=== PATIENT | male | born 1950 | race Caucasian/White ===

== ENCOUNTER 2020-05-05 07:24 | Outpatient (REF) | payer MEDICARE, SELFPAY | END 2020-05-05 07:25 | disposition home or self-care (01) | LOC: HO.WFDLDS 07:24 | PROVIDERS: Visit Provider Internal Medicine | DX: Z20.828 Contact with and (suspected) exposure to other viral communicable diseases (principal) | CPT/HCPCS: C9803; U0003 ==

== ENCOUNTER 2023-09-05 15:30 | Outpatient (REF) | payer MEDICARE, SELFPAY | END 2023-09-05 15:31 | disposition home or self-care (01) | LOC: HO.HOSX 15:30 | PROVIDERS: Visit Provider Orthopaedic Surgery | DX: Z13.89 Encounter for screening for other disorder (principal) ==

== ENCOUNTER 2023-09-06 09:45 | Outpatient (AMB) | payer MEDICARE, SELFPAY ==
--- NOTE | 2023-09-06 09:46 | MHC.OFFVIS ---
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 He describes his pain as sharp in nature. Most of the pain is along the medial aspect of his knee. His symptoms have gotten worse over the last year in spite of continued non operative treatments. He has had injections in the past which gave him minimal relief. He has also tried Tylenol, anti-inflammatory medicines and CBD cream which gave him mild relief. He states that his left knee will give out several times per day. The patient states that he recently had fluid drained from his right knee. He was told that there were gouty crystals within the fluid. He does not take any medicines for gout at this time. 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 Allergies No Known Allergies Allergy (Verified 09/06/23 10:09) PFSH Surgical History (Updated 09/06/23 @ 10:11 by Sandra Guillen CMA) History of ankle surgery Hx of left knee surgery Social History (Updated 09/06/23 @ 10:14 by Sandra Guillen CMA) Patient Tobacco Use Status: Never used Tobacco Current occupational status: retired Physical Exam Vital Signs: BMI result Body Mass Index 31.2 Const Other: Well-nourished well-developed very friendly male awake alert and oriented x3 in no acute distress Extrem Other: Bilateral lower extremity examination shows good capillary refill, no skin lesions noted, normal sensation light touch Left knee examination shows a minimal effusion, minimal crepitus with range of motion, tenderness along his medial joint line, positive Milly's test, no instability Office Procedures Joint Injection/Drain Joint Injection/Drain Primary Site: left knee Prep: site was prepped using aseptic technique Injected: 40 mg of, DepoMedrol and 1% plain lidocaine Procedure: The patient tolerated the procedure well Coding 26923 - Large joint Procedure code (CPT) selection complete Results Reviewed Results Reviewed: Standing full weight-bearing x-rays of the patient's left knee show mild diffuse joint space narrowing, no acute bony abnormalities Assessment & Plan Assessment & Plan (1) Left knee pain: Code(s): M25.562 - Pain in left knee Plan Mr. Gauthier presents with left knee pain and mechanical symptoms most likely due to a tear of his medial meniscus. I had a lengthy discussion with the patient regarding the treatment options. The risks and benefits of a another cortisone injection were discussed at length with the patient. The patient wished to proceed. Tolerated the injection well. In order to further evaluate the status of his medial meniscus I will also send him for an MRI of his left knee. I will also have him evaluated in our Rheumatology Department because of his history of gout. I will see him back once the MRI is completed to discuss the findings and treatment options. Feel free to call me at any time should questions regarding his orthopedic management arise. I spent 22 minutes in reviewing the patient's records and imaging studies, seeing the patient and documenting in the medical record. Orders: Orders XR knee LT 3V 09/06/23 M25.562 - Pain in left knee MR knee LT wo con 09/06/23 M25.562 - Pain in left knee AMB Joint Injection/Aspiration 09/06/23 M25.562 - Pain in left knee Referrals Rheumatology Referral M10.9 - Gout, unspecified Medications: New lorazepam (Ativan) Take 1 tab two hours before your MRI; take 2nd tab thirty minutes before your MRI 0.5 mg PO ONCE 2 tabs 0RF Coding Level of Care Code Est Pt Level 2 (99398) Diagnoses Left knee pain M25.562 CPT Codes Coding - 54317 Large joint: 01990 - Large joint ([id number])
[2023-09-06 10:06] VITALS: BMI 31.2
== END 2023-09-06 10:42 | disposition home or self-care (01) ==
PROVIDERS: Visit Provider Orthopaedic Surgery
DX: M25.562 Pain in left knee (principal)
CPT/HCPCS: 20610; 99213

== ENCOUNTER 2023-09-06 15:30 | Outpatient (REF) | payer MEDICARE, SELFPAY ==
--- NOTE | ~2023-09-06 | XR_ITS ---
EXAMINATION: XR KNEE, LEFT CLINICAL INFORMATION: Pain in left knee. COMPARISON: None available. TECHNIQUE: Three views of the left knee. FINDINGS: Mild narrowing of the medial and lateral compartments. Tiny tricompartmental osteophytes. Moderate suprapatellar effusion. Faint soft tissue calcifications characteristic of vascular calcifications. XR/XR knee LT 3V IMPRESSION: Mild degenerative changes.
== END 2023-09-06 15:31 | disposition home or self-care (01) ==
LOC: HO.HOSX 15:30
PROVIDERS: Visit Provider Orthopaedic Surgery
DX: M25.562 Pain in left knee (principal)
CPT/HCPCS: 20610; 73562; 99212; J1020

== ENCOUNTER 2023-09-25 09:40 | Outpatient (AMB) | payer MEDICARE, SELFPAY ==
[2023-09-25 09:41] VITALS: BMI 31.2
--- NOTE | 2023-09-25 09:41 | MHC.OFFVIS ---
Intake Vital Signs 09/25/23 09:41 Height 5 ft 8 in Weight 205 lb BMI 31.2 Intake Visit Reasons: OV-Left knee MRI review Intake Note: John is a 72 year old male who presents for his MRI review of his Left knee. The patient states that he did undergo left knee arthroscopic surgery several years ago. He got very good relief from the arthroscopic procedure. He states that he re-injured his knee approximately 1 year ago. He twisted his knee and had acute onset of pain. Since that time his symptoms have gotten worse in spite of continued non operative treatments. He has tried wearing a knee brace which gives him minimal relief. He has also tried Tylenol and anti-inflammatory medicines which gave him only mild relief. Has had cortisone injections in the past which gave him temporary relief. He states that his left knee will give out several times per day. Has not been able to sleep well or play golf because of his pain. Allergies No Known Allergies Allergy (Verified 09/25/23 09:42) Medication List - Last Reconciled 09/25/23 by Adonis Saenz MD amlodipine 5 mg PO DAILY amlodipine 10 mg PO DAILY aspirin 1 tab PO DAILY dulaglutide (Trulicity) mg subcut glipizide ER 10 mg PO BID lisinopril-hydrochlorothiazide 20-25 mg 1 tab PO DAILY lorazepam (Ativan) 0.5 mg PO ONCE prednisone mg PO PFSH Surgical History History of ankle surgery Hx of left knee surgery Social History Patient Tobacco Use Status: Never used Tobacco Current occupational status: retired Physical Exam Vital Signs: BMI result Body Mass Index 31.2 Const Other: Well-nourished well-developed very friendly male awake alert and oriented x3 in no acute distress Extrem Other: Bilateral lower extremity examination shows good capillary refill, no skin lesions noted, normal sensation light touch Left knee examination shows a minimal effusion, minimal crepitus with range of motion, tenderness along his medial joint line, positive Milly's test, no instability Results Reviewed Results Reviewed: Standing full weight-bearing x-rays of the patient's left knee show mild diffuse joint space narrowing, no acute bony abnormalities MRI of the patient's left knee shows a tear of the medial meniscus, mild diffuse degenerative changes, no acute bony abnormalities Assessment & Plan Assessment & Plan (1) Left knee pain: Code(s): M25.562 - Pain in left knee Plan Mr. Gauthier presents with progressively worsening left knee pain and mechanical symptoms due to degenerative joint disease as well as a tear of his medial meniscus. I had a lengthy discussion with the patient regarding the treatment options. At this point he has failed continued non operative treatments. The risks and benefits of left knee arthroscopic surgery were discussed at length with the patient. The patient wishes to proceed with surgery. Surgery will most likely involve left knee arthroscopic partial medial meniscectomy. The patient will be scheduled for next available date. He will follow-up as instructed. I spent 22 minutes in reviewing the patient's records and imaging studies, seeing the patient and documenting in the medical record. Coding Level of Care Code Est Pt Level 2 (30761) Diagnoses Left knee pain M25.562
== END 2023-09-25 09:58 | disposition home or self-care (01) ==
PROVIDERS: Visit Provider Orthopaedic Surgery
DX: M25.562 Pain in left knee (principal)
CPT/HCPCS: 99214

== ENCOUNTER → 2023-09-25 09:40 | Outpatient (BNVA) | payer MEDICARE, SELFPAY | PROVIDERS: Visit Provider Orthopaedic Surgery | DX: M25.562 Pain in left knee (principal) | CPT/HCPCS: 99212 ==

== ENCOUNTER 2023-10-09 10:24 | Outpatient (REF) | payer MEDICARE, SELFPAY ==
--- NOTE | ~2023-10-09 | XR_ITS ---
EXAMINATION: XR ELBOW, RIGHT XR HAND/WRIST, BILATERAL CLINICAL INFORMATION: Gout, pain in bilateral hands and elbows, no injury. COMPARISON: Left elbow images of 10/09/2023. TECHNIQUE: AP, lateral and oblique views of the right elbow. 4 views of each hand. FINDINGS: RIGHT ELBOW: Alignment is anatomic. Joint spaces are preserved. Mild soft tissue swelling over the olecranon characteristic of olecranon bursitis. Small calcifications adjacent to the medial and lateral epicondyles, suggesting possible tendinosis. Small calcification along the medial aspect of the distal humerus. RIGHT HAND: Marked degenerative changes in the first carpometacarpal joint with joint space narrowing and hypertrophic change. Moderate degenerative changes with hypertrophic change and joint space narrowing in scattered IP joints of the digits as well as in the first metacarpophalangeal joint. Moderate degenerative changes in the IP joint of the thumb. Sclerotic focus overlying the distal ulna characteristic of a bone island. LEFT HAND: Jmcdiinn-hs-ahdomy degenerative changes in the first carpometacarpal joint with joint space narrowing and hypertrophic change. The bones are diffusely demineralized. Mild degenerative changes with joint space narrowing and hypertrophic change in scattered IP joints, particularly DIP joints. Radiopaque marker placed to indicate area of concern indicated by patient at radial aspect of left wrist. XR/XR elbow RT min 3V IMPRESSION: 1. Mild soft tissue swelling over the olecranon characteristic of olecranon bursitis. 2. Small calcifications adjacent to the medial and lateral epicondyles, suggesting possible tendinosis. 3. Oypbgfcf-gu-ycockp degenerative changes in bilateral first carpometacarpal joints, right greater than left. 4. Mild degenerative changes in scattered IP joints of the bilateral hands. 5. Recommend follow up imaging in 10-14 days if fracture is suspected.
--- NOTE | ~2023-10-09 | XR_ITS ---
EXAMINATION: XR ELBOW, RIGHT XR HAND/WRIST, BILATERAL CLINICAL INFORMATION: Gout, pain in bilateral hands and elbows, no injury. COMPARISON: Left elbow images of 10/09/2023. TECHNIQUE: AP, lateral and oblique views of the right elbow. 4 views of each hand. FINDINGS: RIGHT ELBOW: Alignment is anatomic. Joint spaces are preserved. Mild soft tissue swelling over the olecranon characteristic of olecranon bursitis. Small calcifications adjacent to the medial and lateral epicondyles, suggesting possible tendinosis. Small calcification along the medial aspect of the distal humerus. RIGHT HAND: Marked degenerative changes in the first carpometacarpal joint with joint space narrowing and hypertrophic change. Moderate degenerative changes with hypertrophic change and joint space narrowing in scattered IP joints of the digits as well as in the first metacarpophalangeal joint. Moderate degenerative changes in the IP joint of the thumb. Sclerotic focus overlying the distal ulna characteristic of a bone island. LEFT HAND: Ahgmhsle-tp-sioobe degenerative changes in the first carpometacarpal joint with joint space narrowing and hypertrophic change. The bones are diffusely demineralized. Mild degenerative changes with joint space narrowing and hypertrophic change in scattered IP joints, particularly DIP joints. Radiopaque marker placed to indicate area of concern indicated by patient at radial aspect of left wrist. XR/XR hand wrist LT IMPRESSION: 1. Mild soft tissue swelling over the olecranon characteristic of olecranon bursitis. 2. Small calcifications adjacent to the medial and lateral epicondyles, suggesting possible tendinosis. 3. Yykshuif-lz-xnnwlg degenerative changes in bilateral first carpometacarpal joints, right greater than left. 4. Mild degenerative changes in scattered IP joints of the bilateral hands. 5. Recommend follow up imaging in 10-14 days if fracture is suspected.
--- NOTE | ~2023-10-09 | XR_ITS ---
EXAMINATION: XR ELBOW, RIGHT XR HAND/WRIST, BILATERAL CLINICAL INFORMATION: Gout, pain in bilateral hands and elbows, no injury. COMPARISON: Left elbow images of 10/09/2023. TECHNIQUE: AP, lateral and oblique views of the right elbow. 4 views of each hand. FINDINGS: RIGHT ELBOW: Alignment is anatomic. Joint spaces are preserved. Mild soft tissue swelling over the olecranon characteristic of olecranon bursitis. Small calcifications adjacent to the medial and lateral epicondyles, suggesting possible tendinosis. Small calcification along the medial aspect of the distal humerus. RIGHT HAND: Marked degenerative changes in the first carpometacarpal joint with joint space narrowing and hypertrophic change. Moderate degenerative changes with hypertrophic change and joint space narrowing in scattered IP joints of the digits as well as in the first metacarpophalangeal joint. Moderate degenerative changes in the IP joint of the thumb. Sclerotic focus overlying the distal ulna characteristic of a bone island. LEFT HAND: Eyxpmtoz-hj-hgqvlj degenerative changes in the first carpometacarpal joint with joint space narrowing and hypertrophic change. The bones are diffusely demineralized. Mild degenerative changes with joint space narrowing and hypertrophic change in scattered IP joints, particularly DIP joints. Radiopaque marker placed to indicate area of concern indicated by patient at radial aspect of left wrist. XR/XR hand wrist RT IMPRESSION: 1. Mild soft tissue swelling over the olecranon characteristic of olecranon bursitis. 2. Small calcifications adjacent to the medial and lateral epicondyles, suggesting possible tendinosis. 3. Foygiycg-xg-pmcsxy degenerative changes in bilateral first carpometacarpal joints, right greater than left. 4. Mild degenerative changes in scattered IP joints of the bilateral hands. 5. Recommend follow up imaging in 10-14 days if fracture is suspected.
--- NOTE | ~2023-10-09 | XR_ITS ---
EXAMINATION: XR ELBOW, LEFT CLINICAL INFORMATION: Gout, unspecified COMPARISON: None available. TECHNIQUE: AP, lateral, and oblique views of the left elbow. FINDINGS: The bones are intact. No fracture or joint effusion. Alignment is anatomic. Joint spaces are maintained. Question small erosions involving the medial epicondyle. Slight calcification adjacent to the lateral epicondyle can be seen with tendinosis. There is mild soft tissue swelling over the olecranon consistent with olecranon bursitis. XR/XR elbow LT min 3V IMPRESSION: 1. Olecranon bursitis. 2. Question of small erosions involving the medial epicondyle. 3. Slight calcification adjacent to the lateral epicondyle can be seen with tendinosis.
[2023-10-09 11:36] LABS: MANUAL DIFF FLAG NO
[2023-10-09 12:46] LABS: Basophils Absolute Auto 0.2 X10*3/uL (0.0-0.2); Basophils Percent Auto 1.4 % (0-2); Eosinophils Absolute Auto 0.3 X10*3/uL (0.0-0.4); Eosinophils Percent Auto 2.7 % (0-4); Hematocrit 38.3 % (42.0-52.0); Hemoglobin 12.8 g/dl (14.0-18.0); Imm Gran Abs Auto 0.05 X10*3/uL (0.00-0.03); Imm Gran Pct Auto 0.5 % (0.0-0.4); Lymphocytes Absolute Auto 1.8 X10*3/uL (1.2-4.9); Lymphocytes Percent Auto 17.4 % (20-40); Mean Corpuscular HGB Conc 33.4 g/dl (31.0-36.0); Mean Corpuscular Hemoglobin 28.1 pg (27.0-33.0); Mean Platelet Volume 11.5 fL (9.4-12.4); Monocytes Absolute Auto 0.8 X10*3/uL (0.1-1.2); Monocytes Percent Auto 7.8 % (2-11); Neutrophils Absolute Auto 7.4 x10*3/uL (2.0-8.3); Neutrophils Percent Auto 70.2 % (45-73); Platelet Count 272 X10*3/uL (160-400); Red Blood Count 4.56 X10*6/uL (4.60-5.80); Red Cell Distribution Width 13.7 % (11.0-16.0); White Blood Count 10.5 X10*3/uL (4.8-10.8)
[2023-10-09 13:06] LABS: Alanine Aminotransferase 23 U/L (0-40); Albumin Level 4.4 g/dL (3.5-5.0); Alkaline Phosphatase 68 U/L (39-117); Anion Gap 13 (12-20); Aspartate Amino Transferase 15 U/L (5-37); Bilirubin Total 0.4 mg/dL (0.0-1.0); Blood Urea Nitrogen 24 mg/dL (9-16); Calcium 9.6 mg/dL (8.4-10.2); Carbon Dioxide 27 mmol/L (22-29); Chloride 102 mmol/L (96-108); Estimated Glomerular Filt Rate 53; Glucose Random 139 mg/dL (60-115); Potassium 3.9 mmol/L (3.3-5.1); Sodium 138 mmol/L (135-145); Total Protein 7.8 g/dL (6.5-8.0); Uric Acid 10.3 mg/dL (3.4-7.0)
== END 2023-10-09 10:25 | disposition home or self-care (01) ==
LOC: HO.XRAY 10:24
PROVIDERS: PCP Internal Medicine; Visit Provider Student in an Organized Health Care Education/Training Program
DX: M10.9 Gout, unspecified (principal)
CPT/HCPCS: 36415; 73080; 73110; 73130; 80053; 84550; 85025; 99202

== ENCOUNTER 2023-10-09 10:24 | Outpatient (AMB) | payer MEDICARE, SELFPAY ==
[2023-10-09 10:26] VITALS: BP 142/68; PULSE 92; O2SAT 96; BMI 33.6
--- NOTE | 2023-10-09 10:26 | A.OFFVIS_ITS ---
Vital Signs 10/09/23 10:26 Height 5 ft 8 in Weight 220 lb 10.923 oz BMI 33.6 BP 142/68 H Blood Pressure Location Rt brachial Position Sitting Pulse 92 Pulse Source Pulse Oximeter Pulse Oximetry (%) 96 Oxygen Delivery Method Room Air Intake Visit Reasons: Gout Intake Note: New pt presents today for Gout consult, internally referred by Ortho. Sees specialists in [place]- PRP done, experienced knee pain. [facility] ED x2 joint aspiration done Gout confirmed, given steroid and felt relief right away. Pain came back 1 week later. 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 Patient states that back in June he had abrupt onset of right knee pain and swelling. He went to the emergency room at [facility] and had right knee arthrocentesis and was told that he has gout. He was treated with oral steroids with rapid resolution of symptoms in a few days. He has not had any similar attacks in his knees. States that last year he developed abrupt onset of right elbow bursitis. Was evaluated by an orthopedist and no treatment was done. It went away spontaneously. States that over the years he would have recurrent attacks of his right foot. States that he was found to have plantar fasciitis which was initially treated by fusion, which was not very helpful then he had another procedure at [place] where they cut out the scar tissue he denies any history of kidney stones he is unaware of any family history of an autoimmune rheumatic disease or gout. Today's doing fairly well except for left knee pain. He has known torn meniscus and planned for surgical repair in the coming week. ON LICENSE OF [facility] Surgical History History of ankle surgery Hx of left knee surgery Social History Alcohol intake: current Alcohol intake frequency: a few times a week Alcohol type: beer Patient Tobacco Use Status: Never used Tobacco Current occupational status: retired Review of Systems Const Reports fatigue Musc Reports arthralgias and Denies joint swelling Endo Reports fatigue Physical Exam Vital Signs: Last Vital Signs Pulse 92 10/09/23 10:26 BP 142/68 H 10/09/23 10:26 Pulse Ox 96 10/09/23 10:26 Oxygen Delivery Method Room Air 10/09/23 10:26 BMI result Body Mass Index 33.6 Const General: cooperative, healthy appearing and comfortable Nutritional Appearance: obese Orientation/consciousness: patient oriented x3 Limitations: no limitations HEENT Head: Yes normocephalic and Yes atraumatic Mouth: moist mucous membranes Resp Effort & Inspection: normal respiratory effort and able to speak in complete sentences Auscultation: clear to auscultation bilaterally Skin General skin exam: no rashes or lesions noted Neuro General: patient oriented x3 Extrem Other: Osteoarthritic changes of both hands with no active synovitis Mild boggy swelling of right external bursa but no warmth or tenderness Normal range of motion of both elbows Left knee pain with any range of motion No active synovitis No tophi noted No swelling or tenderness both ankles and feet Assessment & Plan Assessment & Plan (1) Gout: Code(s): M10.9 - Gout, unspecified Category: Medical Qualifiers: Gout site: multiple sites Gout etiology: idiopathic Chronicity: chronic Presence of tophus: without tophus Qualified Code(s): M1A.09X0 - Idiopathic chronic gout, multiple sites, without tophus (tophi) Plan: This is a 72-year-old male who presents for evaluation of gout. Back in June of 2023 he went to the hospital due to abrupt onset of right knee pain and swelling. Arthrocentesis revealed gout crystals according to patient. Will request records from [facility]. Stated that a few years ago evaluated by hand surgeon and there was suspicion of gout in the hands. Had 1 episode of right elbow bursitis last year which self-resolved. Will check uric acid level. Check x-rays of both elbows and hands. Follow-up in about 6 weeks Plan I spent 36 minutes reviewing patient's chart, evaluating patient, ordering diagnostic workup, counseling patient and documenting in the chart Orders: Orders Uric Acid Today M10.9 - Gout, unspecified XR hand wrist RT Today M10.9 - Gout, unspecified Comprehensive Met. Panel Today M10.9 - Gout, unspecified Complete Blood Count Auto Diff Today M10.9 - Gout, unspecified XR hand wrist LT Today M10.9 - Gout, unspecified XR elbow RT min 3V Today M10.9 - Gout, unspecified XR elbow LT min 3V Today M10.9 - Gout, unspecified
== END 2023-10-09 11:06 | disposition home or self-care (01) ==
PROVIDERS: PCP Internal Medicine; Visit Provider Student in an Organized Health Care Education/Training Program
DX: M1A.09X0 Idiopathic chronic gout, multiple sites, without tophus (tophi) (principal)
CPT/HCPCS: 99203

== ENCOUNTER 2023-10-19 07:06 | Day surgery (SDC) | payer MEDICARE, SELFPAY ==
[2023-10-16 15:00] VITALS: BMI 31.2
--- NOTE | 2023-10-17 12:40 | P.CONAN_ITS ---
HPI - Anesthesia Eval Consult details Narrative: 72yo M for Left Knee Arthroscopy with partial medial meniscectomy Anesthesia Pre-Procedure Meds Is the patient on any of the following meds?: GLP1/DPP4 (trulicity) PMFSH Active Problems Active Problems: All Active Problems Gout (Acute) Left knee pain (Acute) Past Medical History Medical History Gout TIA (transient ischemic attack) Diabetes Elevated cholesterol HTN (hypertension) Surgical History Surgical History H/O colonoscopy History of surgery on lower extremity History of ankle surgery Hx of left knee surgery Social History Social History Are you a primary regular senior care provider to a significant other at home: No Alcohol intake: current Alcohol intake frequency: a few times a week Alcohol type: beer Patient Tobacco Use Status: Former Tobacco user Quit Date: 40 Tobacco use type: Cigarette Current occupational status: retired Meds Allergies Allergy/AdvReac Type Severity Reaction Status Date / Time No Known Allergies Allergy Verified 10/09/23 10:32 Home Medications ?Medication ?Instructions ?Recorded ?Confirmed ?Last Taken ?Type amlodipine 10 mg tablet 10 mg PO QAM 09/06/23 10/16/23 10/19/23 History aspirin 81 mg chewable tablet 1 tab PO DAILY 09/06/23 10/16/23 Unknown History dulaglutide 0.75 mg/0.5 mL 0.75 mg subcut QWEEK 09/06/23 10/16/23 10/01/23 History subcutaneous pen injector (Trulicity) glipizide 5 mg tablet, extended 10 mg PO BID 09/06/23 10/16/23 Unknown History release 24 hr lisinopril 20 2 tab PO QAM 09/06/23 10/16/23 Unknown History mg-hydrochlorothiazide 25 mg tablet atorvastatin 40 mg tablet 40 mg PO DAILY 10/09/23 10/16/23 Unknown History Exam Height,Weight and Vital Signs: Height 5 ft 8 in Weight 92.986 kg Pertinent Lab Results Pertinent Lab Results: Laboratory Tests 10/09/23 11:35 WBC 10.5 Hgb 12.8 L Hct 38.3 L Plt Count 272 Sodium 138 Potassium 3.9 Chloride 102 Carbon Dioxide 27 BUN 24 H Creatinine 1.33 Assessment and Plan Assessment Anesthesia Assessment: Chart Reviewed
[2023-10-19 07:41] VITALS: BMI 33.4
[2023-10-19 07:45] VITALS: BP 125/69; PULSE 94; RESP 18; TEMP 36.6; O2SAT 95
--- NOTE | 2023-10-19 07:45 | P.CONAN_ITS ---
FORMERLY [facility] Active Problems Active Problems: All Active Problems Gout (Acute) Left knee pain (Acute) Past Medical History Medical History Gout TIA (transient ischemic attack) Diabetes Elevated cholesterol HTN (hypertension) Family History Family history of problems with anesthesia: No Surgical History Surgical History H/O colonoscopy History of surgery on lower extremity History of ankle surgery Hx of left knee surgery History of Problems with Anesthesia: No Social History Social History Are you a primary rn medicare to a significant other at home: No Alcohol intake: current Alcohol intake frequency: a few times a week Alcohol type: beer Patient Tobacco Use Status: Former Tobacco user Quit Date: 40 Tobacco use type: Cigarette Use of substances other than those prescribed or required for medical reasons: Yes Substance Use Type Other:: thc gummy for sleep Substance Use Frequency: Daily Have you been hit, kicked, punched, or otherwise hurt by someone within the past year? If so, by whom?: No Are you DNR?: No Advance Directives Information Provided: Yes (as above noted) Advance Directives on File: No Recently lost weight without trying: No Eating poorly because of decreased appetite: No Nutrition Risks: No Nutritional Risk Poor oral hygiene: No Current occupational status: retired [email or web address] Allergies Allergy/AdvReac Type Severity Reaction Status Date / Time No Known Allergies Allergy Verified 10/09/23 10:32 Active Medications: Current Medications Lactated Ringer's (Lr) 1,000 mls @ 100 mls/hr IVCONT .Q10H [facility] Home Medications ?Medication ?Instructions ?Recorded ?Confirmed ?Last Taken ?Type amlodipine 10 mg tablet 10 mg PO QAM 09/06/23 10/16/23 Unknown History aspirin 81 mg chewable tablet 1 tab PO DAILY 09/06/23 10/16/23 Unknown History dulaglutide 0.75 mg/0.5 mL 0.75 mg subcut QWEEK 09/06/23 10/16/23 10/01/23 History subcutaneous pen injector (Trulicity) glipizide 5 mg tablet, extended 10 mg PO BID 09/06/23 10/16/23 Unknown History release 24 hr lisinopril 20 2 tab PO QAM 09/06/23 10/16/23 Unknown History mg-hydrochlorothiazide 25 mg tablet atorvastatin 40 mg tablet 40 mg PO DAILY 10/09/23 10/16/23 Unknown History Exam Height,Weight and Vital Signs: Height 5 ft 8 in Weight 99.79 kg Airway Mallampati Class: II TM Dist: >3cm Neck ROM: Full Heart: RRR Lungs: CTA Assessment and Plan Assessment Anesthesia Assessment: Anesthesia Plan Discussed Final Anesthetic Review Family History of Problems with Anesthesia: No History of Problems with Anesthesia: No NPO: Yes ASA Class: III Final Preanesthetic Review: Meds/Allgs Chart Reviewed, Consent Obtained/Reviewed and Anes Risks/Benef Reviewed Patient Risk: Intermediate Procedure Risk: Low Anesthetic Plan Anesthetic Plan: GA Disposition: Standard PACU
[2023-10-19 07:57] LABS: Glucose, Whole Blood 208 mg/dL (60-115)
[2023-10-19] MEDS: Lactated Ringers 1,000 ML 100 ML IVCONT (08:18)
[2023-10-19] MEDS: Insulin Lispro 100 UNIT/ML 3 ML VIAL SUBCUT (08:18)
--- NOTE | 2023-10-19 09:07 | PC.NURSE ---
ASKED PT IF HE EVER SIGNED ANY PAPERWORK FOR DO NOT RESUSCITATE WHEN ANESTHESIA AT BEDSIDE FOR CONSENT, STATED HE DID NOT SIGN PPWK FOR DNR. CLARIFIED AT BEDSIDE PRIOR TO LEAVING AGAIN WITH DNR CLARIFICATION FORM. ALSO PT WITH ELEVATED BLOOD SUGAR AND GIVEN 5 UNITS LISPRO SC IN PREOP (SEE EMAR)
[2023-10-19 10:20] VITALS: BP 136/72; PULSE 87; RESP 16; TEMP 36.3; O2SAT 96
[2023-10-19 10:25] VITALS: BP 126/75; PULSE 85; RESP 18; O2SAT 94
--- NOTE | 2023-10-19 10:28 | P.BOP_ITS ---
Brief Operative Note Date of Service: 10/19/23 Pre-op diagnosis: Left knee medial meniscus tear, left knee degenerative joint disease Post-op diagnosis: same Procedure: Left knee diagnostic arthroscopy with left knee arthroscopic partial medial meniscectomy, left knee arthroscopic chondroplasty of the undersurface of the patella and medial femoral condyle Implants: none Surgeon: Adonis Saenz MD Anesthesia: GETA Was an Fire Extinguisher Repairer used for this Procedure?: No Estimated blood loss (mL): 10 Pathology: none sent Condition: stable Disposition: PACU
--- NOTE | 2023-10-19 10:29 | W.PM.OPN ---
Operative Note Operative Note Date of Service: 10/19/23 Narrative: After the patient was identified as John Gauthier and his left knee was initialed by myself they were brought to the operating room where general anesthesia was induced by the anesthesiologist in routine fashion. The patient was given 2 g of IV Ancef for infection prophylaxis. The patient's left lower extremity was prepped and draped in sterile fashion. A formal time-out was completed. Marcaine was injected into the planned incision sites as well as the patient's left knee joint. A #11 scalpel blade was used to make an anterolateral portal 1 cm proximal to the joint line and 1 cm lateral to the patellar tendon. Blunt trocar technique was used to enter the suprapatellar pouch with the knee in extension. Diagnostic arthroscopy showed multiple bands of thickened plica which would be excised at the end of the procedure. There were no loose bodies or abnormalities found in either the medial or lateral gutters. The articular surface of the patella showed diffuse grades 2 and 3 degenerative changes. The trochlear groove articular surface showed diffuse grade 2 degenerative changes. The patient's knee was flexed to 45 degrees and a valgus force was placed upon it. The medial compartment was entered. An anteromedial portal was made 1 cm proximal to the joint line and 1 cm medial to the patellar tendon. Probing of the medial meniscus showed a radial tear of the posterior horn. A partial medial meniscectomy was performed using the arthroscopic shaver. Following the partial meniscectomy the remainder of the meniscus tissue was stable. There were diffuse grade 2 degenerative changes of the medial femoral condyle as well as grades 1 and 2 degenerative changes of the medial tibial plateau. The articular surface of the medial femoral condyle was then made smooth using the arthroscopic shaver. The articular surface of the medial tibial plateau was already smooth so no chondroplasty was indicated. The patient's knee was placed into a neutral position. There was no injury to the anterior cruciate ligament. The patient's knee was then placed in the figure of 4 position and the lateral compartment was entered. There was no evidence of lateral meniscus tearing. There were minimal degenerative changes of the lateral femoral condyle and lateral tibial plateau. The patient's knee was once again brought into extension and the suprapatellar pouch was entered. The arthroscopic shaver and the ArthroCare Wand were used to excise the thickened bands of plica. The undersurface of the patella was then made smooth using the arthroscopic shaver. The articular surface of the trochlear groove was already smooth so no chondroplasty was indicated. The knee joint was irrigated and then drained. All arthroscopic instruments were removed. The 2 portals were closed with 3-0 nylon interrupted suture. The knee joint was injected with Marcaine. Dry sterile dressing and Bonifacio bandages were placed over the patient's knee. The patient was awoken and extubated in the operating room. The patient was transferred to the recovery room in stable condition.
[2023-10-19 10:30] VITALS: BP 120/65; PULSE 80; RESP 18; O2SAT 93
[2023-10-19 10:35] VITALS: BP 115/75; PULSE 86; RESP 18; O2SAT 94
[2023-10-19] MEDS: cefTRIAXone sodium 1 GM in 0.9 % Sodium Chloride 50 ML IV (10:42)
[2023-10-19 10:50] VITALS: BP 119/74; PULSE 90; RESP 18; TEMP 36.4; O2SAT 93
--- NOTE | 2023-10-19 14:00 | HO.POSTANES ---
Post Anesthesia Evaluation Post Anesthesia Evaluation Date of Service: 10/19/23 Vital Signs: Vital Signs Temp Pulse Resp BP Pulse Ox O2 Del Method O2 Flow Rate 10/19/23 10:50 97.6 F 90 18 119/74 93 Nasal Cannula 1.5 10/19/23 10:35 86 18 115/75 94 Nasal Cannula 3 10/19/23 10:30 80 18 120/65 93 Nasal Cannula 3 10/19/23 10:25 85 18 126/75 94 Simple Mask 6 10/19/23 10:20 97.4 F 87 16 136/72 96 Simple Mask 6 10/19/23 07:45 97.9 F 94 18 125/69 95 Room Air Anesthesia: General Endotracheal-GETA and General Mental Status: Awake Pain Control: Satisfactory Nausea/Vomiting: None Hydration: Adequate
== END 2023-10-19 11:35 | disposition home or self-care (01) ==
PROVIDERS: PCP Internal Medicine; Visit Provider Orthopaedic Surgery
PROC: (CPT 29870; principal; 2023-10-19 08:30)
DX: S83.242A Other tear of medial meniscus, current injury, left knee, initial encounter (principal); M17.12 Unilateral primary osteoarthritis, left knee; M67.52 Plica syndrome, left knee; X50.1XXA Overexertion from prolonged static or awkward postures, initial encounter; Y93.9 Activity, unspecified; Y92.9 Unspecified place or not applicable; Y99.8 Other external cause status; M10.9 Gout, unspecified; I10 Essential (primary) hypertension; E78.00 Pure hypercholesterolemia, unspecified; E11.9 Type 2 diabetes mellitus without complications; Z86.73 Personal history of transient ischemic attack (TIA), and cerebral infarction without residual deficits; Z79.82 Long term (current) use of aspirin; Z79.84 Long term (current) use of oral hypoglycemic drugs; Z79.85 Long-term (current) use of injectable non-insulin antidiabetic drugs; Z79.52 Long term (current) use of systemic steroids; Z79.899 Other long term (current) drug therapy; Z98.890 Other specified postprocedural states; Z87.891 Personal history of nicotine dependence
CPT/HCPCS: 29881; 82947; J0131; J0171; J0690; J0696; J1100; J2250; J2405; J2704; J2765; J2795; J3010

== ENCOUNTER → 2023-10-19 07:06 | Outpatient (BNV) | payer MEDICARE, SELFPAY | PROVIDERS: PCP Internal Medicine; Visit Provider Orthopaedic Surgery | DX: S83.242A Other tear of medial meniscus, current injury, left knee, initial encounter (principal) | CPT/HCPCS: 29881 ==

== ENCOUNTER 2023-11-01 09:06 | Outpatient (AMB) | payer MEDICARE, SELFPAY ==
--- NOTE | 2023-11-01 09:11 | MHC.OFFVIS ---
Vital Signs 11/01/23 09:12 Height 5 ft 8 in Weight 215 lb BMI 32.7 Intake Visit Reasons: PO LT knee 10/19/23 Intake Note: John is a 72 year old male who presents for his post operative appointment s/p Left knee on 10/19/2023. The patient reports mild intermittent discomfort in his left knee. He denies any fevers or chills. He states that he notices the discomfort mostly at night. He denies any locking or giving way. Allergies No Known Allergies Allergy (Verified 11/01/23 09:18) Medication List - Last Reconciled 11/02/23 by Adonis Saenz MD amlodipine 10 mg PO QAM aspirin 1 tab PO DAILY atorvastatin 40 mg PO DAILY dulaglutide (Trulicity) 0.75 mg subcut QWEEK glipizide ER 10 mg PO BID lisinopril-hydrochlorothiazide 20-25 mg 2 tabs PO QAM oxycodone 5 mg PO Q6H PRN PFSH Medical History Gout TIA (transient ischemic attack) Diabetes Elevated cholesterol HTN (hypertension) Surgical History H/O colonoscopy History of surgery on lower extremity History of ankle surgery Hx of left knee surgery Social History Are you a primary director of primary care to a significant other at home: No Alcohol intake: current Alcohol intake frequency: a few times a week Alcohol type: beer Patient Tobacco Use Status: Former Tobacco user Quit Date: 40 Tobacco use type: Cigarette Current occupational status: retired Physical Exam Vital Signs: BMI result Body Mass Index 32.7 Extrem Other: Left knee examination shows that the surgical incisions are healing well, no erythema, minimal discomfort with range of motion, no instability Assessment & Plan Assessment & Plan (1) Left knee pain: Code(s): M25.562 - Pain in left knee Category: Medical Plan Mr. Gauthier is doing very well after undergoing left knee arthroscopic surgery on 10/19/2023. His sutures were removed and Steri-Strips placed over his incisions. He will continue with activities as tolerated. He will follow up with Rheumatology for further evaluation for possible gout as scheduled. He will contact me prior to his follow-up appointment in 6 weeks should any questions or concerns arise. Coding Level of Care Code Global (31153) Diagnoses Left knee pain M25.562
[2023-11-01 09:12] VITALS: BMI 32.7
== END 2023-11-01 09:41 | disposition home or self-care (01) ==
PROVIDERS: Visit Provider Orthopaedic Surgery
DX: M25.562 Pain in left knee (principal)
CPT/HCPCS: 99024

== ENCOUNTER → 2023-11-01 09:06 | Outpatient (BNVA) | payer MEDICARE, SELFPAY | PROVIDERS: Visit Provider Orthopaedic Surgery | DX: M25.562 Pain in left knee (principal) | CPT/HCPCS: 99212 ==

== ENCOUNTER 2023-11-22 07:52 | Outpatient (AMB) | payer MEDICARE, SELFPAY ==
[2023-11-22 07:55] VITALS: BP 116/64; PULSE 94; O2SAT 96; BMI 33.2
--- NOTE | 2023-11-22 07:55 | MHC.OFFVIS ---
Vital Signs 11/22/23 07:55 Height 5 ft 8 in Weight 218 lb 4.122 oz BMI 33.2 BP 116/64 Blood Pressure Location Rt brachial Position Sitting Pulse 94 Pulse Source Pulse Oximeter Pulse Oximetry (%) 96 Oxygen Delivery Method Room Air Intake Visit Reasons: Gout/LM Intake Note: Reorts gout flare a little over a month ago. Had left knee surgery Dr Saenz Design Intern Required: No Accompanied by: Self / Same As Patient Allergies No Known Allergies Allergy (Verified 11/22/23 08:01) Medication List - Last Reconciled 11/22/23 by Josef Berg MD amlodipine 10 mg PO QAM aspirin 1 tab PO DAILY atorvastatin 40 mg PO DAILY dulaglutide (Trulicity) 0.75 mg subcut QWEEK glipizide ER 10 mg PO BID lisinopril-hydrochlorothiazide 20-25 mg 2 tabs PO QAM HPI Comments Details: 72-year-old male with gout returns for follow-up after completion of his diagnostic workup. No recent gout flare-ups Initially history: This is a 72-year-old male who presents for evaluation of gout. Patient states that back in June he had abrupt onset of right knee pain and swelling. He went to the emergency room at [facility] and had right knee arthrocentesis and was told that he has gout. He was treated with oral steroids with rapid resolution of symptoms in a few days. He has not had any similar attacks in his knees. States that last year he developed abrupt onset of right elbow bursitis. Was evaluated by an orthopedist and no treatment was done. It went away spontaneously. States that over the years he would have recurrent attacks of his right foot. States that he was found to have plantar fasciitis which was initially treated by fusion, which was not very helpful then he had another procedure at [facility] where they cut out the scar tissue he denies any history of kidney stones he is unaware of any family history of an autoimmune rheumatic disease or gout. Today's doing fairly well except for left knee pain. He has known torn meniscus and planned for surgical repair in the coming week. REPLACED BY [facility] Medical History Gout TIA (transient ischemic attack) Diabetes Elevated cholesterol HTN (hypertension) Surgical History H/O colonoscopy History of surgery on lower extremity History of ankle surgery Hx of left knee surgery Social History Are you a primary critical care specialist to a significant other at home: No Alcohol intake: current Alcohol intake frequency: a few times a week Alcohol type: beer Patient Tobacco Use Status: Former Tobacco user Tobacco use type: Cigarette Current occupational status: retired Review of Systems [facility] Reports arthralgias and Denies joint swelling Physical Exam Vital Signs: Last Vital Signs Pulse 94 11/22/23 07:55 BP 116/64 11/22/23 07:55 Pulse Ox 96 11/22/23 07:55 Oxygen Delivery Method Room Air 11/22/23 07:55 BMI result Body Mass Index 33.2 Const General: cooperative, healthy appearing and comfortable Nutritional Appearance: obese Orientation/consciousness: patient oriented x3 Limitations: no limitations HEENT Head: Yes normocephalic and Yes atraumatic Mouth: moist mucous membranes Resp Effort & Inspection: normal respiratory effort and able to speak in complete sentences Skin General skin exam: no rashes or lesions noted Neuro General: patient oriented x3 Extrem Other: Osteoarthritic changes of both hands with no active synovitis Assessment & Plan Assessment & Plan (1) Gout: Code(s): M10.9 - Gout, unspecified Category: Medical Qualifiers: Gout site: multiple sites Gout etiology: idiopathic Chronicity: chronic Presence of tophus: without tophus Qualified Code(s): M1A.09X0 - Idiopathic chronic gout, multiple sites, without tophus (tophi) Plan: This is a 72-year-old male with gout presents for follow-up. Initial uric acid level 10.3 Discussed gout management. Start allopurinol 50 mg daily for 2 weeks then 100 mg daily. Discussed potential side effects of allopurinol Start colchicine 0.6 mg daily. To discuss potential side effects of colchicine. Discussed low purine diet. I gave patient a printout of foods to avoid and foods that can help gout Consider using tart davis extract. Ice affected joints when in a gout attack Labs before next visit in 3 months Plan I spent 26 minutes reviewing patient's chart, evaluating patient, ordering diagnostic workup, counseling patient and documenting in the chart Orders: Orders Comprehensive Met. Panel 3 Months M1A.09X0 - Idiopathic chronic gout, multiple sites, without tophus (tophi) Uric Acid 3 Months M1A.09X0 - Idiopathic chronic gout, multiple sites, without tophus (tophi) Medications: New allopurinol Take half a tablet daily for 2 weeks then 1 tab daily 90 tabs 0RF colchicine 0.6 mg PO DAILY 90 tabs 0RF Coding Level of Care Code Est Pt Level 4 (75551) Diagnoses Idiopathic chronic gout of multiple sites without tophus M1A.09X0 Gout site: multiple sites Gout etiology: idiopathic Chronicity: chronic Presence of tophus: without tophus
== END 2023-11-22 08:21 | disposition home or self-care (01) ==
PROVIDERS: PCP Internal Medicine; Visit Provider Student in an Organized Health Care Education/Training Program
DX: M1A.09X0 Idiopathic chronic gout, multiple sites, without tophus (tophi) (principal)
CPT/HCPCS: 99214

== ENCOUNTER → 2023-11-22 07:52 | Outpatient (BNVA) | payer MEDICARE, SELFPAY | PROVIDERS: PCP Internal Medicine; Visit Provider Student in an Organized Health Care Education/Training Program | DX: M1A.09X0 Idiopathic chronic gout, multiple sites, without tophus (tophi) (principal) | CPT/HCPCS: 99212 ==

== ENCOUNTER 2024-01-08 10:22 | Outpatient (AMB) | payer MEDICARE, SELFPAY ==
--- NOTE | 2024-01-08 10:24 | MHC.OFFVIS ---
Intake Visit Reasons: OV LT knee 10/19/23 DR Worley Note: John is a 73 year old male who presents to the office today for a Left knee 10/19/23 follow up. The patient reports continued discomfort in his left knee. He denies any locking or giving way. Was seen by Dr. Berg from Rheumatology who put him on colchicine and allopurinol for treatment of gout. He continues with his home exercise program. He would like to avoid further surgery if possible. Allergies No Known Allergies Allergy (Verified 01/08/24 10:24) Medication List - Last Reconciled 01/08/24 by Adonis Saenz MD allopurinol Take half a tablet daily for 2 weeks then 1 tab daily amlodipine 10 mg PO QAM aspirin 1 tab PO DAILY atorvastatin 40 mg PO DAILY colchicine 0.6 mg PO DAILY dulaglutide (Trulicity) 0.75 mg subcut QWEEK glipizide ER 10 mg PO BID lisinopril-hydrochlorothiazide 20-25 mg 2 tabs PO QAM PFSH Medical History Gout TIA (transient ischemic attack) Diabetes Elevated cholesterol HTN (hypertension) Surgical History H/O colonoscopy History of surgery on lower extremity History of ankle surgery Hx of left knee surgery Social History Are you a primary critical care technician to a significant other at home: No Alcohol intake: current Alcohol intake frequency: a few times a week Alcohol type: beer Patient Tobacco Use Status: Former Tobacco user Tobacco use type: Cigarette Current occupational status: retired Physical Exam Const Other: Well-nourished well-developed very friendly male awake alert and oriented x3 in no acute distress Extrem Other: Left knee examination shows that the surgical incisions are well healed, no erythema, mild crepitus with range of motion, no instability Assessment & Plan Assessment & Plan (1) Left knee pain: Code(s): M25.562 - Pain in left knee Category: Medical Plan Mr. Gauthier continues to do fairly well after undergoing left knee arthroscopic surgery on 10/19/2023. He does have residual discomfort due to gout as well as degenerative joint disease. At this point the patient's symptoms are tolerable to him. He will continue with his activity modifications. He will contact me prior to his follow-up appointment in 3 months should any questions or concerns arise. Feel free to call me at any time should questions regarding his orthopedic management arise. I spent 22 minutes in reviewing the patient's records and imaging studies, seeing the patient and documenting in the medical record. Coding Level of Care Code Global (67312) Diagnoses Left knee pain M25.562
== END 2024-01-08 10:46 | disposition home or self-care (01) ==
PROVIDERS: PCP Internal Medicine; Visit Provider Orthopaedic Surgery
DX: M25.562 Pain in left knee (principal)
CPT/HCPCS: 99024

== ENCOUNTER → 2024-01-08 10:22 | Outpatient (BNVA) | payer MEDICARE, SELFPAY | PROVIDERS: PCP Internal Medicine; Visit Provider Orthopaedic Surgery | DX: M17.12 Unilateral primary osteoarthritis, left knee (principal); M10.9 Gout, unspecified | CPT/HCPCS: 99212 ==

== ENCOUNTER 2024-02-13 11:04 | Outpatient (REF) | payer MEDICARE, SELFPAY ==
[2024-02-13 12:28] LABS: Alanine Aminotransferase 58 U/L (0-40); Alkaline Phosphatase 65 U/L (39-117); Anion Gap 14 (12-20); Aspartate Amino Transferase 29 U/L (5-37); Bilirubin Total 0.3 mg/dL (0.0-1.0); Blood Urea Nitrogen 25 mg/dL (9-16); Calcium 9.3 mg/dL (8.4-10.2); Carbon Dioxide 25 mmol/L (22-29); Chloride 101 mmol/L (96-108); Estimated Glomerular Filt Rate 48; Glucose Random 326 mg/dL (60-115); Potassium 3.9 mmol/L (3.3-5.1); Sodium 136 mmol/L (135-145); Total Protein 7.3 g/dL (6.5-8.0); Uric Acid 8.3 mg/dL (3.4-7.0)
== END 2024-02-13 11:05 | disposition home or self-care (01) ==
LOC: HO.LAB 11:04
PROVIDERS: PCP Internal Medicine; Visit Provider Student in an Organized Health Care Education/Training Program
DX: M1A.09X0 Idiopathic chronic gout, multiple sites, without tophus (tophi) (principal)
CPT/HCPCS: 36415; 80053; 84550

== ENCOUNTER 2024-02-25 09:29 | Outpatient (AMB) | payer MEDICARE, SELFPAY ==
[2024-02-25 09:39] VITALS: BP 118/74; PULSE 86; O2SAT 96; BMI 33.5
--- NOTE | 2024-02-25 09:39 | MHC.OFFVIS ---
Vital Signs 02/25/24 09:39 Height 5 ft 8 in Weight 220 lb 0.341 oz BMI 33.5 BP 118/74 Blood Pressure Location Lt brachial Position Sitting Pulse 86 Pulse Source Pulse Oximeter Pulse Oximetry (%) 96 Oxygen Delivery Method Room Air Intake Visit Reasons: Gout Intake Note: Patient presents today for follow up on gout and uric acid lab review. He was last seen on 11/22/2023. Allergies No Known Allergies Allergy (Verified 02/25/24 09:43) Medication List - Last Reconciled 02/25/24 by Josef Berg MD allopurinol 200 mg PO DAILY amlodipine 10 mg PO QAM aspirin 1 tab PO DAILY atorvastatin 40 mg PO DAILY colchicine 0.6 mg PO Q OTHER DAY dulaglutide (Trulicity) 0.75 mg subcut QWEEK glipizide ER 10 mg PO BID lisinopril-hydrochlorothiazide 20-25 mg 2 tabs PO QAM HPI Comments Details: 73-year-old male with gout returns for follow-up. Has been taking allopurinol and colchicine as prescribed. States that he gets intermittent diarrhea and soft stools. Has not had any gout flare-ups since last visit. Doing better overall but is frustrated that he can not get his blood sugar under control because his insurance companies not cover the effective meds consistently Initially history: This is a 72-year-old male who presents for evaluation of gout. Patient states that back in June he had abrupt onset of right knee pain and swelling. He went to the emergency room at [facility] and had right knee arthrocentesis and was told that he has gout. He was treated with oral steroids with rapid resolution of symptoms in a few days. He has not had any similar attacks in his knees. States that last year he developed abrupt onset of right elbow bursitis. Was evaluated by an orthopedist and no treatment was done. It went away spontaneously. States that over the years he would have recurrent attacks of his right foot. States that he was found to have plantar fasciitis which was initially treated by fusion, which was not very helpful then he had another procedure at [facility] where they cut out the scar tissue he denies any history of kidney stones he is unaware of any family history of an autoimmune rheumatic disease or gout. Today's doing fairly well except for left knee pain. He has known torn meniscus and planned for surgical repair in the coming week. [facility] Medical History Gout TIA (transient ischemic attack) Diabetes Elevated cholesterol HTN (hypertension) Surgical History H/O colonoscopy History of surgery on lower extremity History of ankle surgery Hx of left knee surgery Social History Are you a primary patient care technician to a significant other at home: No Alcohol intake: current Alcohol intake frequency: a few times a week Alcohol type: beer Patient Tobacco Use Status: Former Tobacco user Tobacco use type: Cigarette Current occupational status: retired Review of Systems [employer] Denies arthralgias and Denies joint swelling Physical Exam Vital Signs: Last Vital Signs Pulse 86 02/25/24 09:39 BP 118/74 02/25/24 09:39 Pulse Ox 96 02/25/24 09:39 Oxygen Delivery Method Room Air 02/25/24 09:39 BMI result Body Mass Index 33.5 Const General: cooperative, healthy appearing and comfortable Nutritional Appearance: obese Orientation/consciousness: patient oriented x3 Limitations: no limitations HEENT Head: Yes normocephalic and Yes atraumatic Mouth: moist mucous membranes Resp Effort & Inspection: normal respiratory effort and able to speak in complete sentences Skin General skin exam: no rashes or lesions noted Neuro General: patient oriented x3 Extrem Other: Osteoarthritic changes of both hands with no active synovitis Assessment & Plan Assessment & Plan (1) Gout: Comment: Initial uric acid 10.3 Allopurinol + colchicine started 11/2023 Code(s): M10.9 - Gout, unspecified Category: Medical Qualifiers: Gout site: multiple sites Gout etiology: idiopathic Chronicity: chronic Presence of tophus: without tophus Qualified Code(s): M1A.09X0 - Idiopathic chronic gout, multiple sites, without tophus (tophi) Plan: This is a 73-year-old male with gout presents for follow-up. Initial uric acid level 10.3 Doing much better overall on allopurinol 100 mg daily and colchicine 0.6 mg every other day. Gets intermittent soft stools. Repeat uric acid level 8.3 . Still not at target We will need to increase allopurinol Increase allopurinol to 200 mg daily Reduce colchicine to 0.6 mg every other day Labs before next visit in 3 months Plan I spent 26 minutes reviewing patient's chart, evaluating patient, ordering diagnostic workup, counseling patient and documenting in the chart Orders: Orders Complete Blood Count Auto Diff 3 Months M1A.X0 - Idiopathic chronic gout, multiple sites, without tophus (tophi) Comprehensive Met. Panel 3 Months M1A.X0 - Idiopathic chronic gout, multiple sites, without tophus (tophi) Uric Acid 3 Months M1A.09X0 - Idiopathic chronic gout, multiple sites, without tophus (tophi) Medications: Changed From colchicine 0.6 mg PO DAILY 90 tabs 0RF To colchicine 0.6 mg PO Q OTHER DAY 45 tabs 0RF Coding Level of Care Code Est Pt Level 4 (46321) Diagnoses Idiopathic chronic gout of multiple sites without tophus M1A.X0 Gout site: multiple sites Gout etiology: idiopathic Chronicity: chronic Presence of tophus: without tophus
== END 2024-02-25 10:06 | disposition home or self-care (01) ==
PROVIDERS: PCP Internal Medicine; Visit Provider Student in an Organized Health Care Education/Training Program
DX: M1A.09X0 Idiopathic chronic gout, multiple sites, without tophus (tophi) (principal)
CPT/HCPCS: 99214

== ENCOUNTER → 2024-02-25 09:29 | Outpatient (BNVA) | payer MEDICARE, SELFPAY | PROVIDERS: PCP Internal Medicine; Visit Provider Student in an Organized Health Care Education/Training Program | DX: M1A.09X0 Idiopathic chronic gout, multiple sites, without tophus (tophi) (principal) | CPT/HCPCS: 99212 ==

== ENCOUNTER 2024-04-09 09:38 | Outpatient (AMB) | payer MEDICARE, SELFPAY ==
[2024-04-09 09:39] VITALS: BMI 33.4
--- NOTE | 2024-04-09 09:39 | A.OFFVIS_ITS ---
Vital Signs 04/09/24 09:39 Height 5 ft 8 in Weight 220 lb BMI 33.4 Intake Visit Reasons: OV LT knee 10/19/23 Intake Note: John is a 73 year old male that presents in the office today for a post operative appointment of the Left knee 10/19/23. The patient reports mild discomfort in his left knee. He denies any fevers or chills. He continues with his home stretching program. Allergies No Known Allergies Allergy (Verified 04/09/24 09:45) Medication List - Last Reconciled 04/09/24 by Adonis Saenz MD allopurinol 200 mg (2 x 100 mg) PO DAILY amlodipine 10 mg PO QAM aspirin 1 tab PO DAILY atorvastatin 40 mg PO DAILY colchicine 0.6 mg PO Q OTHER DAY dulaglutide (Trulicity) 0.75 mg subcut QWEEK glipizide ER 10 mg PO BID lisinopril-hydrochlorothiazide 20-25 mg 2 tabs PO QAM PFSH Medical History Gout TIA (transient ischemic attack) Diabetes Elevated cholesterol HTN (hypertension) Surgical History H/O colonoscopy History of surgery on lower extremity History of ankle surgery Hx of left knee surgery Social History Are you a primary career development coordinator to a significant other at home: No Alcohol intake: current Alcohol intake frequency: a few times a week Alcohol type: beer Patient Tobacco Use Status: Former Tobacco user Tobacco use type: Cigarette Current occupational status: retired Physical Exam Vital Signs: BMI result Body Mass Index 33.4 Const Other: Well-nourished well-developed very friendly male awake alert and oriented x3 in no acute distress Extrem Other: Bilateral lower extremity examination shows good capillary refill, no skin lesions noted, normal sensation light touch Left knee examination shows that the surgical incisions are well healed, no erythema, minimal discomfort with range of motion, mild crepitus with range of motion, no instability Assessment & Plan Assessment & Plan (1) Left knee pain: Code(s): M25.562 - Pain in left knee Category: Medical Plan John continues to do well after undergoing left knee arthroscopic surgery on 10/19/2023. He will continue with his home exercise program. He will follow up with me on an as-needed basis should his symptoms worsen in any way. Feel free to call me at any time should questions regarding his orthopedic management arise. I spent 21 minutes in reviewing the patient's records and imaging studies, seeing the patient and documenting in the medical record. Coding Level of Care Code Est Pt Level 3 (99351) Complex EM visit Add On G2211 Diagnoses Left knee pain M25.562
== END 2024-04-09 10:02 | disposition home or self-care (01) ==
PROVIDERS: PCP Internal Medicine; Visit Provider Orthopaedic Surgery
DX: M25.562 Pain in left knee (principal)
CPT/HCPCS: 99213; G2211

== ENCOUNTER → 2024-04-09 09:38 | Outpatient (BNVA) | payer MEDICARE, SELFPAY | PROVIDERS: PCP Internal Medicine; Visit Provider Orthopaedic Surgery | DX: M25.562 Pain in left knee (principal) | CPT/HCPCS: 99212 ==

== ENCOUNTER 2024-05-12 13:29 | Outpatient (REF) | payer MEDICARE, SELFPAY ==
[2024-05-12 13:39] LABS: MANUAL DIFF FLAG NO
[2024-05-12 14:08] LABS: Basophils Absolute Auto 0.2 X10*3/uL (0.0-0.2); Basophils Percent Auto 1.8 % (0-2); Eosinophils Absolute Auto 0.4 X10*3/uL (0.0-0.4); Hematocrit 40.8 % (42.0-52.0); Hemoglobin 13.4 g/dl (14.0-18.0); Imm Gran Abs Auto 0.04 X10*3/uL (0.00-0.03); Imm Gran Pct Auto 0.4 % (0.0-0.4); Lymphocytes Absolute Auto 1.8 X10*3/uL (1.2-4.9); Lymphocytes Percent Auto 18.2 % (20-40); Mean Corpuscular HGB Conc 32.8 g/dl (31.0-36.0); Mean Corpuscular Hemoglobin 28.5 pg (27.0-33.0); Mean Corpuscular Volume 86.8 fL (80.0-98.0); Mean Platelet Volume 11.1 fL (9.4-12.4); Monocytes Absolute Auto 0.8 X10*3/uL (0.1-1.2); Neutrophils Absolute Auto 6.7 x10*3/uL (2.0-8.3); Neutrophils Percent Auto 67.6 % (45-73); Platelet Count 260 X10*3/uL (160-400); Red Cell Distribution Width 13.5 % (11.0-16.0); White Blood Count 9.9 X10*3/uL (4.8-10.8)
[2024-05-12 15:03] LABS: Alanine Aminotransferase 57 U/L (0-40); Albumin Level 4.2 g/dL (3.5-5.0); Alkaline Phosphatase 68 U/L (39-117); Anion Gap 15 (12-20); Aspartate Amino Transferase 33 U/L (5-37); Bilirubin Total 0.4 mg/dL (0.0-1.0); Blood Urea Nitrogen 23 mg/dL (9-16); Calcium 10.1 mg/dL (8.4-10.2); Carbon Dioxide 25 mmol/L (22-29); Chloride 101 mmol/L (96-108); Estimated Glomerular Filt Rate 46; Glucose Random 138 mg/dL (60-115); Sodium 137 mmol/L (135-145); Total Protein 7.3 g/dL (6.5-8.0); Uric Acid 6.5 mg/dL (3.4-7.0)
== END 2024-05-12 13:30 | disposition home or self-care (01) ==
LOC: HO.LAB 13:29
PROVIDERS: PCP Internal Medicine; Visit Provider Student in an Organized Health Care Education/Training Program
DX: M1A.09X0 Idiopathic chronic gout, multiple sites, without tophus (tophi) (principal)
CPT/HCPCS: 36415; 80053; 84550; 85025

== ENCOUNTER 2024-05-20 09:32 | Outpatient (AMB) | payer MEDICARE, SELFPAY ==
--- NOTE | 2024-05-20 09:50 | MHC.OFFVIS ---
Vital Signs 05/20/24 09:53 Height 5 ft 8 in Weight 219 lb 9.286 oz BMI 33.4 BP 122/68 Blood Pressure Location Lt brachial Position Sitting Pulse 88 Pulse Source Pulse Oximeter Pulse Oximetry (%) 98 Oxygen Delivery Method Room Air Intake Visit Reasons: Gout/CM Intake Note: Patient presents for Gout. Allergies No Known Allergies Allergy (Verified 05/20/24 09:53) HPI Comments Details: 73-year-old male with gout returns for follow-up. Has been taking allopurinol and colchicine as prescribed. Has been doing quite well. No gout flare-ups since last visit. Has no acute complaints today Initially history: This is a 72-year-old male who presents for evaluation of gout. Patient states that back in June he had abrupt onset of right knee pain and swelling. He went to the emergency room at [facility] and had right knee arthrocentesis and was told that he has gout. He was treated with oral steroids with rapid resolution of symptoms in a few days. He has not had any similar attacks in his knees. States that last year he developed abrupt onset of right elbow bursitis. Was evaluated by an orthopedist and no treatment was done. It went away spontaneously. States that over the years he would have recurrent attacks of his right foot. States that he was found to have plantar fasciitis which was initially treated by fusion, which was not very helpful then he had another procedure at [place] where they cut out the scar tissue he denies any history of kidney stones he is unaware of any family history of an autoimmune rheumatic disease or gout. Today's doing fairly well except for left knee pain. He has known torn meniscus and planned for surgical repair in the coming week. [facility] Medical History Gout TIA (transient ischemic attack) Diabetes Elevated cholesterol HTN (hypertension) Surgical History H/O colonoscopy History of surgery on lower extremity History of ankle surgery Hx of left knee surgery Social History Are you a primary inspector health care facilities to a significant other at home: No Alcohol intake: current Alcohol intake frequency: a few times a week Alcohol type: beer Patient Tobacco Use Status: Former Tobacco user Tobacco use type: Cigarette Current occupational status: retired Review of Systems [facility] Denies arthralgias and Denies joint swelling Physical Exam Vital Signs: Last Vital Signs Pulse 88 05/20/24 09:53 BP 122/68 05/20/24 09:53 Pulse Ox 98 05/20/24 09:53 Oxygen Delivery Method Room Air 05/20/24 09:53 BMI result Body Mass Index 33.4 Const General: cooperative, healthy appearing and comfortable Nutritional Appearance: obese Orientation/consciousness: patient oriented x3 Limitations: no limitations HEENT Head: Yes normocephalic and Yes atraumatic Mouth: moist mucous membranes Resp Effort & Inspection: normal respiratory effort and able to speak in complete sentences Skin General skin exam: no rashes or lesions noted Neuro General: patient oriented x3 Extrem Other: Osteoarthritic changes of both hands with no active synovitis Assessment & Plan Assessment & Plan (1) Gout: Comment: Initial uric acid 10.3 Allopurinol + colchicine started 11/2023 Code(s): M10.9 - Gout, unspecified Category: Medical Qualifiers: Gout site: multiple sites Gout etiology: idiopathic Chronicity: chronic Presence of tophus: without tophus Qualified Code(s): M1A.09X0 - Idiopathic chronic gout, multiple sites, without tophus (tophi) Plan: This is a 73-year-old male with gout presents for follow-up. Initial uric acid level 10.3 Doing much better overall on allopurinol 200 mg daily and colchicine 0.6 mg every other day. Repeat uric acid level 6.5 mg/dL. Still not at target We will need to increase allopurinol Increase allopurinol to 250 mg daily Reduce colchicine to 0.6 mg twice a week Labs before next visit in 3 months Plan I spent 16 minutes reviewing patient's chart, evaluating patient, ordering diagnostic workup, counseling patient and documenting in the chart Orders: Orders Comprehensive Met. Panel 3 Months M1A.09X0 - Idiopathic chronic gout, multiple sites, without tophus (tophi) Complete Blood Count Auto Diff 3 Months M1A.09X0 - Idiopathic chronic gout, multiple sites, without tophus (tophi) Uric Acid 3 Months M1A.09X0 - Idiopathic chronic gout, multiple sites, without tophus (tophi) Medications: Changed From allopurinol 200 mg (2 x 100 mg) PO DAILY 180 tabs 0RF To allopurinol 250 mg (2.5 x 100 mg) PO DAILY 225 tabs 0RF From colchicine 0.6 mg PO Q OTHER DAY 45 tabs 0RF To colchicine 0.6 mg orally twice a week 24 tabs 0RF Coding Level of Care Code Est Pt Level 3 (19243) Diagnoses Idiopathic chronic gout of multiple sites without tophus M1A.09X0 Gout site: multiple sites Gout etiology: idiopathic Chronicity: chronic Presence of tophus: without tophus
[2024-05-20 09:53] VITALS: BP 122/68; PULSE 88; O2SAT 98; BMI 33.4
== END 2024-05-20 10:28 | disposition home or self-care (01) ==
PROVIDERS: PCP Internal Medicine; Visit Provider Student in an Organized Health Care Education/Training Program
DX: M1A.09X0 Idiopathic chronic gout, multiple sites, without tophus (tophi) (principal)
CPT/HCPCS: 99213

== ENCOUNTER → 2024-05-20 09:32 | Outpatient (BNVA) | payer MEDICARE, SELFPAY | PROVIDERS: PCP Internal Medicine; Visit Provider Student in an Organized Health Care Education/Training Program | DX: M1A.09X0 Idiopathic chronic gout, multiple sites, without tophus (tophi) (principal) | CPT/HCPCS: 99212 ==

== ENCOUNTER 2024-08-15 11:29 | Outpatient (REF) | payer BC, SELFPAY ==
[2024-08-15 11:52] LABS: MANUAL DIFF FLAG NO
[2024-08-15 12:19] LABS: Basophils Absolute Auto 0.1 X10*3/uL (0.0-0.2); Basophils Percent Auto 1.5 % (0-2); Eosinophils Absolute Auto 0.3 X10*3/uL (0.0-0.4); Hematocrit 39.6 % (42.0-52.0); Hemoglobin 13.1 g/dl (14.0-18.0); Imm Gran Abs Auto 0.03 X10*3/uL (0.00-0.03); Imm Gran Pct Auto 0.3 % (0.0-0.4); Lymphocytes Absolute Auto 1.8 X10*3/uL (1.2-4.9); Lymphocytes Percent Auto 18.5 % (20-40); Mean Corpuscular HGB Conc 33.1 g/dl (31.0-36.0); Mean Corpuscular Hemoglobin 28.2 pg (27.0-33.0); Mean Corpuscular Volume 85.3 fL (80.0-98.0); Mean Platelet Volume 11.5 fL (9.4-12.4); Monocytes Absolute Auto 0.7 X10*3/uL (0.1-1.2); Monocytes Percent Auto 7.7 % (2-11); Neutrophils Absolute Auto 6.5 x10*3/uL (2.0-8.3); Platelet Count 286 X10*3/uL (160-400); Red Blood Count 4.64 X10*6/uL (4.60-5.80); Red Cell Distribution Width 14.2 % (11.0-16.0); White Blood Count 9.5 X10*3/uL (4.8-10.8)
[2024-08-15 12:51] LABS: Alanine Aminotransferase 38 U/L (0-40); Alkaline Phosphatase 79 U/L (39-117); Anion Gap 15 (12-20); Aspartate Amino Transferase 26 U/L (5-37); Bilirubin Total 0.4 mg/dL (0.0-1.0); Blood Urea Nitrogen 24 mg/dL (9-16); Calcium 9.6 mg/dL (8.4-10.2); Carbon Dioxide 24 mmol/L (22-29); Chloride 102 mmol/L (96-108); Estimated Glomerular Filt Rate 53; Glucose Random 153 mg/dL (60-115); Potassium 4.1 mmol/L (3.3-5.1); Sodium 137 mmol/L (135-145); Total Protein 7.9 g/dL (6.5-8.0)
--- OUTSIDE RECORDS SUMMARY | 2024-08-15 13:46 | XMS_ITS | Clinical Summary ---
Author Organization [facility] Address [address] [place] [address] Care Team Providers Care Optimization Manager Name Role Phone Leonid Shea MD Primary Care Provider [phone] Allergies No known active allergies Medications Medication Sig Dispensed Refills Start Date End Date Status TRULICITY 0.75 MG/0.5ML SOPN 0 06/24/2018 Active lisinopril-hydroCHLOROt hiazide (PRINZIDE,ZESTORETIC) tablet 20-12.5 mg 0 06/24/2018 Active atorvastatin (LIPITOR) tablet 40 mg Take 40 mg by mouth daily. 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 Acute medial meniscus tear of right knee 019 Arthritis of knee, right 06/27/2018 Family History Medical History Relation Name Comments Heart disease Father Relation Name Status Comments Father Social History Tobacco Use Types Packs/Day Years Used Date Smoking Tobacco: Never Smokeless Tobacco: Never Alcohol Use Standard Drinks/Week Comments Yes 0 (1 standard drink = 0.6 oz pur e alcohol) moderate beer Sex and Gender Information Value Date Recorded Sex Assigned at Not on file Gender Identity Not on file Sexual Orientation Not on file Last Filed Vital Signs Vital Sign Reading Time Taken Comments Blood Pressure - - Pulse - - Temperature 36 ??C (96.8 ??F) 07/21/2020 9:42 AM EST Respiratory Rate - - Oxygen Saturation - - Inhaled Oxygen Concentration - - Weight 96.2 kg (212 lb) 07/21/2020 9:42 AM EST Height 172.7 cm (5' 8 ) 07/21/2020 9:42 AM EST Body Mass Index 32.23 07/21/2020 9:42 AM EST Plan of Treatment Health Maintenance Due Date Last Done Comments Hepatitis C Screening 1950 COVID-19 Vaccine (#1) 06/05/1951 Depression Screening 1960 Preventative Health Evaluation 1966 DTap / Tdap / Td (1 - Tdap) 12/05/1967 Colon Cancer Screening (Colonoscopy) 1993 Shingrix-Zoster Vaccine (1 of 2) 1998 Fall Risk Assessment 2013 Pneumococcal Vaccine (1 of 1 - PCV) 2013 BMI Counseling 05/31/2021 05/31/2020 RSV Adult > 60+ Yrs or Pregn ant (1 - 1-dose 75+ series) 12/05/2023 Influenza Vaccine (#1) 2024 Hepatitis B Vaccines Aged Out No long er eligible based on patient's age to complete this topic RSV Ped < 20 months Aged Out No longe r eligible based on patient's age to complete this topic Care Teams Optimization Manager Relationship Specialty Start Date End Date Leonid Shea MD [address] [place] [id number] PCP - General Internal Medicine 06/27/18
--- OUTSIDE RECORDS SUMMARY | 2024-08-15 13:46 | XMS_ITS | Encounter Summary ---
Author Organization [facility] Address [address] [place] [address] Care Team Providers Care Subway Conductor Name Role Phone Leonid Shea MD Primary Care Provider [phone] Encounter Details Date Type Department Care Team (Latest Contact Info) Description 08/07/2024 Lab Requisition [facility] - Main Lab [address] [facility] [place] [address] Bear Wills PA [address] [facility] [address] [place], [place] [id number] Type 2 diabetes mellitus without complications (CMS/HCC); Hyperlipidemia, unspecified; Essential (primary) hypertension; Pain in unspecified joint; Chronic fatigue, unspecified; Gout, unspecified Social History Tobacco Use Types Packs/Day Years Used Date Smoking Tobacco: Never Smokeless Tobacco: Never Alcohol Use Standard Drinks/Week Comments Yes 0 (1 standard drink = 0.6 oz pur e alcohol) Sex and Gender Information Value Date Recorded Sex Assigned at Not on file Legal Sex Male 12:41 PM EST Gender Identity Not on file Sexual Orientation Not on file documented as of this encounter Plan of Treatment Not on file documented as of this encounter Procedures Procedure Name Priority Date/Time Associated Diagnosis Comments PROSTATE SPECIFIC ANTIGEN SCREEN Routine 08/07/2024 12:00 AM EST Type 2 diabetes mellitus without complications (CMS/HCC) Hyperlipidemia, unspecified Essential (primary) hypertension Pain in unspecified joint Chronic fatigue, unspecified Gout, unspecified SST - GOLD Routine 08/07/2024 12:00 AM EST Type 2 diabetes mellitus without complications (CMS/HCC) Hyperlipidemia, unspecified Essential (primary) hypertension Pain in unspecified joint Chronic fatigue, unspecified Gout, unspecified LIPID PANEL WITH REFLEX TO DIRECT LDL Routine 08/07/2024 12:00 AM EST Type 2 diabetes mellitus without complications (CMS/HCC) Hyperlipidemia, unspecified Essential (primary) hypertension Pain in unspecified joint Chronic fatigue, unspecified Gout, unspecified COMPLETE BLOOD COUNT Routine 08/07/2024 12:00 AM EST Type 2 diabetes mellitus without complications (CMS/HCC) Hyperlipidemia, unspecified Essential (primary) hypertension Pain in unspecified joint Chronic fatigue, unspecified Gout, unspecified URIC ACID Routine 08/07/2024 12:00 AM EST Type 2 diabetes mellitus without complications (CMS/HCC) Hyperlipidemia, unspecified Essential (primary) hypertension Pain in unspecified joint Chronic fatigue, unspecified Gout, unspecified HEMOGLOBIN A1C Routine 08/07/2024 12:00 AM EST Type 2 diabetes mellitus without complications (CMS/HCC) Hyperlipidemia, unspecified Essential (primary) hypertension Pain in unspecified joint Chronic fatigue, unspecified Gout, unspecified COMPREHENSIVE METABOLIC PANEL Routine 08/07/2024 12:00 AM EST Type 2 diabetes mellitus without complications (CMS/HCC) Hyperlipidemia, unspecified Essential (primary) hypertension Pain in unspecified joint Chronic fatigue, unspecified Gout, unspecified documented in this encounter Results * SST tube (08/07/2024 12:00 AM EST) Extra Tube Hold for add-ons. 08/07/2024 8:01 PM EST [facility] Comment:Auto resulted. Blood Venous blood specimen / Unknown 08/07/2024 08/07/2024 6:39 PM EST us Bear WOOD LAB BLOOD ORDERABLES Final Res ult [facility] [address] [place] [address], [place] [phone] * Uric acid (08/07/2024 12:00 AM EST) Uric Acid 5.9 3.7 - 9.2 mg/dL LAB CHEMISTRY METHOD 08/07/2024 7:03 PM EST [facility] Blood Venous blood specimen / Unknown 08/07/2024 08/07/2024 6:39 PM EST Bear WOOD LAB BLOOD ORDERABLES Final Res ult Performing Organization Address [facility] de Phone Number [facility] [address] [place] [address], [place] [phone] * Prostate specific antigen screen (08/07/2024 12:00 AM EST) Pathologist [facility] PSA 1.18 0.00 - 4.00 ng/mL LAB CHEMISTRY METHOD 08/07/2024 7:04 PM EST [facility] Blood Venous blood specimen / Unknown 08/07/2024 08/07/2024 6:39 PM EST Narrative [facility] - 08/07/2024 7:04 PM EST The Siemens Advia Centaur Chemiluminescent Immunoassay is used. Results obtained with different assay methods or kits cannot be used interchangeably. Results cannot be interpreted as absolute evidence of the presence or absence of malignant disease. us Bear WOOD LAB BLOOD ORDERABLES Final Res ult Performing Organization Address [facility] Co de Phone Number [facility] [address] [place] [address], [place] [phone] * (ABNORMAL) Hemoglobin A1c (08/07/2024 12:00 AM EST) Pathologist [facility] Hemoglobin A1C 9.0(H) <6.5 % LAB CHEMISTRY METHOD 08/07/2024 9:37 PM EST [facility] Mean Bld Glu Estim. 212 mg/dL LAB CHEMISTRY METHOD 08/07/2024 9:37 PM EST [facility] Blood Venous blood specimen / Unknown 08/07/2024 08/07/2024 6:39 PM EST us Bear WOOD LAB BLOOD ORDERABLES Final Res ult [facility] [address] [place] [address], * (ABNORMAL) Complete blood count (08/07/2024 12:00 AM EST) WBC 10.4 4.8 - 10.8 K/mcL LAB HEMETOLOGY METHOD 08/07/2024 7:[address] [facility] RBC 4.40(L) 4.50 - 5.50 M/mcL LAB HEMETOLOGY METHOD 08/07/2024 7:[address] [facility] Hemoglobin 12.5(L) 13.5 - 17.5 g/dL LAB HEMETOLOGY METHOD 08/07/2024 7:[address] [facility] Hematocrit 39.4(L) 42.0 - 54.0 % LAB HEMETOLOGY METHOD 08/07/2024 7:[address] [facility] MCV 89.7 79.0 - 98.0 FL LAB HEMETOLOGY METHOD 08/07/2024 7:[address] [facility] MCH 28.5 27.0 - 32.0 pcg LAB HEMETOLOGY METHOD 08/07/2024 7:[address] [facility] MCHC 31.7(L) 32.0 - 37.0 g/dL LAB HEMETOLOGY METHOD 08/07/2024 7:[address] [facility] RDW 14.0 11.0 - 15.0 % LAB HEMETOLOGY METHOD 08/07/2024 7:[address] [facility] Platelets 254 130 - 400 K/mcL LAB HEMETOLOGY METHOD 08/07/2024 7:[address] [facility] MPV 12.2(H) 7.0 - 11.0 FL LAB HEMETOLOGY METHOD 08/07/2024 7:[address] [facility] NRBC 0.0 <1.0 % LAB HEMETOLOGY METHOD 08/07/2024 7:[address] [facility] NRBC Absolute 0.00 <0.10 K/mcL LAB HEMETOLOGY METHOD 08/07/2024 7:[address] [facility] Blood Venous blood specimen / Unknown 08/07/2024 08/07/2024 6:39 PM EST us Bear WOOD LAB BLOOD ORDERABLES Final Res ult [facility] [address] [place] [address], [place] [phone] * (ABNORMAL) Lipid panel with reflex to direct LDL (08/07/2024 12:00 AM EST) Cholesterol 222(H) 0 - 200 mg/dL LAB CHEMISTRY METHOD 08/07/2024 7:[address] [facility] Triglycerides 287(H) 0 - 150 mg/dL LAB CHEMISTRY METHOD 08/07/2024 7:[address] [facility] HDL 28(L) >=40 mg/dL LAB CHEMISTRY METHOD 08/07/2024 7:[address] [facility] LDL Calculated 137(H) 0 - 100 mg/dL LAB CHEMISTRY METHOD 08/07/2024 7:[address] [facility] VLDL Cholesterol Mendez 57.4 mg/dL LAB CHEMISTRY METHOD 08/07/2024 7:[address] [facility] Non HDL Chol. (LDL+VLDL) 194(H) <145 mg/dL LAB CHEMISTRY METHOD 08/07/2024 7:[address] [facility] Chol/HDL Ratio 7.9(H) 0.0 - 4.4 LAB CHEMISTRY METHOD 08/07/2024 7:[address] [facility] Blood Venous blood specimen / Unknown 08/07/2024 08/07/2024 6:39 PM EST us Bear WOOD LAB BLOOD ORDERABLES Final Res ult [facility] [address] [place] [address], [place] [phone] * (ABNORMAL) Comprehensive metabolic panel (08/07/2024 12:00 AM EST) Sodium 138 133 - 145 mmol/L LAB CHEMISTRY METHOD 08/07/2024 7:[address] [facility] Potassium 4.1 3.5 - 5.5 mmol/L LAB CHEMISTRY METHOD 08/07/2024 7:[address] [facility] Chloride 103 96 - 110 mmol/L LAB CHEMISTRY METHOD 08/07/2024 7:[address] [facility] CO2 25 21 - 32 mmol/L LAB CHEMISTRY METHOD 08/07/2024 7:[address] [facility] Anion Gap 10 3 - 11 LAB CHEMISTRY METHOD 08/07/2024 7:[address] [facility] Glucose 261(H) 70 - 100 mg/dL LAB CHEMISTRY METHOD 08/07/2024 7:[address] [facility] BUN 19 5 - 25 mg/dL LAB CHEMISTRY METHOD 08/07/2024 7:[address] [facility] Creatinine 1.40(H) 0.70 - 1.30 mg/dL LAB CHEMISTRY METHOD 08/07/2024 7:[address] [facility] eGFR 52(L) >=60 mL/min/1. 73m2 LAB CHEMISTRY METHOD 08/07/2024 7:[address] [facility] Comment:Calculation based on the??Chronic Kidney Disease Epidemiology Collaboration (CKD-EPI) equation refit??without adjustment for race. BUN/Creatinine Ratio 13.6 LAB CHEMISTRY METHOD 08/07/2024 7:[address] [facility] Calcium 9.1 8.5 - 10.5 mg/dL LAB CHEMISTRY METHOD 08/07/2024 7:[address] [facility] AST (SGOT) 29 10 - 42 unit/L LAB CHEMISTRY METHOD 08/07/2024 7:[address] [facility] ALT (SGPT) 63(H) 10 - 60 unit/L LAB CHEMISTRY METHOD 08/07/2024 7:[address] [facility] Alkaline Phosphatase 92 42 - 121 unit/L LAB CHEMISTRY METHOD 08/07/2024 7:[address] [facility] Total Protein 7.2 6.0 - 8.0 g/dL LAB CHEMISTRY METHOD 08/07/2024 7:[address] [facility] Albumin 3.4 3.2 - 5.0 g/dL LAB CHEMISTRY METHOD 08/07/2024 7:[address] [facility] Total Bilirubin 0.4 0.0 - 1.4 mg/dL LAB CHEMISTRY METHOD 08/07/2024 7:[address] [facility] Blood Venous blood specimen / Unknown 08/07/2024 08/07/2024 6:39 PM EST us Bear WOOD LAB BLOOD ORDERABLES Final Res ult [facility] [address] [place] [address], documented in this encounter Visit Diagnoses Diagnosis Type 2 diabetes mellitus without complications (CMS/HCC) Hyperlipidemia, unspecified Essential (primary) hypertension Unspecified essential hypertension Pain in unspecified joint Chronic fatigue, unspecified Gout, unspecified documented in this encounter Care Teams Subway Conductor Relationship Specialty Start Date End Date Leonid Shea MD [address] [place] [phone] PCP - General Internal Medicine 11/25/18 documented as of this encounter
--- OUTSIDE RECORDS SUMMARY | 2024-08-15 13:46 | XMS_ITS ---
Author Organization [employer] [facility], Address [address] [address] Care Team Providers Care Phosphorus Processing Supervisor Name Role Phone Leonid Shea MD Primary Care Provider Unavailab LUIS CARLOS Salgado Unavailable [phone] Allergies No Known Allergies REASON FOR VISIT chronic right ankle pain, follow up Medications Medication SIG (Take, Route, Fr equency, Duration) Notes Start Date End Date Status Atorvastatin Calcium Unknown Multi Vitamin Unknow n Lisinopril Unknown Januvia Unknown glipiZIDE Unknown Social History Tobacco Use: Social History Observation Description Date Details (start date - stop date) Former Smoker NA - NA Tobacco Use/Smoking Question Answer Notes Tobacco use: former smoker Encounters Encounter Location Date Provider Diagnosis [facility] [employer], [address] [address] 07/25/2024 LUIS CARLOSMICHAELS Achilles tendinitis of right lower extremity M76.61 and History of ankle surgery Z98.890 Assessments Encounter Date Diagnosis (ICD Code) Assessment Notes Treatment Notes Treatment Clinical Notes Section Notes 07/25/2024 Achilles tendinitis of right lower extremity (ICD-10 - M76.61) 07/25/2024 History of ankle surgery (ICD-10 - Z98.890) Jeb has had temporary improvement of his ankle pain with addressing the Achilles and plantar fascia, but the pain has recurred. 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 His pain seems migrate between the posterior, medial and lateral ankle, and we discussed that the recurrent pain may be related to the tendon/ligaments or the subtalar nonunion. He will follow-up for differential injections to try to better localize the source of his ongoing symptoms 07/25/2024 Other [employer] dictation was used to assist with documentation of this note. While I did review this for errors, it is certainly possible that I may have overlooked some. If there is a confusing error, please do not hesitate to contact me for clarification. Thank you. This office visit was being conducted via telemedicine. The patient has a pre-existing patient relationship. The telemedicine interaction included all the recognized components of a patient physician encounter as if the encounter had occurred uwtr-uu-dyit with the same standards of appropriate practice as those in traditional settings. Greater than 50% of the time spent was devoted to counseling and coordinating care including review of relevant medical history and medical records, pertinent lab data and studies before initiating the call. These records were also reviewed with the patient during the call, including discussing diagnostic evaluation and work up, planned therapeutic interventions and future disposition of care. The patient verbally consented to this visit conducted via telemedicine and reasonable care was taken to ensure security and privacy of the interactive virtual clinical encounter, which was conducted virtually using HIPAA compliant video conferencing technology. Plan Of Treatment Treatment Notes Assessment Notes History of ankle surgery Jeb has had temporary improvement of his ankle pain with addressing the Achilles and plantar fascia, but the pain has recurred. 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 His pain seems migrate between the posterior, medial and lateral ankle, and we discussed that the recurrent pain may be related to the tendon/ligaments or the subtalar nonunion. He will follow-up for differential injections to try to better localize the source of his ongoing symptoms Other Dragon dictation was used to assist with documentation of this note. While I did review this for errors, it is certainly possible that I may have overlooked some. If there is a confusing error, please do not hesitate to contact me for clarification. Thank you. This office visit was being conducted via telemedicine. The patient has a pre-existing patient relationship. The telemedicine interaction included all the recognized components of a patient physician encounter as if the encounter had occurred [id number]-zt-ghmh with the same standards of appropriate practice as those in traditional settings. Greater than 50% of the time spent was devoted to counseling and coordinating care including review of relevant medical history and medical records, pertinent lab data and studies before initiating the call. These records were also reviewed with the patient during the call, including discussing diagnostic evaluation and work up, planned therapeutic interventions and future disposition of care. The patient verbally consented to this visit conducted via telemedicine and reasonable care was taken to ensure security and privacy of the interactive virtual clinical encounter, which was conducted virtually using HIPAA compliant video conferencing technology. Next Appt Details Follow Up: prc slot, Reason: Progress Notes * JEB WRENDOB:[birth year] (73 yo M)Acc No.[id number]:07/25/2024 Patient:?JEB WREN Provider:?Luis Carlos Mccall, :1950???Age:73 Y???Sex:Male Jeff e:07/25/2024 Address:[address] [place], [place] [id number] Pcp:Leonid Shea MD Subjective: * Chief Complaints: * ???Chronic right ankle pain, follow up * HPI: ???Ankle:?Jeb presents for follow-up of his chronic right ankle pain. He had a right ankle CT scan on 07/05/24 showing significant degenerative changes of subtalar joint with partial fusion of the joint, but a widely patent?joint. He also has advanced degenerative changes of the 3rd and 4th TMT joints. The CT scan images and report were reviewed. * Medical History:? * Surgical History:? * Hospitalization/Major Diagno stic Procedure:? * Family History:?Father: jamil espitia with Essential hypertension, Heart disease.?Non-Contributory.? * Social History:?Tobacco Use:?Tobacco Use/Smoking?Tobacco use:?former smoker ???Drugs/Alcohol:?Do you drink alcohol?: Yes, Occasionally. * Medications:?UnknownMulti Vi tamin Lisinopril Januvia glipiZIDE Atorvastatin Calcium Medication List reviewed and reconciled with the patientUnknown Multi Vitamin Unknown Lisinopril Unknown Januvia Unknown glipiZIDE Unknown Atorvastatin Calcium Medication List reviewed and reconciled with the patient * Allergies:?N.K.D.A.no[Allerg ies Verified] Objective: * Vitals:? * Examination: ???General Examination: ???Telemedicine visit, detailed examination deferred. Assessment: * Assessment: 1.?Achilles tendinitis of [facility] lower extremity - M76.61 (Primary)???2.?History of ankle surgery - Z98.890??? Plan: * Treatment: 2.?Others? Notes: Dragon dictation was used to assist with documentation of this note. While I did review this for errors, it is certainly possible that I may have overlooked some. If there is a confusing error, please do not hesitate to contact me for clarification. Thank you. This office visit was being conducted via telemedicine. The patient has a pre-existing patient relationship. The telemedicine interaction included all the recognized components of a patient physician encounter as if the encounter had occurred [id number] with the same standards of appropriate practice as those in traditional settings. Greater than 50% of the time spent was devoted to counseling and coordinating care including review of relevant medical history and medical records, pertinent lab data and studies before initiating the call. These records were also reviewed with the patient during the call, including discussing diagnostic evaluation and work up, planned therapeutic interventions and future disposition of care. The patient verbally consented to this visit conducted via telemedicine and reasonable care was taken to ensure security and privacy of the interactive virtual clinical encounter, which was conducted virtually using HIPAA compliant video conferencing technology.?? * Procedure Codes:? * Preventive Medicine:? ??Screenings:?Fall risk screening?Fall Risk Assessment:?No falls in the past year * Follow Up:?prc slot * Billing Information: * Visit Code:? 11564 Office Visit, Est Pt., Level 3. Modifiers: GT * Procedure Codes:? * Sign off status: Completed true * Provider:?Luis Carlos Mccall DO Date:?07/25 Generated for Bernardo villalobos/Bridgette/Chevy on:?08/15/2024 01:46 PM EST History and Physical Notes * HPI (History of Present Illness) Category Sub-Category Detail Notes Category Not es Ankle Jeb presents for follow-up of his chronic right ankle pain. He had a right ankle CT scan on 07/05/24 showing significant degenerative changes of subtalar joint with partial fusion of the joint, but a widely patent joint. He also has advanced degenerative changes of the 3rd and 4th TMT joints. The CT scan images and report were reviewed Examination Category Sub-Category Detail Notes Category Not es General Examination Telemedi cine visit, detailed examination deferred
--- OUTSIDE RECORDS SUMMARY | 2024-08-15 13:46 | XMS_ITS | Patient Health Record ---
Author Organization [facility], Address [address] [facility] [address] [place] [address] Care Team Providers Care Sewing Supervisor Name Role Phone Leonid Shea MD Primary Care Provider CHULA Díaz Unavailable [phone] Allergies No Known Allergies Reason For Referral No Information Medications Medication SIG (Take, Route, Fr equency, Duration) Notes Start Date End Date Status glipiZIDE Unknown Januvia Unknown Atorvastatin Calcium Unknown Lisinopril Unknown Multi Vitamin Unknow n Social History Tobacco Use: Social History Observation Description Date Details (start date - stop date) Former Smoker NA - NA Tobacco Use/Smoking Question Answer Notes Tobacco use: former smoker Problems Problem Type SNOMED Code ICD Code Onset Dates Problem Status W/U Status Risk Notes Problem 076681762 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 Problem Essential hypertension (36817523) Hypertension, unspecified type (I10) Active confirmed Vital Signs Blood pressure diastolic 84 mm Hg 04/04/2024 Weight-kg 97.52 kg 08/05/2024 Height 68 in 08/05/2024 Blood pressure systolic 146 mm Hg 04/04/2024 Weight 215 lbs 08/05/2024 BMI 32.69 kg/m2 08/05/2024 Encounters Encounter Location Date Provider Diagnosis [facility] [employer], [address] [address] 08/27/2023 CHULA GRIFFIN Achilles tendinitis of right lower extremity M76.61 ; Plantar fasciitis, right M72.2 and History of ankle surgery Z98.890 [facility] [employer], [address] [facility] [address] [place] [address] 12/31/2023 CHULA GRIFFIN Achilles tendinitis of right lower extremity M76.61 ; Plantar fasciitis, right M72.2 and History of ankle surgery Z98.890 [facility] [address] [place] [address] 04/04/2024 CHULA GRIFFIN Hypertension, unspecified type I10 and Pain in right ankle and joints of right foot M25.571 [facility] [address] [place] [address] 07/25/2024 CHULAREYNOLDSSMAN Achilles tendinitis of right lower extremity M76.61 and History of ankle surgery Z98.890 [facility] [address] [place] 08/05/2024 CHULAMICHAELS History of ankle surgery Z98.890 and Arthritis of subtalar joint M19.079 [facility] [address] [place] 05/09/2024 CHULA ELIAS [facility] [address] [place] 06/13/2024 CHULA GRIFFIN [facility] [address] [place] 06/16/2024 CHULABHATIAAN [facility] [address] [place] 06/20/2024 CHULA ELIAS Assessments Encounter Date Diagnosis (ICD Code) Assessment Notes Treatment Notes Treatment Clinical Notes Section Notes 08/27/2023 Plantar fasciitis, right (ICD-10 - M72.2) Jeb has had interval improvement in his pain and will continue to progress his activity. He will follow-up in 2 months to reassess 08/27/2023 Achilles tendinitis of right lower extremity (ICD-10 - M76.61) Jeb has had interval improvement in his pain and will continue to progress his activity. He will follow-up in 2 months to reassess 12/31/2023 Plantar fasciitis, right (ICD-10 - M72.2) 12/31/2023 Achilles tendinitis of right lower extremity (ICD-10 - M76.61) Jeb has less pain over the plantar fascia, but has he worsening pain over the Achilles. The pain was 50% improved at the 2 month follow up, but he has been unable to continue with therapy due to a meniscus tear. He has gotten new orthotics. We discussed resuming the rehabilitation program. He will also resume the massage treatments as these have been helpful, and follow up in 3 months. 04/04/2024 Hypertension, unspecified type (ICD-10 - I10) Jeb has an elevated blood pressure on examination today measuring 146/84. It was recommended to the patient that they follow up with their primary care physician for further workup and management. 07/25/2024 Achilles tendinitis of right lower extremity [...] localize the source of his ongoing symptoms 08/05/2024 History of ankle surgery (ICD-10 - Z98.890) 08/05/2024 Arthritis of subtalar joint (ICD-10 - M19.079) Jeb presents for follow up of his recurrent ankle pain. The pain is migrating between the medial/lateral ankle with ankle inversions/eversio n. 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 There is mild tenosynovitis of the posterior tibial tendon on a diagnostic ultrasound, but no other significant abnormality of the medial tendons. We proceeded with a diagnostic anesthetic injection into the subtalar joint at the sinus tarsi, and the medial/lateral ankle pain resolved. We discussed following up with his orthopedic surgeon to discuss next steps in management. 12/31/2023 History of ankle surgery (ICD-10 - Z98.890) 04/04/2024 Pain in right ankle and joints of right foot (ICD-10 - M25.571) Jeb's pain has migrated. He now has more pain over the mid-substance Achilles tendon. He also some lateral pain that localizes to the ATFL. A repeat diagnostic ultrasound to show interval improvement in the thickness of the insertional Achilles tendon. He was doing well after the last treatment come, but his symptoms have recurred. He would like to repeat the advance imaging to better assess the tendon and fusion. He will follow up after the right ankle CT scan. We briefly discussed repeating the orthobiologics injection. 08/27/2023 History of ankle surgery (ICD-10 - Z98.890) 08/27/2023 Other [employer] dictation was used to assist with documentation of this note. While I did review this for errors, it is certainly possible that I may have overlooked some. If there is a confusing error, please do not hesitate to contact me for clarification. Thank you. . Telephone Service (audio only, CPT 48226) was provided to an established patient, parent and/or guardian not originating from a related E/M service provided within the previous 7 days or an E/M service or procedure within the next available 24 hours. This fod-ffag-ld-face service involved 5-10 minutes of medical discussion 12/31/2023 Other [employer] dictation was used to assist with documentation [...] encounter as if the encounter had occurred [id number] with the same standards of appropriate practice [...] virtually using HIPAA compliant video conferencing technology. 04/04/2024 Other [employer] n was used to assist with documentation of this note. While I did review this for errors, it is certainly possible that I may have overlooked some. If there is a confusing error, please do not hesitate to contact me for clarification. Thank you. 07/25/2024 Other [employer] dictation was used to assist with documentation [...] encounter as if the encounter had occurred [id number] with the same standards of appropriate practice [...] virtually using HIPAA compliant video conferencing technology. 08/05/2024 Other [employer] dictatio n was used to assist with documentation of this note. While I did review this for errors, it is certainly possible that I may have overlooked some. If there is a confusing error, please do not hesitate to contact me for clarification. Thank you. Plan Of Treatment Pending Test Test Name Order Date CT Scan : Ankle, Right w/o contrast 03/18 Insurance Providers Payer Name Payer Address Payer Phone Subscriber Number Group Number Insured Name Patient Relationship to Insured Coverage Start Date Coverage End Date [facility] Medicare Advantage [address] [place], [place] [id number] [phone] [id number] JEB WREN Self - patient is the insured 5 [employer] of [place] J14 [address] [facility] [place] [id number] JEB WREN Self - patient is the insured 4 Medical (General) History Medical History History ICD Code diabetes high blood pressure Surgical History Surgery Date(Month/Year) right foot fusion right foot screw removal
--- OUTSIDE RECORDS SUMMARY | 2024-08-15 13:46 | XMS_ITS ---
Author Organization [facility], Address [address] [address] Care Team Providers Care Sales Support Associate Name Role Phone Shabbir HUMPHREY, Leonid Primary Care Provider Unavailab CHULA Salgado Unavailable [phone] REASON FOR VISIT NEW INS/CT AUTH? Encounters Encounter Location Date Provider Diagnosis [facility], [address] [address] 06/20/2024 CHULA GRIFFIN Plan Of Treatment No Information Progress Notes * JEB WRENDOB:[birth year] (73 yo M)Acc No.[id number]:06/20/2024 Patient:?JEB WREN :1950???Age:73 Y???Sex:Male [address] [facility] [place] [address] * true * Date:? Generated for Printi ng/Famariahg/eTransmitting on:?08/15/2024 01:46 PM EST
--- OUTSIDE RECORDS SUMMARY | 2024-08-15 13:46 | XMS_ITS | Patient Health Record ---
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 Had two broken screws and screw removal in 2021. As tried AFO, regenerative medicine with specialist in [place] without much relief. Wants revision at this point CT scan at [facility] [address] scan 2024 at [facility]. Currently not taking patients insurance therefore referral out. Requesting Dr. Ochoa is available. 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 Had two broken screws and screw removal in 2021. As tried AFO, regenerative medicine with specialist in [place] without much relief. Wants revision at this point CT scan at [facility] [address] scan 2024 at [facility]. Currently not taking patients insurance therefore referral out. Requesting Dr. Ochoa is available. 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) Referral Organization [facility] Referring Provider First Name LEVAR Referring Provider Last Name JADYN Referring Provider Speciality Podiatry Referred Provider Specialty Orthopedic S urgery Referral Priority Routine Medications Medication SIG (Take, Route, Frequency, Duration) Notes Start Date End Date Status Acetaminophen 500 MG 1 tablet as needed Orally every 4 hrs for 30 days 09/19/2021 Not-Taking oxyCODONE HCl 5 MG 1 tablet as needed f or severe pain Orally every 6 hrs for 3 days 09/19/2021 Not-Takin g glipiZIDE 5 MG 1 tablet 30 minutes before breakfast Orally Once a day Active Lisinopril-hydroCHLOROthia zide 10-12.5 MG 1 tablet Orally Once a day Active Sulindac 200 MG 1 tablet with food Orally Twice a day for 30 day(s) 12/14/2020 Not-Taking oxyCODONE HCl 5 MG 1 tablet as needed f or severe pain Orally every 6 hrs for 3 days 10/25/2020 Not-Takin g Sulindac 200 MG 1 tablet with food Orally Twice a day for 90 day(s) 04/01/2021 Not-Taking Ibuprofen 800 MG 1 tablet with food o r milk as needed Orally Three times a day for 30 days 09/19/2021 Not-Taking Vistaril 25 MG 1 capsule as needed for nausea/anxiety/itching Orally every 6 hrs for 30 day(s) Not-Taking metFORMIN HCl Not-Ta fabian Jardiance 10 MG 1 tablet Orally Once a day Active Problems Problem Type SNOMED Code ICD Code Onset Dates Problem Status W/U Status Risk Notes Problem 88229410 Other chronic pain (G89.29) Active confirmed Problem Osteoarthritis of right subtalar joint (50554689014239467) 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 Problem 41148943812609019 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 Problem 357740765 Inflammation of foot joint (M19.079) Active confirmed Problem 46935135 Type 2 diabetes mellitus with peripheral neuropathy (E11.42) Active confirmed Encounters Encounter Location Date Provider Diagnosis [facility] [address] [facility] [address] [place] [address] 08/06/2024 LEVAR SALAMANCA Plan Of Treatment Pending Test Test Name Order Date Hemoglobin A1c 07/22/2020 CBC, Platelet; No Differential Basic Metabolic Panel (8) 07/22/2020 CT Scan : Low Extr W/O Contrast 06/20/19 Ultrasound : Extremity Ultrasound Non-Va sc 10/05/2020 X ray : Foot, right 3v 10/05/2020 X ray : Foot, right 3v 11/17/2020 X ray : Foot, right 3v 12/07/2020 X ray : Foot, right 3v 12/27/2020 X ray : Foot, right 3v 01/17/2021 X ray : Foot, right 3v 07/29/2020 X ray : Foot, right 3v 09/06/2020 X ray : Foot, right 3v 03/30/2021 APPLY SHORT LEG CAST 08/09/2020 DRAIN/INJECT, SMALL JOINT/BURSA 01/18/20 DRAIN/INJECT, SMALL JOINT/BURSA 03/30/20 AFO ANK GAUNTLT PREFAB W/FIT&ADJ 020 WALKING BOOT PNEUMATIC AND/OR VAC 2020 Insurance Providers Payer Name Payer Address Payer Phone Subscriber Number Group Number Insured Name Patient Relationship to Insured Coverage Start Date Coverage End Date [employer] [facility] [address] [place] [phone] [id number] John Gauthier Self - patient is the insured Medications Administered Medication Instructions Date of Administration Dosage Notes Dexamethasone 01/17/2021 2 mg Dexamethasone 03/30/2021 2 mg Kenalog 01/17/2021 20 mg Kenalog 03/30/2021 20 mg Medical (General) History Medical History History ICD Code type II diabetes hypertension, benign Surgical History Surgery Date(Month/Year) Historical left knee surgery Historical shoulder surgery right subtalar joint arthrodesis 07/2020 Removal of screws right subtalar joint. 09/2021
--- OUTSIDE RECORDS SUMMARY | 2024-08-15 13:46 | XMS_ITS ---
Author Organization [facility] Address [address] [address] Care Team Providers Care Director Of Financial Planning Name Role Phone Leonid Shea Primary Care Provider LEVAR Eng Unavailable [phone] REASON FOR VISIT Requesting a call back Encounters Encounter Location Date Provider Diagnosis [facility] [address] [address] 08/06/2024 LEVAR SALAMANCA Plan Of Treatment No Information Progress Notes * GAUTHIER JohnDOB:[birth year] (73 yo M)Acc No.[id number]:08/06/2024 Patient:?John GAUTHIER :1950???Age:73 Y???Sex:Male [address] [facility] [place] [address] * * Date:?
--- OUTSIDE RECORDS SUMMARY | 2024-08-15 13:46 | XMS_ITS ---
[facility] Name [facility] Organization Unknown History of Medication Use Medication Directions Dispensed Refills Start Date End Date Stat cyclobenzaprine 10 mg tablet TAKE 1 TABLET 3 TIMES A DAY BY ORAL ROUTE NEEDED. active lisinopril 20 mg-hydrochlorothiazide 12.5 mg tablet TAKE 1 TABLET BY MOUTH EVERY DAY active lidocaine (PF) 10 mg/mL (1 %) injection solution Take 5 mL by injection route. 01/26/2023 active aspirin 81 mg chewable tablet CHEW 1 TABLET DAILY active prednisone 20 mg tablet TAKE 2 TABLETS B Y MOUTH DAILY active nabumetone 750 mg tablet TAKE 1 TABLET BY MOUTH TWICE A DAY WITH MEALS active lisinopril 20 mg-hydrochlorothiazide 12.5 mg tablet TAKE 1 TABLET BY MOUTH EVERY DAY active amlodipine 5 mg tablet TAKE 1 TABLET BY MOUTH EVERY DAY active Problems Problem Status Onset Date Problem Type Date of Resoluti on Source Pain of right knee joint active 2023-07-04 ProblemAct ENS_AONECT Pain of right elbow joint active 2022-10-30 ProblemAct E[facility] Effusion of joint active 2023-01-25 ProblemAct ENS_[facility]ON[facility] Bursitis of olecranon of right elbow active 2022-10-30 ProblemAct ENS_AONECT Effusion of joint of right knee active 2023-01-25 ProblemAct ENS_AONECT
--- OUTSIDE RECORDS SUMMARY | 2024-08-15 13:46 | XMS_ITS | Clinical Summary ---
Author Organization [address] Address [address] [place] [address] Phone Care Team Providers Care Sleeve Sewer Name Role Phone Leonid Shea MD Primary Care Provider [phone] Encounters Date Type Department Care Team Description 08/07/[address] [facility] - Main Lab [address] [facility] [place] [address] Bear Wills PA Type 2 diabetes mellitus without complications (CMS/HCC); Hyperlipidemia, unspecified; Essential (primary) hypertension; Pain in unspecified joint; Chronic fatigue, unspecified; Gout, unspecified from Last 3 Months Surgical History Surgery Date Site/Laterality Comments KNEE SURGERY PROCEDURE:KNEE SURGERY Medical History Medical History Date Comments Type 2 diabetes mellitus (CMS/HCC) 02/06/2019 DX:Type 2 diabetes mellitus (HCC) Diabetes mellitus (CMS/HCC) DX:D iabetes mellitus ([facility]) Hypertension DX:Hypertension GERD (gastroesophageal reflux disease) DX:GERD (gastroesophageal reflux disease) Family History Medical History Relation Name Comments [...] on file Sexual Orientation Not on file Obstetrics History Plan of Treatment Health Maintenance Due Date Last Done Comments Diabetes: Annual Foot Exam 1958 Diabetes: Annual Retina Eye Exam 1958 DTaP,Tdap,and Td Vaccines (1 - Tdap) 12/05/1967 Pneumococcal Vaccine: 50+ Years (1 of 2 - PCV) 12/05/1967 Zoster Vaccines (1 of 2) 1998 Abdominal Aortic Aneurysm (AAA) Screen 05/16/2022 Colorectal Cancer Screening: Colonoscopy 05/16/2022 Depression Screening 05/16/2022 Falls Risk Assessment 05/16/2022 Hepatitis C Screening 05/16/2022 Social Influencers of Health Screening 05/16/2022 Diabetes: Annual Urine Albumin-Creatinine Ratio (uACR) 06/02/2022 RSV Immunization Patients 60 + Years Old (1 - 1-dose 75+ series) 12/05/2023 COVID-19 Vaccine (3 - 2023-2 5 season) 2024 09/29/2020, 09/08/2020 Influenza Vaccine (#1) 2024 , 06/20/2019 Diabetes: Blood Sugar Contro l Test (HGBA1C) 02/04/2025 08/07/2024 Diabetes: Annual GFR (Glomerular Filtration Rate) 08/07/2025 08/07/2024 Hypertension/CHF/CAD Annual BMP Blood Test 08/07/2025 08/07/2024 Cholesterol Screening (Lipid Panel) 08/07/2029 08/07/2024 HIB Vaccines Aged Out No longer eligi ble based on patient's age to complete this topic HPV Vaccines Aged Out No longer eligi ble based on patient's age to complete this topic Hepatitis A Vaccines Aged Out No long er eligible based on patient's age to complete this topic Hepatitis B Vaccines Aged Out No long er eligible based on patient's age to complete this topic IPV Vaccines Aged Out No longer eligi ble based on patient's age to complete this topic MMR Vaccines Aged Out No longer eligi ble based on patient's age to complete this topic Meningococcal ACWY Vaccine Aged Out N o longer eligible based on patient's age to complete this topic Meningococcal B Vacine Aged Out No lo nger eligible based on patient's age to complete this topic RSV Immunization Patients Under 20 months Aged Out No longer eligible b ased on patient's age to complete this topic Varicella Vaccines Aged Out No longer eligible based on patient's age to complete this topic Procedures Procedure Name Priority Date/Time Associated Diagnosis Comments SST - GOLD Routine 08/07/2024 12:00 AM EST Type 2 diabetes mellitus without complications (CMS/HCC) Hyperlipidemia, unspecified Essential (primary) hypertension Pain in unspecified joint Chronic fatigue, unspecified Gout, unspecified URIC ACID Routine 08/07/2024 12:00 AM EST Type 2 diabetes mellitus without complications (CMS/HCC) Hyperlipidemia, unspecified Essential (primary) hypertension Pain in unspecified joint Chronic fatigue, unspecified Gout, unspecified PROSTATE SPECIFIC ANTIGEN SCREEN Routine 08/07/2024 12:00 [...] unspecified joint Chronic fatigue, unspecified Gout, unspecified from Last 3 Months Results * Prostate specific antigen screen (08/07/2024 12:00 AM EST) PSA 1.18 0.00 - 4.00 ng/mL LAB CHEMISTRY METHOD 08/07/2024 7:04 PM EST [facility] Blood Venous blood specimen / Unknown 08/07/2024 08/07/2024 6:39 PM EST Narrative [facility] - 08/07/2024 7:04 PM EST The Siemens Advia Centaur Chemiluminescent Immunoassay is used. Results obtained with different assay methods or kits cannot be used interchangeably. Results cannot be interpreted as absolute evidence of the presence or absence of malignant disease. Bear WOOD LAB BLOOD ORDERABLES Final Res ult Performing Organization Address City/[facility]/ZIP Co de Phone Number [facility] [address] [place] [address], [place] [phone] * SST tube (08/07/2024 12:00 AM EST) Extra Tube Hold for add-ons. 08/07/2024 8:01 PM EST [facility] Comment:Auto resulted. Blood Venous blood specimen / Unknown 08/07/2024 08/07/2024 6:39 PM EST Bear WOOD LAB BLOOD ORDERABLES Final Res ult Performing Organization Address [facility]/ZIP Co de Phone Number [facility] [address] [place] [address], [place] [phone] * (ABNORMAL) Lipid panel with reflex to direct LDL (08/07/2024 12:00 AM EST) Cholesterol 222(H) 0 - 200 mg/dL LAB CHEMISTRY METHOD 08/07/2024 7:03 PM EST [facility] Triglycerides 287(H) 0 - 150 mg/dL LAB CHEMISTRY METHOD 08/07/2024 7:03 PM EST [facility] HDL 28(L) >=40 mg/dL LAB CHEMISTRY METHOD 08/07/2024 7:03 PM [facility] LDL Calculated 137(H) 0 - 100 mg/dL LAB CHEMISTRY METHOD 08/07/2024 7:03 PM EST [facility] VLDL Cholesterol Mendez 57.4 mg/dL LAB CHEMISTRY METHOD 08/07/2024 7:03 PM [facility] Non HDL Chol. (LDL+VLDL) 194(H) <145 mg/dL LAB CHEMISTRY METHOD 08/07/2024 7:03 PM [facility] Chol/HDL Ratio 7.9(H) 0.0 - 4.4 LAB CHEMISTRY METHOD 08/07/2024 7:03 PM [facility] Blood Venous blood specimen / Unknown 08/07/2024 08/07/2024 6:39 PM EST us Bear WOOD LAB BLOOD ORDERABLES Final Res ult [facility] [address] [place] [address], [place] [phone] * (ABNORMAL) Complete blood count (08/07/2024 12:00 AM EST) WBC 10.4 4.8 - 10.8 K/mcL LAB HEMETOLOGY METHOD 08/07/2024 7:05 PM [facility] RBC 4.40(L) 4.50 - 5.50 M/[facility] LAB HEMETOLOGY METHOD 08/07/2024 7:05 PM [facility] Hemoglobin 12.5(L) 13.5 - 17.5 g/dL LAB HEMETOLOGY METHOD 08/07/2024 7:05 PM [facility] Hematocrit 39.4(L) 42.0 - 54.0 % LAB HEMETOLOGY METHOD 08/07/2024 7:05 PM [facility] MCV 89.7 79.0 - 98.0 FL LAB HEMETOLOGY METHOD 08/07/2024 7:05 PM [facility] MCH 28.5 27.0 - 32.0 pcg LAB HEMETOLOGY METHOD 08/07/2024 7:05 PM [facility] MCHC 31.7(L) 32.0 - 37.0 g/dL LAB HEMETOLOGY METHOD 08/07/2024 7:05 PM EST [facility] RDW 14.0 11.0 - 15.0 % LAB HEMETOLOGY METHOD 08/07/2024 7:05 PM [facility] Platelets 254 130 - 400 K/mcL LAB HEMETOLOGY METHOD 08/07/2024 7:05 PM [facility] MPV 12.2(H) 7.0 - 11.0 FL LAB HEMETOLOGY METHOD 08/07/2024 7:05 PM [facility] NRBC 0.0 <1.0 % LAB HEMETOLOGY METHOD 08/07/2024 7:05 PM [facility] NRBC Absolute 0.00 <0.10 K/mcL LAB HEMETOLOGY METHOD 08/07/2024 7:05 PM [facility] Blood Venous blood specimen / Unknown 08/07/2024 08/07/2024 6:39 PM EST Bear WOOD LAB BLOOD ORDERABLES Final Res ult Performing Organization Address City/[facility]/ZIP Co de Phone Number [facility] [address] [place] [address], [place] [phone] * Uric acid (08/07/2024 12:00 AM EST) Pathologist [facility] Uric Acid 5.9 3.7 - 9.2 mg/dL LAB CHEMISTRY METHOD 08/07/2024 7:03 PM EST [facility] Blood Venous blood specimen / Unknown 08/07/2024 08/07/2024 6:39 PM EST us Bear [facility] LAB BLOOD ORDERABLES Final Res ult [facility] [address] [place] [address], [place] [phone] * (ABNORMAL) Hemoglobin A1c (08/07/2024 12:00 AM EST) [facility] Hemoglobin A1C 9.0(H) <6.5 % LAB CHEMISTRY METHOD 08/07/2024 9:37 PM [facility] Mean Bld Glu Estim. 212 mg/dL LAB CHEMISTRY METHOD 08/07/2024 9:37 PM [facility] Blood Venous blood specimen / Unknown 08/07/2024 08/07/2024 6:39 PM EST Bear [facility] LAB BLOOD ORDERABLES Final Res ult [facility] [address] [place] [address], * (ABNORMAL) Comprehensive metabolic panel (08/07/2024 12:00 AM EST) [facility] Sodium 138 133 - 145 mmol/L LAB CHEMISTRY METHOD 08/07/2024 7:03 PM [facility] Potassium 4.1 3.5 - 5.5 mmol/L LAB CHEMISTRY METHOD 08/07/2024 7:03 PM [facility] Chloride 103 96 - 110 mmol/L LAB CHEMISTRY METHOD 08/07/2024 7:03 PM [facility] CO2 25 21 - 32 mmol/L LAB CHEMISTRY METHOD 08/07/2024 7:03 PM [facility] Anion Gap 10 3 - 11 LAB CHEMISTRY METHOD 08/07/2024 7:03 PM [facility] Glucose 261(H) 70 - 100 mg/dL LAB CHEMISTRY METHOD 08/07/2024 7:03 PM [facility] BUN 19 5 - 25 mg/dL LAB CHEMISTRY METHOD 08/07/2024 7:03 PM [facility] Creatinine 1.40(H) 0.70 - 1.30 mg/dL LAB CHEMISTRY METHOD 08/07/2024 7:03 PM [facility] eGFR 52(L) >=60 mL/min/1. 73m2 LAB CHEMISTRY METHOD 08/07/2024 7:03 PM [facility] Comment:Calculation based on the??Chronic Kidney Disease Epidemiology Collaboration (CKD-EPI) equation refit??without adjustment for race. BUN/Creatinine Ratio 13.6 LAB CHEMISTRY METHOD 08/07/2024 7:03 PM [facility] Calcium 9.1 8.5 - 10.5 mg/dL LAB CHEMISTRY METHOD 08/07/2024 7:03 PM [facility] AST (SGOT) 29 10 - 42 unit/L LAB CHEMISTRY METHOD 08/07/2024 7:03 PM [facility] ALT (SGPT) 63(H) 10 - 60 unit/L LAB CHEMISTRY METHOD 08/07/2024 7:03 PM [facility] Alkaline Phosphatase 92 42 - 121 unit/L LAB CHEMISTRY METHOD 08/07/2024 7:03 PM [facility] Total Protein 7.2 6.0 - 8.0 g/dL LAB CHEMISTRY METHOD 08/07/2024 7:03 PM [facility] Albumin 3.4 3.2 - 5.0 g/dL LAB CHEMISTRY METHOD 08/07/2024 7:03 PM [facility] Total Bilirubin 0.4 0.0 - 1.4 mg/dL LAB CHEMISTRY METHOD 08/07/2024 7:03 PM [facility] Blood Venous blood specimen / Unknown 08/07/2024 08/07/2024 6:39 PM EST us Bear [facility] LAB BLOOD ORDERABLES Final Res ult [facility] [address] [place] [address], from Last 3 Months Insurance [facility] MEDIC[facility] [employer]VANTAGE Member Subscriber Plan / Payer (Ef fective 2024-Present) Name:John Gauthier Macrina Relation to Subscriber:Self Name:John Gauthier Macrina Payer ID:[id number] Type:Not on file Address: [facility] [id number] Care Teams Sleeve Sewer Relationship Specialty Start Date End Date Leonid Shea MD [address] [address] PCP - General Internal Medicine 11/25/18
--- OUTSIDE RECORDS SUMMARY | 2024-08-15 13:46 | XMS_ITS ---
Author Organization [facility] Address [address] [address] Care Team Providers Care Machine Crater Name Role Phone ShabbirLeonid Primary Care Provider LEVAR Eng Unavailable [phone] REASON FOR VISIT Requesting call back Encounters Encounter Location Date Provider Diagnosis [facility] [address] [address] 05/30/2023 LEVAR SALAMANCA Plan Of Treatment No Information Progress Notes * John GAUTHIERDOB:[birth year] (72 yo M)Acc No.[id number]:05/30/2023 Patient:?John GAUTHIER :1950???Age:72 Y???Sex:Male Address:[place] [address] * true * Date:? Generated for Bernardo villalobos/Bridgette/eTransmitting on:?08/15/2024 01:45 PM EST
--- OUTSIDE RECORDS SUMMARY | 2024-08-15 13:46 | XMS_ITS ---
Author Organization [facility], Address [address] [address] Care Team Providers Care Strand Forming Machine Operator Name Role Phone Leonid Shea MD Primary Care Provider UnavailLUIS CARLOS Sterling Unavailable [phone] Allergies No Known Allergies REASON FOR VISIT [...] Question Answer Notes Tobacco use: former smoker Vital Signs Weight 215 lbs 08/05/2024 Height 68 in 08/05/2024 BMI 32.69 kg/m2 08/05/2024 Weight-kg 97.52 kg 08/05/2024 Encounters Encounter Location Date Provider Diagnosis [facility], [address] [address] 08/05/2024 LUIS CARLOS MCCALL History of ankle surgery Z98.890 and 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 08/05/2024 Other Active Scaleron dictatio n was used to assist with documentation of this note. While I did review this for errors, it is certainly possible that I may have overlooked some. If there is a confusing error, please do not hesitate to contact me for clarification. Thank you. Plan Of Treatment Treatment Notes Assessment Notes Arthritis of subtalar joint Jeb ardon nts for follow up of his recurrent ankle pain. The pain is migrating between the medial/lateral ankle with ankle inversions/eversion. He has evidence of non-union of the [...] surgeon to discuss next steps in management. Other Dragon dictation was used to assist with documentation of this note. While I did review this for errors, it is certainly possible that I may have overlooked some. If there is a confusing error, please do not hesitate to contact me for clarification. Thank you. Next Appt Details Follow Up: prn, Reason: Progress Notes * JEB WRENDOB:[birth year] (73 yo M)Acc No.[id number]:08/05/2024 Patient:?JEB WREN Provider:Wilbur Mccall, :1950???Age:73 Y???Sex:Male Jeff e:08/05/2024 Address:[address] [place] [id number] Pcp:Leonid Shea MD Subjective: * Chief Complaints: [...] of the 3rd and 4th TMT joints. He localizes his pain to the medial aspect and has increased pain when standing or walking after prolonged sitting. * Medical History:? * Surgical History:?right foot fusion right foot screw removal * Hospitalization/Major Diagno stic Procedure:? * Family History:?Father: jamil espitia with Essential hypertension, Heart disease.? * Social History:?Tobacco Use:?Tobacco Use/Smoking?Tobacco use:?former smoker ???Drugs/Alcohol:?Do you drink alcohol?: Yes, Occasionally. * Medications:?UnknownMulti Vi tamin Lisinopril Januvia glipiZIDE Atorvastatin Calcium Medication List reviewed and reconciled with the patientUnknown Multi Vitamin Unknown Lisinopril Unknown Januvia Unknown glipiZIDE Unknown Atorvastatin Calcium Medication List reviewed and reconciled with the patient * Allergies:?N.K.D.A.no[Allerg ies Verified] Objective: * Vitals:?Wt:215lbs, Ht: 68 in , BMI:32.69Index, Pain scale:41-10, Wt-k.52 kg, Body Surface Area: 2.16. * Examination: ???General Examination: ???General appearance: Appearance within normal limits with no signs of acute distress. Eyes normal conjunctiva. Sclera are clear. Extra ocular movements are intact. ENT: Normal appearance of ears and nose. No obvious hearing loss. Without tracheal deviation. Cardiovascular: Extremities are warm with normal peripheral perfusion and without edema or varicosities. Respiratory: Nonlabored with no audible wheezing. Skin: No visible rashes, lesions or ulcers. No evidence of induration on palpation.. Psychiatric: Appropriate mood and affect. Cooperative. ???Right ankle: ???Gait: Non-antalgic. Inspection: No swelling. Skin normal without ecchymosis. Normal alignment of the hindfoot, midfoot and forefoot. Fusiform thickening of the midsubstance Achilles tendon Palpation: No tenderness over the medial or lateral malleolus. No pain over the ATFL, CFL or syndesmosis. No pain over the anterior ankle/talar dome. No pain over the deltoid ligament. Pain over the sinus tarsi. No pain over the navicular tubercle or dorsum of the navicular. No pain over the peroneal or medial tendons posterior to the malleolus. No pain over the plantar fascia. No pain to palpation over the midsubstance Achilles tendon. Strength: Ankle dorsiflexion 5/5, plantarflexion 5/5, inversion 5/5, eversion 5/5. Sensation: Normal to palpation Range of motion: Passive subtalar inversion and eversion with pain. Ankle plantar flexion symmetric and without posterior ankle pain. Ankle dorsiflexion symmetric and without anterior ankle pain. 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 Plan: * Treatment: 2.?Others? Notes: Dragon dictation was used to assist with documentation of this note. While I did review this for errors, it is certainly possible that I may have overlooked some. If there is a confusing error, please do not hesitate to contact me for clarification. Thank you.?? * Procedures:?Diagnostic Ankle Joint Injection Guidance: Ultrasound guidance Site: Right subtalar joint Indication: Ankle pain Injectate: lidocaine 1% (1.5 cc), ropivocaine 0.5% (1.5 cc) Indications and alternatives to the procedure were explained to the patient. Risks and benefits were discussed, including the risk of bleeding, infection, nerve damage, tendon damage, skin discoloration, fat atrophy, increased pain/reaction to the injectate or continued pain. All questions were answered. Verbal informed consent was provided by the patient. Time out was performed, including verification of patient ID, procedure, site and side. The procedure site was marked and the patient was prepped aseptically. A diagnostic injection of lidocaine solution was given under sterile technique using a 25g x 1.5 needle into the right subtalar joint using ultrasound guidance. The patient tolerated the procedure without any immediate adverse reaction. A sterile bandage was applied. The images were permanently stored and achieved in the practice's PACS system. ? * Procedure Codes:?37730 DRAIN /INJ JOINT/BURSA W/US * Preventive Medicine:? ??Screenings:?Fall risk screening?Fall Risk Assessment:?No falls in the past year * Follow Up:?prn * Billing Information: * Visit Code:? 76676 Office Visit, Est Pt., Level 3. * Procedure Codes:? 86107 DRAIN/INJ JOINT/BURSA W/US. * Sign off status: Completed true * Provider:?Luis Carlos Mccall DO Date:?08/05 Generated for Bernardo villalobos/Bridgette/Chevy on:?08/15/2024 01:46 PM [...] of the 3rd and 4th TMT joints. He localizes his pain to the medial aspect and has increased pain when standing or walking after prolonged sitting. Examination Category Sub-Category Detail Notes Category Not es Right ankle Gait: Non-antalgic. Inspection: No swelling. Skin normal without ecchymosis. Normal alignment of the hindfoot, midfoot and forefoot. Fusiform thickening of the midsubstance Achilles tendon Palpation: No tenderness over the medial or lateral malleolus. No pain over the ATFL, CFL or syndesmosis. No pain over the anterior ankle/talar dome. No pain over the deltoid ligament. Pain over the sinus tarsi. No pain over the navicular tubercle or dorsum of the navicular. No pain over the peroneal or medial tendons posterior to the malleolus. No pain over the plantar fascia. No pain to palpation over the midsubstance Achilles tendon. Strength: Ankle dorsiflexion 5/5, plantarflexion 5/5, inversion 5/5, eversion 5/5. Sensation: Normal to palpation Range of motion: Passive subtalar inversion and eversion with pain. Ankle plantar flexion symmetric and without posterior ankle pain. Ankle dorsiflexion symmetric and without anterior ankle pain. General Examination General appearance: Appearance within normal limits with no signs of acute distress. Eyes normal conjunctiva. Sclera are clear. Extra ocular movements are intact. ENT: Normal appearance of ears and nose. No obvious hearing loss. Without tracheal deviation. Cardiovascular: Extremities are warm with normal peripheral perfusion and without edema or varicosities. Respiratory: Nonlabored with no audible wheezing. Skin: No visible rashes, lesions or ulcers. No evidence of induration on palpation.. Psychiatric: Appropriate mood and affect. Cooperative.
--- OUTSIDE RECORDS SUMMARY | 2024-08-15 13:46 | XMS_ITS | Data Portability ---
Author Organization [place] [facility] Sandra Wylie AONE Lanagan Address [address] [place] [address] Care Team Providers Care [employer] Name Role Phone RODDY SANTAMARIA Primary Care Provider Assessment Encounter Date Assessment Date Assessment LastModified by Organization Details LastModified Time 10/27/2022 10/27/2022 Jeb symptoms are consistent with olecranon bursitis. Aggravate alleviating factors were discussed. He reported decrease in the swelling over the last few days. Symptoms have not resolved. His exam was notable for some soft tissue swelling, but no large effusion. He underwent a corticosteroid injection earlier today in his wrist. He is a poorly controlled diabetic. We agreed that it was too early to do another injection since he just had one earlier today and is a poorly controlled diabetic. Fortunately, his symptoms have been decreasing with decreased swelling noted recently. Advantages of conservative management were discussed. Potential complications and side effects were discussed regarding bursal aspiration and corticosteroid injection. As such, he will monitor his symptoms over the next month. He will try padding his elbow which also allow for light compression. If symptoms worsen or persist, treatment options as noted above can be considered. [email or web address] Not available 10/30/2022 09:05:49 01/25/2023 01/25/2023 This is a very pleasant 72-year-old male with approximately 1 week history of right knee stiffness and pain that was relatively sudden onset in nature. He denies any history of gout however he did have a few beers around the time that he began to have symptoms. He also underwent a Tenex procedure surrounding the time of his onset of symptoms. We will hold on any cortisone injection until we receive the results from his synovial analysis. I would like to see him back within the next week for reevaluation. If his symptoms worsen he is to contact the office immediately. He agrees with the above-noted plan and was discharged in stable condition with notable improvement. Indirect care and treatment in conjunction with Dr. Bravo Additional treatment plan discussed with the patient in detail included the following; - Provider focused nonsteroidal anti-inflammatory regimen (discussed were the pros, cons, benefits and risks as well as any black box warnings) in patients over 60 years old they should be very cautious in taking these medications due to potential decreased kidney function and or elevated blood pressure. - Analgesic pain medication for pain suppression (discussed were the pros, cons, benefits and risks as well as any black box warnings) - The use of topical pain relieving medication were discussed - The use of ice to decrease inflammation and pain - The use of assistive ambulatory devices for ambulation and fall prevention - Formal specific guided physical therapy program I reviewed my findings at length with the patient today. ? ? ?We discussed the nature and etiology of this problem along with current treatment options. We discussed the expected course and outcomes and what to expect. We also discussed risks and benefits. ? ? ? All of their questions were answered today, and there was exhibited understanding and comprehension of all that was discussed. Time Spent: 10 minutes were spent reviewing previous imaging and charting. ? ? ?10 minutes were spent obtaining patient history. ? ? ?5 minutes were spent on physical exam. ? ? ?5? ? ?minutes were spent explaining diagnosis and assessment. Today's documentation was made using voice recognition software. This note may contain grammatical errors secondary to the software. Not available 01/26/2023 06:43:55 07/04/2023 07/04/2023 This is a 72-year-old male who underwent PRP injection by Dr. Mccall at [facility] last Sunday with notable painful swollen knee. He went to [facility] ER with a concern for a septic right knee however they were unable to obtain an aspirate at that time he had elevated white count, ESR and CRP. The patient was advised to except admission to the hospital for IV antibiotics and evaluation by orthopedics however he declined for which she wanted to wait to be evaluated within our practice today. As I explained to the patient we do not have an on-call surgeon that could deal with a potential septic knee joint. The risk to his life and limb if an infection is present is of concern. I did discuss this case with Dr. Sandra who agrees the patient should go back to the emergency department for further evaluation. (Seema YOST home care administrator present during discussion) As of note the patient is a poorly controlled diabetic and multiple comorbidities. A similar treatment performed at the same practice in [place] for which I evaluated back on 01/25/2023. I had a detailed discussion in the presence of my recruiting intern that he should have contacted his orthopedic provider who performed the treatment due to potential risk of infection, side effects. The patient is aware going forward that he would need to follow-up with the orthopedic provider that rendered care if there was a potential untoward outcome after treatment. The patient agreed he would go to [facility] ER following his visit today. There was no extremis he came to his appointment on his own and exited to the ER in a similar fashion. Emergency department triage nurse Kalie was contacted for ER expect line. Patient was seen and evaluated by Vikas Laguna PA-C in indirect conjuction with Documenting Provider: Vinnie Bravo MD . He/She agrees with history, physical examination, tests/diagnostic imaging, and treatment plan. Additional treatment plan discussed with the patient (only initiated if in boldface font) otherwise not applicable. Treatment may include the following; - Provider focused nonsteroidal anti-inflammatory regimen (discussed were the pros, cons, benefits and risks as well as any black box warnings) in patients over 60 years old they should be very cautious in taking these medications due to potential decreased kidney function and or elevated blood pressure. - Analgesic pain medication for pain suppression (discussed were the pros, cons, benefits and risks as well as any black box warnings) - The use of topical pain relieving medication were discussed - The use of ice to decrease inflammation and pain - The use of assistive ambulatory devices for ambulation and fall prevention - Formal specific guided physical therapy program I reviewed my findings at length with the patient today. ? ? ?We discussed the nature and etiology of this problem along with current treatment options. We discussed the expected course and outcomes and what to expect. We also discussed risks and benefits. ? ? ? All of their questions were answered today, and there was exhibited understanding and comprehension of all that was discussed. Time Spent: 120 minutes were spent reviewing previous imaging and charting. ? ? ?20 minutes were spent obtaining patient history. ? ? ?10 minutes were spent on physical exam. 20? ? ?minutes were spent explaining diagnosis and assessment. Today's documentation was made using voice recognition software. This note may contain grammatical errors secondary to the software. Not available 07/04/2023 18:43:06 Plan of Treatment Reminders Order Date Submit Date Provider Last Modified By Organization Details Last Modified Time Details Appointments None recorded. Lab cell count w/ diff, synovial fluid [address] [facility], [address], [address], [place], [address], 3 11:12:22 gram stain, synovial fluid [address] [facility], [address], [address], [place], [address], 3 11:12:23 crystals, synovial fluid [address] [facility], [address], [address], [place], [address], 3 11:12:23 culture, synovial fluid [address] [facility] [address] [facility], [address], [address], [place], [address], 3 11:12:23 glucose, QN [mass/volu me], synovial fluid [address] [facility], [address], [address], [place], [address], 3 11:12:23 Referral None recorded. Procedures None recorded. Surgeries None recorded. Imaging XR, knee, 4 or more view 2022 023 [email or web address] [facility], [address], [address], [place], [address], 3 07:09:56 XR, elbow, 3 or more view 2022 023 [email or web address] [facility], [address], [address], [place], [address], 08:26:40 Medication Orders lidocaine (PF) 10 mg/mL (1 %) injection solution 2022 023 [email or web address] [id number], [address] [place], [address], 06:44:02 Patient TargetsNo targets recorded. Patient Instructions Encounter Date Encounter Id Patient Instructions Last Modified By Organization Details Last Modified Time 10/27/2022 [id number] views of the right elbow including AP lateral and oblique were obtained in the [place] office. X-rays demonstrated normal bone mineralization. No significant spur at the olecranon. Soft tissue swelling noted. No evidence of acute injury or fracture. [email or web address] Not available 10/30/2022 09:03:30 01/25/2023 [id number] X-ray of the rig ht knee reveals moderate degenerative changes predominantly in the patellofemoral compartment without acute bony abnormality notable subchondral sclerosis. It appears to be a discrepancy in leg length however this cannot be accurately assessed with out true leg length x-rays. Not available 01/25/2023 15:03:13 Reason for Referral None Reported. Results Created Date Observation Date Name Description Value Unit Range Abnormal Flag Note LastModifiedBy Organization Detail LastModifiedTime 07/05/19 24 imagi ng/di agnos tic resul t No observ ation record ed. [email or web address] Not Available 07/05 11:23:19 07/05/19 24 imagi ng/di agnos tic resul t No observ ation record ed. [email or web address] Not Available 07/05 11:23:59 Result Notes None recorded. Problems Name Problem SNOMED Code Status Onset Date Resolution Date Notes Provider Name and Address Organization Details Recorded Time Effusion of joint of right knee 18777891502794 4 Active 2022 VIKAS LAGUNA PA-C [address], [facility] [place], [address], [place] [facility], 3 15:43:21 Effusion of joint 227274586 Active 2022 VIKAS LAGUNA PA-C [address], [place], [address], [place] [facility], P 3 15:43:31 Pain of right knee joint 76550236134766 0 Active 2023 VIKAS LAGUNA PA-C [address], [place], [address], [place] [facility] 4 18:43:48 Bursitis of olecranon of right elbow 03238340020456 8 Active 2022 SHERI WOODWARD PA-C [address], [place], [address], [place] [facility] 3 09:03:02 Pain of right elbow joint 60517831905811 109 Active 2022 SHERI WOODWARD PA-C [address], [place], [address], [place] [facility] 3 09:03:08 Problem Notes None recorded. Procedures Surgical History Date Name Laterality Status Provider Name and Address Organization Details Recorded Time 3 Knee Joint/Bursa Asp & Inj completed VIKAS LAGUNA PA-C [address], [place], [address], [place] [facility] 01/26/2023 06:38:57 1 bone fusion completed [facility] [place] [facility] 01/25/2023 16:03:11 8 total knee replacement completed [facility] [place] [facility] 01/25/2023 16:04:41 Imaging Results Imaging Date Name Status LastModified by [facility] Details LastModified Time 07/05/2023 imaging/diag nostic result completed Information not available 07/05/2023 11:23:19 07/05/2023 imaging/diag nostic result completed Information not available 07/05/2023 11:23:59 Procedure Notes None recorded. Medical Equipment None Reported. Allergies No known drug allergies Medications Name Sig Start Date Stop Date Status Note LastModified by Organization Details LastModified Time cyclobenzapri ne 10 mg tablet TAKE 1 TABLET 3 TIMES A DAY BY ORAL ROUTE NEEDED. active Not Available Not Available N ot Available atorvastatin 40 mg tablet TAKE 1 TABLET BY MOUTH EVERY DAY active Not Available Not Available No t Available nabumetone 750 mg tablet TAKE 1 TABLET BY MOUTH TWICE A DAY WITH MEALS active Not Available Not Available No t Available lisinopril 20 mg-hydrochlor othiazide 12.5 mg tablet TAKE 1 TABLET BY MOUTH EVERY DAY active Not Available Not Available No t Available prednisone 20 mg tablet TAKE 2 TABLETS BY MOUTH DAILY active Not Available Not Available No t Available glipizide ER 5 mg tablet, extended release 24 hr TAKE 2 TABLETS BY MOUTH TWICE A DAY active Not Available Not Available No t Available amlodipine 5 mg tablet TAKE 1 TABLET BY MOUTH EVERY DAY active Not Available Not Available No t Available aspirin 81 mg tablet,delaye d release TAKE 1 TABLET BY MOUTH EVERY DAY active Not Available Not Available No t Available tramadol 50 mg tablet TAKE 1 TABLET NEEDED ORALLY EVERY 4-6 HOURS 2 DAYS active Not Available Not Available No t Available amlodipine 10 mg tablet TAKE 1 TABLET BY MOUTH EVERY DAY active Not Available Not Available No t Available lisinopril 20 mg-hydrochlor othiazide 25 mg tablet TAKE 2 TABLETS BY MOUTH EVERY DAY active Not Available Not Available No t Available aspirin 81 mg chewable tablet CHEW 1 TABLET DAILY active Not Available Not Available No t Available metformin ER 500 mg tablet,extend ed release 24 hr TAKE 1 TABLET BY MOUTH EVERY DAY active Not Available Not Available No t Available oxycodone 5 mg tablet TAKE 1 TABLET BY MOUTH EVERY 6 HOURS NEEDED FOR SEVERE PAIN active Not Available Not Available No t Available lidocaine (PF) 10 mg/mL (1 %) injection solution Take 5 mL by injection route. 2022 active Not Available Not Available Not Avai lable Januvia 100 mg tablet TAKE 1 TABLET BY MOUTH EVERY DAY active Not Available Not Available No t Available EC-Naproxen 500 mg tablet,delaye d release TAKE 1 TABLET BY MOUTH TWICE A DAY active Not Available Not Available No t Available Vitals Date Recorded Body weight Body mass index (BMI) Body height Provider Name and Address Organization Details Last Updated DateTime 10/27/2022 41666.44 g 31.2 kg/m2 172.[address] [place] [facility] 10/27/2022 11:13:46 Social History None recorded. Functional Status None recorded. Mental Status None recorded. Family History Relationship Description Onset Age of this Age Resolved Age Notes LastModified by Organization Details LastModified Time Father Heart disease [email or web address] Not available 2022 16:01:20 Medical History Condition Response Diabetes Y Stroke Y Past Encounters Encounter ID Performer Location Encounter Start Date Encounter Closed Date Diagnosis/Indication Diagnosis SNOMED-CT Code Diagnosis ICD10 Code Diagnosis Note [id number] MD RITIKA Baltazar [place] [address] [facility] [address] [place] [address] 10/27/2022 10:52:20 10/27/2022 13:02:34 Pain of right elbow joint 7969002431 2709611 M25.521 Bursitis o f olecranon of right elbow 1173949638 94847 M70.21 [id number] MD RITIKA Duron [facility] [address] [facility] [address] [place] [address] 01/25/2023 14:26:57 01/25/2023 15:47:32 Pain of right knee joint 7492615762 76711 M25.561 Effusion o f joint of right knee 1464786758 70557 M25.461 Effusion of joint 807575 008 M25.40 [id number] MD RITIKA Duron [facility] [address] [facility] [address] [place] [address] 07/04/2023 12:36:06 07/04/2023 14:06:45 Pain of right knee joint 9436266579 41895 M25.561 Health Concerns Section Related Observation LastModified by Organization Detai ls LastModified Time None Recorded Concern Status LastModified by Organization Details LastModified Time None Recorded Advance Directives Directive None Recorded Payers Encounter Date Sequence Insurance Name Policy Number Policy Cole Covered Member ID Cole Member ID Guarantor Name 10/27/2022 1 [facility] [id number] 1 Jeb Gauthier [id number] Jeb Gauthier 01/25/2023 1 [facility] [id number] 1 Jeb Gauthier [id number] Jeb Gauthier 07/04/2023 1 [facility] [id number] 1 Jeb Gauthier [id number] Jeb Gauthier Notes Date Note Type Note Provider Name and Address Organization Details Recorded Time 10/27/2022 text/html Patient is a ple asant 71-year-old male who presents today with 1 week of pain in his right elbow. He denies any injury or trauma to cause the onset of his symptoms. He said he was sore for a few days then noted some swelling. Fortunately, the swelling has decreased, but not resolved. He is very active and does exercise on a regular basis. He is also followed by a hand surgeon and underwent an injection in his wrist earlier today. He is adequately controlled diabetic. No numbness or tingling. No redness or warmth. No fever or chills. SHERI WOODWARD PA-C [address], [place], [address], [place] [facility] 10/30/2022 09:07:01 01/25/2023 text/html This is a very pleasant 72-year-old male who comes in for evaluation of 1 week onset right knee pain and swelling with decreased range of motion. Patient denies any injury. He describes his knee has been very stiff and very painful at times. He does state he recently went out and had a few beers within the last week however he denies any history of gout. He admits to being a poorly controlled diabetic and does not check his sugars on a regular basis. He denies any fevers or chills, flulike symptoms, cough, shortness of breath. He denies calf pain. He also denies any warmth overlying the right knee joint. Pertinent to his history he recently underwent a Tenex procedure VIKAS LAGUNA PA-C [address] [facility] [address], [place], [address], [place] [facility] 01/26/2023 06:44:36 07/04/2023 text/html 72-year-old male who presents for evaluation of painful swelling in right knee onset of symptoms few days after having undergone PRP injection of his right plantar fasciitis and Achilles tendinitis by Dr. Mccall in [facility]. Patient states he had a procedure done last Sunday for which he came home and noted over the course of 48 hours increased pain within his right knee with immobility swelling without the presence of fevers or chills. He waited until Sunday to be seen at [facility] emergency department on 06/30/2022. There was concern of possible septic arthritis with an elevated white count, CRP and ESR. ER physician wanted to admit the patient for observation, IV antibiotics and orthopedic evaluation however the patient declined for which she was discharged with oxycodone, prednisone taper. Patient stated that he had an appointment with orthopedics for today 07/04/2022. Patient states that he noted some improvement in his pain and discomfort however he had to come up in a wheelchair to today's visit. Imaging studies performed at [facility] where x-rays as well as duplex ultrasound as noted below [facility] [address] [place] [address] Patient: JEB GAUTHIER /Age/Sex: 1950 - 72 - MUnit#: [id number] [facility]/Status: [facility] [id number] Mnemonic/Ordering Site: KNEERT4/SPMAINOrdering Physician: YURIY ROCHA MD CR Knee RT 4 or More Views - 06/30/23 - 1502Report Status:SignedCR Knee RT 4 or More ViewsINDICATION: PainTECHNIQUE: CR Knee RT 4 or More ViewsCOMPARISON: No priors available.FINDINGS/IMP RESSION: No acute fracture or dislocation. Joint spaces arepreserved. Small suprapatellar effusion. Quadriceps enthesopathy. Nofocal soft tissue swelling.Dictating Physician: DARRELL ZAVALETA MDElectronically Signed by: DARRELL ZAVALETA Date/Time: 06/30/23 150Sign date/Time: 06/30/23 1519 [facility] [id number] [place] [address] Patient: JEB GAUTHIER Macrina Dean./Age/Sex: 1950 72 - MUnit#: [id number] Location/Status: SPER/REG ERAccount#: [id number] Mnemonic/Ordering Site: [facility] Physician: YURIY ROCHA MD Duplex Venous Study RT - 06/30/23 - 1456Report Status:SignedPROCEDURE : US Duplex Venous Study RTINDICATION: SwellingTECHNIQUE: 2-D and color Doppler imaging of the right lower extremityvenous vasculature with compression and augmentation maneuvers.COMPARISON: No priors available.FINDINGS:The re is normal flow, compression, and augmentation from the common femoralthrough the popliteal vein. Visualized calf veins are patentIMPRESSION: NO RIGHT LOWER EXTREMITY DEEP VENOUS THROMBOSIS.Dictating Physician: DARRELL ZAVALETA MDElectronically Signed by: DARRELL ZAVALETA Date/Time: 06/30/231457Sign date/Time: 06/30/23 1503 VIKAS LAGUNA PA-C [address] [place] [address], [address], [place] [facility], 07/04/2023 18:45:40
== END 2024-08-15 11:30 | disposition home or self-care (01) ==
LOC: HO.LAB 11:29
PROVIDERS: Visit Provider Student in an Organized Health Care Education/Training Program
DX: M1A.09X0 Idiopathic chronic gout, multiple sites, without tophus (tophi) (principal)
CPT/HCPCS: 36415; 80053; 84550; 85025

== ENCOUNTER 2024-08-21 10:58 | Outpatient (AMB) | payer BC, SELFPAY ==
--- NOTE | 2024-08-21 11:03 | MHC.OFFVIS ---
Vital Signs 08/21/24 11:11 Height 5 ft 8 in Weight 217 lb 9.54 oz BMI 33.1 BP 142/90 H Blood Pressure Location Lt brachial Position Sitting Pulse 101 H Pulse Source Pulse Oximeter Pulse Oximetry (%) 95 Oxygen Delivery Method Room Air Intake Visit Reasons: Gout Intake Note: Patient presents for Gout. 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 here today for follow up Interval History: Rheumatologic History: Current Rheumatology Medication(s): [facility] Medical History Gout TIA (transient ischemic attack) Diabetes Elevated cholesterol HTN (hypertension) Surgical History H/O colonoscopy History of surgery on lower extremity History of ankle surgery Hx of left knee surgery Social History Are you a primary health care administrator to a significant other at home: No Alcohol intake: current Alcohol intake frequency: a few times a week Alcohol type: beer Patient Tobacco Use Status: Former Tobacco user Tobacco use type: Cigarette Current occupational status: retired Review of Systems Const Details: Review of Systems Constitutional: Denies fever, chills, weight loss ENT: Denies vision changes, eye pain or eye redness, dental caries, dry mouth GI: Denies nausea, vomiting, diarrhea, abdominal pain, change in BM Pulm: Denies SOB, CUELLAR, hemoptysis, wheezing Cards: Denies chest pain, palpitations Skin: Denies Raynaud's, rash, nail changes, photosensitivity, POLEYARD SUPERVISOR: Denies headaches, weakness, paresthesias, recurrent falls MSK: as per HPI All other systems reviewed and are unremarkable except noted above Physical Exam Vital Signs: Last Vital Signs Pulse 101 H 08/21/24 11:11 BP 142/90 H 08/21/24 11:11 Pulse Ox 95 08/21/24 11:11 Oxygen Delivery Method Room Air 08/21/24 11:11 BMI result Body Mass Index 33.1 Vital signs reviewed Physical Examination CONSTITUITIONAL Patient alert and cooperative. Well appearing and in no apparent painful distress HEENT Conjunctiva and sclera clear. ?Pupils equal round and reactive to light. ?No lymphadenopathy. ? CHEST/RESPIRATORY SYSTEM Normal respiratory effort and able to speak in complete sentences. ?Clear to auscultation bilaterally. ?No crackles, rales, rhonchi, wheezes heard. CARDIAC SYSTEM Regular rate and rhythm. ?S1 and S2 heard no murmurs. ?Radial pulses intact bilaterally MSK Hands: ?Good culinary worker strength bilaterally. No deformities noted. ?No synovitis noted to the MCPs, PIPs or DIPs. ?No tenderness to palpation of these joints. Wrists: ?Full range of motion at the wrists without pain. ?No tenderness to palpation or synovitis noted to the wrists. Elbows: Full range of motion without pain. No tenderness, weakness, swelling, increased warmth or erythema. Shoulders: Full range of motion without pain. No tenderness, weakness, swelling, increased warmth or erythema. Hips: Full range of motion without pain. Hip bursa: No tenderness to palpation Knees: ?Full range of motion. ?Right knee with mild swelling but no erythema or warmth. Left knee with crepitations. Ankles: Full range of motion. ?No tenderness, swelling, increased warmth or erythema.? Feet: ?Negative squeeze test. ?No tenderness to palpation or swelling of the MTPs. Tender points:?No tenderness to palpation of the bilateral trapezius, supraspinatus, greater trochanters, anterior costochondral junctions, bilateral gluteal areas, bilateral suboccipital muscle insertions SKIN Skin intact without rashes. Results Reviewed Results Reviewed: Laboratory Tests 10/09/23 02/13/24 05/12/24 11:35 11:22 13:38 WBC RBC Hgb Hct Plt Count Sodium Potassium Chloride Carbon Dioxide BUN Creatinine Uric Acid 10.3 H 8.3 H 6.5 Calcium Total Bilirubin AST ALT Alkaline Phosphatase Total Protein 08/15/24 11:42 WBC 9.5 RBC 4.64 Hgb 13.1 L Hct 39.6 L Plt Count 286 Sodium 137 Potassium 4.1 Chloride 102 Carbon Dioxide 24 BUN 24 H Creatinine 1.31 Uric Acid 7.0 Calcium 9.6 Total Bilirubin 0.4 AST 26 ALT 38 Alkaline Phosphatase 79 Total Protein 7.9 XR Left Knee 08/2023 FINDINGS: Mild narrowing of the medial and lateral compartments. Tiny tricompartmental osteophytes. Moderate suprapatellar effusion. Faint soft tissue calcifications characteristic of vascular calcifications. IMPRESSION: Mild degenerative changes XR Left Elbow 08/2023 FINDINGS: The bones are intact. No fracture or joint effusion. Alignment is anatomic. Joint spaces are maintained. Question small erosions involving the medial epicondyle. Slight calcification adjacent to the lateral epicondyle can be seen with tendinosis. There is mild soft tissue swelling over the olecranon consistent with olecranon bursitis. IMPRESSION: 1. Olecranon bursitis. 2. Question of small erosions involving the medial epicondyle. 3. Slight calcification adjacent to the lateral epicondyle can be seen with tendinosis XR Right Elbow 08/2023 FINDINGS: RIGHT ELBOW: Alignment is anatomic. Joint spaces are preserved. Mild soft tissue swelling over the olecranon characteristic of olecranon bursitis. Small calcifications adjacent to the medial and lateral epicondyles, suggesting possible tendinosis. Small calcification along the medial aspect of the distal humerus. IMPRESSION: 1. Mild soft tissue swelling over the olecranon characteristic of olecranon bursitis. 2. Small calcifications adjacent to the medial and lateral epicondyles, suggesting possible tendinosis. XR Bilateral Hands/Wrists 08/2023 RIGHT HAND: Marked degenerative changes in the first carpometacarpal joint with joint space narrowing and hypertrophic change. Moderate degenerative changes with hypertrophic change and joint space narrowing in scattered IP joints of the digits as well as in the first metacarpophalangeal joint. Moderate degenerative changes in the IP joint of the thumb. Sclerotic focus overlying the distal ulna characteristic of a bone island. LEFT HAND: Ftomqzry-pc-hjhwvd degenerative changes in the first carpometacarpal joint with joint space narrowing and hypertrophic change. The bones are diffusely demineralized. Mild degenerative changes with joint space narrowing and hypertrophic change in scattered IP joints, particularly DIP joints. Radiopaque marker placed to indicate area of concern indicated by patient at radial aspect of left wrist. Assessment & Plan Assessment & Plan (1) Gout: Comment: Initial uric acid 10.3 Allopurinol + colchicine started 11/2023 Code(s): M10.9 - Gout, unspecified Category: Medical Qualifiers: Gout site: multiple sites Gout etiology: idiopathic Chronicity: chronic Presence of tophus: without tophus Qualified Code(s): M1A.09X0 - Idiopathic chronic gout, multiple sites, without tophus (tophi) Plan: #Non crystal proven gout Patient is a 73 y.o.male with chronic non crystal proven gout. Not at goal with UA 7. Will need to increase his allopurinol to 300mg daily and continue colchicine 0.6mg daily prophylaxis. CrCl 68, okay to continue this dose Plan - Increase allopurinol to 300mg daily - Cochicine 0.6mg once a day - UA < 5 - RTC 3 months - Labs before visit: CBC, CMP, ESR, CRP, UA (2) Encounter for monitoring allopurinol therapy: Code(s): Z51.81 - Encounter for therapeutic drug level monitoring; Z79.899 - Other jail (current) drug therapy Plan: #Long-term Current Use of Allopurinol Risks and benefits of allopurinol discussed with patient Benefits include decreased gout flares, remission of gout and reduction of tophi Risks include allopurinol hypersensitivity syndrome which is a severe cutaneous adverse reaction associated with allopurinol use particularly in patients who are HLA B*5801 positive, increased transaminases, GI upset including diarrhea, nausea and vomiting, and other dermatologic manifestations. (3) On colchicine therapy: Code(s): Z79.899 - Other termite helper (current) drug therapy Plan: #Long-term use of colchicine Risks and benefits of long-term colchicine for the management of this patient's gout discussed with patient. Benefits include reduced occurrence of flares while we titrate and regulate his uric acid on allopurinol and other uric acid lowering medications. ? Risks include worsening myalgias especially if on statins and GI upset including diarrhea Plan I spent 30 minutes reviewing the record and labs, taking a history, examining the patient, discussing the treatment plan, answering questions and documenting in the medical record Orders: Orders Complete Blood Count Auto Diff 3 Months M1A.09X0 - Idiopathic chronic gout, multiple sites, without tophus (tophi) C Reactive Protein 3 Months M1A.09X0 - Idiopathic chronic gout, multiple sites, without tophus (tophi) Uric Acid 3 Months M1A.09X0 - Idiopathic chronic gout, multiple sites, without tophus (tophi) Comprehensive Met. Panel 3 Months M1A.09X0 - Idiopathic chronic gout, multiple sites, without tophus (tophi) Erythrocyte Sedimentation Rate 3 Months M1A.09X0 - Idiopathic chronic gout, multiple sites, without tophus (tophi) Medications: New colchicine 0.6 mg PO DAILY 90 tabs 1RF M1A.09X0 - Idiopathic chronic gout, multiple sites, without tophus (tophi) Changed From allopurinol 300 mg (3 x 100 mg) PO DAILY 30 days 90 tabs 4RF M1A.09X0 - Idiopathic chronic gout, multiple sites, without tophus (tophi) To allopurinol 300 mg PO DAILY 90 days 90 tabs 1RF M1A.09X0 - Idiopathic chronic gout, multiple sites, without tophus (tophi) Discontinued colchicine Discontinued Reason: Doctor's Order 0.6 mg orally twice a week 24 tabs 0RF Coding Level of Care Code Est Pt Level 4 (03344) Complex EM visit Add On G2211 Diagnoses Idiopathic chronic gout of multiple sites without tophus M1A.09X0 Gout site: multiple sites Gout etiology: idiopathic Chronicity: chronic Presence of tophus: without tophus Encounter for monitoring allopurinol therapy Z51.81; Z79.899 On colchicine therapy Z79.899
[2024-08-21 11:11] VITALS: BP 142/90; PULSE 101; O2SAT 95; BMI 33.1
--- OUTSIDE RECORDS SUMMARY | 2024-08-21 13:20 | XMS_ITS ---
Author Organization [facility], Address [address] [address] Care Team Providers Care Battery Builder Name Role Phone Leonid Shea MD Primary Care Provider Unavailab LUIS CARLOS Salgado Unavailable [phone] Allergies No Known Allergies REASON FOR VISIT [...] smoker Encounters Encounter Location Date Provider Diagnosis [facility] [employer], [address] [address] 07/25/2024 LUIS CARLOSMICHAELS Achilles tendinitis of right [...] source of his ongoing symptoms 07/25/2024 Other [employer] dictation was used to assist with documentation [...] encounter as if the encounter had occurred mpvh-wo-htam with the same standards of appropriate practice [...] encounter as if the encounter had occurred hjhc-gb-xlvr with the same standards of appropriate practice [...] * JEB WRENDOB:[birth year] (73 yo M)Acc No.[id number]:07/25/2024 Patient:?JEB WREN Provider:?Luis Carlos Mccall, :1950???Age:73 Y???Sex:Male Jeff e:07/25/2024 Address:[address] [place], [place] [address] Pcp:Leonid Shea MD Subjective: * Chief Complaints: [...] deferred. Assessment: * Assessment: 1.?Achilles tendinitis of [facility] lower extremity - M76.61 (Primary)???2.?History of [...] encounter as if the encounter had occurred [id number]-bi-jtft with the same standards of appropriate practice [...] slot * Billing Information: * Visit Code:? 85813 Office Visit, Est Pt., Level 3. Modifiers: GT * Procedure Codes:? * Sign off status: Completed true * Provider:?Luis Carlos Mccall DO Date:?07/25 Generated for Bernardo villalobos/Bridgette/Chevy on:?08/21/2024 01:20 PM EST History and Physical Notes * [...]
--- OUTSIDE RECORDS SUMMARY | 2024-08-21 13:20 | XMS_ITS | Data Portability ---
Author Organization [facility] Sandra Wylie AONE Graton Address [address] [place] [address] Care Team Providers Care Wood Room Hand Name Role Phone RODDY SANTAMARIA Primary Care [...] options as noted above can be considered. Not available 10/30/2022 09:05:49 01/25/2023 01/25/2023 This [...] underwent PRP injection by Dr. Mccall at [facility] last Sunday with notable painful swollen knee. He went to [facility] ER with a concern for a [...] emergency department for further evaluation. (Seema YOST application support administrator present during discussion) As of note the patient is a poorly controlled diabetic and multiple comorbidities. A similar treatment performed at the same practice in [place] for which I evaluated back on 01/25/2023. I had a detailed discussion in the presence of my ase master mechanic that he should have contacted his orthopedic provider who performed the treatment due to potential risk of infection, side effects. The patient is aware going forward that he would need to follow-up with the orthopedic provider that rendered care if there was a potential untoward outcome after treatment. The patient agreed he would go to [facility] ER following his visit today. There [...] count w/ diff, synovial fluid [address] [facility], [address], [place], [address], 3 11:12:22 gram stain, synovial fluid [address] [facility], [address], [place], [address], 3 11:12:23 crystals, synovial fluid [address] [facility], [address], [place], [address], 3 11:12:23 culture, synovial fluid [address] [facility], [address], [place], [address], 3 11:12:23 glucose, QN [mass/volu me], synovial fluid [address] [facility], [address], [address], [place], [address], 3 11:12:23 Referral None recorded. Procedures None recorded. Surgeries None recorded. Imaging XR, knee, 4 or more view 2022 023 [email or web address] [facility], [address], [address], [place], [address], 3 07:09:56 XR, elbow, 3 or more view 2022 023 [email or web address] [facility], [address], [place], [address], 08:26:40 Medication Orders lidocaine (PF) 10 mg/mL (1 %) injection solution 2022 023 [email or web address] [id number], [address] [place], [address], 06:44:02 Patient TargetsNo targets recorded. Patient Instructions Encounter Date Encounter Id Patient Instructions Last Modified By Organization Details Last Modified Time 10/27/2022 1331 3 views of the right elbow including AP lateral and oblique were obtained in the [place] office. X-rays demonstrated normal bone mineralization. No significant spur at the olecranon. Soft tissue swelling noted. No evidence of acute injury or fracture. [email or web address] Not available 10/30/2022 09:03:30 01/25/2023 [id number] X-ray of the rig ht knee reveals [...] Time Effusion of joint of right knee 58719974927121 4 Active 2022 VIKAS LAGUNA PA-C [address], [place], [address], [place] [facility], 3 15:43:21 Effusion of joint 187180783 Active 2022 VIKAS LAGUNA PA-C [address], [place], [address], [facility], P 3 15:43:31 Pain of right knee joint 55216916491738 0 Active 2023 VIKAS LAGUNA PA-C [address], [place], [address], [place] [facility] 4 18:43:48 Bursitis of olecranon of right elbow 50891248841555 8 Active 2022 SHERI WOODWARD PA-C [address], [place], [address], [place] [facility] 3 09:03:02 Pain of right elbow joint 94479307341393 109 Active 2022 SHERI WOODWARD PA-C [address], [place], [address], [facility] 3 09:03:08 Problem Notes None recorded. Procedures Surgical History Date Name Laterality Status Provider Name and Address Organization Details Recorded Time 3 Knee Joint/Bursa Asp & Inj completed VIKAS LAGUNA PA-C [address], [place], [address], [place] [facility] 01/26/2023 06:38:57 1 bone fusion completed [facility] 01/25/2023 16:03:11 8 total knee replacement completed [facility] 01/25/2023 16:04:41 Imaging Results Imaging Date Name Status LastModified by [facility] Details LastModified Time 07/05/2023 imaging/diag [...] Address Organization Details Last Updated DateTime 10/27/2022 16515.44 g 31.2 kg/m2 172.[address] [facility] 10/27/2022 11:13:46 Social History None recorded. [...] Code Diagnosis Note [id number] MD RITIKA Baltazar [place] [address] [facility] [address] [place] [address] 10/27/2022 10:52:20 10/27/2022 13:02:34 Pain of right elbow joint 1528948636 1329819 M25.521 Bursitis o f olecranon of right elbow 1447120009 64827 M70.21 [id number] MD RITIKA Duron [facility] [address] [facility] [address] [place] [address] 01/25/2023 14:26:57 01/25/2023 15:47:32 Pain of right knee joint 8468158371 36072 M25.561 Effusion o f joint of right knee 0637445547 04000 M25.461 Effusion of joint 245348 008 M25.40 [id number] MD RITIKA Duron [facility] [address] [facility] [address] [place] [address] 07/04/2023 12:36:06 07/04/2023 14:06:45 Pain of right knee joint 5218505262 61634 M25.561 Health Concerns Section Related Observation LastModified by Organization Detai ls LastModified Time None Recorded Concern Status LastModified by Organization Details LastModified Time None Recorded Advance Directives Directive None Recorded Payers Encounter Date Sequence Insurance Name Policy Number Policy Cole Covered Member ID Cole Member ID Guarantor Name 10/27/2022 1 [facility] [id number] 1 Jeb Gauthier [id number] Jeb Gauthier 01/25/2023 1 [facility] [id number] 1 Jeb Gauthier [id number] Jeb Gauthier 07/04/2023 1 [facility] [id number] 1 Jeb Gauthier [id number] Jeb Gauthier Notes Date Note Type Note [...] SHERI WOODWARD PA-C [address], [place], [address], [place] [facility] 10/30/2022 09:07:01 01/25/2023 text/html This is [...] a Tenex procedure VIKAS LAGUNA PA-C [address] [facility] [address], [place], [address], [place] [facility] 01/26/2023 06:44:36 07/04/2023 text/html 72-year-old male who presents for evaluation of painful swelling in right knee onset of symptoms few days after having undergone PRP injection of his right plantar fasciitis and Achilles tendinitis by Dr. Mccall in [facility]. Patient states he had a procedure done last Sunday for which he came home and noted over the course of 48 hours increased pain within his right knee with immobility swelling without the presence of fevers or chills. He waited until Sunday to be seen at [facility] emergency department on 06/30/2022. There was [...] to today's visit. Imaging studies performed at [facility] where x-rays as well as duplex ultrasound as noted below [facility] [address] [place] [address] Patient: JEB GAUTHIER /Age/Sex: 1950 - 72 - MUnit#: [id number] [facility] [id number] Mnemonic/Ordering Site: KNEERT4/SPMAINOrdering Physician: YURIY ROCHA MD [...] ZAVALETA Date/Time: 06/30/23 150Sign date/Time: 06/30/23 1519 [facility] [address] [place] [address] Patient: JEB GAUTHIER Macrina Dean./Age/Sex: 1950 72 - MUnit#: [id number] Location/Status: SPER/REG ERAccount#: [id number] Mnemonic/Ordering Site: [facility] Physician: YURIY ROCHA MD Duplex [...] 06/30/231457Sign date/Time: 06/30/23 1503 VIKAS LAGUNA PA-C [address] [place] [address], [address], [place] [facility], 07/04/2023 18:45:40
--- OUTSIDE RECORDS SUMMARY | 2024-08-21 13:20 | XMS_ITS ---
Author Organization [facility] Address [address] [address] Care Team Providers Care Blanket Maker Name Role Phone ShabbirLeonid Primary Care Provider LEVAR Eng Unavailable [phone] REASON FOR VISIT Requesting call back Encounters Encounter Location Date Provider Diagnosis [facility] [address] [address] 05/30/2023 LEVAR SALAMANCA Plan Of Treatment No Information Progress Notes * John GAUTHIERDOB:[birth year] (72 yo M)Acc No.[id number]:05/30/2023 Patient:?John GAUTHIER :1950???Age:72 Y???Sex:Male [facility] [place] [address] * true * Date:? Generated for Bernardo villalobos/Bridgette/eTransmitting on:?08/21/2024 01:20 PM EST
--- OUTSIDE RECORDS SUMMARY | 2024-08-21 13:21 | XMS_ITS ---
Author Organization [facility], Address [address] [address] Care Team Providers Care Solar Photovoltaic Installer Name Role Phone Shabbir HUMPHREY, Leonid Primary Care Provider Unavailab CHULA Salgado Unavailable [phone] REASON FOR VISIT NEW INS/CT AUTH? Encounters Encounter Location Date Provider Diagnosis [facility], [address] [address] 06/20/2024 CHULA GRIFFIN Plan Of Treatment No Information Progress Notes * JEB WRENDOB:[birth year] (73 yo M)Acc No.[id number]:06/20/2024 Patient:?JEB WREN :1950???Age:73 Y???Sex:Male Address:[address] [facility] [place] [address] * true * Date:? Generated for Printi ng/Faxing/eTransmitting on:?08/21/2024 01:21 PM EST
--- OUTSIDE RECORDS SUMMARY | 2024-08-21 13:21 | XMS_ITS | Patient Health Record ---
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 Problem Essential hypertension (99541787) Hypertension, unspecified type (I10) Active confirmed Vital Signs Blood pressure diastolic 84 mm Hg 04/04/2024 Weight-kg 97.52 kg 08/05/2024 Height 68 in 08/05/2024 Blood pressure systolic 146 mm Hg 04/04/2024 Weight 215 lbs 08/05/2024 BMI 32.69 kg/m2 08/05/2024 Encounters Encounter Location Date Provider Diagnosis [facility], [address] [address] 08/27/2023 CHULA GRIFFIN Achilles tendinitis of right lower extremity M76.61 ; Plantar fasciitis, right M72.2 and History of ankle surgery Z98.890 [facility], [address] [facility] [address] [place] [address] 12/31/2023 CHULA GRIFFIN Achilles tendinitis of right lower extremity M76.61 ; Plantar fasciitis, right M72.2 and History of ankle surgery Z98.890 [facility] [address] [place] [address] 04/04/2024 CHULA GRIFFIN Hypertension, unspecified type I10 and Pain in right ankle and joints of right foot M25.571 [facility] [address] [place] [address] 07/25/2024 CHULAREYNOLDSSMAN Achilles tendinitis of right lower extremity M76.61 and History of ankle surgery Z98.890 [facility] [address] [place] 08/05/2024 CHULAMICHAELS History of ankle surgery Z98.890 and Arthritis of subtalar joint M19.079 [facility] [address] [place] 05/09/2024 CHULA ELIAS [facility] [address] [place] 06/13/2024 CHULA GRIFFIN [facility] [address] [place] 06/16/2024 CHULABHATIAAN [facility] [address] [place] 06/20/2024 CHULA ELIAS Assessments Encounter Date Diagnosis [...] ankle surgery (ICD-10 - Z98.890) 08/27/2023 Other Magineon dictation was used to assist with documentation of this note. While I did review this for errors, it is certainly possible that I may have overlooked some. If there is a confusing error, please do not hesitate to contact me for clarification. Thank you. . Telephone Service (audio only, CPT 99603) was provided to an established patient, parent and/or guardian not originating from a related E/M service provided within the previous 7 days or an E/M service or procedure within the next available 24 hours. This [id number]-face service involved 5-10 minutes of medical discussion 12/31/2023 Other GENIAC dictation was used to assist with documentation [...] encounter as if the encounter had occurred [id number] with the same standards of appropriate practice [...] HIPAA compliant video conferencing technology. 04/04/2024 Other Chatousatio n was used to assist with documentation of this note. While I did review this for errors, it is certainly possible that I may have overlooked some. If there is a confusing error, please do not hesitate to contact me for clarification. Thank you. 07/25/2024 Other GENIAC dictation was used to assist with documentation [...] encounter as if the encounter had occurred [id number] with the same standards of appropriate practice [...] HIPAA compliant video conferencing technology. 08/05/2024 Other GENIAC dictatio n was used to assist with [...] Insured Coverage Start Date Coverage End Date [facility] Medicare Advantage [address] [place], [place] [id number] [phone] [id number] JEB WREN Self - patient is the insured 5 Medicare of [place] J14 [address] [facility] [place] [id number] JEB WREN Self - patient is the insured 4 Medical (General) History Medical History History ICD Code diabetes high blood pressure Surgical History Surgery Date(Month/Year) right foot fusion right foot screw removal
--- OUTSIDE RECORDS SUMMARY | 2024-08-21 13:22 | XMS_ITS | Clinical Summary ---
Author Organization [facility] Address [address] [place] [address] Care Team Providers Care Ladies Underwear Operator Name Role Phone Leonid Shea MD Primary Care Provider [phone] Allergies No known active allergies Medications Medication [...] age to complete this topic Care Teams Ladies Underwear Operator Relationship Specialty Start Date End Date Leonid Shea MD [address] [place] [id number] PCP - General Internal Medicine 06/27/18
--- OUTSIDE RECORDS SUMMARY | 2024-08-21 13:22 | XMS_ITS | Clinical Summary ---
Author Organization [address] Address [address] [place] [address] Phone Care Team Providers Care Electronic Specialist Name Role Phone Leonid Shea MD Primary Care Provider [phone] Encounters Date Type Department Care Team Description 08/07/2024 Lab Requisition [facility] - Main Lab [address] [facility] [place] [address] Bear Wills PA Type 2 diabetes mellitus without complications (CMS/HCC); Hyperlipidemia, unspecified; Essential (primary) hypertension; Pain in unspecified joint; Chronic fatigue, unspecified; Gout, unspecified from Last 3 Months Surgical History Surgery Date Site/Laterality Comments KNEE SURGERY PROCEDURE:KNEE SURGERY Medical History Medical History Date Comments Type 2 diabetes mellitus (CMS/HCC) 02/06/2019 DX:Type 2 diabetes mellitus (HCC) Diabetes mellitus (CMS/HCC) DX:D iabetes mellitus ([facility]) Hypertension DX:Hypertension GERD (gastroesophageal reflux disease) DX:GERD [...] LAB CHEMISTRY METHOD 08/07/2024 7:04 PM EST [facility] ([facility] Blood Venous blood specimen / Unknown 08/07/2024 08/07/2024 6:39 PM EST Narrative [facility] - 08/07/2024 7:04 PM EST The Siemens Advia Centaur Chemiluminescent Immunoassay is used. Results obtained with different assay methods or kits cannot be used interchangeably. Results cannot be interpreted as absolute evidence of the presence or absence of malignant disease. Bear WOOD LAB BLOOD ORDERABLES Final Res ult Performing Organization Address City/[facility]/ZIP Co de Phone Number [facility] [address] [place] [address], [place] [phone] * SST tube (08/07/2024 12:00 AM EST) Extra Tube Hold for add-ons. 08/07/2024 8:01 PM EST [facility] Comment:Auto resulted. Blood Venous blood specimen / Unknown 08/07/2024 08/07/2024 6:39 PM EST Bear WOOD LAB BLOOD ORDERABLES Final Res ult Performing Organization Address [facility]/ZIP Co de Phone Number [facility] [address] [place] [address], [place] [phone] * (ABNORMAL) Lipid panel with reflex to direct LDL (08/07/2024 12:00 AM EST) Cholesterol 222(H) 0 - 200 mg/dL LAB CHEMISTRY METHOD 08/07/2024 7:03 PM EST [facility] Triglycerides 287(H) 0 - 150 mg/dL LAB CHEMISTRY METHOD 08/07/2024 7:03 PM EST [facility] HDL 28(L) >=40 mg/dL LAB CHEMISTRY METHOD 08/07/2024 7:03 PM [facility] LDL Calculated 137(H) 0 - 100 mg/dL LAB CHEMISTRY METHOD 08/07/2024 7:03 PM EST [facility] VLDL Cholesterol Mendez 57.4 mg/dL LAB CHEMISTRY METHOD 08/07/2024 7:03 PM [facility] Non HDL Chol. (LDL+VLDL) 194(H) <145 mg/dL LAB CHEMISTRY METHOD 08/07/2024 7:03 PM [facility] Chol/HDL Ratio 7.9(H) 0.0 - 4.4 LAB CHEMISTRY METHOD 08/07/2024 7:03 PM [facility] Blood Venous blood specimen / Unknown 08/07/2024 08/07/2024 6:39 PM EST us [facility]OD LAB BLOOD ORDERABLES Final Res ult [facility] [address] [place] [address], [place] [phone] * (ABNORMAL) Complete blood count (08/07/2024 12:00 AM EST) WBC 10.4 4.8 - 10.8 K/mcL LAB HEMETOLOGY METHOD 08/07/2024 7:05 PM [facility] RBC 4.40(L) 4.50 - 5.50 M/[facility] LAB HEMETOLOGY METHOD 08/07/2024 7:05 PM [facility] Hemoglobin 12.5(L) 13.5 - 17.5 g/dL LAB HEMETOLOGY METHOD 08/07/2024 7:05 PM [facility] Hematocrit 39.4(L) 42.0 - 54.0 % LAB HEMETOLOGY METHOD 08/07/2024 7:05 PM [facility] MCV 89.7 79.0 - 98.0 FL LAB HEMETOLOGY METHOD 08/07/2024 7:05 PM [facility] MCH 28.5 27.0 - 32.0 pcg LAB HEMETOLOGY METHOD 08/07/2024 7:05 PM [facility] MCHC 31.7(L) 32.0 - 37.0 g/dL LAB HEMETOLOGY METHOD 08/07/2024 7:05 PM EST [facility] RDW 14.0 11.0 - 15.0 % LAB HEMETOLOGY METHOD 08/07/2024 7:05 PM [facility] Platelets 254 130 - 400 K/mcL LAB HEMETOLOGY METHOD 08/07/2024 7:05 PM [facility] MPV 12.2(H) 7.0 - 11.0 FL LAB HEMETOLOGY METHOD 08/07/2024 7:05 PM [facility] NRBC 0.0 <1.0 % LAB HEMETOLOGY METHOD 08/07/2024 7:05 PM [facility] NRBC Absolute 0.00 <0.10 K/mcL LAB HEMETOLOGY METHOD 08/07/2024 7:05 PM [facility] Blood Venous blood specimen / Unknown 08/07/2024 08/07/2024 6:39 PM EST [facility] LAB BLOOD ORDERABLES Final Res ult Performing Organization Address City/[facility]/ZIP Co de Phone Number [facility] [address] [place] [address], [place] [phone] * Uric acid (08/07/2024 12:00 AM EST) Pathologist [facility] Uric Acid 5.9 3.7 - 9.2 mg/dL LAB CHEMISTRY METHOD 08/07/2024 7:03 PM EST [facility] Blood Venous blood specimen / Unknown 08/07/2024 08/07/2024 6:39 PM EST us [facility] LAB BLOOD ORDERABLES Final Res ult [facility] [address] [place] [address], [place] [phone] * (ABNORMAL) Hemoglobin A1c (08/07/2024 12:00 AM EST) [facility] Hemoglobin A1C 9.0(H) <6.5 % LAB CHEMISTRY METHOD 08/07/2024 9:37 PM [facility] Mean Bld Glu Estim. 212 mg/dL LAB CHEMISTRY METHOD 08/07/2024 9:37 PM [facility] Blood Venous blood specimen / Unknown 08/07/2024 08/07/2024 6:39 PM EST [facility] LAB BLOOD ORDERABLES Final Res ult [facility] [address] [place] [address], * (ABNORMAL) Comprehensive metabolic panel (08/07/2024 12:00 AM EST) [facility] Sodium 138 133 - 145 mmol/L LAB CHEMISTRY METHOD 08/07/2024 7:03 PM [facility] Potassium 4.1 3.5 - 5.5 mmol/L LAB CHEMISTRY METHOD 08/07/2024 7:03 PM [facility] Chloride 103 96 - 110 mmol/L LAB CHEMISTRY METHOD 08/07/2024 7:03 PM [facility] CO2 25 21 - 32 mmol/L LAB CHEMISTRY METHOD 08/07/2024 7:03 PM [facility] Anion Gap 10 3 - 11 LAB CHEMISTRY METHOD 08/07/2024 7:03 PM [facility] Glucose 261(H) 70 - 100 mg/dL LAB CHEMISTRY METHOD 08/07/2024 7:03 PM [facility] BUN 19 5 - 25 mg/dL LAB CHEMISTRY METHOD 08/07/2024 7:03 PM [facility] Creatinine 1.40(H) 0.70 - 1.30 mg/dL LAB CHEMISTRY METHOD 08/07/2024 7:03 PM [facility] eGFR 52(L) >=60 mL/min/1. 73m2 LAB CHEMISTRY METHOD 08/07/2024 7:03 PM [facility] Comment:Calculation based on the??Chronic Kidney Disease Epidemiology Collaboration (CKD-EPI) equation refit??without adjustment for race. BUN/Creatinine Ratio 13.6 LAB CHEMISTRY METHOD 08/07/2024 7:03 PM [facility] Calcium 9.1 8.5 - 10.5 mg/dL LAB CHEMISTRY METHOD 08/07/2024 7:03 PM [facility] AST (SGOT) 29 10 - 42 unit/L LAB CHEMISTRY METHOD 08/07/2024 7:03 PM [facility] ALT (SGPT) 63(H) 10 - 60 unit/L LAB CHEMISTRY METHOD 08/07/2024 7:03 PM [facility] Alkaline Phosphatase 92 42 - 121 unit/L LAB CHEMISTRY METHOD 08/07/2024 7:03 PM [facility] Total Protein 7.2 6.0 - 8.0 g/dL LAB CHEMISTRY METHOD 08/07/2024 7:03 PM [facility] Albumin 3.4 3.2 - 5.0 g/dL LAB CHEMISTRY METHOD 08/07/2024 7:03 PM [facility] Total Bilirubin 0.4 0.0 - 1.4 mg/dL LAB CHEMISTRY METHOD 08/07/2024 7:03 PM [facility] Blood Venous blood specimen / Unknown 08/07/2024 08/07/2024 6:39 PM EST us Bear [facility] LAB BLOOD ORDERABLES Final Res ult [facility] [address] [place] [address], from Last 3 Months Insurance [facility] MEDICARE ADVANTAGE Member Subscriber Plan / Payer (Ef fective 2024-Present) Name:John Gauthier Macrina Relation to Subscriber:Self Name:John Gauthier Macrina Payer ID:[id number] Type:Not on file Address: [facility] [id number] [address] Care Teams Electronic Specialist Relationship Specialty Start Date End Date Leonid Shea MD [address] [address] PCP - General Internal Medicine 11/25/18
--- OUTSIDE RECORDS SUMMARY | 2024-08-21 13:22 | XMS_ITS ---
Author Organization [facility], Address [address] [address] Care Team Providers Care Sweat Box Attendant Name Role Phone Leonid Shea MD Primary Care Provider UnavailLUIS CARLOS Sterling Unavailable [phone] Allergies No Known Allergies REASON FOR VISIT [...] 08/05/2024 Encounters Encounter Location Date Provider Diagnosis [facility], [address] [address] 08/05/2024 LUIS CARLOS MCCALL History of ankle [...] discuss next steps in management. 08/05/2024 Other Insight Communicationson dictatio n was used to assist with [...] * JEB WRENDOB:[birth year] (73 yo M)Acc No.[id number]:08/05/2024 Patient:?JEB WREN Provider:Wilbur Mccall, :1950???Age:73 Y???Sex:Male Jeff e:08/05/2024 Address:[address] [place] [address] Pcp:Leonid Shea MD Subjective: * Chief Complaints: [...] the practice's PACS system. ? * Procedure Codes:?25999 DRAIN /INJ JOINT/BURSA W/US * Preventive Medicine:? ??Screenings:?Fall risk screening?Fall Risk Assessment:?No falls in the past year * Follow Up:?prn * Billing Information: * Visit Code:? 50503 Office Visit, Est Pt., Level 3. * Procedure Codes:? 46446 DRAIN/INJ JOINT/BURSA W/US. * Sign off status: Completed true * Provider:?Luis Carlos Mccall DO Date:?08/05 Generated for Bernardo villalobos/Bridgette/Chevy on:?08/21/2024 01:21 PM EST History and Physical Notes * [...]
--- OUTSIDE RECORDS SUMMARY | 2024-08-21 13:22 | XMS_ITS ---
Author Organization [facility] Address [address] [address] Care Team Providers Care Armed Security Guard Name Role Phone Leonid Shea Primary Care Provider LEVAR Eng Unavailable [phone] REASON FOR VISIT Requesting a call back Encounters Encounter Location Date Provider Diagnosis [facility] [address] [address] 08/06/2024 LEVAR SALAMANCA Plan Of Treatment No Information Progress Notes * GAUTHIERJohn TOTHDOB:[birth year] (73 yo M)Acc No.[id number]:08/06/2024 Patient:?John GAUTHIER :1950???Age:73 Y???Sex:Male Address:[address] [place] [address] * * Date:?
--- OUTSIDE RECORDS SUMMARY | 2024-08-21 13:22 | XMS_ITS | Encounter Summary ---
Author Organization [facility] Address [address] [place] [address] Care Team Providers Care Assistant Professor Of Nursing Name Role Phone Leonid Shea MD Primary Care Provider [phone] Encounter Details Date Type Department Care Team (Latest Contact Info) Description 08/07/[address] [facility] - Main Lab [address] [facility] [place] [address] Bear Wills PA 299 [facility] [address] [place], [place] [id number] Type 2 diabetes mellitus without complications (CMS/HCC); [...] Hold for add-ons. 08/07/2024 8:01 PM EST [facility] Comment:Auto resulted. Blood Venous blood specimen / Unknown 08/07/2024 08/07/2024 6:39 PM EST us Bear WOOD LAB BLOOD ORDERABLES Final Res ult [facility] [address] [place] [address], [place] [phone] * Uric acid (08/07/2024 12:00 AM EST) Uric Acid 5.9 3.7 - 9.2 mg/dL LAB CHEMISTRY METHOD 08/07/2024 7:03 PM EST [facility] Blood Venous blood specimen / Unknown 08/07/2024 08/07/2024 6:39 PM EST Bear [facility] LAB BLOOD ORDERABLES Final Res ult Performing Organization Address [facility] de Phone Number [facility] [address] [place] [address], [place] [phone] * Prostate specific antigen screen (08/07/2024 12:00 AM EST) Pathologist [facility] PSA 1.18 0.00 - 4.00 ng/mL LAB CHEMISTRY METHOD 08/07/2024 7:04 PM EST [facility] Blood Venous blood specimen / Unknown 08/07/2024 08/07/2024 6:39 PM EST Narrative [facility] - 08/07/2024 7:04 PM EST The Siemens Advia Centaur Chemiluminescent Immunoassay is used. Results obtained with different assay methods or kits cannot be used interchangeably. Results cannot be interpreted as absolute evidence of the presence or absence of malignant disease. us [facility] LAB BLOOD ORDERABLES Final Res ult Performing Organization Address City/[facility] Co de Phone Number [facility] [address] [place] [address], [place] [phone] * (ABNORMAL) Hemoglobin A1c (08/07/2024 12:00 AM EST) Pathologist [facility] Hemoglobin A1C 9.0(H) <6.5 % LAB CHEMISTRY METHOD 08/07/2024 9:37 PM EST [facility] Mean Bld Glu Estim. 212 mg/dL LAB CHEMISTRY METHOD 08/07/2024 9:37 PM EST [facility] Blood Venous blood specimen / Unknown 08/07/2024 08/07/2024 6:39 PM EST us Bear [facility] LAB BLOOD ORDERABLES Final Res ult [facility] [address] [place] [address], * (ABNORMAL) Complete blood count (08/07/2024 12:00 AM EST) WBC 10.4 4.8 - 10.8 K/mcL LAB HEMETOLOGY METHOD 08/07/2024 7:05 PM [facility] RBC 4.40(L) 4.50 - 5.50 M/mcL LAB HEMETOLOGY METHOD 08/07/2024 7:05 PM [facility] Hemoglobin 12.5(L) 13.5 - 17.5 g/dL LAB HEMETOLOGY METHOD 08/07/2024 7:05 PM [facility] Hematocrit 39.4(L) 42.0 - 54.0 % LAB HEMETOLOGY METHOD 08/07/2024 7:05 PM [facility] MCV 89.7 79.0 - 98.0 FL LAB HEMETOLOGY METHOD 08/07/2024 7:05 PM [facility] MCH 28.5 27.0 - 32.0 pcg LAB HEMETOLOGY METHOD 08/07/2024 7:05 PM [facility] MCHC 31.7(L) 32.0 - 37.0 g/dL LAB HEMETOLOGY METHOD 08/07/2024 7:05 PM [facility] RDW 14.0 11.0 - 15.0 % LAB HEMETOLOGY METHOD 08/07/2024 7:05 PM [facility] Platelets 254 130 - 400 K/mcL LAB HEMETOLOGY METHOD 08/07/2024 7:05 PM [facility] MPV 12.2(H) 7.0 - 11.0 FL LAB HEMETOLOGY METHOD 08/07/2024 7:05 PM [facility] NRBC 0.0 <1.0 % LAB HEMETOLOGY METHOD 08/07/2024 7:05 PM [facility] NRBC Absolute 0.00 <0.10 K/mcL LAB HEMETOLOGY METHOD 08/07/2024 7:05 PM [facility] Blood Venous blood specimen / Unknown 08/07/2024 08/07/2024 6:39 PM EST us [facility] LAB BLOOD ORDERABLES Final Res ult [facility] [address] [place] [address], [place] [phone] * (ABNORMAL) Lipid panel with reflex to direct LDL (08/07/2024 12:00 AM EST) Cholesterol 222(H) 0 - 200 mg/dL LAB CHEMISTRY METHOD 08/07/2024 7:03 PM [facility] Triglycerides 287(H) 0 - 150 mg/dL LAB CHEMISTRY METHOD 08/07/2024 7:03 PM [facility] HDL 28(L) >=40 mg/dL LAB CHEMISTRY METHOD 08/07/2024 7:03 PM [facility] LDL Calculated 137(H) 0 - 100 mg/dL LAB CHEMISTRY METHOD 08/07/2024 7:03 PM [facility] VLDL Cholesterol Mendez 57.4 mg/dL LAB CHEMISTRY METHOD 08/07/2024 7:03 PM [facility] Non HDL Chol. (LDL+VLDL) 194(H) <145 mg/dL LAB CHEMISTRY METHOD 08/07/2024 7:03 PM [facility] Chol/HDL Ratio 7.9(H) 0.0 - 4.4 LAB CHEMISTRY METHOD 08/07/2024 7:03 PM [facility] Blood Venous blood specimen / Unknown 08/07/2024 08/07/2024 6:39 PM EST us [facility] LAB BLOOD ORDERABLES Final Res ult [facility] [address] [place] [address], [place] [phone] * (ABNORMAL) Comprehensive metabolic panel (08/07/2024 12:00 AM EST) Sodium 138 133 - 145 mmol/L LAB CHEMISTRY METHOD 08/07/2024 7:03 PM [facility] Potassium 4.1 3.5 - 5.5 mmol/L LAB CHEMISTRY METHOD 08/07/2024 7:03 PM [facility] Chloride 103 96 - 110 mmol/L LAB CHEMISTRY METHOD 08/07/2024 7:03 PM [facility] CO2 25 21 - 32 mmol/L LAB CHEMISTRY METHOD 08/07/2024 7:03 PM [facility] Anion Gap 10 3 - 11 LAB CHEMISTRY METHOD 08/07/2024 7:03 PM [facility] Glucose 261(H) 70 - 100 mg/dL LAB CHEMISTRY METHOD 08/07/2024 7:03 PM [facility] BUN 19 5 - 25 mg/dL LAB CHEMISTRY METHOD 08/07/2024 7:03 PM [facility] Creatinine 1.40(H) 0.70 - 1.30 mg/dL LAB CHEMISTRY METHOD 08/07/2024 7:03 PM [facility] eGFR 52(L) >=60 mL/min/1. 73m2 LAB CHEMISTRY METHOD 08/07/2024 7:03 PM [facility] Comment:Calculation based on the??Chronic Kidney Disease Epidemiology Collaboration (CKD-EPI) equation refit??without adjustment for race. BUN/Creatinine Ratio 13.6 LAB CHEMISTRY METHOD 08/07/2024 7:03 PM [facility] Calcium 9.1 8.5 - 10.5 mg/dL LAB CHEMISTRY METHOD 08/07/2024 7:03 PM [facility] AST (SGOT) 29 10 - 42 unit/L LAB CHEMISTRY METHOD 08/07/2024 7:03 PM [facility] ALT (SGPT) 63(H) 10 - 60 unit/L LAB CHEMISTRY METHOD 08/07/2024 7:03 PM [facility] Alkaline Phosphatase 92 42 - 121 unit/L LAB CHEMISTRY METHOD 08/07/2024 7:03 PM [facility] Total Protein 7.2 6.0 - 8.0 g/dL LAB CHEMISTRY METHOD 08/07/2024 7:03 PM [facility] Albumin 3.4 3.2 - 5.0 g/dL LAB CHEMISTRY METHOD 08/07/2024 7:03 PM [facility] Total Bilirubin 0.4 0.0 - 1.4 mg/dL LAB CHEMISTRY METHOD 08/07/2024 7:03 PM [facility] Blood Venous blood specimen / Unknown 08/07/2024 08/07/2024 6:39 PM EST us [facility] LAB BLOOD ORDERABLES Final Res ult [facility] [address] [place] [address], documented in this encounter Visit Diagnoses Diagnosis Type 2 diabetes mellitus without complications (CMS/HCC) Hyperlipidemia, unspecified Essential (primary) hypertension Unspecified essential hypertension Pain in unspecified joint Chronic fatigue, unspecified Gout, unspecified documented in this encounter Care Teams Assistant Professor Of Nursing Relationship Specialty Start Date End Date Leonid Shea MD [address] [place] [address] PCP - General Internal Medicine 11/25/18 documented as of this encounter
== END 2024-08-21 11:59 | disposition home or self-care (01) ==
LOC: HO.RHE 10:58
PROVIDERS: Visit Provider Student in an Organized Health Care Education/Training Program
DX: M1A.09X0 Idiopathic chronic gout, multiple sites, without tophus (tophi) (principal); Z51.81 Encounter for therapeutic drug level monitoring; Z79.899 Other long term (current) drug therapy
CPT/HCPCS: 99214

== ENCOUNTER 2024-10-23 11:45 | Outpatient (AMB) | payer BC, SELFPAY ==
--- NOTE | 2024-10-23 11:49 | A.OFFPC_ITS ---
Vital Signs 10/23/24 12:01 Height 5 ft 8 in Weight 210 lb 2 oz BMI 31.9 BP 122/72 Blood Pressure Location Rt brachial Position Sitting Pulse 95 Pulse Source Pulse Oximeter Temp 98.4 F Temp Source Temporal Artery Scan Pulse Oximetry (%) 97 Oxygen Delivery Method Room Air Oxygen Flow Rate 98.4 Intake Visit Reasons: continuity of care Intake Note: John presents in the office today to establish care as his last PCP retired. Allergies No Known Allergies Allergy (Verified 10/23/24 11:55) Tobacco use date assessed: 10/23/24 Fall risk assessment: No Falls in past year Last assessed Fall Risk: 10/23/24 Dental Screening Dental Screen Date: 10/23/24 Did you have a dental visit in the last 12 months?: Yes Did you have a dental problem in the last 6 months where you did not have access to dental care?: No Was dental information given to patient?: Patient has dentist HPI HPI Comments History of Present Illness Details 73-year-old male with a past medical his tory of type 2 diabetes, CKD stage IIIA, TIA, gout, hypertension, hyperlipidemia and GERD presents for follow up. This is my 1st time seeing the patient. He is switching to my panel. Patient is having surgery at [facility] to address a chronic, nonhealing right foot issue. Patient has had numerous orthopedic surgeries for knee, foot problems. He was diagnosed with type 2 diabetes 8 years ago. He was very active before developing musculoskeletal injuries that prohibit him from exercising. Currently taking Trulicity 0.75 mg weekly. It is 232 dollars per month until he meets a 2000 dollar deductible, but he says he will do this. He however wants to try another GLP 1 that may help more with weight loss because he is not what lost weight on Trulicity, and he has gained about 10 lb since he has not been able to exercise. He is also taking glipizide extended release 5 mg 2 tablets twice a day. Fasting blood sugars are 130s to 140s. He has neuropathy in his feet. Past medications: Metformin IR cause GI side effects. Metformin extended release worked fine, but there was a recall on it at some point and he was switched to glipizide. He does not want to go back on metformin. Hemoglobin A1c 7.9% 09/16/2024. Creatinine 1.3, GFR 57. LFTs normal 08/15/2024. No urine or lipids on file. History of TIA a year ago. Patient on baby aspirin and atorvastatin. Blood pressure is well-controlled. Patient on lisinopril-hydrochlorothiazide, amlodipine. Patient has a nonhealing lesion on his left ear for the past 2-3 months. Patient has history of gout in his followed by Rheumatology. ROS: Constitutional: No unexplained weight loss, fever, chills, fatigue or night sweats. Eyes: No vision changes, blurry vision, double vision Respiratory: No shortness of breath, cough or sputum production. Cardiovascular: No chest pain, chest pressure or chest discomfort. No palpitations or pedal edema. Gastrointestinal: No anorexia, nausea, vomiting or diarrhea. No abdominal pain or blood in stool. Endocrine: No cold or heat intolerance. No polyuria or polydipsia. Psychiatric: No depression or anxiety. No SI/HI. Physical exam: Constitutional: Alert, in no distress. Head: Normocephalic. Respiratory: Clear to auscultation. Cardiovascular: S1 S2 regular. No murmurs Extremities: Warm and well perfused. No clubbing, cyanosis or edema. Psychiatric: Normal mood and affect Skin: 5 mm scabby lesion on the left external ear. No erythema, discharge, warmth. [facility] Medical History Gout TIA (transient ischemic attack) Diabetes Elevated cholesterol HTN (hypertension) Surgical History H/O colonoscopy History of surgery on lower extremity History of ankle surgery Hx of left knee surgery Social History (Updated 10/23/24 @ 12:01 by Cris Mckay MA) Housing: House Are you a primary healthcare administration internship to a significant other at home: No Alcohol intake: current Alcohol intake frequency: a few times a week Alcohol type: beer Patient Tobacco Use Status: Former Tobacco user Tobacco use type: Cigarette Cigarette Packs Per Day: 1 Cigarettes Per Day: 2 Years Smoked: 45 e-Cigarette/Vaping Use: Never Used Second Hand Smoke Exposure: No Substance Use Type: Marijuana service: Yes Current occupational status: retired Current occupational exposures/hazards: No Cognitive needs: No Hearing needs: Yes Vision needs: No Questionnaire PHQ-9 Over the last 2 weeks, how often have you been bothered by any of the following problems? 1. Little interest or pleasure in doing things: not at all 2. Feeling down, depressed, or hopeless: not at all 3. Trouble falling or staying asleep, or sleeping too much: not at all 4. Feeling tired or having little energy: several days 5. Poor appetite or overeating: not at all 6. Feeling bad about yourself - or that you are a failure or have let yourself or your family down: not at all 7. Trouble concentrating on things, such as reading the newspaper or watching television: not at all 8. Moving or speaking so slowly that other people could have noticed. Or the opposite - being so fidgety or restless that you have been moving around a lot more than usual: not at all 9. Thoughts that you would be better off or of hurting yourself in some way: not at all Total score: 1 Depression Screening Interpretation: Negative Depression Screening Done: Yes 76861 - PHQ-9 Billing: Patient declined-do not bill Source: Developed by Drs. John Ryan, Tequila Caro, Romeo Garnica and colleagues, with an educational nishant from [employer]. Thrive Questionnaire Date Thrive assessed: 10/23/24 I am a: Patient What is your living situation today?: I have a steady place to live Within the past 12 months, did the food you bought not last and you didn't have the money to get more?: Never true Within the past 12 months, did you worry whether your food would run out before you got money to buy more?: Never true Do you have trouble paying for medicines?: No Do you have trouble getting transportation to medical appointments?: No Do you have trouble paying your heating and electricity bill?: No Do you have trouble taking care of your child, family member or friend?: No Do you have trouble with day-to-day activities such as bathing, preparing meals, shopping, managing finances, etc.?: No Are you currently unemployed and looking for a job?: No Are you interested in more education?: No Please select the resources that you would like help with: None Currently or been in a relationship where the following occur: No concerns reported THRIVE Score: 0 AUDIT C Alcohol Use Questionnaire (AUDIT-C) 1. How often do you have a drink containing alcohol?: 2-3 times a week 2. How many drinks containing alcohol do you have on a typical day when you are drinking?: 1 or 2 3. How often do you have six or more drinks on one occasion?: Never Total Score: 3 Score Reviewed/Action Taken: No SMOOTH-7 AMB Questionnaire SMOOTH-7 Date SMOOTH - 7 assessed: 10/23/24 Feeling nervous, anxious, or on edge: 0 = Not at all Not being able to stop or control worryin = Not at all Worrying too much about different things: 0 = Not at all Trouble relaxin = Not at all Being so restless that it is hard to sit still: 0 = Not at all Becoming easily annoyed or irritable: 0 = Not at all Feeling afraid as if something awful might happen: 0 = Not at all Total SMOOTH-7 score (0-4 normal; 5-9 mild; 10-14 moderate; 15-21 severe): 0 Source: Developed by Drs. John Ryan, Tequila Caro, Romeo Garnica and colleagues, with an educational nishant from [employer]. SMOOTH-7 Assessment Billing SMOOTH-7 Assessment Tool: SMOOTH-7 Assessment 21078 Physical exam (Primary Care) Vital Signs: Last Vital Signs Temp 98.4 F 10/23/24 12:01 Pulse 95 10/23/24 12:01 BP 122/72 10/23/24 12:01 Pulse Ox 97 10/23/24 12:01 Oxygen Delivery Method Room Air 10/23/24 12:01 Oxygen Flow Rate 98.4 10/23/24 12:01 BMI result Body Mass Index 31.9 Tobacco/Smoking Status: Tobacco use Status Tobacco use date assessed 10/23/24 10/23/24 11:52 Patient Tobacco Use Status Former Tobacco user 10/23/24 12:00 Tobacco use type Cigarette 10/23/24 12:00 e-Cigarette/Vaping Use Never Used 10/23/24 12:05 PHQ-9: PHQ-9 Score PHQ-9: Total score 1 10/23/24 11:52 Depression Screening Interpretation: Negative Thrive Assessment: Date of Thrive Assessment Date Thrive assessed 05/08/25 05/08/25 11:52 Currently or been in a relationship where the following occur: No concerns reported Coding Level of Care Code Est Pt Level 4 (86010) Complex EM visit Add On G2211 Diagnoses Essential hypertension I10 Hyperlipidemia E78.5 Type 2 diabetes mellitus E11.9 Lesion of left ear H93.92 Additional Codes SMOOTH-7 Assessment Billing - SMOOTH-7 Assessment Tool: SMOOTH-7 Assessment 23153 ([id number]) Assessment & Plan Assessment & Plan (1) Essential hypertension: Code(s): I10 - Essential (primary) hypertension Category: Medical Plan: Continue current medication. Continue efforts at weight loss. Low-sodium diet and avoidance of caffeine recommended. (2) Hyperlipidemia: Code(s): E78.5 - Hyperlipidemia, unspecified Category: Medical Plan: Patient says he stopped taking his statin a couple of weeks ago because he read it was not necessary. I reviewed recommendations for statin use in patients with cardiovascular risk. He is going to restart atorvastatin 40 mg daily. He had no side effects on it. Check lipid profile with next labs. (3) Type 2 diabetes mellitus: Code(s): E11.9 - Type 2 diabetes mellitus without complications Category: Medical Plan: Complications reviewed with the patient. We will switch Trulicity to Mounjaro 2.5 mg weekly. He denies contraindications. Side effects and administration reviewed. Start 1 week after last dose of Trulicity. Call if there are significant side effects. Continue glipizide ER 10 mg twice daily. If he develops low sugars on Mounjaro he should decrease glipizide to 1 tablet daily. Treatment of hypoglycemia reviewed with the patient. Instructed to bring glucometer with him to his appointments. Labs ordered to have done prior to next appointment. Diabetic diet reviewed. (4) Lesion of left ear: Code(s): H93.92 - Unspecified disorder of left ear Category: Medical Plan: Apply topical mupirocin twice a day and refer to dermatology. Plan Follow up in 6 weeks. Orders: Orders Basic Metabolic Panel Today E11.9 - Type 2 diabetes mellitus without complications, E66.9 - Obesity, unspecified, E78.5 - Hyperlipidemia, unspecified, I10 - Essential (primary) hypertension Vitamin B12 Today Z91.89 - Other specified personal risk factors, not elsewhere classified Prostate Specific Antigen Today Z12.5 - Encounter for screening for malignant neoplasm of prostate Lipid Panel Today E78.5 - Hyperlipidemia, unspecified Microalbumin, Random (w Creat) Today E11.9 - Type 2 diabetes mellitus without complications Referrals Dermatology Referral H93.92 - Unspecified disorder of left ear Medications: New glipizide ER 10 mg PO BID 180 tabs 3RF mupirocin 2% 1 appl topical BID 15 grams 0RF tirzepatide (Mounjaro) for 4 weeks 2.5 mg (0.5 mL) subcut QWEEK 2 mL 0RF
[2024-10-23 12:01] VITALS: BP 122/72; PULSE 95; TEMP 36.9; O2SAT 97; BMI 31.9
--- OUTSIDE RECORDS SUMMARY | 2024-10-23 13:18 | XMS_ITS | Data Portability ---
Author Organization [place] [facility] Sandra Wylie AONE [place] Address [address] [place] [address] Care Team Providers Care Skiing Teacher Name Role Phone RODDY SANTAMARIA Primary Care Provider [phone] Assessment Encounter Date Assessment Date Assessment LastModified [...] options as noted above can be considered. [email or web address] Not available 10/30/2022 09:05:49 01/25/2023 01/25/2023 This [...] underwent PRP injection by Dr. Mccall at [facility] last Sunday with notable painful swollen knee. He went to [facility] ER with a concern for a septic [...] emergency department for further evaluation. (Seema YOST storage and backup administrator present during discussion) As of note the patient is a poorly controlled diabetic and multiple comorbidities. A similar treatment performed at the same practice in [place] for which I evaluated back on 01/25/2023. I had a detailed discussion in the presence of my styrene dehydration reactor operator that he should have contacted his orthopedic provider who performed the treatment due to potential risk of infection, side effects. The patient is aware going forward that he would need to follow-up with the orthopedic provider that rendered care if there was a potential untoward outcome after treatment. The patient agreed he would go to [facility] ER following his visit today. There was [...] count w/ diff, synovial fluid [address] [facility] [address] [facility], [address], [address], [place], [address], 3 11:12:22 gram stain, synovial fluid [address] [facility], [address], [address], [place], [address], 3 11:12:23 crystals, synovial fluid [address] [facility], [address], [address], [place], [address], 3 11:12:23 culture, synovial fluid [address] [facility], [address], [address], [place], [address], 3 11:12:23 glucose, QN [mass/volu me], synovial fluid [address] [facility], [address], [address], [place], [address], 3 11:12:23 Referral None recorded. Procedures None recorded. Surgeries None recorded. Imaging XR, knee, 4 or more view 2022 023 [email or web address] [facility], [address], [address], [place], [address], 3 07:09:56 XR, elbow, 3 or more view 2022 023 [email or web address] [facility], [address], [address], [place], [address], 3 08:26:40 Medication Orders lidocaine (PF) 10 mg/mL (1 %) injection solution 2022 023 [email or web address] [id number], [address] [place], [address], 06:44:02 Patient TargetsNo targets recorded. Patient Instructions Encounter Date Encounter Id Patient Instructions Last Modified By Organization Details Last Modified Time 10/27/2022 [id number] views of the right elbow including AP lateral and oblique were obtained in the [place] office. X-rays demonstrated normal bone mineralization. No significant spur at the olecranon. Soft tissue swelling noted. No evidence of acute injury or fracture. [email or web address] Not available 10/30/2022 09:03:30 Reason for Referral None Reported. Results Created [...] Time Effusion of joint of right knee 49210620468804 4 Active 2022 VIKAS LAGUNA PA-C [address], [place], [address], [place] [facility], P 3 15:43:21 Effusion of joint 515624959 Active 2022 VIKAS LAGUNA PA-C [address], [place], [address], [place] [facility], [facility] 3 15:43:31 Pain of right knee joint 77285970072271 0 Active 2023 VIKAS LAGUNA PA-C [address], [place], [address], [place] [facility], [facility] 4 18:43:48 Bursitis of olecranon of right elbow 89483963303456 8 Active 2022 SHERI WOODWARD PA-C [address], [place], [address], [place] [facility], P 3 09:03:02 Pain of right elbow joint 58995437144391 109 Active 2022 SHERI WOOWDARD PA-C [address], [place], [address], [place] [facility], [facility] 3 09:03:08 Problem Notes None recorded. Procedures Surgical History Date Name Laterality Status Provider Name and Address Organization Details Recorded Time 3 Knee Joint/Bursa Asp & Inj completed VIKAS LAGUNA PA-C [address], [place], [address], [place] [facility], [facility] 01/26/2023 06:38:57 1 bone fusion completed [facility], P 01/25/2023 16:03:11 8 total knee replacement completed [facility], P 01/25/2023 16:04:41 Imaging Results Imaging Date Name Status LastModified by Organiz ation Details LastModified Time 07/05/2023 imaging/diag nostic result [...] Address Organization Details Last Updated DateTime 10/27/2022 42606.44 g 31.2 kg/m2 172.[address] [facility] 10/27/2022 11:13:46 Social History None recorded. Functional Status None recorded. Mental Status None recorded. Family History Relationship Description Onset Age of this Age Resolved Age Notes LastModified by Organization Details LastModified Time Father Heart disease [email or web address] Not available 2022 16:01:20 Medical History Condition Response Stroke Y Diabetes Y Past Encounters Encounter ID Performer Location Encounter Start Date Encounter Closed Date Diagnosis/Indication Diagnosis SNOMED-CT Code Diagnosis ICD10 Code Diagnosis Note [id number] MARTELL MONTOYA [place] [address] [facility] [address] [place] [address] 10/27/2022 10:52:20 10/27/2022 13:02:34 Pain of right elbow joint 0751693218 9859942 M25.521 Bursitis o f olecranon of right elbow 7148199547 89583 M70.21 [id number] MARTELL PERSON [facility] [address] [facility] [address] [place] [address] 01/25/2023 14:26:57 01/25/2023 15:47:32 Pain of right knee joint 2321910068 19889 M25.561 Effusion o f joint of right knee 7187424634 32310 M25.461 Effusion of joint 264085 008 M25.40 [id number] MARTELL PERSON [facility] [address] [facility] [address] [place] [address] 07/04/2023 12:36:06 07/04/2023 14:06:45 Pain of right knee joint 1312231277 21281 M25.561 Health Concerns Section Related Observation LastModified by Organization Detai ls LastModified Time None Recorded Concern Status LastModified by Organization Details LastModified Time None Recorded Advance Directives Directive None Recorded Payers Encounter Date Sequence Insurance Name Policy Number Policy Cole Covered Member ID Cole Member ID Guarantor Name 10/27/[address] [facility] [id number] 1 Jeb Gauthier [id number] Jeb Gauthier 01/25/[address] [facility] [id number] 1 Jeb Macrina Disha [id number] Jeb Gauthier 07/04/[address] [facility] [id number] 1 Jeb Macrina Disha [id number] Jeb Gauthier Notes Date Note Type Note [...] SHERI WOODWARD PA-C [address], [place], [address], [place] [facility], [facility] 10/30/2022 09:07:01 01/25/2023 text/html This is [...] a Tenex procedure VIKAS LAGUNA PA-C [address] [facility],[address] [address], [place], [address], [place] [facility], [facility] 01/26/2023 06:44:36 07/04/2023 text/html 72-year-old male who presents for evaluation of painful swelling in right knee onset of symptoms few days after having undergone PRP injection of his right plantar fasciitis and Achilles tendinitis by Dr. Mccall in [facility]. Patient states he had a procedure done last Sunday for which he came home and noted over the course of 48 hours increased pain within his right knee with immobility swelling without the presence of fevers or chills. He waited until Sunday to be seen at [facility] emergency department on 06/30/2022. There was concern [...] to today's visit. Imaging studies performed at [facility] where x-rays as well as duplex ultrasound as noted below [facility] [address] [place] [address] Patient: JEB GAUTHIER /Age/Sex: 1950 - 72 - MUnit#: [id number] Location/Status: SPER/REG ERAccount#: [id number] Mnemonic/Ordering Site: KNEERT4/SPMAINOrdering Physician: YURIY ROCHA MD CR Knee RT 4 or More Views - 06/30/23 - 1502Report Status:SignedCR Knee RT 4 or More ViewsINDICATION: PainTECHNIQUE: CR Knee RT 4 or More ViewsCOMPARISON: No priors available.FINDINGS/IMP RESSION: No acute fracture or dislocation. Joint spaces arepreserved. Small suprapatellar effusion. Quadriceps enthesopathy. Nofocal soft tissue swelling.Dictating Physician: DARRELL ZAVALETA MDElectronically Signed by: DARRELL ZAVALETA MDDrah Date/Time: 06/30/23 1508Sign date/Time: 06/30/23 5386 [facility] [address] [place] [address] Patient: JEB GAUTHIER /Age/Sex: 1950 72 - MUnit#: [id number] Location/Status: SPER/REG ERAccount#: [id number] Mnemonic/Ordering Site: [facility] Physician: YURIY ROCHA MD US Duplex Venous Study RT - 06/30/23 - [...] DARRELL ZAVALETA MDElectronically Signed by: DARRELL ZAVALETA [facility] Date/Time: 06/30/23 1458Sign date/Time: 06/30/23 1503 VIKAS LAGUNA PA-C [address] [facility] [address], [place], [address], [place] [facility], P 07/04/2023 18:45:40
--- OUTSIDE RECORDS SUMMARY | 2024-10-23 13:18 | XMS_ITS ---
Author Organization [facility] [facility], Address [address] [address] Care Team Providers Care Programmer Engineering And Scientific Name Role Phone Leonid Shea MD Primary Care Provider Unavailab LUIS CARLOS Salgado Unavailable [phone] Allergies No Known Allergies REASON FOR VISIT [...] smoker Encounters Encounter Location Date Provider Diagnosis [place] [facility], [address] [address] 07/25/2024 LUIS CARLOSMICHAELS Achilles tendinitis of right [...] source of his ongoing symptoms 07/25/2024 Other Fancy Handson dictation was used to assist with documentation [...] encounter as if the encounter had occurred jfip-kj-yuph with the same standards of appropriate practice [...] encounter as if the encounter had occurred hosd-yw-ftpo with the same standards of appropriate practice [...] * JEB WRENDOB:[birth year] (73 yo M)Acc No.[id number]:07/25/2024 Patient:?JEB WREN Provider:?Luis Carlos Mccall, :1950???Age:73 Y???Sex:Male Jeff e:07/25/2024 Address:[address] [place], [place] [address] Pcp:Leonid Shea MD Subjective: * Chief Complaints: [...] deferred. Assessment: * Assessment: 1.?Achilles tendinitis of [facility] lower extremity - M76.61 (Primary)???2.?History of ankle [...] encounter as if the encounter had occurred eeqv-ec-dxpb with the same standards of appropriate practice [...] slot * Billing Information: * Visit Code:? 72804 Office Visit, Est Pt., Level 3. Modifiers: GT * Procedure Codes:? * Sign off status: Completed true * Provider:?Luis Carlos Mccall DO Date:?07/25 Generated for Bernardo villalobos/Bridgette/Chevy on:?10/23/2024 01:18 PM EDT History and Physical Notes * HPI (History [...]
--- OUTSIDE RECORDS SUMMARY | 2024-10-23 13:18 | XMS_ITS ---
Author Organization [facility] Address [address] [address] Care Team Providers Care Garment Fitter Name Role Phone [place]Leonid Primary Care Provider LEVAR Eng Unavailable [phone] REASON FOR VISIT Requesting call back Encounters Encounter Location Date Provider Diagnosis [facility] [address] [address] 05/30/2023 LEVAR SALAMANCA Plan Of Treatment No Information Progress Notes * John GAUTHIERDOB:[birth year] (72 yo M)Acc No.[id number]:05/30/2023 Patient:?John GAUTHIER :1950???Age:72 Y???Sex:Male Address:[address] [place] [address] * true * Date:? Generated for Bernardo villalobos/Bridgette/eTransmitting on:?10/23/2024 01:17 PM EDT
--- OUTSIDE RECORDS SUMMARY | 2024-10-23 13:18 | XMS_ITS ---
Author Organization [facility], Address [address] [address] Care Team Providers Care Monomer Purification Operator Name Role Phone Shabbir HUMPHREY, Leonid Primary Care Provider Unavailab CHULA Salgado Unavailable [phone] REASON FOR VISIT NEW INS/CT AUTH? Encounters Encounter Location Date Provider Diagnosis [facility], [address] [address] 06/20/2024 CHULA GRIFFIN Plan Of Treatment No Information Progress Notes * JEB WRENDOB:[birth year] (73 yo M)Acc No.[id number]:06/20/2024 Patient:?JEB WREN :1950???Age:73 Y???Sex:Male Address:[address] [facility] [place] [address] * true * Date:? Generated for Printi ng/Faxing/eTransmitting on:?10/23/2024 01:18 PM EDT
--- OUTSIDE RECORDS SUMMARY | 2024-10-23 13:18 | XMS_ITS | Patient Health Record ---
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 Problem Hypertension, unspecified type (I10) Active confirmed Vital Signs Blood pressure diastolic 84 mm Hg 04/04/2024 Weight-kg 97.52 kg 08/05/2024 Height 68 in 08/05/2024 Blood pressure systolic 146 mm Hg 04/04/2024 Weight 215 lbs 08/05/2024 BMI 32.69 kg/m2 08/05/2024 Encounters Encounter Location Date Provider Diagnosis [facility], [address] [address] 12/31/2023 CHULA GRIFFIN Achilles tendinitis of right lower extremity M76.61 ; Plantar fasciitis, right M72.2 and History of ankle surgery Z98.890 [facility], [address] [address] 04/04/2024 CHULA GRIFFIN Hypertension, unspecified type I10 and Pain in right ankle and joints of right foot M25.571 [facility] [address] [place] 07/25/2024 CHULA GRIFFIN Achilles tendinitis of right lower extremity M76.61 and History of ankle surgery Z98.890 [facility] [address] [place] [address] 08/05/2024 CHULA GRIFFIN History of ankle surgery Z98.890 and Arthritis of subtalar joint M19.079 [facility] [address] [place] 05/09/2024 CHULA GRIFFIN [facility] [address] [place] 06/13/2024 CHULA GRIFFIN [facility] [address] [place] 06/16/2024 CHULA GRIFFIN [facility] [address] [place] 06/20/2024 CHULA GRIFFIN Assessments Encounter Date Diagnosis (ICD Code) Assessment Notes Treatment Notes Treatment Clinical Notes Section Notes 12/31/2023 Plantar fasciitis, right (ICD-10 - M72.2) [...] We briefly discussed repeating the orthobiologics injection. 12/31/2023 Other [employer] dictation was used to assist with documentation [...] encounter as if the encounter had occurred [id number] with the same standards of appropriate practice [...] HIPAA compliant video conferencing technology. 04/04/2024 Other [employer] n was used to assist with documentation of this note. While I did review this for errors, it is certainly possible that I may have overlooked some. If there is a confusing error, please do not hesitate to contact me for clarification. Thank you. 07/25/2024 Other [employer] dictation was used to assist with documentation [...] encounter as if the encounter had occurred [id number] with the same standards of appropriate practice [...] using HIPAA compliant video conferencing technology. 08/05/2024 [employer] n was used to assist with documentation [...] Insured Coverage Start Date Coverage End Date BCBS Medicare Advantage [address] [place], [place] [id number] [phone] [id number] JEB WREN Self - patient is the insured 5 Medicare of [place] J14 [address] [facility] [place] [id number] [phone] [id number] JEB WREN Self - patient is the insured 4 Medical (General) History Medical History History ICD Code diabetes high blood pressure Surgical History Surgery Date(Month/Year) right foot fusion right foot screw removal
--- OUTSIDE RECORDS SUMMARY | 2024-10-23 13:18 | XMS_ITS | Patient Health Record ---
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 Had two broken screws and screw removal in 2021. As tried AFO, regenerative medicine with specialist in [place] without much relief. Wants revision at this point CT scan at [facility] [address] scan 2024 at [facility]. Currently not taking patients insurance therefore referral out. Requesting Dr. Ochoa is available. 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 Had two broken screws and screw removal in 2021. As tried AFO, regenerative medicine with specialist in [place] without much relief. Wants revision at this point CT scan at [facility] [address] scan 2024 at [facility]. Currently not taking patients insurance therefore referral out. Requesting Dr. Ochoa is available. 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
--- OUTSIDE RECORDS SUMMARY | 2024-10-23 13:19 | XMS_ITS | Clinical Summary ---
Author Organization [address] Address [address] [place] [address] Phone Care Team Providers Care Title 1 Tutor Name Role Phone Leonid Shea MD Primary Care Provider [phone] Encounters Date Type Department Care Team Description 08/07/2024 Lab Requisition [facility] [address] [facility] [place] [address] Bear Wills PA Type 2 diabetes mellitus without complications (CMS/HCC V24, CMS/HCC V28); Hyperlipidemia, unspecified; Essential (primary) hypertension; Pain in unspecified joint; Chronic fatigue, unspecified; Gout, unspecified from Last 3 Months Surgical History Surgery Date Site/Laterality Comments KNEE SURGERY PROCEDURE:KNEE SURGERY Medical History Medical History Date Comments Type 2 diabetes mellitus (CM S/HCC V24, CMS/HCC V28) 02/06/2019 DX:Type 2 diabetes mellitus (HCC) Diabetes mellitus (CMS/HCC V 24, CMS/HCC V28) DX:Diabetes mellitus (HCC) Hypertension DX:Hypertension GERD (gastroesophageal reflux disease) DX:GERD [...] Risk Assessment 05/16/2022 Hepatitis C Screening 05/16/2022 Medicare Annual Wellness Visit 05/16/2022 Social Influencers of Health Screening 05/16/2022 Diabetes: Annual Urine Albumin-Creatinine Ratio (uACR) 06/02/2022 RSV Immunization Adult Patients (1 - 1-dose 75+ series) 12/05/2023 COVID-19 Vaccine ( - season) 2024 03/23/2023, 07/27/2021, 09/29/2020, Additional history exists Diabetes: Blood Sugar Control Test (HGBA1C) 03/18/2025 09/16/2024, 08/07/2024 Diabetes: Annual GFR (Glomerular Filtration Rate) 09/16/2025 09/16/2024, 08/07/2024 Hypertension/CHF/CAD Annual BMP Blood Test 09/16/2025 09/16/2024, 08/07/2024 Cholesterol Screening (Lipid Panel) 08/07/2029 08/07/2024 Influenza Vaccine Completed 05/07/2024, , 04/10/2022, Additional history exists HIB Vaccines Aged Out No longer eligi [...] age to complete this topic Meningococcal B Vaccine Aged Out No l onger eligible based on patient's age to complete this topic RSV Immunization Patients Under 20 months Aged Out No longer eligible based on patient's age to complete this topic Varicella Vaccines Aged Out No longer eligible based on patient's age to complete this topic Procedures Procedure Name Priority Date/Time Associated Diagnosis Comments COMPLETE BLOOD COUNT Routine 09/16/2024 10:56 AM EDT Right ankle pain HEMOGLOBIN A1C Routine 09/16/2024 10:56 AM EDT Right ankle pain C-REACTIVE PROTEIN Routine 09/16/2024 10 :56 AM EDT Right ankle pain SEDIMENTATION RATE Routine 09/16/2024 10 :56 AM EDT Right ankle pain BASIC METABOLIC PANEL Routine 09/16/2024 10:56 AM EDT Right ankle pain SST - GOLD Routine 08/07/2024 12:00 AM [...] unspecified from Last 3 Months Results * (ABNORMAL) Sedimentation rate (09/16/2024 10:56 AM EDT) Pathologist [facility] Sed Rate 30(H) 0 - 20 mm/hr LAB HEMETOLOGY METHOD 09/16/2024 12:12 PM EDT [facility] Blood Venous blood specimen / Unknown Venipuncture / Unknown 09/16/2024 10:56 AM EDT 09/16/2024 11:58 AM EDT us Anand Ochoa MD LAB BLOOD ORDERABLES Janice hill Result [facility] [address] [place] [address], * (ABNORMAL) Complete blood count (09/16/2024 10:56 AM EDT) Only the most recent of2 resultswithin the time period is included. Pathologist [facility] WBC 8.4 4.8 - 10.8 K/mcL LAB HEMETOLOGY METHOD 09/16/2024 12:26 PM EDT [facility] RBC 4.60 4.50 - 5.50 M/mcL LAB HEMETOLOGY METHOD 09/16/2024 12:26 PM EDT [facility] Hemoglobin 13.0(L) 13.5 - 17.5 g/dL LAB HEMETOLOGY METHOD 09/16/2024 12:26 PM EDT [facility] Hematocrit 40.5(L) 42.0 - 54.0 % LAB HEMETOLOGY METHOD 09/16/2024 12:26 PM EDT [facility] MCV 87.7 79.0 - 98.0 FL LAB HEMETOLOGY METHOD 09/16/2024 12:26 PM EDT [facility] MCH 28.1 27.0 - 32.0 pcg LAB HEMETOLOGY METHOD 09/16/2024 12:26 PM EDT [facility] MCHC 32.1 32.0 - 37.0 g/dL LAB HEMETOLOGY METHOD 09/16/2024 12:26 PM EDT [facility] RDW 14.6 11.0 - 15.0 % LAB HEMETOLOGY METHOD 09/16/2024 12:26 PM EDT [facility] Platelets 227 130 - 400 K/mcL LAB HEMETOLOGY METHOD 09/16/2024 12:26 PM EDT [facility] MPV 12.1(H) 7.0 - 11.0 FL LAB HEMETOLOGY METHOD 09/16/2024 12:26 PM EDT [facility] NRBC 0.0 <1.0 % LAB HEMETOLOGY METHOD 09/16/2024 12:26 PM EDT [facility] NRBC Absolute 0.00 <0.10 K/mcL LAB HEMETOLOGY METHOD 09/16/2024 12:26 PM EDT [facility] Blood Venous blood specimen / Unknown Venipuncture / Unknown 09/16/2024 10:56 AM EDT 09/16/2024 11:58 AM EDT us Anand Ochoa MD LAB BLOOD ORDERABLES Janice l Result [facility] [address] [place] [address], * C-reactive protein (09/16/2024 10:56 AM EDT) C-Reactive Protein <0.29 <=0.50 mg/dL LAB CHEMISTRY METHOD 09/16/2024 2:10 PM EDT [facility] Blood Venous blood specimen / Unknown Venipuncture / Unknown 09/16/2024 10:56 AM EDT 09/16/2024 11:56 AM EDT Anand Ochoa MD LAB BLOOD ORDERABLES Janice l Result Performing Organization Address City/[facility]/ZIP Co de Phone Number [facility] [address] [place] [address], * (ABNORMAL) Hemoglobin A1c (09/16/2024 10:56 AM EDT) Only the most recent of2 resultswithin the time period is included. Pathologist [facility] Hemoglobin A1C 7.9(H) <6.5 % LAB CHEMISTRY METHOD 09/16/2024 2:35 PM EDT [facility] Mean Bld Glu Estim. 180 mg/dL LAB CHEMISTRY METHOD 09/16/2024 2:35 PM EDT [facility] Blood Venous blood specimen / Unknown Venipuncture / Unknown 09/16/2024 10:56 AM EDT 09/16/2024 11:58 AM EDT Anand Ochoa MD LAB BLOOD ORDERABLES Janice l Result [facility] [address] [place] [address], * (ABNORMAL) Basic metabolic panel (09/16/2024 10:56 AM EDT) Pathologist [facility] Sodium 138 133 - 145 mmol/L LAB CHEMISTRY METHOD 09/16/2024 2:10 PM EDT [facility] Potassium 3.9 3.5 - 5.5 mmol/L LAB CHEMISTRY METHOD 09/16/2024 2:10 PM T [facility] Chloride 102 96 - 110 mmol/L LAB CHEMISTRY METHOD 09/16/2024 2:10 PM [facility] CO2 25 21 - 32 mmol/L LAB CHEMISTRY METHOD 09/16/2024 2:10 PM [facility] Anion Gap 11 3 - 11 LAB CHEMISTRY METHOD 09/16/2024 2:10 PM [facility] Glucose 150(H) 70 - 100 mg/dL LAB CHEMISTRY METHOD 09/16/2024 2:10 PM [facility] BUN 26(H) 5 - 25 mg/dL LAB CHEMISTRY METHOD 09/16/2024 2:10 PM [facility] Creatinine 1.30 0.70 - 1.30 mg/dL LAB CHEMISTRY METHOD 09/16/2024 2:10 PM [facility] eGFR 57(L) >=60 mL/min/1. 73m2 LAB CHEMISTRY METHOD 09/16/2024 2:10 PM [facility] Comment:Calculation based on the??Chronic Kidney Disease Epidemiology Collaboration (CKD-EPI) equation refit??without adjustment for race. BUN/Creatinine Ratio 20.0 LAB CHEMISTRY METHOD 09/16/2024 2:10 PM [facility] Calcium 9.0 8.5 - 10.5 mg/dL LAB CHEMISTRY METHOD 09/16/2024 2:10 PM [facility] Blood Venous blood specimen / Unknown Venipuncture / Unknown 09/16/2024 10:56 AM EDT 09/16/2024 11:56 AM EDT us Anand Ochoa MD LAB BLOOD ORDERABLES Janice l Result [facility] [address] [place] [address], [place] [phone] * Prostate specific antigen screen (08/07/2024 12:00 AM EST) PSA 1.18 0.00 - 4.00 ng/mL LAB CHEMISTRY METHOD 08/07/2024 7:04 PM EST [facility] Blood Venous blood specimen / Unknown 08/07/2024 08/07/2024 6:39 PM EST Narrative [facility] - 08/07/2024 7:04 PM EST The Siemens Advia Edevateaur Chemiluminescent Immunoassay is used. Results obtained with different assay methods or kits cannot be used interchangeably. Results cannot be interpreted as absolute evidence of the presence or absence of malignant disease. Bear WOOD LAB BLOOD ORDERABLES Final Res ult Performing Organization Address City/[facility]/ZIP Co de Phone Number [facility] [address] [place] [address], [place] [phone] * SST tube (08/07/2024 12:00 AM EST) Pathologist [facility] Extra Tube Hold for add-ons. 08/07/2024 8:01 PM EST [facility] Comment:Auto resulted. Blood Venous blood specimen / Unknown 08/07/2024 08/07/2024 6:39 PM EST Bear Wills IN LAB BLOOD ORDERABLES Final Res ult [facility] [address] [place] [address], [place] [phone] * (ABNORMAL) Lipid panel with reflex to direct LDL (08/07/2024 12:00 AM EST) Cholesterol 222(H) 0 - 200 mg/dL LAB CHEMISTRY METHOD 08/07/2024 7:03 PM EST [facility] Triglycerides 287(H) 0 - 150 mg/dL LAB CHEMISTRY METHOD 08/07/2024 7:03 PM [facility] HDL 28(L) >=40 mg/dL LAB CHEMISTRY METHOD 08/07/2024 7:03 PM [facility] LDL Calculated 137(H) 0 - 100 mg/dL LAB CHEMISTRY METHOD 08/07/2024 7:03 PM [facility] VLDL Cholesterol Mendez 57.4 mg/dL LAB CHEMISTRY METHOD 08/07/2024 7:03 PM [facility] Non HDL Chol. (LDL+VLDL) 194(H) <145 mg/dL LAB CHEMISTRY METHOD 08/07/2024 7:03 PM [facility] Chol/HDL Ratio 7.9(H) 0.0 - 4.4 LAB CHEMISTRY METHOD 08/07/2024 7:03 PM [facility] Blood Venous blood specimen / Unknown 08/07/2024 08/07/2024 6:39 PM EST [facility] LAB BLOOD ORDERABLES Final Res ult Performing Organization Address City/[facility]/ZIP Co de Phone Number [facility] [address] [place] [address], [place] [phone] * Uric acid (08/07/2024 12:00 AM EST) Uric Acid 5.9 3.7 - 9.2 mg/dL LAB CHEMISTRY METHOD 08/07/2024 7:03 PM [facility] Blood Venous blood specimen / Unknown 08/07/2024 08/07/2024 6:39 PM EST us Bear WOOD LAB BLOOD ORDERABLES Final Res ult [facility] [address] [place] [address], [place] [phone] * (ABNORMAL) Comprehensive metabolic panel (08/07/2024 12:00 AM EST) Sodium 138 133 - 145 mmol/L LAB CHEMISTRY METHOD 08/07/2024 7:03 PM [facility] Potassium 4.1 3.5 - 5.5 mmol/L LAB CHEMISTRY METHOD 08/07/2024 7:03 PM [facility] Chloride 103 96 - 110 mmol/L LAB CHEMISTRY METHOD 08/07/2024 7:03 PM [facility] CO2 25 21 - 32 mmol/L LAB CHEMISTRY METHOD 08/07/2024 7:03 PM [facility] Anion Gap 10 3 - 11 LAB CHEMISTRY METHOD 08/07/2024 7:03 PM [facility] Glucose 261(H) 70 - 100 mg/dL LAB CHEMISTRY METHOD 08/07/2024 7:03 PM [facility] BUN 19 5 - 25 mg/dL LAB CHEMISTRY METHOD 08/07/2024 7:03 PM [facility] Creatinine 1.40(H) 0.70 - 1.30 mg/dL LAB CHEMISTRY METHOD 08/07/2024 7:03 PM [facility] eGFR 52(L) >=60 mL/min/1. 73m2 LAB CHEMISTRY METHOD 08/07/2024 7:03 PM [facility] Comment:Calculation based on the??Chronic Kidney Disease Epidemiology Collaboration (CKD-EPI) equation refit??without adjustment for race. BUN/Creatinine Ratio 13.6 LAB CHEMISTRY METHOD 08/07/2024 7:03 PM [facility] Calcium 9.1 8.5 - 10.5 mg/dL LAB CHEMISTRY METHOD 08/07/2024 7:03 PM [facility] AST (SGOT) 29 10 - 42 unit/L LAB CHEMISTRY METHOD 08/07/2024 7:03 PM [facility] ALT (SGPT) 63(H) 10 - 60 unit/L LAB CHEMISTRY METHOD 08/07/2024 7:03 PM EST [facility] Alkaline Phosphatase 92 42 - 121 unit/L LAB CHEMISTRY METHOD 08/07/2024 7:03 PM [facility] Total Protein 7.2 6.0 - 8.0 g/dL LAB CHEMISTRY METHOD 08/07/2024 7:03 PM [facility] Albumin 3.4 3.2 - 5.0 g/dL LAB CHEMISTRY METHOD 08/07/2024 7:03 PM [facility] Total Bilirubin 0.4 0.0 - 1.4 mg/dL LAB CHEMISTRY METHOD 08/07/2024 7:03 PM [facility] Blood Venous blood specimen / Unknown 08/07/2024 08/07/2024 6:39 PM EST us Bear WOOD LAB BLOOD ORDERABLES Final Res ult [facility] [address] [place] [address], from Last [address] [facility] MEDICARE ADVANTAGE [facility] Care Teams Title 1 Tutor Relationship Specialty Start Date End Date Leonid Shea MD [address] [address] PCP - General Internal Medicine 11/25/18
--- OUTSIDE RECORDS SUMMARY | 2024-10-23 13:19 | XMS_ITS | Encounter Summary ---
Author Organization [facility] Address [address] [place] [address] Care Team Providers Care Facilities Director Name Role Phone Leonid Shea MD Primary Care Provider [phone] Encounter Details Date Type Department Care Team (Latest Contact Info) Description 08/07/2024 Lab Requisition [facility] - Main Lab [address] [facility] [place] [phone] Bear Wills PA 299 [facility] [address] [place] [address] Type 2 diabetes mellitus without complications (CMS/HCC [...] Hold for add-ons. 08/07/2024 8:01 PM EST JUAN MANUEL CARDONA [place] ([facility]) [facility] Comment:Auto resulted. Blood Venous blood specimen / Unknown 08/07/2024 08/07/2024 6:39 PM EST us Bear WOOD LAB BLOOD ORDERABLES Final Res ult [facility] [address] [place] [address], [place] [phone] * Uric acid (08/07/2024 12:00 AM EST) Pathologist [facility] Uric Acid 5.9 3.7 - 9.2 mg/dL LAB CHEMISTRY METHOD 08/07/2024 7:03 PM EST [facility] Blood Venous blood specimen / Unknown 08/07/2024 08/07/2024 6:39 PM EST Bear WOOD LAB BLOOD ORDERABLES Final Res ult Performing Organization Address [facility]/ZIP Co de Phone Number [facility] [address] [place] [address], [place] [phone] * Prostate specific antigen screen (08/07/2024 12:00 AM EST) [facility] PSA 1.18 0.00 - 4.00 ng/mL LAB CHEMISTRY METHOD 08/07/2024 7:04 PM EST [facility] Blood Venous blood specimen / Unknown 08/07/2024 08/07/2024 6:39 PM EST Narrative [facility] - 08/07/2024 7:04 PM EST The Siemens Advia Centaur Chemiluminescent Immunoassay is used. Results obtained with different assay methods or kits cannot be used interchangeably. Results cannot be interpreted as absolute evidence of the presence or absence of malignant disease. us Bear WOOD LAB BLOOD ORDERABLES Final Res ult [facility] [address] [place] [address], [place] [phone] * (ABNORMAL) Hemoglobin A1c (08/07/2024 12:00 AM EST) [facility] Hemoglobin A1C 9.0(H) <6.5 % LAB CHEMISTRY METHOD 08/07/2024 9:37 PM [facility] Mean Bld Glu Estim. 212 mg/dL LAB CHEMISTRY METHOD 08/07/2024 9:37 PM [facility] Blood Venous blood specimen / Unknown 08/07/2024 08/07/2024 6:39 PM EST us Bear WOOD LAB BLOOD ORDERABLES Final Res ult [facility] [address] [place] [address], [place] [phone] * (ABNORMAL) Complete blood count (08/07/2024 12:00 AM EST) WBC 10.4 4.8 - 10.8 K/mcL LAB HEMETOLOGY METHOD 08/07/2024 7:05 PM [facility] RBC 4.40(L) 4.50 - 5.50 M/mcL LAB HEMETOLOGY METHOD 08/07/2024 7:05 PM [facility] Hemoglobin 12.5(L) 13.5 - 17.5 g/dL LAB HEMETOLOGY METHOD 08/07/2024 7:05 PM [facility] Hematocrit 39.4(L) 42.0 - 54.0 % LAB HEMETOLOGY METHOD 08/07/2024 7:05 PM [facility] MCV 89.7 79.0 - 98.0 FL LAB HEMETOLOGY METHOD 08/07/2024 7:05 PM [facility] MCH 28.5 27.0 - 32.0 pcg LAB HEMETOLOGY METHOD 08/07/2024 7:05 PM [facility] MCHC 31.7(L) 32.0 - 37.0 g/dL LAB HEMETOLOGY METHOD 08/07/2024 7:05 PM [facility] RDW 14.0 11.0 - 15.0 % LAB HEMETOLOGY METHOD 08/07/2024 7:05 PM [facility] Platelets 254 130 - 400 K/mcL LAB HEMETOLOGY METHOD 08/07/2024 7:05 PM [facility] MPV 12.2(H) 7.0 - 11.0 FL LAB HEMETOLOGY METHOD 08/07/2024 7:05 PM [facility] NRBC 0.0 <1.0 % LAB HEMETOLOGY METHOD 08/07/2024 7:05 PM [facility] NRBC Absolute 0.00 <0.10 K/mcL LAB HEMETOLOGY METHOD 08/07/2024 7:05 PM [facility] Blood Venous blood specimen / Unknown 08/07/2024 08/07/2024 6:39 PM EST us Bear WOOD LAB BLOOD ORDERABLES Final Res ult [facility] [address] [place] [address], [place] [phone] * (ABNORMAL) Lipid panel with reflex to direct LDL (08/07/2024 12:00 AM EST) Cholesterol 222(H) 0 - 200 mg/dL LAB CHEMISTRY METHOD 08/07/2024 7:03 PM [facility] Triglycerides 287(H) 0 - 150 mg/dL LAB CHEMISTRY METHOD 08/07/2024 7:03 PM [facility] HDL 28(L) >=40 mg/dL LAB CHEMISTRY METHOD 08/07/2024 7:03 PM [facility] LDL Calculated 137(H) 0 - 100 mg/dL LAB CHEMISTRY METHOD 08/07/2024 7:03 PM [facility] VLDL Cholesterol Mendez 57.4 mg/dL LAB CHEMISTRY METHOD 08/07/2024 7:03 PM [facility] Non HDL Chol. (LDL+VLDL) 194(H) <145 mg/dL LAB CHEMISTRY METHOD 08/07/2024 7:03 PM [facility] Chol/HDL Ratio 7.9(H) 0.0 - 4.4 LAB CHEMISTRY METHOD 08/07/2024 7:03 PM [facility] Blood Venous blood specimen / Unknown 08/07/2024 08/07/2024 6:39 PM EST us Bear WOOD LAB BLOOD ORDERABLES Final Res ult [facility] [address] [place] [address], [place] [phone] * (ABNORMAL) Comprehensive metabolic panel (08/07/2024 12:00 AM EST) Sodium 138 133 - 145 mmol/L LAB CHEMISTRY METHOD 08/07/2024 7:03 PM [facility] Potassium 4.1 3.5 - 5.5 mmol/L LAB CHEMISTRY METHOD 08/07/2024 7:03 PM [facility] Chloride 103 96 - 110 mmol/L LAB CHEMISTRY METHOD 08/07/2024 7:03 PM [facility] CO2 25 21 - 32 mmol/L LAB CHEMISTRY METHOD 08/07/2024 7:03 PM [facility] Anion Gap 10 3 - 11 LAB CHEMISTRY METHOD 08/07/2024 7:03 PM [facility] Glucose 261(H) 70 - 100 mg/dL LAB CHEMISTRY METHOD 08/07/2024 7:03 PM [facility] BUN 19 5 - 25 mg/dL LAB CHEMISTRY METHOD 08/07/2024 7:03 PM [facility] Creatinine 1.40(H) 0.70 - 1.30 mg/dL LAB CHEMISTRY METHOD 08/07/2024 7:03 PM [facility] eGFR 52(L) >=60 mL/min/1. 73m2 LAB CHEMISTRY METHOD 08/07/2024 7:03 PM [facility] Comment:Calculation based on the??Chronic Kidney Disease Epidemiology Collaboration (CKD-EPI) equation refit??without adjustment for race. BUN/Creatinine Ratio 13.6 LAB CHEMISTRY METHOD 08/07/2024 7:03 PM [facility] Calcium 9.1 8.5 - 10.5 mg/dL LAB CHEMISTRY METHOD 08/07/2024 7:03 PM [facility] AST (SGOT) 29 10 - 42 unit/L LAB CHEMISTRY METHOD 08/07/2024 7:03 PM [facility] ALT (SGPT) 63(H) 10 - 60 unit/L LAB CHEMISTRY METHOD 08/07/2024 7:03 PM [facility] Alkaline Phosphatase 92 42 - 121 unit/L LAB CHEMISTRY METHOD 08/07/2024 7:03 PM [facility] Total Protein 7.2 6.0 - 8.0 g/dL LAB CHEMISTRY METHOD 08/07/2024 7:03 PM [facility] Albumin 3.4 3.2 - 5.0 g/dL LAB CHEMISTRY METHOD 08/07/2024 7:03 PM [facility] Total Bilirubin 0.4 0.0 - 1.4 mg/dL LAB CHEMISTRY METHOD 08/07/2024 7:03 PM [facility] Blood Venous blood specimen / Unknown 08/07/2024 08/07/2024 6:39 PM EST us Bear WOOD LAB BLOOD ORDERABLES Final Res ult [facility] [address] [place] [address], [place] [phone] documented in this encounter Visit Diagnoses Diagnosis Type 2 diabetes mellitus without complications (CMS/HCC V24, CMS/HCC V28) Hyperlipidemia, unspecified Essential (primary) hypertension Unspecified essential hypertension Pain in unspecified joint Chronic fatigue, unspecified Gout, unspecified documented in this encounter Care Teams Facilities Director Relationship Specialty Start Date End Date Leonid Shea MD [address] [place] [phone] PCP - General Internal Medicine 11/25/18 documented as of this encounter
--- OUTSIDE RECORDS SUMMARY | 2024-10-23 13:19 | XMS_ITS ---
Author Organization [facility] Address [address] [address] Care Team Providers Care Legal Cashier Name Role Phone ClarkeLeonid Primary Care Provider LEVAR Eng Unavailable [phone] REASON FOR VISIT Requesting a call back Encounters Encounter Location Date Provider Diagnosis [facility] [address] [address] 08/06/2024 LEVAR SALAMANCA Plan Of Treatment No Information Progress Notes * John GAUTHIERDOB:[birth year] (73 yo M)Acc No.[id number]:08/06/2024 Patient:?John GAUTHIER :1950???Age:73 Y???Sex:Male Address:[facility] [place] [address] * true * Date:? Generated for Bernardo villalobos/Bridgette/eTransmitting on:?10/23/2024 01:18 PM EDT
--- OUTSIDE RECORDS SUMMARY | 2024-10-23 13:19 | XMS_ITS | Clinical Summary ---
Author Organization [facility] Address [address] [place] [address] Care Team Providers Care Cash Management Coordinator Name Role Phone Leonid Shea MD Primary Care Provider [phone] Allergies No known active allergies Medications Medication [...] age to complete this topic Care Teams Cash Management Coordinator Relationship Specialty Start Date End Date Leonid Shea MD [address] [place] [id number] PCP - General Internal Medicine 06/27/18
--- OUTSIDE RECORDS SUMMARY | 2024-10-23 13:19 | XMS_ITS ---
Author Organization [facility], Address [address] [address] Care Team Providers Care Manager Strategic Sourcing Name Role Phone Leonid Shea MD Primary Care Provider UnavailLUIS CARLOS Sterling Unavailable [phone] Allergies No Known Allergies REASON FOR VISIT [...] 08/05/2024 Encounters Encounter Location Date Provider Diagnosis [facility], [address] [address] 08/05/2024 LUIS CARLOS MCCALL History of ankle [...] discuss next steps in management. 08/05/2024 Other DynaPumpon dictatio n was used to assist with [...] * JEB WRENDOB:[birth year] (73 yo M)Acc No.[id number]:08/05/2024 Patient:?JEB WREN Provider:Wilbur Mccall, :1950???Age:73 Y???Sex:Male Jeff e:08/05/2024 Address:[address] [place] [phone] Pcp:Leonid Shea MD Subjective: * Chief Complaints: [...] the practice's PACS system. ? * Procedure Codes:?58035 DRAIN /INJ JOINT/BURSA W/US * Preventive Medicine:? ??Screenings:?Fall risk screening?Fall Risk Assessment:?No falls in the past year * Follow Up:?prn * Billing Information: * Visit Code:? 62180 Office Visit, Est Pt., Level 3. * Procedure Codes:? 21494 DRAIN/INJ JOINT/BURSA W/US. * Sign off status: Completed true * Provider:?Luis Carlos Mccall DO Date:?08/05 Generated for Bernardo villalobos/Bridgette/Chevy on:?10/23/2024 01:18 PM [...]
== END 2024-10-23 12:49 | disposition home or self-care (01) ==
LOC: HO.HMCFM 11:46
PROVIDERS: PCP Physician Assistant Medical; Visit Provider Physician Assistant Medical
DX: I10 Essential (primary) hypertension (principal); E78.5 Hyperlipidemia, unspecified; E11.9 Type 2 diabetes mellitus without complications; H93.92 Unspecified disorder of left ear

== ENCOUNTER → 2024-10-23 11:45 | Outpatient (BNVA) | payer BC, SELFPAY | PROVIDERS: PCP Physician Assistant Medical; Visit Provider Physician Assistant Medical | DX: E11.22 Type 2 diabetes mellitus with diabetic chronic kidney disease (principal); I12.9 Hypertensive chronic kidney disease with stage 1 through stage 4 chronic kidney disease, or unspecified chronic kidney disease; N18.31 Chronic kidney disease, stage 3a; E78.5 Hyperlipidemia, unspecified; H93.92 Unspecified disorder of left ear; Z86.73 Personal history of transient ischemic attack (TIA), and cerebral infarction without residual deficits; Z79.82 Long term (current) use of aspirin; Z79.899 Other long term (current) drug therapy | CPT/HCPCS: 96127 ==

== ENCOUNTER 2025-01-12 09:53 | Outpatient (REF) | payer BC, SELFPAY ==
--- OUTSIDE RECORDS SUMMARY | 2025-01-12 10:54 | XMS_ITS | Encounter Summary ---
Author Organization [facility] Address [address] [place] [address] Care Team Providers Care Tankage Supervisor Name Role Phone Leonid Shea MD Primary Care Provider [phone] Encounter Details Date Type Department Care Team (Latest Contact Info) Description 08/07/2024 Lab Requisition [facility] - Main Lab 299 [facility] [place] [phone] Bear Wills PA 299 [facility] [address] [place] [address] Type 2 diabetes mellitus without complications (CMS/HCC [...] 8:01 PM EST JUAN MANUEL CARDONA [place] ([facility]) [facility] Comment:Auto resulted. Blood Venous blood specimen / Unknown 08/07/2024 08/07/2024 6:39 PM EST us Bear WOOD LAB BLOOD ORDERABLES Final Res ult [facility] [address] [place] [address], [place] [phone] * Uric acid (08/07/2024 12:00 AM EST) Pathologist [facility] Uric Acid 5.9 3.7 - 9.2 mg/dL LAB CHEMISTRY METHOD 08/07/2024 7:[address] [facility] Blood Venous blood specimen / Unknown 08/07/2024 08/07/2024 6:39 PM EST Bear WOOD LAB BLOOD ORDERABLES Final Res ult Performing Organization Address [facility]/ZIP Co de Phone Number [facility] [address] [place] [address], [place] [phone] * Prostate specific antigen screen (08/07/2024 12:00 AM EST) [facility] PSA 1.18 0.00 - 4.00 ng/mL LAB CHEMISTRY METHOD 08/07/2024 7:[address] [facility] Blood Venous blood specimen / Unknown 08/07/2024 08/07/2024 6:[address] [facility] - 08/07/2024 7:04 PM EST The Siemens Advia Centaur Chemiluminescent Immunoassay is used. Results obtained with different assay methods or kits cannot be used interchangeably. Results cannot be interpreted as absolute evidence of the presence or absence of malignant disease. us Bear WOOD LAB BLOOD ORDERABLES Final Res ult [facility] [address] [place] [address], [place] [phone] * (ABNORMAL) Hemoglobin A1c (08/07/2024 12:00 AM EST) [facility] Hemoglobin A1C 9.0(H) <6.5 % LAB CHEMISTRY METHOD 08/07/2024 9:37 PM [facility] Mean Bld Glu Estim. 212 mg/dL LAB CHEMISTRY METHOD 08/07/2024 9:37 PM [facility] Blood Venous blood specimen / Unknown 08/07/2024 08/07/2024 6:39 PM EST us Bear WOOD LAB BLOOD ORDERABLES Final Res ult [facility] [address] [place] [address], [place] [phone] * (ABNORMAL) Complete blood count (08/07/2024 12:00 AM EST) WBC 10.4 4.8 - 10.8 K/mcL LAB HEMETOLOGY METHOD 08/07/2024 7:05 PM [facility] RBC 4.40(L) 4.50 - 5.50 M/mcL LAB HEMETOLOGY METHOD 08/07/2024 7:05 PM [facility] Hemoglobin 12.5(L) 13.5 - 17.5 g/dL LAB HEMETOLOGY METHOD 08/07/2024 7:05 PM [facility] Hematocrit 39.4(L) 42.0 - 54.0 % LAB HEMETOLOGY METHOD 08/07/2024 7:05 PM [facility] MCV 89.7 79.0 - 98.0 FL LAB HEMETOLOGY METHOD 08/07/2024 7:05 PM [facility] MCH 28.5 27.0 - 32.0 pcg LAB HEMETOLOGY METHOD 08/07/2024 7:05 PM [facility] MCHC 31.7(L) 32.0 - 37.0 g/dL LAB HEMETOLOGY METHOD 08/07/2024 7:05 PM [facility] RDW 14.0 11.0 - 15.0 % LAB HEMETOLOGY METHOD 08/07/2024 7:05 PM [facility] Platelets 254 130 - 400 K/mcL LAB HEMETOLOGY METHOD 08/07/2024 7:05 PM [facility] MPV 12.2(H) 7.0 - 11.0 FL LAB HEMETOLOGY METHOD 08/07/2024 7:05 PM [facility] NRBC 0.0 <1.0 % LAB HEMETOLOGY METHOD 08/07/2024 7:05 PM [facility] NRBC Absolute 0.00 <0.10 K/mcL LAB HEMETOLOGY METHOD 08/07/2024 7:05 PM [facility] Blood Venous blood specimen / Unknown 08/07/2024 08/07/2024 6:39 PM EST us Bear WOOD LAB BLOOD ORDERABLES Final Res ult [facility] [address] [place] [address], [place] [phone] * (ABNORMAL) Lipid panel with reflex to direct LDL (08/07/2024 12:00 AM EST) Cholesterol 222(H) 0 - 200 mg/dL LAB CHEMISTRY METHOD 08/07/2024 7:03 PM [facility] Triglycerides 287(H) 0 - 150 mg/dL LAB CHEMISTRY METHOD 08/07/2024 7:03 PM [facility] HDL 28(L) >=40 mg/dL LAB CHEMISTRY METHOD 08/07/2024 7:03 PM [facility] LDL Calculated 137(H) 0 - 100 mg/dL LAB CHEMISTRY METHOD 08/07/2024 7:03 PM [facility] VLDL Cholesterol Mendez 57.4 mg/dL LAB CHEMISTRY METHOD 08/07/2024 7:03 PM [facility] Non HDL Chol. (LDL+VLDL) 194(H) <145 mg/dL LAB CHEMISTRY METHOD 08/07/2024 7:03 PM [facility] Chol/HDL Ratio 7.9(H) 0.0 - 4.4 LAB CHEMISTRY METHOD 08/07/2024 7:03 PM [facility] Blood Venous blood specimen / Unknown 08/07/2024 08/07/2024 6:39 PM EST us Bear WOOD LAB BLOOD ORDERABLES Final Res ult [facility] [address] [place] [address], [place] [phone] * (ABNORMAL) Comprehensive metabolic panel (08/07/2024 12:00 AM EST) Sodium 138 133 - 145 mmol/L LAB CHEMISTRY METHOD 08/07/2024 7:03 PM [facility] Potassium 4.1 3.5 - 5.5 mmol/L LAB CHEMISTRY METHOD 08/07/2024 7:03 PM [facility] Chloride 103 96 - 110 mmol/L LAB CHEMISTRY METHOD 08/07/2024 7:03 PM [facility] CO2 25 21 - 32 mmol/L LAB CHEMISTRY METHOD 08/07/2024 7:03 PM [facility] Anion Gap 10 3 - 11 LAB CHEMISTRY METHOD 08/07/2024 7:03 PM [facility] Glucose 261(H) 70 - 100 mg/dL LAB CHEMISTRY METHOD 08/07/2024 7:03 PM [facility] BUN 19 5 - 25 mg/dL LAB CHEMISTRY METHOD 08/07/2024 7:03 PM [facility] Creatinine 1.40(H) 0.70 - 1.30 mg/dL LAB CHEMISTRY METHOD 08/07/2024 7:03 PM [facility] eGFR 52(L) >=60 mL/min/1. 73m2 LAB CHEMISTRY METHOD 08/07/2024 7:03 PM [facility] Comment:Calculation based on the Chronic Kidney Disease Epidemiology Collaboration (CKD-EPI) equation refit without adjustment for race. BUN/Creatinine Ratio 13.6 LAB CHEMISTRY METHOD 08/07/2024 7:03 PM [facility] Calcium 9.1 8.5 - 10.5 mg/dL LAB CHEMISTRY METHOD 08/07/2024 7:03 PM [facility] AST (SGOT) 29 10 - 42 unit/L LAB CHEMISTRY METHOD 08/07/2024 7:03 PM [facility] ALT (SGPT) 63(H) 10 - 60 unit/L LAB CHEMISTRY METHOD 08/07/2024 7:03 PM [facility] Alkaline Phosphatase 92 42 - 121 unit/L LAB CHEMISTRY METHOD 08/07/2024 7:03 PM [facility] Total Protein 7.2 6.0 - 8.0 g/dL LAB CHEMISTRY METHOD 08/07/2024 7:03 PM [facility] Albumin 3.4 3.2 - 5.0 g/dL LAB CHEMISTRY METHOD 08/07/2024 7:03 PM [facility] Total Bilirubin 0.4 0.0 - 1.4 mg/dL LAB CHEMISTRY METHOD 08/07/2024 7:03 PM [facility] Blood Venous blood specimen / Unknown 08/07/2024 08/07/2024 6:39 PM EST us Bear WOOD LAB BLOOD ORDERABLES Final Res ult [facility] [address] [place] [address], [place] [phone] documented in this encounter Visit Diagnoses Diagnosis Type 2 diabetes mellitus without complications (CMS/HCC V24, CMS/HCC V28) Hyperlipidemia, unspecified Essential (primary) hypertension Unspecified essential hypertension Pain in unspecified joint Chronic fatigue, unspecified Gout, unspecified documented in this encounter Care Teams Tankage Supervisor Relationship Specialty Start Date End Date Leonid Shea MD [address] [place] [phone] PCP - General Internal Medicine 11/25/18 documented as of this encounter
--- OUTSIDE RECORDS SUMMARY | 2025-01-12 10:54 | XMS_ITS | Patient Health Record ---
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 Problem Essential hypertension (99803269) Hypertension, unspecified type (I10) Active confirmed Vital Signs Blood pressure diastolic 84 mm Hg 04/04/2024 Weight-kg 97.52 kg 08/05/2024 Height 68 in 08/05/2024 Blood pressure systolic 146 mm Hg 04/04/2024 Weight 215 lbs 08/05/2024 BMI 32.69 kg/m2 08/05/2024 Encounters Encounter Location Date Provider Diagnosis [facility], [address] [address] 04/04/2024 CHULA GRIFFIN Hypertension, unspecified type I10 and Pain in right ankle and joints of right foot M25.571 [facility], [address] [address] 07/25/2024 CHULA GRIFFIN Achilles tendinitis of right lower extremity M76.61 and History of ankle surgery Z98.890 [facility] [address] DIMITRI BOYD 08/05/2024 CHULA GRIFFIN History of ankle surgery Z98.890 and Arthritis of subtalar joint M19.079 [facility] [address] DIM[address] BOYD 05/09/2024 CHULA GRIFFIN [facility] [address] DIMIT[address] BOYD 06/13/2024 CHULA GRIFFIN [facility] [address] DIM[address] BOYD 06/16/2024 CHULA GRIFFIN [facility] [address] DIMIT[address] BOYD 06/20/2024 CHULA GRIFFIN Assessments Encounter Date Diagnosis (ICD Code) Assessment Notes Treatment Notes Treatment Clinical Notes Section Notes 04/04/2024 Hypertension, unspecified type (ICD-10 - I10) [...] surgeon to discuss next steps in management. 04/04/2024 Pain in right ankle and joints [...] We briefly discussed repeating the orthobiologics injection. 04/04/2024 Other ALCOHOOT n was used to assist with documentation of this note. While I did review this for errors, it is certainly possible that I may have overlooked some. If there is a confusing error, please do not hesitate to contact me for clarification. Thank you. 07/25/2024 Other Abiogenixation was used to assist with documentation of [...] encounter as if the encounter had occurred [id number] with the same standards of appropriate practice [...] HIPAA compliant video conferencing technology. 08/05/2024 Other ALCOHOOT n was used to assist with documentation [...] Insured Coverage Start Date Coverage End Date [facility] Medicare Advantage [address] [place], [place] [id number] [phone] [id number] JEB WREN Self - patient is the insured 5 [employer] of [place] J14 [address] [facility] [place] [id number] JEB WREN Self - patient is the insured 4 Medical (General) History Medical History History ICD Code diabetes high blood pressure Surgical History Surgery Date(Month/Year) right foot fusion right foot screw removal
--- OUTSIDE RECORDS SUMMARY | 2025-01-12 10:54 | XMS_ITS ---
Author Name [facility] Organization Unknown History of Medication Use Medication Directions Dispensed Refills Start Date End Date Stat lidocaine (PF) 10 mg/mL (1 %) injection solution Take 5 mL by injection route. 01/26/2023 active amlodipine 5 mg tablet TAKE 1 TABLET BY MOUTH EVERY DAY active aspirin 81 mg chewable tablet CHEW 1 TABLET DAILY active cyclobenzaprine 10 mg tablet TAKE 1 TABLET 3 TIMES A DAY BY ORAL ROUTE NEEDED. active lisinopril 20 mg-hydrochlorothiazide 12.5 mg tablet TAKE 1 TABLET BY MOUTH EVERY DAY active lisinopril 20 mg-hydrochlorothiazide 12.5 mg tablet TAKE 1 TABLET BY MOUTH EVERY DAY active nabumetone 750 mg tablet TAKE 1 TABLET BY MOUTH TWICE A DAY WITH MEALS active prednisone 20 mg tablet TAKE 2 TABLETS B Y MOUTH DAILY active Problems Problem Status Onset Date Problem Type Date of Resoluti on Source Pain of right knee joint active 2023-07-04 ProblemAct [facility] Effusion of joint active 2023-01-25 ProblemAct [facility] Pain of right elbow joint active 2022-10-30 ProblemAct [facility] Bursitis of olecranon of right elbow active 2022-10-30 ProblemAct [facility] Effusion of joint of right knee active 2023-01-25 ProblemAct [facility] Encounters Encounter Type Encounter Reason Primary Diagnosis Location Date Ambulatory [facility] 07/05/2023 Ambulatory [facility] 07/04/2023 Ambulatory [facility] 07/04/2023 Ambulatory [facility] 05/02/2023 Ambulatory [facility] 04/28/2023 Ambulatory [facility] 03/24/2023 Ambulatory [facility] 02/01/2023 Ambulatory [facility] 01/25/2023 Ambulatory [facility] 01/25/2023 Ambulatory [facility] 01/25/2023 Ambulatory [facility] 01/22/2023 Ambulatory [facility] 01/22/2023 Ambulatory [facility] 10/27/2022 Ambulatory [facility] 10/27/2022 Ambulatory [facility] 10/27/2022 Ambulatory [facility] 10/23/2022 Ambulatory [facility] 10/23/2022
--- OUTSIDE RECORDS SUMMARY | 2025-01-12 10:54 | XMS_ITS | Patient Health Record ---
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 Had two broken screws and screw removal in 2021. As tried AFO, regenerative medicine with specialist in [place] without much relief. Wants revision at this point CT scan at [facility] [address] scan 2024 at [facility]. Currently not taking patients insurance therefore referral out. Requesting Dr. Ochoa is available. 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 Had two broken screws and screw removal in 2021. As tried AFO, regenerative medicine with specialist in [place] without much relief. Wants revision at this point CT scan at [facility] [address] scan 2024 at [facility]. Currently not taking patients insurance therefore referral out. Requesting Dr. Ochoa is available. 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
--- OUTSIDE RECORDS SUMMARY | 2025-01-12 10:54 | XMS_ITS | Data Portability ---
Author Organization [facility] Sandra Wylie AONE [place] Address [address] [place] [address] Care Team Providers Care Pin Worker Name Role Phone HINARODDY MCKEON Primary Care Provider [phone] Assessment Encounter Date Assessment Date Assessment LastModified [...] findings at length with the patient today. We discussed the nature and etiology of this problem along with current treatment options. We discussed the expected course and outcomes and what to expect. We also discussed risks and benefits. All of their questions were answered today, and there was exhibited understanding and comprehension of all that was discussed. Time Spent: 10 minutes were spent reviewing previous imaging and charting. 10 minutes were spent obtaining patient history. 5 minutes were spent on physical exam. 5minutes were spent explaining diagnosis and assessment. Today's documentation was made using voice recognition software. This note may contain grammatical errors secondary to the software. Not available 01/26/2023 06:43:55 07/04/2023 07/04/2023 This is a 72-year-old male who underwent PRP injection by Dr. Mccall at [facility] last Sunday with notable painful swollen knee. He went to [facility] ER with a concern for [...] emergency department for further evaluation. (Seema YOST windchill administrator present during discussion) As of note the patient is a poorly controlled diabetic and multiple comorbidities. A similar treatment performed at the same practice in [place] for which I evaluated back on 01/25/2023. I had a detailed discussion in the presence of my nurse assistant that he should have contacted his orthopedic provider who performed the treatment due to potential risk of infection, side effects. The patient is aware going forward that he would need to follow-up with the orthopedic provider that rendered care if there was a potential untoward outcome after treatment. The patient agreed he would go to [facility] ER following his visit today. [...] findings at length with the patient today. We discussed the nature and etiology of this problem along with current treatment options. We discussed the expected course and outcomes and what to expect. We also discussed risks and benefits. All of their questions were answered today, and there was exhibited understanding and comprehension of all that was discussed. Time Spent: 120 minutes were spent reviewing previous imaging and charting. 20 minutes were spent obtaining patient history. 10 minutes were spent on physical exam. 20minutes were spent explaining diagnosis and assessment. Today's documentation was made using voice recognition software. This note may contain grammatical errors secondary to the software. Not available 07/04/2023 18:43:06 Plan of Treatment Reminders Order Date Submit Date Provider Last Modified By Organization Details Last Modified Time Details Appointments None recorded. Lab cell count w/ diff, synovial fluid [address] [facility], [address], [place], [address], 3 11:12:22 gram stain, synovial fluid [address] [facility], [address], [place], [address], 3 11:12:23 crystals, synovial fluid [address] [facility], [address], [address], [place], [address], 3 11:12:23 culture, synovial fluid [address] [facility], [address], [address], [place], [address], 3 11:12:23 glucose, QN [mass/volu me], synovial fluid [address] [facility], [address], [address], [place], [address], 3 11:12:23 Referral None recorded. Procedures None recorded. Surgeries None recorded. Imaging XR, knee, 4 or more view 2022 023 [email or web address] [facility], [address], [place], [address], 3 07:09:56 XR, elbow, 3 or more view 2022 023 [facility], [address], [address], [place], [address], 3 08:26:40 Medication Orders lidocaine (PF) 10 mg/mL (1 %) injection solution 2022 023 [email or web address] [id number], [address] [place], [address], 3 06:44:02 Patient TargetsNo targets recorded. Patient Instructions Encounter Date Encounter Id Patient Instructions Last Modified By Organization Details Last Modified Time 10/27/2022 [id number] views of the right elbow including AP lateral and oblique were obtained in the [place] office. X-rays demonstrated normal bone mineralization. No significant spur at the olecranon. Soft tissue swelling noted. No evidence of acute injury or fracture. Not available 10/30/2022 09:03:30 Reason for Referral [...] Name and Address Organization Details Recorded Time Bursitis of olecranon of right elbow 33389544799036 8 Active 2022 SHERI WOODWARD PA-C [address], [place], [address], [place] [facility] 3 09:03:02 Pain of right elbow joint 77087933207770 109 Active 2022 SHERI WOODWARD PA-C [address], [place], [address], [place] [facility], [facility] 3 09:03:08 Effusion of joint of right knee 86748811323321 4 Active 2022 VIKAS LAGUNA PA-C [address], [place], [address], [place] [facility] 3 15:43:21 Effusion of joint 583352555 Active 2022 VIKAS LAGUNA PA-C [address], [place], [address], [place] [facility] 3 15:43:31 Pain of right knee joint 56800924424829 0 Active 2023 VIKAS LAGUNA PA-C [address], [place], [address], [place] [facility], [facility] 4 18:43:48 Problem Notes None recorded. Procedures Surgical History Date Name Laterality Status Provider Name and Address Organization Details Recorded Time 3 Knee Joint/Bursa Asp & Inj completed VIKAS LAGUNA PA-C [address] [facility],[address], [place], [address], [place] [facility], [facility] 01/26/2023 06:38:57 1 bone fusion completed [facility], P 01/25/2023 16:03:11 8 total knee replacement completed [facility], 01/25/2023 16:04:41 Imaging Results None recorded. Procedure Notes None recorded. Medical Equipment None [...] Address Organization Details Last Updated DateTime 10/27/2022 08895.44 g 31.2 kg/m2 172.[address] [facility], 10/27/2022 11:13:46 Social History None recorded. Functional [...] ICD10 Code Diagnosis Note [id number] MARTELL MONTOYA [address] [place] [address] 10/27/2022 10:52:20 10/27/2022 13:02:34 Pain of right elbow joint 7002840718 7251025 M25.521 Bursitis o f olecranon of right elbow 1963351733 59392 M70.21 [id number] MARTELL PERSONformerly [facility] [address] [facility] [address] [place] [address] 01/25/2023 14:26:57 01/25/2023 15:47:32 Pain of right knee joint 6316703345 64033 M25.561 Effusion o f joint of right knee 4291143602 82199 M25.461 Effusion of joint 195128 008 M25.40 [id number] MARTELL PERSONformerly [facility] [address] [facility] [address] [place] [address] 07/04/2023 12:36:06 07/04/2023 14:06:45 Pain of right knee joint 7756513254 61382 M25.561 Health Concerns Section Related Observation LastModified by Organization Detai ls LastModified Time None Recorded Concern Status LastModified by Organization Details LastModified Time None Recorded Advance Directives Directive None Recorded Payers Insurance Date Sequence Insurance Name Policy Number Policy Cole Covered Member ID Cole Member ID Guarantor Name 10/27/2022 1 [facility] [id number] 1 Jeb Gauthier [id number] Jeb Niceahan Notes Date Note Type Note Provider Name and Address Organization Details Recorded Time 10/27/2022 text/html ROS as noted in the HPI Patient is a pleasant 71-year-old male who presents today with 1 [...] SHERI WOODWARD PA-C [address], [place], [address], [place] [facility], [facility] 10/30/2022 09:07:01 01/25/2023 text/html This is [...] underwent a Tenex procedure VIKAS LAGUNA PA-C [address] [place] [address], [address], [place] [facility], [facility] 01/26/2023 06:44:36 07/04/2023 text/html 72-year-old male who presents for evaluation of painful swelling in right knee onset of symptoms few days after having undergone PRP injection of his right plantar fasciitis and Achilles tendinitis by Dr. Mccall in [facility]. Patient states he had a procedure done last Sunday for which he came home and noted over the course of 48 hours increased pain within his right knee with immobility swelling without the presence of fevers or chills. He waited until Sunday to be seen at [facility] emergency department on 06/30/2022. There [...] to today's visit. Imaging studies performed at [facility] where x-rays as well as duplex ultrasound as noted below [facility] [id number] [place] [address] Patient: JEB GAUTHIER Macrina Saldana/Age/Sex: 1950 MUnit#: [id number] Location/Status: SPER/REG ERAccount#: [id number] Mnemonic/Ordering Site: KNEERT4/SPMAINOrdering Physician: YURIY ROCHA MD CR Knee RT 4 or More Views - 06/30/23 - 1503Report Status:SignedCR Knee RT 4 or More ViewsINDICATION: PainTECHNIQUE: CR Knee RT 4 or More ViewsCOMPARISON: No priors available.FINDINGS/IMP RESSION: No acute fracture or dislocation. Joint spaces arepreserved. Small suprapatellar effusion. Quadriceps enthesopathy. Nofocal soft tissue swelling.Dictating Physician: DARRELL ZAVALETA MDElectronically Signed by: DARRELL ZAVALETA [facility] Date/Time: 06/30/23 1508Sign date/Time: 06/30/23 [facility]9 [facility] [address] [place] [address] Patient: JEB GAUTHIER Macrina Saldana/Age/Sex: 1950 MUnit#: [id number] Location/Status: SPER/REG ERAccount#: [id number] Mnemonic/Ordering Site: DUPVENRT/SPMAINOrderin g Physician: YURIY ROCHA MD US Duplex Venous [...] DARRELL ZAVALETA MDElectronically Signed by: DARRELL [facility]AVALETA [facility] Date/Time: 06/30/23 1458Sign date/Time: 06/30/23 1503 VIKAS LAGUNA PA-C [address] [place] [address], [address], [place] [facility] 07/04/2023 18:45:40
--- OUTSIDE RECORDS SUMMARY | 2025-01-12 10:54 | XMS_ITS | Clinical Summary ---
Author Organization [facility] Address [address] [place] [address] Care Team Providers Care Microsoft Exchange Administrator Name Role Phone Leonid Shea MD Primary Care Provider Allergies No known active allergies Medications Medication [...] - - Pulse - - Temperature 36 C (96.8 F) 07/21/2020 9:42 AM EST Respiratory Rate - [...] Tdap / Td (1 - Tdap) 12/05/1967 Shingrix-Zoster Vaccine (1 of 2) 1998 Fall Risk Assessment 2013 Pneumococcal Vaccine (1 of 1 - PCV) 2013 BMI Counseling 05/31/2021 05/31/2020 RSV Adult > 60+ Yrs or Pregn ant (1 - 1-dose 75+ series) 12/05/2023 Influenza Vaccine (#1) 2025 Hepatitis B Vaccines Aged Out No long er eligible based on patient's age to complete this topic RSV Ped < 20 months Aged Out No longe r eligible based on patient's age to complete this topic Care Teams Microsoft Exchange Administrator Relationship Specialty Start Date End Date Leonid Shea MD [address] [place] [address] PCP - General Internal Medicine 06/27/18
[2025-01-12 11:37] LABS: MANUAL DIFF FLAG NO
[2025-01-12 11:42] LABS: Hematocrit 37.4 % (42.0-52.0); Hemoglobin 12.2 g/dl (14.0-18.0); Imm Gran Abs Auto 0.03 X10*3/uL (0.00-0.03); Imm Gran Pct Auto 0.4 % (0.0-0.4); Lymphocytes Absolute Auto 1.5 X10*3/uL (1.2-4.9); Mean Corpuscular HGB Conc 32.6 g/dl (31.0-36.0); Mean Corpuscular Hemoglobin 28.2 pg (27.0-33.0); Mean Corpuscular Volume 86.6 fL (80.0-98.0); NRBC Abs Auto 0.000 X10*3/uL (0.0-0.012); NRBC Pct Auto 0.0 /100WBC (0.0-0.2); Platelet Count 204 X10*3/uL (160-400); Red Blood Count 4.32 X10*6/uL (4.60-5.80); White Blood Count 8.2 X10*3/uL (4.8-10.8)
[2025-01-12 12:16] LABS: Alanine Aminotransferase 60 U/L (0-40); Albumin Level 4.2 g/dL (3.5-5.0); Alkaline Phosphatase 88 U/L (39-117); Anion Gap 15 (12-20); Aspartate Amino Transferase 30 U/L (5-37); Blood Urea Nitrogen 21 mg/dL (9-16); Calcium 9.0 mg/dL (8.4-10.2); Carbon Dioxide 27 mmol/L (22-29); Chloride 102 mmol/L (96-108); Cholesterol 220 mg/dL (<200); Estimated Glomerular Filt Rate 57; HDL Cholesterol 33 mg/dL (>40); Potassium 4.0 mmol/L (3.3-5.1); Sodium 140 mmol/L (135-145); Total Protein 6.9 g/dL (6.5-8.0); Triglycerides 244 mg/dL (<150); Uric Acid 5.6 mg/dL (3.4-7.0)
[2025-01-12 12:29] LABS: Prostate Specific Antigen 1.70 ng/mL (<0.05-4.0); Vitamin B12 424 pg/mL (200-900)
[2025-01-12 16:02] LABS: Microalbum/Creatinine Ratio Ur 919.1 ug/mg cr (<30)
== END 2025-01-12 09:54 | disposition home or self-care (01) ==
LOC: HO.WFDLDS 09:53
PROVIDERS: Referring Provider Student in an Organized Health Care Education/Training Program; Visit Provider Physician Assistant Medical
DX: M1A.09X0 Idiopathic chronic gout, multiple sites, without tophus (tophi) (principal); E11.9 Type 2 diabetes mellitus without complications; I10 Essential (primary) hypertension; E78.5 Hyperlipidemia, unspecified; E66.9 Obesity, unspecified; Z91.89 Other specified personal risk factors, not elsewhere classified; Z12.5 Encounter for screening for malignant neoplasm of prostate
CPT/HCPCS: 36415; 80053; 80061; 82043; 82570; 82607; 84153; 84550; 85025; 85652; 86140

== ENCOUNTER 2025-01-15 14:23 | Outpatient (AMB) | payer BC, SELFPAY ==
--- OUTSIDE RECORDS SUMMARY | 2025-01-15 14:34 | XMS_ITS | Patient Health Record ---
Author Organization [facility] Address 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 Had two broken screws and screw removal in 2021. As tried AFO, regenerative medicine with specialist in [place] without much relief. Wants revision at this point [facility] scan [facility] [address] scan 2024 at [facility]. Currently not taking patients insurance therefore referral out. Requesting Dr. Ochoa is available. 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 Had two broken screws and screw removal in 2021. As tried AFO, regenerative medicine with specialist in [place] without much relief. Wants revision at this point [facility] scan at [facility] [address] scan 2024 at [facility]. Currently not taking patients insurance therefore referral out. Requesting Dr. Ochoa is available. 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) Referral Organization [facility] Referring Provider First Name LEVAR Referring Provider Last Name JADYN Referring Provider Speciality Podiatry Referred Provider Specialty Orthopedic S urgery Referral Priority Routine Medications Medication SIG (Take, Route, Frequency, Duration) Notes Start Date End Date Status Acetaminophen 500 MG 1 tablet as needed Orally every 4 hrs; Duration: 30 days 09/19/2021 Not-Taking oxyCODONE HCl 5 MG 1 tablet as needed f or severe pain Orally every 6 hrs; Duration: 3 days 09/19/2021 Not-Taking glipiZIDE 5 MG 1 tablet 30 minutes before breakfast Orally Once a day Active Lisinopril-hydroCHLOROthia zide 10-12.5 MG 1 tablet Orally Once a day Active Sulindac 200 MG 1 tablet with food Orally Twice a day; Duration: 30 day(s) 12/14/2020 Not-Taking oxyCODONE HCl 5 MG 1 tablet as needed f or severe pain Orally every 6 hrs; Duration: 3 days 10/25/2020 Not-Taking Sulindac 200 MG 1 tablet with food Orally Twice a day; Duration: 90 day(s) 04/01/2021 Not-Taking Ibuprofen 800 MG 1 tablet with food o r milk as needed Orally Three times a day; Duration: 30 days 09/19/2021 Not-Taking Vistaril 25 MG 1 capsule as needed for nausea/anxiety/itching Orally every 6 hrs; Duration: 30 day(s) Not-Taking metFORMIN HCl Not-Ta fabian Jardiance 10 MG 1 tablet Orally Once a day Active Problems Problem Type SNOMED Code ICD Code Onset Dates Problem Status W/U Status Risk Notes Problem Chronic pain (84756355) Other chronic pain (G89.29) Active confirmed Problem Osteoarthritis of right subtalar joint (1043517025435880 1) 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 [facility] [address] [place] [address] 08/06/2024 LEVARYOLANDA SALAMANCA Plan Of Treatment Pending Test Test [...] Start Date Coverage End Date Medex Blue Shield [address] [place] [address] [id number] John Gauthier Self - patient is the [...]
--- OUTSIDE RECORDS SUMMARY | 2025-01-15 14:35 | XMS_ITS | Encounter Summary ---
Author Organization [facility] Address [address] [place] [address] Care Team Providers Care Director Medical Affairs Name Role Phone Leonid Shea MD Primary Care Provider [phone] Encounter Details Date Type Department Care Team (Latest Contact Info) Description 08/07/2024 Lab Requisition [facility] - Main Lab [address] [facility] [place] [id number] Bear Wills PA [address] [facility] [address] [place] [address] Type 2 diabetes mellitus without complications (CMS/HCC [...] 8:01 PM EST JUAN MANUEL CARDONA [place] ([facility]) [facility] Comment:Auto resulted. Blood Venous blood specimen / Unknown 08/07/2024 08/07/2024 6:39 PM EST us Bear WOOD LAB BLOOD ORDERABLES Final Res ult [facility] [address] [place] [address], [place] [phone] * Uric acid (08/07/2024 12:00 AM EST) Pathologist [facility] Uric Acid 5.9 3.7 - 9.2 mg/dL LAB CHEMISTRY METHOD 08/07/2024 7:03 PM EST [facility] Blood Venous blood specimen / Unknown 08/07/2024 08/07/2024 6:39 PM EST Bear WOOD LAB BLOOD ORDERABLES Final Res ult Performing Organization Address [facility]/ZIP Co de Phone Number [facility] [address] [place] [address], [place] [phone] * Prostate specific antigen screen (08/07/2024 12:00 AM EST) [facility] PSA 1.18 0.00 - 4.00 ng/mL LAB CHEMISTRY METHOD 08/07/2024 7:04 PM EST [facility] Blood Venous blood specimen / Unknown 08/07/2024 08/07/2024 6:39 PM EST Narrative [facility] - 08/07/2024 7:04 PM EST The Siemens Advia Centaur Chemiluminescent Immunoassay is used. Results obtained with different assay methods or kits cannot be used interchangeably. Results cannot be interpreted as absolute evidence of the presence or absence of malignant disease. us Bear WOOD LAB BLOOD ORDERABLES Final Res ult [facility] [address] [place] [address], [place] [phone] * (ABNORMAL) Hemoglobin A1c (08/07/2024 12:00 AM EST) [facility] Hemoglobin A1C 9.0(H) <6.5 % LAB CHEMISTRY METHOD 08/07/2024 9:37 PM [facility] Mean Bld Glu Estim. 212 mg/dL LAB CHEMISTRY METHOD 08/07/2024 9:37 PM [facility] Blood Venous blood specimen / Unknown 08/07/2024 08/07/2024 6:39 PM EST us Bear WOOD LAB BLOOD ORDERABLES Final Res ult [facility] [address] [place] [address], [place] [phone] * (ABNORMAL) Complete blood count (08/07/2024 12:00 [...] WOOD LAB BLOOD ORDERABLES Final Res ult [facility] [address] [place] [address], [place] [phone] * (ABNORMAL) Lipid panel with reflex to [...] WOOD LAB BLOOD ORDERABLES Final Res ult [facility] [address] [place] [address], [place] [phone] * (ABNORMAL) Comprehensive metabolic panel (08/07/2024 12:00 [...] PM [facility] Comment:Calculation based on the Chronic [...] WOOD LAB BLOOD ORDERABLES Final Res ult [facility] [address] [place] [address], [place] [phone] documented in this encounter Visit Diagnoses Diagnosis Type 2 diabetes mellitus without complications (CMS/HCC V24, CMS/HCC V28) Hyperlipidemia, unspecified Essential (primary) hypertension Unspecified essential hypertension Pain in unspecified joint Chronic fatigue, unspecified Gout, unspecified documented in this encounter Care Teams Director Medical Affairs Relationship Specialty Start Date End Date Leonid Shea MD [address] [place] [phone] PCP - General Internal Medicine 11/25/18 documented as of this encounter
--- OUTSIDE RECORDS SUMMARY | 2025-01-15 14:35 | XMS_ITS | Clinical Summary ---
Author Organization [facility] Address [address] [place] [address] Care Team Providers Care Button Sawyer Name Role Phone Leonid Shea MD Primary Care Provider [phone] Allergies No known active allergies Medications Medication [...] age to complete this topic Care Teams Button Sawyer Relationship Specialty Start Date End Date Leonid Shea MD [address] [place] [address] PCP - General Internal Medicine 06/27/18
--- NOTE | 2025-01-15 14:36 | A.OFFPC_ITS ---
Vital Signs 01/15/25 14:41 Height 5 ft 8 in Weight 210 lb BMI 31.9 BP 122/78 Blood Pressure Location Rt brachial Position Sitting Pulse 91 Pulse Source Pulse Oximeter Temp 97.9 F Temp Source Temporal Artery Scan Pulse Oximetry (%) 95 Oxygen Delivery Method Room Air Intake Visit Reasons: 30 minutes diabetes follow up Intake Note: John present in the office today for a follow up to his diabetes. Lab work completed 01/12/2025. Refills of LD Aspirin, Lisinopril, and Glipizide. Patient was fine on Mounjaro until hafter his surgery. Allergies tirzepatide (From Mounjaro) Allergy (Severe, Verified 01/15/25 14:43) Stomach pain Tobacco use date assessed: 01/15/25 Dental Screening Dental Screen Date: 01/15/25 Did you have a dental visit in the last 12 months?: Yes Did you have a dental problem in the last 6 months where you did not have access to dental care?: No Was dental information given to patient?: Patient has dentist HPI HPI Comments History of Present Illness Details 73-year-old male with a past medical his tory of type 2 diabetes, CKD stage IIIA, TIA, gout, hypertension, hyperlipidemia and GERD presents for follow up. Patient had surgery at [facility] to address a chronic, nonhealing right foot issue at the end of October. He has 4 scews in his foot now. He has swelling since the surgery, but his foot appeared more swollen x1 day. No pain. No history of clots. He is doing physical therapy. Hemoglobin a1c 7.8%.He was diagnosed with type 2 diabetes 8 years ago. He was very active before developing musculoskeletal injuries that prohibit him from exercising. Previously treated with Trulicity and switch to Mounjaro because he wanted more weight loss, but he stopped Mounjaro because he got severe stomach pain. He is also taking glipizide extended release 10 mg twice a day. + microalbuminuria. CKD stage IIIA. He is on an KEVIN inhibitor. He has neuropathy in his feet. Past medications: Metformin IR cause GI side effects. Metformin extended release worked fine, but there was a recall on it at some point and he was switched to glipizide. He does not want to go back on metformin. Jardiance was too expensive. ALT is persistently elevated. No abdominal pain, nausea, vomiting or unexplained weight loss. History of TIA in 2023. Patient on baby aspirin, and he is not compliant with atorvastatin. Triglycerides 244, LDL 139, HDL 33. Blood pressure is well-c ontrolled. Patient on lisinopril-hydrochlorothiazide, amlodipine. He was referred to Dermatology for a nonhealing lesion on his right ear. Patient says it was found to be precancerous, and it was treated with cryotherapy. Patient has history of gout in his followed by Rheumatology. Treated with allopurinol. He has mild anemia. Sed rate and CRP are elevated. B12 is normal. Last colonoscopy: 2023 at [facility]. Normal per patient. Denies blood in stools. ROS: Constitutional: No unexplained weight loss, fever, chills, fatigue or night sweats. Eyes: No vision changes, blurry vision, double vision Respiratory: No shortness of breath, cough or sputum production. Cardiovascular: No chest pain, chest pressure or chest discomfort. No palpitations Gastrointestinal: No anorexia, nausea, vomiting or diarrhea. No abdominal pain or blood in stool. Endocrine: No cold or heat intolerance. No polyuria or polydipsia. Psychiatric: No depression or anxiety. No SI/HI. Physical exam: Constitutional: Alert, in no distress. Head: Normocephalic. Respiratory: Clear to auscultation. Cardiovascular: S1 S2 regular. No murmurs Extremities: Warm and well perfused. No clubbing or cyanosis. Intact DP pulses. 1+ edema of the right ankle and pretibial area. Surgical scar noted on the right foot and ankle. There is no significant erythema or warmth. Calves nontender. No palpable cords. Psychiatric: Normal mood and affect [facility] Medical History (Updated 01/15/25 @ 14:56 by ISRAEL Null) Right leg swelling CKD stage 3a, GFR 45-59 ml/min Microalbuminuria due to type 2 diabetes mellitus Anemia Liver enzyme elevation Obesity Hyperlipidemia Essential hypertension Type 2 diabetes mellitus Lesion of left ear Gout TIA (transient ischemic attack) Diabetes Elevated cholesterol HTN (hypertension) Surgical History H/O colonoscopy History of surgery on lower extremity History of ankle surgery Hx of left knee surgery Social History (Updated 01/15/25 @ 14:40 by ISHMAEL Hawley Housing: House Are you a primary care transition manager to a significant other at home: No Alcohol intake: current Alcohol intake frequency: a few times a week Alcohol type: beer Patient Tobacco Use Status: Former Tobacco user Tobacco use type: Cigarette Cigarette Packs Per Day: 1 Cigarettes Per Day: 2 Years Smoked: 45 e-Cigarette/Vaping Use: Never Used Second Hand Smoke Exposure: No Substance Use Type: Marijuana service: Yes Current occupational status: retired Current occupational exposures/hazards: No Cognitive needs: No Hearing needs: Yes Vision needs: No Questionnaire Thrive Questionnaire Date Thrive assessed: 10/23/24 I am a: Patient What is your living situation today?: I have a steady place to live Within the past 12 months, did the food you bought not last and you didn't have the money to get more?: Never true Within the past 12 months, did you worry whether your food would run out before you got money to buy more?: Never true Do you have trouble paying for medicines?: No Do you have trouble getting transportation to medical appointments?: No Do you have trouble paying your heating and electricity bill?: No Do you have trouble taking care of your child, family member or friend?: No Do you have trouble with day-to-day activities such as bathing, preparing meals, shopping, managing finances, etc.?: No Are you currently unemployed and looking for a job?: No Are you interested in more education?: No Please select the resources that you would like help with: None Currently or been in a relationship where the following occur: No concerns reported THRIVE Score: 0 SMOOTH-7 AMB Questionnaire SMOOTH-7 Date SMOOTH - 7 assessed: 10/23/24 Source: Developed by Drs. John Ryan, Tequila Caro, Romeo Garnica and colleagues, with an educational nishant from [employer]. Physical exam (Primary Care) Tobacco/Smoking Status: Tobacco use Status Tobacco use date assessed 10/23/24 01/15/25 14:36 Patient Tobacco Use Status Former Tobacco user 01/15/25 14:40 Tobacco use type Cigarette 01/15/25 14:40 e-Cigarette/Vaping Use Never Used 01/15/25 14:40 Thrive Assessment: Date of Thrive Assessment Date Thrive assessed 10/23/24 01/15/25 14:36 Currently or been in a relationship where the following occur: No concerns reported Results AMB Hemoglobin A1c AMB Hemoglobin A1c 7.8 % Last Edit by Cris Mckay MA on 01/15/25 14:59 Coding Level of Care Code Est Pt Level 4 (78408) Complex EM visit Add On G2211 Diagnoses Essential hypertension I10 Hyperlipidemia E78.5 Type 2 diabetes mellitus E11.9 Lesion of left ear H93.92 Liver enzyme elevation R74.8 Anemia D64.9 CKD stage 3a, GFR 45-59 ml/min N18.31 Right leg swelling M79.89 Assessment & Plan Assessment & Plan (1) Essential hypertension: Code(s): I10 - Essential (primary) hypertension Category: Medical Plan: Continue current medication. Continue efforts at weight loss. Low-sodium diet and avoidance of caffeine recommended. (2) Hyperlipidemia: Code(s): E78.5 - Hyperlipidemia, unspecified Category: Medical Plan: Recommended Mediterranean diet. Restart Atorvastatin. Check lipid profile in 6 weeks. (3) Type 2 diabetes mellitus: Code(s): E11.9 - Type 2 diabetes mellitus without complications Category: Medical Plan: Restart Trulicity 0.75 mg weekly. Continue glipizide ER 10 mg BID. Diabetic diet reviewed. Reviewed treatment hypoglycemia. (4) Lesion of left ear: Code(s): H93.92 - Unspecified disorder of left ear Category: Medical Plan: Precancerous and tx with cryotherapy. Full body scan is scheduled with [facility] [place] dermatology. (5) Liver enzyme elevation: Code(s): R74.8 - Abnormal levels of other serum enzymes Category: Medical Plan: Check u/s. (6) Anemia: Code(s): D64.9 - Anemia, unspecified Category: Medical Plan: Recheck CBC, B12, iron, ferritin, folate in 6 weeks. Increase iron rich foods in the diet. (7) CKD stage 3a, GFR 45-59 ml/min: Code(s): N18.31 - Chronic kidney disease, stage 3a Category: Medical Plan: Avoid nephrotoxic medications. Discussed SGLT2, but patient says it was too expensive. Continue KEVIN inhibitor. (8) Right leg swelling: Code(s): M79.89 - Other specified soft tissue disorders Category: Medical Plan: Patient thinks it is because he has not been elevating, but he does need to have an ultrasound done to rule out a DVT. Stat ultrasound ordered. Warning signs warranting ER evaluation reviewed. Plan Follow up in 3 months. Orders: Orders Ferritin 6 Weeks D64.9 - Anemia, unspecified US venous duplex LE RT Today M79.89 - Other specified soft tissue disorders US abdomen linton w elastography Today R74.8 - Abnormal levels of other serum enzymes Lipid Panel 6 Weeks E78.5 - Hyperlipidemia, unspecified Complete Blood Count Auto Diff 6 Weeks D64.9 - Anemia, unspecified Vitamin B12 and Folate 6 Weeks D64.9 - Anemia, unspecified IRON PROFILE 6 Weeks D64.9 - Anemia, unspecified AMB Hemoglobin A1c Today E11.9 - Type 2 diabetes mellitus without complications Medications: New dulaglutide (Trulicity) 0.75 mg (0.5 mL) subcut QWEEK 2 mL 3RF
[2025-01-15 14:41] VITALS: BP 122/78; PULSE 91; TEMP 36.6; O2SAT 95; BMI 31.9
== END 2025-01-15 15:19 | disposition home or self-care (01) ==
LOC: HO.HMCFM 14:23
PROVIDERS: PCP Physician Assistant Medical; Visit Provider Physician Assistant Medical
DX: I12.9 Hypertensive chronic kidney disease with stage 1 through stage 4 chronic kidney disease, or unspecified chronic kidney disease (principal); E11.69 Type 2 diabetes mellitus with other specified complication; N18.31 Chronic kidney disease, stage 3a; E78.5 Hyperlipidemia, unspecified; H93.92 Unspecified disorder of left ear; R74.8 Abnormal levels of other serum enzymes; D64.9 Anemia, unspecified; M79.89 Other specified soft tissue disorders

== ENCOUNTER → 2025-01-15 14:23 | Outpatient (BNVA) | payer BC, SELFPAY | PROVIDERS: PCP Physician Assistant Medical; Visit Provider Physician Assistant Medical | DX: E11.22 Type 2 diabetes mellitus with diabetic chronic kidney disease (principal); I12.9 Hypertensive chronic kidney disease with stage 1 through stage 4 chronic kidney disease, or unspecified chronic kidney disease; N18.31 Chronic kidney disease, stage 3a; E78.5 Hyperlipidemia, unspecified; H93.92 Unspecified disorder of left ear; R74.8 Abnormal levels of other serum enzymes; D64.9 Anemia, unspecified; M79.89 Other specified soft tissue disorders; Z79.84 Long term (current) use of oral hypoglycemic drugs | CPT/HCPCS: 83036 ==

== ENCOUNTER 2025-01-16 15:21 | Outpatient (REF) | payer MEDICARE, SELFPAY ==
--- NOTE | ~2025-01-16 | US_ITS ---
EXAMINATION: US TRIPLEX LOWER EXTREMITY, RIGHT CLINICAL INFORMATION: Right lower extremity edema COMPARISON: None available. TECHNIQUE: Color-flow triplex imaging with spectral analysis and compression Doppler were performed on the right lower extremity. FINDINGS: Respiratory variation, normal compression and augmented flow are noted throughout the right lower extremity. The visualized common femoral vein, superficial femoral vein, profunda femoral vein, popliteal vein and midcalf peroneal and posterior tibial venous segments show no evidence of deep venous thrombosis. US/US venous duplex LE RT IMPRESSION: No evidence of deep venous thrombosis involving the right lower extremity. Electronically signed by: Niranjan Kendrick MD 01/16/2025 03:53 PM EDT
--- OUTSIDE RECORDS SUMMARY | 2025-01-16 15:24 | XMS_ITS | Encounter Summary ---
Author Organization [facility] Address [address] [place] [address] Care Team Providers Care Stonecutter Assistant Name Role Phone Leonid Shea MD Primary Care Provider [phone] Encounter Details Date Type Department Care Team (Latest Contact Info) Description 08/07/2024 Lab Requisition [facility] - Main Lab [address] [facility] [place] [id number] Bear Wills PA [address] [facility] [address] [place] [address] Type 2 diabetes mellitus without complications (CMS/HCC [...] 8:01 PM EST JUAN MANUEL CARDONA [place] ([facility]) [facility] Comment:Auto resulted. Blood Venous blood specimen / Unknown 08/07/2024 08/07/2024 6:39 PM EST us Bear WOOD LAB BLOOD ORDERABLES Final Res ult [facility] [address] [place] [address], [place] [phone] * Uric acid (08/07/2024 12:00 AM EST) Pathologist [facility] Uric Acid 5.9 3.7 - 9.2 mg/dL LAB CHEMISTRY METHOD 08/07/2024 7:03 PM EST [facility] Blood Venous blood specimen / Unknown 08/07/2024 08/07/2024 6:39 PM EST Bear WOOD LAB BLOOD ORDERABLES Final Res ult Performing Organization Address [facility]/ZIP Co de Phone Number [facility] [address] [place] [address], [place] [phone] * Prostate specific antigen screen (08/07/2024 12:00 AM EST) [facility] PSA 1.18 0.00 - 4.00 ng/mL LAB CHEMISTRY METHOD 08/07/2024 7:04 PM EST [facility] Blood Venous [...] Final Res ult [facility] [address] [place] [address], [place] [phone] * (ABNORMAL) Hemoglobin A1c (08/07/2024 12:00 AM EST) [facility] Hemoglobin A1C 9.0(H) <6.5 % LAB CHEMISTRY METHOD 08/07/2024 9:37 PM [facility] Mean Bld Glu Estim. 212 mg/dL LAB CHEMISTRY METHOD 08/07/2024 9:37 PM [facility] Blood Venous blood specimen / Unknown 08/07/2024 08/07/2024 6:39 PM EST us Bear WOOD LAB BLOOD ORDERABLES Final Res ult [facility] [address] [place] [address], [place] [phone] * (ABNORMAL) Complete blood count (08/07/2024 12:00 AM EST) WBC 10.4 4.8 - 10.8 K/mcL LAB HEMETOLOGY METHOD 08/07/2024 7:05 PM [facility] RBC 4.40(L) 4.50 - 5.50 M/mcL LAB HEMETOLOGY METHOD 08/07/2024 7:05 PM [facility] Hemoglobin 12.5(L) 13.5 - 17.5 g/dL LAB HEMETOLOGY METHOD 08/07/2024 7:05 PM [facility] Hematocrit 39.4(L) 42.0 - 54.0 % LAB HEMETOLOGY METHOD 08/07/2024 7:05 PM [facility] MCV 89.7 79.0 - 98.0 FL LAB HEMETOLOGY METHOD 08/07/2024 7:05 PM [facility] MCH 28.5 27.0 - 32.0 pcg LAB HEMETOLOGY METHOD 08/07/2024 7:05 PM [facility] MCHC 31.7(L) 32.0 - 37.0 g/dL LAB HEMETOLOGY METHOD 08/07/2024 7:05 PM [facility] RDW 14.0 11.0 - 15.0 % LAB HEMETOLOGY METHOD 08/07/2024 7:05 PM [facility] Platelets 254 130 - 400 K/mcL LAB HEMETOLOGY METHOD 08/07/2024 7:05 PM [facility] MPV 12.2(H) 7.0 - 11.0 FL LAB HEMETOLOGY METHOD 08/07/2024 7:05 PM [facility] NRBC 0.0 <1.0 % LAB HEMETOLOGY METHOD 08/07/2024 7:05 PM [facility] NRBC Absolute 0.00 <0.10 K/mcL LAB HEMETOLOGY METHOD 08/07/2024 7:05 PM [facility] Blood Venous blood specimen / Unknown 08/07/2024 08/07/2024 6:39 PM EST us Bear WOOD LAB BLOOD ORDERABLES Final Res ult [facility] [address] [place] [address], [place] [phone] * (ABNORMAL) Lipid panel with reflex to direct LDL (08/07/2024 12:00 AM EST) Cholesterol 222(H) 0 - 200 mg/dL LAB CHEMISTRY METHOD 08/07/2024 7:03 PM [facility] Triglycerides 287(H) 0 - 150 mg/dL LAB CHEMISTRY METHOD 08/07/2024 7:03 PM [facility] HDL 28(L) >=40 mg/dL LAB CHEMISTRY METHOD 08/07/2024 7:03 PM [facility] LDL Calculated 137(H) 0 - 100 mg/dL LAB CHEMISTRY METHOD 08/07/2024 7:03 PM [facility] VLDL Cholesterol Mendez 57.4 mg/dL LAB CHEMISTRY METHOD 08/07/2024 7:03 PM [facility] Non HDL Chol. (LDL+VLDL) 194(H) <145 mg/dL LAB CHEMISTRY METHOD 08/07/2024 7:03 PM [facility] Chol/HDL Ratio 7.9(H) 0.0 - 4.4 LAB CHEMISTRY METHOD 08/07/2024 7:03 PM [facility] Blood Venous blood specimen / Unknown 08/07/2024 08/07/2024 6:39 PM EST us Bear WOOD LAB BLOOD ORDERABLES Final Res ult [facility] [address] [place] [address], [place] [phone] * (ABNORMAL) Comprehensive metabolic panel (08/07/2024 12:00 AM EST) Sodium 138 133 - 145 mmol/L LAB CHEMISTRY METHOD 08/07/2024 7:03 PM [facility] Potassium 4.1 3.5 - 5.5 mmol/L LAB CHEMISTRY METHOD 08/07/2024 7:03 PM [facility] Chloride 103 96 - 110 mmol/L LAB CHEMISTRY METHOD 08/07/2024 7:03 PM [facility] CO2 25 21 - 32 mmol/L LAB CHEMISTRY METHOD 08/07/2024 7:03 PM [facility] Anion Gap 10 3 - 11 LAB CHEMISTRY METHOD 08/07/2024 7:03 PM [facility] Glucose 261(H) 70 - 100 mg/dL LAB CHEMISTRY METHOD 08/07/2024 7:03 PM [facility] BUN 19 5 - 25 mg/dL LAB CHEMISTRY METHOD 08/07/2024 7:03 PM [facility] Creatinine 1.40(H) 0.70 - 1.30 mg/dL LAB CHEMISTRY METHOD 08/07/2024 7:03 PM [facility] eGFR 52(L) >=60 mL/min/1. 73m2 LAB CHEMISTRY METHOD 08/07/2024 7:03 PM [facility] Comment:Calculation based on the Chronic Kidney Disease Epidemiology Collaboration (CKD-EPI) equation refit without adjustment for race. BUN/Creatinine Ratio 13.6 LAB CHEMISTRY METHOD 08/07/2024 7:03 PM [facility] Calcium 9.1 8.5 - 10.5 mg/dL LAB CHEMISTRY METHOD 08/07/2024 7:03 PM [facility] AST (SGOT) 29 10 - 42 unit/L LAB CHEMISTRY METHOD 08/07/2024 7:03 PM [facility] ALT (SGPT) 63(H) 10 - 60 unit/L LAB CHEMISTRY METHOD 08/07/2024 7:03 PM [facility] Alkaline Phosphatase 92 42 - 121 unit/L LAB CHEMISTRY METHOD 08/07/2024 7:03 PM [facility] Total Protein 7.2 6.0 - 8.0 g/dL LAB CHEMISTRY METHOD 08/07/2024 7:03 PM [facility] Albumin 3.4 3.2 - 5.0 g/dL LAB CHEMISTRY METHOD 08/07/2024 7:03 PM [facility] Total Bilirubin 0.4 0.0 - 1.4 mg/dL LAB CHEMISTRY METHOD 08/07/2024 7:03 PM [facility] Blood Venous blood specimen / Unknown 08/07/2024 08/07/2024 6:39 PM EST us Bear WOOD LAB BLOOD ORDERABLES Final Res ult [facility] [address] [place] [address], [place] [phone] documented in this encounter Visit Diagnoses Diagnosis Type 2 diabetes mellitus without complications (CMS/HCC V24, CMS/HCC V28) Hyperlipidemia, unspecified Essential (primary) hypertension Unspecified essential hypertension Pain in unspecified joint Chronic fatigue, unspecified Gout, unspecified documented in this encounter Care Teams Stonecutter Assistant Relationship Specialty Start Date End Date Leonid Shea MD [address] [place] [phone] PCP - General Internal Medicine 11/25/18 documented as of this encounter
--- OUTSIDE RECORDS SUMMARY | 2025-01-16 15:24 | XMS_ITS | Clinical Summary ---
Author Organization [facility] Address [address] [place] [address] Care Team Providers Care Supervisor Marble Name Role Phone Leonid Shea MD Primary Care Provider [phone] Allergies No known active allergies Medications Medication [...] age to complete this topic Care Teams Supervisor Marble Relationship Specialty Start Date End Date Leonid Shea MD [address] [place] [id number] PCP - General Internal Medicine 06/27/18
--- OUTSIDE RECORDS SUMMARY | 2025-01-16 15:24 | XMS_ITS | Patient Health Record ---
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 Had two broken screws and screw removal in 2021. As tried AFO, regenerative medicine with specialist in [place] without much relief. Wants revision at this point CT scan at [facility] [address] scan 2024 at [facility]. Currently not taking patients insurance therefore referral out. Requesting Dr. Ochoa is available. 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 Had two broken screws and screw removal in 2021. As tried AFO, regenerative medicine with specialist in [place] without much relief. Wants revision at this point CT scan at [facility] [address] scan 2024 at [facility]. Currently not taking patients insurance therefore referral out. Requesting Dr. Ochoa is available. 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 Problem Arthritis of right subtalar joint (4894289943352246 6) 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
--- OUTSIDE RECORDS SUMMARY | 2025-01-16 15:24 | XMS_ITS | Patient Health Record ---
Author Organization [facility], Address [address] [address] Care Team Providers Care Wood Dowel Machine Operator Name Role Phone Leonid Shea MD Primary Care Provider CHULA Díaz Unavailable [phone] Allergies No Known Allergies Reason For Referral [...] primary osteoarthritis of the ankle and/or foot (959228201) 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 Problem Essential hypertension (20171707) Hypertension, unspecified type (I10) Active confirmed Vital Signs Blood pressure diastolic 84 mm Hg 04/04/2024 Weight-kg 97.52 kg 08/05/2024 Height 68 in 08/05/2024 Blood pressure systolic 146 mm Hg 04/04/2024 Weight 215 lbs 08/05/2024 BMI 32.69 kg/m2 08/05/2024 Encounters Encounter Location Date Provider Diagnosis [facility], [address] [address] 04/04/2024 CHULA GRIFFIN Hypertension, unspecified type I10 and Pain in right ankle and joints of right foot M25.571 [facility], [address] [address] 07/25/2024 CHULA GRIFFIN Achilles tendinitis of right lower extremity M76.61 and History of ankle surgery Z98.890 [facility] [address] [place] 08/05/2024 CHULA GRIFFIN History of ankle surgery Z98.890 and Arthritis of subtalar joint M19.079 [facility] [address] [place] 05/09/2024 CHULA GRIFFIN [facility] [address] [place] 06/13/2024 CHULA GRIFFIN [facility] [address] [place] 06/16/2024 CHULA GRIFFIN [facility] [address] [...] discussed repeating the orthobiologics injection. 04/04/2024 Other CCBR-SYNARC n was used to assist with documentation of this note. While I did review this for errors, it is certainly possible that I may have overlooked some. If there is a confusing error, please do not hesitate to contact me for clarification. Thank you. 07/25/2024 Other Stalkthisation was used to assist with documentation of [...] encounter as if the encounter had occurred [id number] with the same standards of appropriate practice [...] HIPAA compliant video conferencing technology. 08/05/2024 Other CCBR-SYNARC n was used to assist with documentation [...] Insured Coverage Start Date Coverage End Date [facility] Medicare Advantage [address] [place], [place] [id number] [phone] [id number] JEB WREN Self - patient is the insured 5 Medicare of [place] s J14 [address] [facility] [place] [id number] JEB WREN Self - patient is the insured 4 Medical (General) History Medical History History ICD Code diabetes high blood pressure Surgical History Surgery Date(Month/Year) right foot fusion right foot screw removal
== END 2025-01-16 15:22 | disposition home or self-care (01) ==
LOC: HO.US 15:21
PROVIDERS: PCP Physician Assistant Medical; Visit Provider Physician Assistant Medical
DX: R60.0 Localized edema (principal)
CPT/HCPCS: 93971

== ENCOUNTER → 2025-01-16 15:28 | Outpatient (BNV) | payer MEDICARE, SELFPAY | PROVIDERS: PCP Physician Assistant Medical; Visit Provider Radiology Diagnostic Radiology | DX: R22.41 Localized swelling, mass and lump, right lower limb (principal) | CPT/HCPCS: 93971 ==

== ENCOUNTER 2025-02-02 09:52 | Outpatient (REF) | payer MEDICARE, SELFPAY ==
--- NOTE | ~2025-02-02 | US_ITS ---
EXAMINATION: US ABDOMEN LIMITED WITH LIVER ELASTOGRAPHY HISTORY: R74.8 - Abnormal levels of other serum enzymes TECHNIQUE: Real-time grayscale ultrasound imaging of the right upper quadrant was performed and images were reviewed. COMPARISON: There are no prior studies available for comparison. FINDINGS: Liver: The right lobe of the liver measures 17.5 cm in size. The left lobe of the liver measures 9.2 cm in size. The liver demonstrates increased echotexture, consistent with steatosis. There is focal fatty sparing adjacent to the gallbladder. No focal mass or intrahepatic biliary ductal dilatation is identified. There is normal hepatopedal flow in the portal vein. Ultrasound elastography of the liver was performed with 10 separate measurements of the liver parenchyma with the patient in the supine position. Measurements were obtained approximately 2 cm below Eleanor's capsule and perpendicular to the capsule. The median shear wave velocity is 1.55 m/s. The interquartile range/median (IQR/median) is 0.10. Gallbladder and biliary tree: There are small stones and sludge in the gallbladder. There is no wall thickening or pericholecystic fluid. There is no sonographic Carrasquillo sign. The common bile duct is normal in caliber measuring 3 mm. Right Kidney: The right kidney measures 11.7 cm in length and demonstrates multiple tiny echogenic foci which may represent vascular calcifications. The right kidney is otherwise unremarkable, without evidence of masses, hydronephrosis, or calculi. Pancreas: The pancreatic head, neck, and body are unremarkable. The pancreatic tail is obscured by bowel gas. Abdominal aorta and inferior vena cava: The visualized portions of the abdominal aorta and inferior vena cava are normal in caliber. There is no free fluid in the right upper quadrant. US/US abdomen linton w elastography IMPRESSION: Hepatomegaly and hepatic steatosis. The median shear wave velocity in the liver is 1.55 m/s, corresponding to a median liver stiffness of 7.35 kPa. The IQR/median value is 0.10. This is indicative of a quality data set. Findings are indicative of a low elastography value which rules out advanced chronic liver disease in asymptomatic patients. REFERENCE: Society of Radiologists in Ultrasound Liver Stiffness Thresholds (2020): LIVER STIFFNESS THRESHOLDS: *Shear wave velocity less than 1.3 m/s (Liver Stiffness equal or less than 5 kPa): High probability of being normal. *Shear wave velocity less than 1.7 m/s (Liver Stiffness less than 9 kPa): In the absence of other known clinical signs, rules out compensated advanced chronic liver disease. *Shear wave velocity between 1.7-2.1 m/s (Liver Stiffness 9-13 kPa): Suggestive of compensated advanced chronic liver disease but need further test for confirmation. *Shear wave velocity between 2.1-2.4 m/s (Liver Stiffness 13-17 kPa): Rules in compensated advanced chronic liver disease. *Shear wave velocity greater than 2.4 m/s (Liver Stiffness over 17 kPa): Suggestive of clinically significant portal hypertension. QUALITY OF DATA SET: *IQR/Median value equal or less than 0.15 implies a quality data set. *IQR/Median value over 0.15 implies a poor quality data set. SIGNIFICANT CHANGE FROM PRIOR EXAM: Significant change if liver stiffness measurement is 10% or greater from prior exam. OTHER CONSIDERATIONS: The stage of liver fibrosis may be overestimated in the setting of acute hepatitis, liver inflammation, elevated liver function tests, hepatic vascular congestion, obstructive cholestasis, non-fasting state, and infiltrative diseases such as amyloidosis and lymphoma. In some patients with NAFLD, the liver stiffness thresholds for compensated advanced chronic liver disease may be lower. In causes other than viral hepatitis and NAFLD, liver stiffness thresholds are not well established. Electronically signed by: John Sarmiento MD 02/02/2025 11:07 AM EDT
--- OUTSIDE RECORDS SUMMARY | 2025-02-02 10:39 | XMS_ITS | Clinical Summary ---
Author Organization [facility] Address [address] [place] [address] Care Team Providers Care Merchandise Support Associate Name Role Phone Leonid Shea MD Primary Care Provider [phone] Allergies No known active allergies Medications Medication [...] age to complete this topic Care Teams Merchandise Support Associate Relationship Specialty Start Date End Date Leonid Shea MD [address] [place] [id number] PCP - General Internal Medicine 06/27/18
--- OUTSIDE RECORDS SUMMARY | 2025-02-02 10:39 | XMS_ITS | Patient Health Record ---
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 Had two broken screws and screw removal in 2021. As tried AFO, regenerative medicine with specialist in [place] without much relief. Wants revision at this point CT scan at [facility] [address] scan 2024 at [facility]. Currently not taking patients insurance therefore referral out. Requesting Dr. Ochoa is available. 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 Had two broken screws and screw removal in 2021. As tried AFO, regenerative medicine with specialist in [place] without much relief. Wants revision at this point CT scan at [facility] [address] scan 2024 at [facility]. Currently not taking patients insurance therefore referral out. Requesting Dr. Ochoa is available. 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 Problem Inflammation of foot joint (735617654) Inflammation of foot joint (M19.079) Active confirmed Problem Type 2 diabetes mellitus with peripheral neuropathy (E11.42) Active confirmed Encounters Encounter Location Date Provider Diagnosis [facility] [address] [facility] [address] [place] [address] 08/06/2024 LEVAR JADYN Plan Of Treatment Pending Test Test Name [...] JOINT/BURSA 01/18/20 DRAIN/INJECT, SMALL JOINT/BURSA 03/30/20 AFO [facility] PREFAB W/FIT&ADJ 020 WALKING BOOT PNEUMATIC AND/OR VAC 2020 Insurance Providers Payer Name Payer Address Payer Phone Subscriber Number Group Number Insured Name Patient Relationship to Insured Coverage Start Date Coverage End Date [facility] [address] [place] [phone] [id number] John Gauthier Self - patient is the [...]
--- OUTSIDE RECORDS SUMMARY | 2025-02-02 10:39 | XMS_ITS | Patient Health Record ---
Author Organization [facility], Address [address] [address] Care Team Providers Care Mule Developer Name Role Phone Leonid Shea MD Primary Care Provider CHULA Díaz Unavailable [phone] Allergies No Known Allergies Reason For Referral [...] primary osteoarthritis of the ankle and/or foot (537935581) 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 Problem Essential hypertension (30595206) Hypertension, unspecified type (I10) Active confirmed Vital Signs Blood pressure diastolic 84 mm Hg 04/04/2024 Weight-kg 97.52 kg 08/05/2024 Height 68 in 08/05/2024 Blood pressure systolic 146 mm Hg 04/04/2024 Weight 215 lbs 08/05/2024 BMI 32.69 kg/m2 08/05/2024 Encounters Encounter Location Date Provider Diagnosis [facility], [address] [address] 04/04/2024 CHULA GRIFFIN Hypertension, unspecified type I10 and Pain in right ankle and joints of right foot M25.571 [facility], [address] [address] 07/25/2024 CHULA GRIFFIN Achilles tendinitis of right lower extremity M76.61 and History of ankle surgery Z98.890 [facility] [address] DIMIT[place] BOYD 08/05/2024 CHULA GRIFFIN History of ankle surgery Z98.890 and Arthritis of subtalar joint M19.079 [facility] [address] [place]D 05/09/2024 CHULA GRIFFIN [facility] [address] [place] BOYD 06/13/2024 CHULA GRIFFIN [facility] [address] D[place] BOYD 06/16/2024 CHULA GRIFFIN [facility] [address] [...] discussed repeating the orthobiologics injection. 04/04/2024 Other [employer] n was used to assist with documentation of this note. While I did review this for errors, it is certainly possible that I may have overlooked some. If there is a confusing error, please do not hesitate to contact me for clarification. Thank you. 07/25/2024 Other [employer] was used to assist with documentation of [...] encounter as if the encounter had occurred [id number] with the same standards of appropriate practice [...] HIPAA compliant video conferencing technology. 08/05/2024 Other [employer] n was used to assist with documentation [...] Coverage Start Date Coverage End Date [facility] Medicare Advantage [address] [place], [place] [id number] [phone] [id number] JEB WREN Self - patient is the insured 5 [employer] of [place] J14 [address] [facility] [place] [id number] JEB WREN Self - patient is the insured 4 Medical (General) History Medical History History ICD Code diabetes high blood pressure Surgical History Surgery Date(Month/Year) right foot fusion right foot screw removal
--- OUTSIDE RECORDS SUMMARY | 2025-02-02 10:39 | XMS_ITS | Encounter Summary ---
Author Organization [facility] Address [address] [place] [address] Care Team Providers Care Awning Craftsman Name Role Phone Leonid Shea MD Primary Care Provider [phone] Encounter Details Date Type Department Care Team (Latest Contact Info) Description 08/07/2024 Lab Requisition [facility] [address] [facility] [place] [id number] Bear Wills [place] [address] [facility] [address] [place] [address] Type 2 diabetes mellitus without complications (CMS/HCC [...] 8:01 PM EST JUAN MANUEL CARDONA [place] ([facility]) [facility] Comment:Auto resulted. Blood Venous blood specimen / Unknown 08/07/2024 08/07/2024 6:39 PM EST us Bear WOOD LAB BLOOD ORDERABLES Final Res ult [facility] [address] [place] [address], [place] [phone] * Uric acid (08/07/2024 12:00 AM EST) Pathologist [facility] Uric Acid 5.9 3.7 - 9.2 mg/dL LAB CHEMISTRY METHOD 08/07/2024 7:03 PM EST [facility] Blood Venous blood specimen / Unknown 08/07/2024 08/07/2024 6:39 PM EST Bear WOOD LAB BLOOD ORDERABLES Final Res ult Performing Organization Address [facility]/ZIP Co de Phone Number [facility] [address] [place] [address], [place] [phone] * Prostate specific antigen screen (08/07/2024 12:00 AM EST) [facility] PSA 1.18 0.00 - 4.00 ng/mL LAB CHEMISTRY METHOD 08/07/2024 7:04 PM EST [facility] Blood Venous blood specimen / Unknown 08/07/2024 08/07/2024 6:39 PM EST Narrative [facility] - 08/07/2024 7:04 PM EST The Siemens Advia Centaur Chemiluminescent Immunoassay is used. Results obtained with different assay methods or kits cannot be used interchangeably. Results cannot be interpreted as absolute evidence of the presence or absence of malignant disease. us Bear WOOD LAB BLOOD ORDERABLES Final Res ult [facility] [address] [place] [address], [place] [phone] * (ABNORMAL) Hemoglobin A1c (08/07/2024 12:00 AM EST) [facility] Hemoglobin A1C 9.0(H) <6.5 % LAB CHEMISTRY METHOD 08/07/2024 9:37 PM [facility] Mean Bld Glu Estim. 212 mg/dL LAB CHEMISTRY METHOD 08/07/2024 9:37 PM [facility] Blood Venous blood specimen / Unknown 08/07/2024 08/07/2024 6:39 PM EST us Bear WOOD LAB BLOOD ORDERABLES Final Res ult [facility] [address] [place] [address], [place] [phone] * (ABNORMAL) Complete blood count (08/07/2024 12:00 AM EST) WBC 10.4 4.8 - 10.8 K/mcL LAB HEMETOLOGY METHOD 08/07/2024 7:05 PM [facility] RBC 4.40(L) 4.50 - 5.50 M/mcL LAB HEMETOLOGY METHOD 08/07/2024 7:05 PM [facility] Hemoglobin 12.5(L) 13.5 - 17.5 g/dL LAB HEMETOLOGY METHOD 08/07/2024 7:05 PM [facility] Hematocrit 39.4(L) 42.0 - 54.0 % LAB HEMETOLOGY METHOD 08/07/2024 7:05 PM [facility] MCV 89.7 79.0 - 98.0 FL LAB HEMETOLOGY METHOD 08/07/2024 7:05 PM [facility] MCH 28.5 27.0 - 32.0 pcg LAB HEMETOLOGY METHOD 08/07/2024 7:05 PM [facility] MCHC 31.7(L) 32.0 - 37.0 g/dL LAB HEMETOLOGY METHOD 08/07/2024 7:05 PM [facility] RDW 14.0 11.0 - 15.0 % LAB HEMETOLOGY METHOD 08/07/2024 7:05 PM [facility] Platelets 254 130 - 400 K/mcL LAB HEMETOLOGY METHOD 08/07/2024 7:05 PM [facility] MPV 12.2(H) 7.0 - 11.0 FL LAB HEMETOLOGY METHOD 08/07/2024 7:05 PM [facility] NRBC 0.0 <1.0 % LAB HEMETOLOGY METHOD 08/07/2024 7:05 PM [facility] NRBC Absolute 0.00 <0.10 K/mcL LAB HEMETOLOGY METHOD 08/07/2024 7:05 PM [facility] Blood Venous blood specimen / Unknown 08/07/2024 08/07/2024 6:39 PM EST us Bear WOOD LAB BLOOD ORDERABLES Final Res ult [facility] [address] [place] [address], [place] [phone] * (ABNORMAL) Lipid panel with reflex to direct LDL (08/07/2024 12:00 AM EST) Cholesterol 222(H) 0 - 200 mg/dL LAB CHEMISTRY METHOD 08/07/2024 7:03 PM [facility] Triglycerides 287(H) 0 - 150 mg/dL LAB CHEMISTRY METHOD 08/07/2024 7:03 PM [facility] HDL 28(L) >=40 mg/dL LAB CHEMISTRY METHOD 08/07/2024 7:03 PM [facility] LDL Calculated 137(H) 0 - 100 mg/dL LAB CHEMISTRY METHOD 08/07/2024 7:03 PM [facility] VLDL Cholesterol Mendez 57.4 mg/dL LAB CHEMISTRY METHOD 08/07/2024 7:03 PM [facility] Non HDL Chol. (LDL+VLDL) 194(H) <145 mg/dL LAB CHEMISTRY METHOD 08/07/2024 7:03 PM [facility] Chol/HDL Ratio 7.9(H) 0.0 - 4.4 LAB CHEMISTRY METHOD 08/07/2024 7:03 PM [facility] Blood Venous blood specimen / Unknown 08/07/2024 08/07/2024 6:39 PM EST us Bear WOOD LAB BLOOD ORDERABLES Final Res ult [facility] [address] [place] [address], [place] [phone] * (ABNORMAL) Comprehensive metabolic panel (08/07/2024 12:00 AM EST) Sodium 138 133 - 145 mmol/L LAB CHEMISTRY METHOD 08/07/2024 7:03 PM [facility] Potassium 4.1 3.5 - 5.5 mmol/L LAB CHEMISTRY METHOD 08/07/2024 7:03 PM [facility] Chloride 103 96 - 110 mmol/L LAB CHEMISTRY METHOD 08/07/2024 7:03 PM [facility] CO2 25 21 - 32 mmol/L LAB CHEMISTRY METHOD 08/07/2024 7:03 PM [facility] Anion Gap 10 3 - 11 LAB CHEMISTRY METHOD 08/07/2024 7:03 PM [facility] Glucose 261(H) 70 - 100 mg/dL LAB CHEMISTRY METHOD 08/07/2024 7:03 PM [facility] BUN 19 5 - 25 mg/dL LAB CHEMISTRY METHOD 08/07/2024 7:03 PM [facility] Creatinine 1.40(H) 0.70 - 1.30 mg/dL LAB CHEMISTRY METHOD 08/07/2024 7:03 PM [facility] eGFR 52(L) >=60 mL/min/1. 73m2 LAB CHEMISTRY METHOD 08/07/2024 7:03 PM [facility] Comment:Calculation based on the Chronic Kidney Disease Epidemiology Collaboration (CKD-EPI) equation refit without adjustment for race. BUN/Creatinine Ratio 13.6 LAB CHEMISTRY METHOD 08/07/2024 7:03 PM [facility] Calcium 9.1 8.5 - 10.5 mg/dL LAB CHEMISTRY METHOD 08/07/2024 7:03 PM [facility] AST (SGOT) 29 10 - 42 unit/L LAB CHEMISTRY METHOD 08/07/2024 7:03 PM [facility] ALT (SGPT) 63(H) 10 - 60 unit/L LAB CHEMISTRY METHOD 08/07/2024 7:03 PM [facility] Alkaline Phosphatase 92 42 - 121 unit/L LAB CHEMISTRY METHOD 08/07/2024 7:03 PM [facility] Total Protein 7.2 6.0 - 8.0 g/dL LAB CHEMISTRY METHOD 08/07/2024 7:03 PM [facility] Albumin 3.4 3.2 - 5.0 g/dL LAB CHEMISTRY METHOD 08/07/2024 7:03 PM [facility] Total Bilirubin 0.4 0.0 - 1.4 mg/dL LAB CHEMISTRY METHOD 08/07/2024 7:03 PM [facility] Blood Venous blood specimen / Unknown 08/07/2024 08/07/2024 6:39 PM EST us Bear WOOD LAB BLOOD ORDERABLES Final Res ult [facility] [address] [place] [address], [place] [phone] documented in this encounter Visit Diagnoses Diagnosis Type 2 diabetes mellitus without complications (CMS/HCC V24, CMS/HCC V28) Hyperlipidemia, unspecified Essential (primary) hypertension Unspecified essential hypertension Pain in unspecified joint Chronic fatigue, unspecified Gout, unspecified documented in this encounter Care Teams Awning Craftsman Relationship Specialty Start Date End Date Leonid Shea MD [address] [place] [phone] PCP - General Internal Medicine 11/25/18 documented as of this encounter
== END 2025-02-02 09:53 | disposition home or self-care (01) ==
LOC: HO.US 09:52
PROVIDERS: PCP Physician Assistant Medical; Visit Provider Physician Assistant Medical
DX: R74.8 Abnormal levels of other serum enzymes (principal)
CPT/HCPCS: 76705; 76981

== ENCOUNTER → 2025-02-02 09:54 | Outpatient (BNV) | payer MEDICARE, SELFPAY | PROVIDERS: PCP Physician Assistant Medical; Visit Provider Radiology Diagnostic Radiology | DX: R16.0 Hepatomegaly, not elsewhere classified (principal) | CPT/HCPCS: 76705 ==

== ENCOUNTER 2025-02-24 13:15 | Outpatient (AMB) | payer MEDICARE, SELFPAY ==
--- OUTSIDE RECORDS SUMMARY | 2024-03-31 07:00 | XMS_ITS ---
Author Organization [facility], [place] Address [address] [facility] 1 [place] [address] Care Team Providers Care Outboard Motorboat Operator Name Role Phone Migration, Provider Unavailable Unavailable REASON FOR VISIT Follow-up Appt Encounters Encounter Location Date Provider Diagnosis [facility], [address] [address] 03/31/2024 Provider Migration Plan Of Treatment No Information Progress Notes * JEB WRENDOB:[birth year] (74 yo M)Acc No.[id number]:03/31/2024 Progress Notes Patient: JEB AL Provider: Sandra Nunn :1950 A ge:73 Y S ex:Male Date:03/31/2024 Address:[address] [place] [address] [facility] Subjective: * Chief Complaints: * F ollow-up Appt * Ocular Surgical History: Objective: Vision Examination: * Electronic signature of Prov ider Migration on 02/24/2025 at 03:37 PM EDT Sign off status: Pending * Provider: Sandra Nunn Date: 1 Generated for Bernardo villalobos/Bridgette/eTlongsmitting on: 0 02/24/2025 03:37 PM EDT
--- OUTSIDE RECORDS SUMMARY | 2024-04-14 05:45 | XMS_ITS ---
Author Organization [facility], [place] Address [address] [facility] 1 [place] [address] Care Team Providers Care Collections Director Name Role Phone Migration, Provider Unavailable Unavailable REASON FOR VISIT Follow-up Appt Encounters Encounter Location Date Provider Diagnosis [facility], [address] [address] 04/14/2024 Provider Migration Plan Of Treatment No Information Progress Notes * JEB WRENDOB:[birth year] (74 yo M)Acc No.[id number]:04/14/2024 Progress Notes Patient: JEB AL Provider: Sandra Nunn :1950 A ge:73 Y S ex:Male Date:04/14/2024 Address:[address] [place], [place] [address] [facility] Subjective: * Chief Complaints: * F ollow-up Appt * Ocular Surgical History: Objective: Vision Examination: * Electronic signature of Prov ider Migration on 02/24/2025 at 03:37 PM EDT Sign off status: Pending * Provider: Sandra Nnun Date: 1 Generated for Bernardo villalobso/Bridgette/eTlongsmitting on: 0 02/24/2025 03:37 PM EDT
--- OUTSIDE RECORDS SUMMARY | 2024-07-16 05:30 | XMS_ITS ---
Author Organization [facility] [place] Address [address] [facility] 1 [place] [address] Care Team Providers Care Ash Collector Name Role Phone Migration, Provider Unavailable Unavailable REASON FOR VISIT Follow-up Appt Encounters Encounter Location Date Provider Diagnosis [facility], [address] [address] 07/16/2024 Provider Migration Plan Of Treatment No Information Progress Notes * JEB WRENDOB:[birth year] (74 yo M)Acc No.[id number]:07/16/2024 Progress Notes Patient: JEB AL Provider: Sandra Nunn :1950 A ge:73 Y S ex:Male Date:07/16/2024 Address:[address] [place], [place] [address] [id number] Subjective: * Chief Complaints: * F ollow-up Appt * Ocular Surgical History: Objective: Vision Examination: * Electronic signature of Prov ider Migration on 02/24/2025 at 03:36 PM EDT Sign off status: Pending * Provider: Sandra Nunn Date: 07/16/2024 Generated for Bernardo villalobos/Bridgette/eTlongsmitting on: 0 02/24/2025 03:36 PM EDT
--- OUTSIDE RECORDS SUMMARY | 2024-08-07 06:30 | XMS_ITS ---
Author Organization [facility], [place] Address [address] [facility] [address] [place] [address] Care Team Providers Care Thickener Operator Name Role Phone Bear Wills Unavailable [phone] REASON FOR VISIT Follow-up Appt Encounters Encounter Location Date Provider Diagnosis [address] [address] 08/07/2024 Bear Wills Plan Of Treatment No Information Progress Notes * JEB WRENDOB:[birth year] (74 yo M)Acc No.[id number]:08/07/2024 Progress Notes Patient: JEB AL Provider: Macrina WOOD :1950 A ge:73 Y S ex:Male Date:08/07/2024 Address:[address] [place], [place] [phone] Subjective: * Chief Complaints: * F ollow-up Appt * Ocular Surgical History: Objective: Vision Examination: * Electronic signature of Anuel Wills PA-C on 02/24/2025 at 03:36 PM EDT Sign off status: Pending * Provider: Macrina WOOD Date: 08/07/2024 Generated for Espinozai ng/Bridgette/eTransmitting on: 02/24/2025 03:36 PM EDT
--- OUTSIDE RECORDS SUMMARY | 2024-08-07 06:30 | XMS_ITS ---
Author Organization [facility] [place] Address [address] [facility] 1 [place] [address] Care Team Providers Care Part Time Name Role Phone Migration, Provider Unavailable Unavailable REASON FOR VISIT CONFERENCE Encounters Encounter Location Date Provider Diagnosis [facility], [address] [address] 08/07/2024 Provider Migration Plan Of Treatment No Information Progress Notes * JEB WRENDOB:[birth year] (74 yo M)Acc No.[id number]:08/07/2024 Progress Notes Patient: JEB AL Provider: Sandra Nunn :1950 A ge:73 Y S ex:Male Date:08/07/2024 Address:[address] [place], [place] [phone] Subjective: * Chief Complaints: * C ONFERENCE * Ocular Surgical History: Objective: Vision Examination: * Electronic signature of Prov ider Migration on 02/24/2025 at 03:36 PM EDT Sign off status: Pending * Provider: Sandra thompson Migration Date: 08/07/2024 Generated for Bernardo villalobos/Bridgette/eTlongsmitting on: 0 02/24/2025 03:36 PM EDT
--- NOTE | 2025-02-24 13:25 | A.OFFVIS_ITS ---
Vital Signs 02/24/25 13:31 Height 5 ft 8 in Weight 214 lb 4.629 oz BMI 32.6 BP 152/100 H Blood Pressure Location Lt brachial Position Sitting Pulse 84 Pulse Source Pulse Oximeter Pulse Oximetry (%) 97 Oxygen Delivery Method Room Air Intake Visit Reasons: gout Intake Note: Patient presents for Gout follow up. Allergies tirzepatide (From Mounjaro) Allergy (Severe, Verified 02/24/25 13:31) Stomach pain Medication List - Last Reconciled 02/24/25 by Amanda Combs MD allopurinol 300 mg PO DAILY 90 days amlodipine 10 mg PO QAM aspirin 1 tab PO DAILY atorvastatin 40 mg PO BEDTIME colchicine 0.6 mg PO DAILY dulaglutide (Trulicity) 0.75 mg (0.5 mL) subcut QWEEK glipizide ER 10 mg PO BID lisinopril-hydrochlorothiazide 20-25 mg 2 tabs PO QAM 90 days magnesium aspart,citrate,oxide 400mg BID mupirocin 2% 1 appl topical BID omeprazole 10 mg PO DAILY HPI Comments Details: Patient is a 73 y.o male with HTN, HLD, DM and 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 - On allopurinol 200mg daily and colchicine 0.6mg twice a week - no gout flares however his uric acid was not at goal and so his allopurinol was increased to 300mg Today - On allopurinol 300mg daily and colchicine 0.6mg twice a week - Doing well - No gout flares - Recently had procedures on his right ankle Rheumatologic History: Initial uric acid 10.3 Allopurinol + colchicine started 11/2023 Current Rheumatology Medication(s): Allopurinol 300mg daily Colchicine 0.6mg twice a week [facility] Medical History (Updated 02/09/25 @ 17:27 by ISRAEL Null) Hepatic steatosis Cholelithiasis Right leg swelling CKD stage 3a, GFR 45-59 ml/min Microalbuminuria due to type 2 diabetes mellitus Anemia Liver enzyme elevation Obesity Hyperlipidemia Essential hypertension Type 2 diabetes mellitus Lesion of left ear Gout TIA (transient ischemic attack) Diabetes Elevated cholesterol HTN (hypertension) Surgical History H/O colonoscopy History of surgery on lower extremity History of ankle surgery Hx of left knee surgery Social History Housing: House Are you a primary managed care coordinator to a significant other at home: No Alcohol intake: current Alcohol intake frequency: a few times a week Alcohol type: beer Patient Tobacco Use Status: Former Tobacco user Tobacco use type: Cigarette Cigarette Packs Per Day: 1 Cigarettes Per Day: 2 Years Smoked: 45 e-Cigarette/Vaping Use: Never Used Second Hand Smoke Exposure: No Substance Use Type: Marijuana service: Yes Current occupational status: retired Current occupational exposures/hazards: No Cognitive needs: No Hearing needs: Yes Vision needs: No Review of Systems Const Details: Review of Systems Constitutional: Denies fever, chills, weight loss ENT: Denies vision changes, eye pain or eye redness, dental caries, dry mouth GI: Denies nausea, vomiting, diarrhea, abdominal pain, change in BM Pulm: Denies SOB, CUELLAR, hemoptysis, wheezing Cards: Denies chest pain, palpitations Skin: Denies Raynaud's, rash, nail changes, photosensitivity, CURER FOAM RUBBER: Denies headaches, weakness, paresthesias, recurrent falls MSK: as per HPI All other systems reviewed and are unremarkable except noted above Physical Exam Exam Exam: Vital signs reviewed Physical Examination CONSTITUITIONAL Patient alert and cooperative. Well appearing and in no apparent painful distress MSK Hands * Right Hand: Able to make a fist. No swelling or tenderness to palpation of the MCPs, PIPs or DIPs. No deformities noted. * Left Hand: Able to make a fist. No swelling or tenderness to palpation of the MCPs, PIPs or DIPs. No deformities noted. Wrists * Right Wrist: Full ROM to flexion and extension. No swelling or TTP * Left Wrist: Full ROM to flexion and extension. No swelling or TTP Elbows * Right Elbow: Full ROM. No swelling or TTP. No TTP of the medial epicondyle. No TTP of the lateral epicondyle * Left Elbow: Full ROM. No swelling or TTP. No TTP of the medial epicondyle. No TTP of the lateral epicondyle Shoulders * Right shoulder: Full ROM. No swelling noted. No TTP of the AC joint. No TTP of the subacromial bursa. No TTP of the posterior shoulder * Left shoulder: Full ROM. No swelling noted. No TTP of the AC joint. No TTP of the subacromial bursa. No TTP of the posterior shoulder Knees * Right knee: Full ROM. No swelling noted. No TTP of the knee joint line. No TTP of pes anserine bursa * Left knee: Full ROM. No swelling noted. No TTP of the knee joint line. No TTP of pes anserine bursa. * Crepitations felt bilaterally Ankles * Right ankle: Did not examine, in a brace * Left ankle: Good ankle dorsiflexion and plantar flexion. No swelling. No TTP of the ankle joint Feet * Right foot: Negative squeeze test * Left foot: Negative squeeze test Tender points? * No tenderness to palpation of the bilateral trapezius, supraspinatus, anterior costochondral junctions, bilateral suboccipital muscle insertions SKIN No rashes Vital Signs: Last Vital Signs Pulse 84 02/24/25 13:31 BP 152/100 H 02/24/25 13:31 Pulse Ox 97 02/24/25 13:31 Oxygen Delivery Method Room Air 02/24/25 13:31 BMI result Body Mass Index 32.6 Results Reviewed Results Reviewed: Laboratory Tests 01/12/25 09:56 WBC 8.2 RBC 4.32 L Hgb 12.2 L Hct 37.4 L Plt Count 204 D ESR 28 H Sodium 140 Potassium 4.0 Chloride 102 Carbon Dioxide 27 BUN 21 H Creatinine 1.24 Uric Acid 5.6 Calcium 9.0 D AST 30 ALT 60 H C-Reactive Protein 0.55 H Assessment & Plan Assessment & Plan (1) Gout: Comment: Initial uric acid 10.3 Allopurinol + colchicine started 11/2023 Code(s): M10.9 - Gout, unspecified Category: Medical Qualifiers: Gout site: multiple sites Gout etiology: idiopathic Chronicity: chronic Presence of tophus: without tophus Qualified Code(s): M1A.09X0 - Idiopathic chronic gout, multiple sites, without tophus (tophi) Plan: #Non crystal proven gout Patient is a 74 y.o.male with chronic non crystal proven gout. UA at goal. Continue allopurinol to 300mg daily and continue colchicine 0.6mg daily prophylaxis for 3 months and then stop. CrCl 68, okay to continue this dose Plan - Allopurinol to 300mg daily - Cochicine 0.6mg once a day for 90 days then stop - UA < 5 - RTC 6 months - Labs before visit: CBC, CMP, ESR, CRP, UA (2) Encounter for monitoring allopurinol therapy: Code(s): Z51.81 - Encounter for therapeutic drug level monitoring; Z79.899 - Other chcf (current) drug therapy Plan: #Long-term Current Use of Allopurinol Risks and benefits of allopurinol discussed with patient Benefits include decreased gout flares, remission of gout and reduction of tophi Risks include allopurinol hypersensitivity syndrome which is a severe cutaneous adverse reaction associated with allopurinol use particularly in patients who are HLA B*5801 positive, increased transaminases, GI upset including diarrhea, nausea and vomiting, and other dermatologic manifestations. (3) On colchicine therapy: Code(s): Z79.899 - Other terminal manager (current) drug therapy Plan: #Long-term use of colchicine Risks and benefits of long-term colchicine for the management of this patient's gout discussed with patient. Benefits include reduced occurrence of flares while we titrate and regulate his uric acid on allopurinol and other uric acid lowering medications. ? Risks include worsening myalgias especially if on statins and GI upset including diarrhea Plan I spent 30 minutes reviewing the record and labs, taking a history, examining the patient, discussing the treatment plan, answering questions and documenting in the medical record Medications: Refilled colchicine 0.6 mg PO DAILY 90 tabs 0RF M1A.09X0 - Idiopathic chronic gout, multiple sites, without tophus (tophi) Coding Level of Care Code Est Pt Level 4 (77037) Complex EM visit Add On G2211 Diagnoses Idiopathic chronic gout of multiple sites without tophus M1A.09X0 Gout site: multiple sites Gout etiology: idiopathic Chronicity: chronic Presence of tophus: without tophus Encounter for monitoring allopurinol therapy Z51.81; Z79.899 On colchicine therapy Z79.899
[2025-02-24 13:31] VITALS: BP 152/100; PULSE 84; O2SAT 97; BMI 32.6
--- OUTSIDE RECORDS SUMMARY | 2025-02-24 15:37 | XMS_ITS | Patient Health Record ---
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 Had two broken screws and screw removal in 2021. As tried AFO, regenerative medicine with specialist in [place] without much relief. Wants revision at this point CT scan at [facility] [address] scan 2024 at [facility]. Currently not taking patients insurance therefore referral out. Requesting Dr. cOhoa is available. 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 Had two broken screws and screw removal in 2021. As tried AFO, regenerative medicine with specialist in [place] without much relief. Wants revision at this point CT scan at [facility] [address] scan 2024 at [facility]. Currently not taking patients insurance therefore referral out. Requesting Dr. Ochoa is available. 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 Problem Arthritis of right subtalar joint (3822553043372055 6) 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 Problem Inflammation of foot joint (498196529) Inflammation of foot joint (M19.079) Active confirmed Problem Polyneuropathy due to type 2 diabetes mellitus (486285541) Type 2 diabetes mellitus with peripheral neuropathy (E11.42) Active confirmed Encounters Encounter Location Date Provider Diagnosis [facility] [address] [facility] [address] [place] [address] 08/06/2024 LEVARYOLANDA SALAMANCA Plan Of Treatment Pending [...] End Date [employer] [address] [place] [address] [id number] John Gauthier Self - patient is the [...]
--- OUTSIDE RECORDS SUMMARY | 2025-02-24 15:37 | XMS_ITS | Clinical Summary ---
Author Organization [address] Address [address] [place] [address] Phone Care Team Providers Care Continuous Churn Buttermaker Name Role Phone Leonid Shea MD Primary Care Provider [phone] Surgical History Surgery Date Site/Laterality Comments KNEE [...] 12/05/1967 Zoster Vaccines (1 of 2) 1998 Falls Risk Assessment 05/16/2022 Hepatitis C Screening 05/16/2022 Medicare Annual Wellness Visit 05/16/2022 Social Influencers of Health Screening 05/16/2022 Diabetes: Annual Urine Albumin-Creatinine Ratio (uACR) 06/02/2022 RSV Immunization Adult Patients (1 - 1-dose 75+ series) 12/05/2023 Depression Screening 06/18/2024 COVID-19 Vaccine (5 - 2024- season) 2025 03/23/2023, 07/27/2021, 09/29/2020, Additional history exists Influenza Vaccine (#1) 2025 , 03/23/2023, 04/10/2022, Additional history exists Diabetes: Blood Sugar Control [...] Procedure Name Priority Date/Time Associated Diagnosis Comments BASIC METABOLIC PANEL Routine 09/16/2024 10:56 AM EDT Right ankle pain HEMOGLOBIN A1C Routine 09/16/2024 10:56 AM EDT Right ankle pain LIPID PANEL WITH REFLEX TO DIRECT LDL Routine 08/07/2024 12:00 AM EST Type 2 diabetes mellitus without complications (CMS/HCC) Hyperlipidemia, unspecified Essential (primary) hypertension Pain in unspecified joint Chronic fatigue, unspecified Gout, unspecified from Last 3 Months or Most Recently Relevant to Health Maintenance Results * (ABNORMAL) Hemoglobin A1c (09/16/2024 10:56 AM EDT) Hemoglobin A1C 7.9(H) <6.5 % LAB CHEMISTRY METHOD 09/16/2024 2:35 PM EDT [facility] Mean Bld Glu Estim. 180 mg/dL LAB CHEMISTRY METHOD 09/16/2024 2:35 PM EDT [facility] Blood Venous blood specimen / Unknown Venipuncture / Unknown 09/16/2024 10:56 AM EDT 09/16/2024 11:58 AM EDT us Anand Ochoa MD LAB BLOOD ORDERABLES Janice l Result [facility] [address] [place] [address], * (ABNORMAL) Basic metabolic panel (09/16/2024 10:56 AM EDT) Pathologist [facility] Sodium 138 133 - 145 mmol/L LAB CHEMISTRY METHOD 09/16/2024 2:10 PM EDT [facility] Potassium 3.9 3.5 - 5.5 mmol/L LAB CHEMISTRY METHOD 09/16/2024 2:10 PM EDT [facility] Chloride 102 96 - 110 mmol/L LAB CHEMISTRY METHOD 09/16/2024 2:10 PM EDT [facility] CO2 25 21 - 32 mmol/L LAB CHEMISTRY METHOD 09/16/2024 2:10 PM EDT [facility] Anion Gap 11 3 - 11 LAB CHEMISTRY METHOD 09/16/2024 2:10 PM [facility] Glucose 150(H) 70 - 100 mg/dL LAB CHEMISTRY METHOD 09/16/2024 2:10 PM [facility] BUN 26(H) 5 - 25 mg/dL LAB CHEMISTRY METHOD 09/16/2024 2:10 PM [facility] Creatinine 1.30 0.70 - 1.30 mg/dL LAB CHEMISTRY METHOD 09/16/2024 2:10 PM [facility] eGFR 57(L) >=60 mL/min/1. 73m2 LAB CHEMISTRY METHOD 09/16/2024 2:10 PM [facility] Comment:Calculation based on the Chronic Kidney Disease Epidemiology Collaboration (CKD-EPI) equation refit without adjustment for race. BUN/Creatinine Ratio 20.0 LAB CHEMISTRY METHOD 09/16/2024 2:10 PM [facility] Calcium 9.0 8.5 - 10.5 mg/dL LAB CHEMISTRY METHOD 09/16/2024 2:10 PM [facility] Blood Venous blood specimen / Unknown Venipuncture / Unknown 09/16/2024 10:56 AM EDT 09/16/2024 11:56 AM EDT us Anand Ochoa MD LAB BLOOD ORDERABLES Janice l Result [facility] [address] [place] [address], * (ABNORMAL) Lipid panel with reflex to direct LDL (08/07/2024 12:00 AM EST) Cholesterol 222(H) 0 - 200 mg/dL LAB CHEMISTRY METHOD 08/07/2024 7:03 PM [facility] Triglycerides 287(H) 0 - 150 mg/dL LAB CHEMISTRY METHOD 08/07/2024 7:03 PM [facility] HDL 28(L) >=40 mg/dL LAB CHEMISTRY METHOD 08/07/2024 7:03 PM EST [facility] LDL Calculated 137(H) 0 - 100 mg/dL LAB CHEMISTRY METHOD 08/07/2024 7:03 PM EST [facility] VLDL Cholesterol Mendez 57.4 mg/dL LAB CHEMISTRY METHOD 08/07/2024 7:03 PM EST [facility] Non HDL Chol. (LDL+VLDL) 194(H) <145 mg/dL LAB CHEMISTRY METHOD 08/07/2024 7:03 PM EST [facility] Chol/HDL Ratio 7.9(H) 0.0 - 4.4 LAB CHEMISTRY METHOD 08/07/2024 7:03 PM [facility] Blood Venous blood specimen / Unknown 08/07/2024 08/07/2024 6:39 PM EST Bear WOOD LAB BLOOD ORDERABLES Final Res ult [facility] [address] [place] [address], from Last 3 Months or Most Recently Relevant to Health Maintenance Insurance [facility] MEDICARE ADVANTAGE [facility] Care Teams Continuous Churn Buttermaker Relationship Specialty Start Date End Date Leonid Shea MD [address] [phone] PCP - General Internal Medicine 11/25/18
--- OUTSIDE RECORDS SUMMARY | 2025-02-24 15:37 | XMS_ITS | Patient Health Record ---
Author Organization [facility] Address [address] [place] [address] Care Team Providers Care Mixing Tumbler Operator Name Role Phone Bear Wills Unavailable [phone] Migration, Provider Unavailable Unavailable Mahogany Laughlin Unavailable [phone] Reason For Referral No Information Encounters Encounter Location Date Provider Diagnosis [facility] [place] [address] [facility] [address] [place] [address] 03/31/2024 Provider Migration [facility] [place] [address] [facility] [address] [address] 04/14/2024 Provider Migration [facility] [place] [address] [facility] [address] [place] [address] 07/16/2024 Provider Migration [facility] [place] [address] [facility] [address] [place] [phone] 08/07/2024 Bear Wills [facility] [place] [address] [facility] [address] [place] [phone] 08/07/2024 Provider Migration [facility], [address] [address] 01/06/2025 Mahogany Laughlin [facility] [place] [address] [facility] [address] [address] 01/12/2025 Mahogany Laughlin Plan Of Treatment No Information Insurance Providers Payer Name Payer Address Payer Phone Subscriber Number Group Number Insured Name Patient Relationship to Insured Coverage Start Date Coverage End Date [employer] [place] [employer] Ad[place] [facility] [address] [place] [address] [id number] HOLGER JEB Self - patient is the insured
--- OUTSIDE RECORDS SUMMARY | 2025-02-24 15:37 | XMS_ITS | Encounter Summary ---
Author Organization [facility] Address [address] [place] [address] Care Team Providers Care Infant Teacher Name Role Phone Leonid Shea MD Primary Care Provider [phone] Encounter Details Date Type Department Care Team (Latest Contact Info) Description 08/07/2024 Lab Requisition [facility] - Main Lab [address] [facility] [place] [phone] Bear Wills PA 299 [facility] [address] [place] [address] Type 2 diabetes mellitus without complications (CMS/HCC [...] 8:01 PM EST JUAN MANUEL [place] ([facility]) [facility] Comment:Auto resulted. Blood Venous blood specimen / Unknown 08/07/2024 08/07/2024 6:39 PM EST us Bear WOOD LAB BLOOD ORDERABLES Final Res ult [facility] [address] [place] [address], [place] [phone] * Uric acid (08/07/2024 12:00 AM EST) Pathologist [facility] Uric Acid 5.9 3.7 - 9.2 mg/dL LAB CHEMISTRY METHOD 08/07/2024 7:[address] [facility] Blood Venous blood specimen / Unknown 08/07/2024 08/07/2024 6:39 PM EST Bear WOOD LAB BLOOD ORDERABLES Final Res ult Performing Organization Address [facility]/ZIP Co de Phone Number [facility] [address] [place] [address], [place] [phone] * Prostate specific antigen screen (08/07/2024 12:00 AM EST) [facility] PSA 1.18 0.00 - 4.00 ng/mL [...] Res ult [facility] [address] [place] [address], [place] [phone] * (ABNORMAL) Hemoglobin A1c (08/07/2024 12:00 AM EST) [facility] Hemoglobin A1C 9.0(H) <6.5 % LAB CHEMISTRY METHOD 08/07/2024 9:37 PM [facility] Mean Bld Glu Estim. 212 mg/dL LAB CHEMISTRY METHOD 08/07/2024 9:37 PM [facility] Blood Venous blood specimen / Unknown 08/07/2024 08/07/2024 6:39 PM EST us Bear WOOD LAB BLOOD ORDERABLES Final Res ult [facility] [address] [place] [address], [place] [phone] * (ABNORMAL) Complete blood count (08/07/2024 12:00 [...] Res ult [facility] [address] [place] [address], [place] [phone] * (ABNORMAL) Lipid panel with reflex to [...] Res ult [facility] [address] [place] [address], [place] [phone] * (ABNORMAL) Comprehensive metabolic panel (08/07/2024 12:00 [...] Res ult [facility] [address] [place] [address], [place] [phone] documented in this encounter Visit Diagnoses Diagnosis Type 2 diabetes mellitus without complications (CMS/HCC V24, CMS/HCC V28) Hyperlipidemia, unspecified Essential (primary) hypertension Unspecified essential hypertension Pain in unspecified joint Chronic fatigue, unspecified Gout, unspecified documented in this encounter Care Teams Infant Teacher Relationship Specialty Start Date End Date Leonid Shea MD [address] [place] [phone] PCP - General Internal Medicine 11/25/18 documented as of this encounter
--- OUTSIDE RECORDS SUMMARY | 2025-02-24 15:37 | XMS_ITS | Patient Health Record ---
Author Organization [facility], Address [address] [address] Care Team Providers Care Bird Keeper Name Role Phone Leonid Shea MD Primary Care Provider CHULA Díaz Unavailable [phone] Allergies No Known Allergies Reason For Referral [...] primary osteoarthritis of the ankle and/or foot (392873214) 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 Problem Essential hypertension (08236992) Hypertension, unspecified type (I10) Active confirmed Vital Signs Blood pressure diastolic 84 mm Hg 04/04/2024 Weight-kg 97.52 kg 08/05/2024 Height 68 in 08/05/2024 Blood pressure systolic 146 mm Hg 04/04/2024 Weight 215 lbs 08/05/2024 BMI 32.69 kg/m2 08/05/2024 Encounters Encounter Location Date Provider Diagnosis [facility], [address] [address] 04/04/2024 CHULA GRIFFIN Hypertension, unspecified type I10 and Pain in right ankle and joints of right foot M25.571 [facility], [address] [address] 07/25/2024 CHULA GRIFFIN Achilles tendinitis of right lower extremity M76.61 and History of ankle surgery Z98.890 [facility] [address] D[place] BOYD 08/05/2024 CHULA GRIFFIN History of ankle surgery Z98.890 and Arthritis of subtalar joint M19.079 [facility] [address] [place] 05/09/2024 CHULA GRIFFIN [facility] [address] [place] 06/13/2024 CHULA GRIFFIN [facility] [address] [place] 06/16/2024 CHULA GRIFFIN [facility] [address] [...] discussed repeating the orthobiologics injection. 04/04/2024 Other [employer] was used to assist with documentation of this note. While I did review this for errors, it is certainly possible that I may have overlooked some. If there is a confusing error, please do not hesitate to contact me for clarification. Thank you. 07/25/2024 Other [employer] was used to assist with documentation of [...] encounter as if the encounter had occurred [id number] with the same standards of appropriate practice [...] HIPAA compliant video conferencing technology. 08/05/2024 Other [employer] n was used to assist with documentation [...] Insured Coverage Start Date Coverage End Date [facility] Medicare Advantage [address] [place], [place] [id number] [phone] [id number] JEB WREN Self - patient is the insured 5 [employer] of [place] J14 [address] [facility] [place] [id number] JEB WREN Self - patient is the insured 4 Medical (General) History Medical History History ICD Code diabetes high blood pressure Surgical History Surgery Date(Month/Year) right foot fusion right foot screw removal
--- OUTSIDE RECORDS SUMMARY | 2025-02-24 15:37 | XMS_ITS | Clinical Summary ---
Author Organization [facility] Address [address] [place] [address] Care Team Providers Care Rotary Soil Stabilizer Name Role Phone Leonid Shea MD Primary Care Provider [phone] Allergies No known active allergies Medications Medication [...] age to complete this topic Care Teams Rotary Soil Stabilizer Relationship Specialty Start Date End Date Leonid Shea MD [address] [place] [address] PCP - General Internal Medicine 06/27/18
== END 2025-02-24 14:12 | disposition home or self-care (01) ==
LOC: HO.RHES 13:15
PROVIDERS: PCP Physician Assistant Medical; Visit Provider Student in an Organized Health Care Education/Training Program
DX: M1A.09X0 Idiopathic chronic gout, multiple sites, without tophus (tophi) (principal); Z51.81 Encounter for therapeutic drug level monitoring; Z79.899 Other long term (current) drug therapy
CPT/HCPCS: 99214; G2211

== ENCOUNTER → 2025-02-24 13:15 | Outpatient (BNVA) | payer MEDICARE, SELFPAY | PROVIDERS: PCP Physician Assistant Medical; Visit Provider Student in an Organized Health Care Education/Training Program | DX: M1A.09X0 Idiopathic chronic gout, multiple sites, without tophus (tophi) (principal); Z51.81 Encounter for therapeutic drug level monitoring; Z79.899 Other long term (current) drug therapy | CPT/HCPCS: 99212 ==

== ENCOUNTER 2025-03-18 10:25 | Outpatient (AMB) | payer MEDICARE, SELFPAY ==
--- OUTSIDE RECORDS SUMMARY | 2024-03-31 07:00 | XMS_ITS ---
Author Organization [facility] [place] Address [address] [facility] 1 [place] [address] Care Team Providers Care Simulation Technician Name Role Phone Migration, Provider Unavailable Unavailable REASON FOR VISIT Follow-up Appt Encounters Encounter Location Date Provider Diagnosis [facility], [address] [address] 03/31/2024 Provider Migration Plan Of Treatment No Information Progress Notes * JEB WRENDOB:[birth year] (74 yo M)Acc No.[id number]:03/31/2024 Progress Notes Patient: JEB AL Provider: Sandra Nunn :1950 A ge:73 Y S ex:Male Date:03/31/2024 Address:[address] [place], [place] [id number] Subjective: * Chief Complaints: * F ollow-up Appt * Ocular Surgical History: Objective: Vision Examination: * Electronic signature of Prov ider Migration on 03/18/2025 at 12:00 PM EDT Sign off status: Pending * Provider: Sandra Nunn Date: Generated for Bernardo villalobos/Bridgette/Maria Victoriasmitting on: 12:00 PM EDT
--- OUTSIDE RECORDS SUMMARY | 2024-04-14 05:45 | XMS_ITS ---
Author Organization [facility], [place] Address [address] [facility] 1 [place] [address] Care Team Providers Care Welding Foreman Name Role Phone Migration, Provider Unavailable Unavailable REASON FOR VISIT Follow-up Appt Encounters Encounter Location Date Provider Diagnosis [facility], [address] [address] 04/14/2024 Provider Migration Plan Of Treatment No Information Progress Notes * JEB WRENDOB:[birth year] (74 yo M)Acc No.[id number]:04/14/2024 Progress Notes Patient: JEB AL Provider: Sandra Nunn :1950 A ge:73 Y S ex:Male Date:04/14/2024 Address:[address] [place], [place] [address] Subjective: * Chief Complaints: * F ollow-up Appt * Ocular Surgical History: Objective: Vision Examination: * Electronic signature of Prov ider Migration on 03/18/2025 at 12:00 PM EDT Sign off status: Pending * Provider: Sandra Nunn Date: Generated for Bernardo villalobos/Bridgette/eTlongsmitting on: 12:00 PM EDT
--- OUTSIDE RECORDS SUMMARY | 2024-07-16 05:30 | XMS_ITS ---
Author Organization [facility] [place] Address [address] [facility] 1 [place] [address] Care Team Providers Care Fabrication Technician Name Role Phone Migration, Provider Unavailable Unavailable REASON FOR VISIT Follow-up Appt Encounters Encounter Location Date Provider Diagnosis [facility], [address] [address] 07/16/2024 Provider Migration Plan Of Treatment No Information Progress Notes * JEB WRENDOB:[birth year] (74 yo M)Acc No.[id number]:07/16/2024 Progress Notes Patient: JEB AL Provider: Sandra Nunn :1950 A ge:73 Y S ex:Male Date:07/16/2024 Address:[address] [place] [address] [id number] Subjective: * Chief Complaints: * F ollow-up Appt * Ocular Surgical History: Objective: Vision Examination: * Electronic signature of Prov ider Migration on 03/18/2025 at 12:00 PM EDT Sign off status: Pending * Provider: Sandra Nunn Date: 0 07/16/2024 Generated for Bernardo villalobos/Bridgette/Maria Victoriasmitting on: 12:00 PM EDT
--- OUTSIDE RECORDS SUMMARY | 2024-08-07 06:30 | XMS_ITS ---
Author Organization [facility] [place] Address [address] [facility] 1 [place] [address] Care Team Providers Care Precast Concrete Ironworker Name Role Phone Migration, Provider Unavailable Unavailable REASON FOR VISIT CONFERENCE Encounters Encounter Location Date Provider Diagnosis [facility], [address] [address] 08/07/2024 Provider Migration Plan Of Treatment No Information Progress Notes * JEB WRENDOB:[birth year] (74 yo M)Acc No.[id number]:08/07/2024 Progress Notes Patient: JEB AL Provider: Sandra Nunn :1950 A ge:73 Y S ex:Male Date:08/07/2024 Address:[address] [place], [place] [phone] Subjective: * Chief Complaints: * C ONFERENCE * Ocular Surgical History: Objective: Vision Examination: * Electronic signature of Prov ider Migration on 03/18/2025 at 11:59 AM EDT Sign off status: Pending * Provider: Sandra thompson Migration Date: 0 08/07/2024 Generated for Bernardo villalobos/Bridgette/eTlongsmitting on: 1 11:59 AM EDT
--- OUTSIDE RECORDS SUMMARY | 2024-08-07 06:30 | XMS_ITS ---
Author Organization [facility], [place] Address [address] [facility] [address] [place] [address] Care Team Providers Care Security Services Specialist Name Role Phone Bear Wills Unavailable [phone] REASON FOR VISIT Follow-up Appt Encounters Encounter Location Date Provider Diagnosis [address] [address] 08/07/2024 Bear Wills Plan Of Treatment No Information Progress Notes * JEB WRENDOB:[birth year] (74 yo M)Acc No.[id number]:08/07/2024 Progress Notes Patient: JEB AL Provider: Macrina WOOD :1950 A ge:73 Y S ex:Male Date:08/07/2024 Address:[address] [place], [place] [phone] Subjective: * Chief Complaints: * F ollow-up Appt * Ocular Surgical History: Objective: Vision Examination: * Electronic signature of Anuel Wills PA-C on 03/18/2025 at 11:59 AM EDT Sign off status: Pending * Provider: Macrina WOOD Date: 0 08/07/2024 Generated for Bernardo ng/Bridgette/eTransmitting on: 1 11:59 AM EDT
--- NOTE | 2025-03-18 10:28 | MHC.OFFVIS ---
Vital Signs 03/18/25 10:29 Height 5 ft 8 in Weight 212 lb 6 oz BMI 32.3 Intake Visit Reasons: gallstones Intake Note: This patient presents for an assessment for gallstones. Pt c/o; reports no complaints at this time. Imagin02/02/2025 Liver elastography Double End Tenoner Operator Required: No Accompanied by: Self / Same As Patient Allergies tirzepatide (From Mounjaro) Allergy (Severe, Verified 03/18/25 10:44) Stomach pain Medication List - Last Reconciled 03/18/25 by Dick Chavez MD allopurinol 300 mg PO DAILY 90 days amlodipine 10 mg PO QAM aspirin 1 tab PO DAILY atorvastatin 40 mg PO BEDTIME colchicine 0.6 mg PO DAILY dulaglutide (Trulicity) 0.75 mg (0.5 mL) subcut QWEEK glipizide ER 10 mg PO BID lisinopril-hydrochlorothiazide 20-25 mg 2 tabs PO QAM 90 days magnesium aspart,citrate,oxide 400mg BID mupirocin 2% 1 appl topical BID omeprazole 10 mg PO DAILY HPI HPI gallstones: Details: 74-year-old male referred for gallstones. He apparently had a liver elastography study last January, because of some abnormal LFTs. There was mention of gallstones on the elastography study . He denies any right upper quadrant pain. He says this has good oral intake. He denies any GI issues He says he feels well overall. He does complain of ankle and foot problems with multiple surgeries on the right side. He has a history of gout and diabetes. REPLACED BY [facility] Medical History (Updated 03/18/25 @ 10:57 by Dick Chavez MD) Umbilical hernia Gallstones Hepatic steatosis Cholelithiasis Right leg swelling CKD stage 3a, GFR 45-59 ml/min Microalbuminuria due to type 2 diabetes mellitus Anemia Liver enzyme elevation Obesity Hyperlipidemia Essential hypertension Type 2 diabetes mellitus Lesion of left ear Gout TIA (transient ischemic attack) Diabetes Elevated cholesterol HTN (hypertension) Surgical History H/O colonoscopy History of surgery on lower extremity History of ankle surgery Hx of left knee surgery Social History Housing: House Are you a primary healthcare management to a significant other at home: No Alcohol intake: current Alcohol intake frequency: a few times a week Alcohol type: beer Patient Tobacco Use Status: Former Tobacco user Tobacco use type: Cigarette Cigarette Packs Per Day: 1 Cigarettes Per Day: 2 Years Smoked: 45 e-Cigarette/Vaping Use: Never Used Second Hand Smoke Exposure: No Substance Use Type: Marijuana service: Yes Current occupational status: retired Current occupational exposures/hazards: No Cognitive needs: No Hearing needs: Yes Vision needs: No Review of Systems Const Denies chills and Denies fever(s) Card Denies chest pain, Denies dyspnea and Denies dyspnea on exertion Resp Denies cough, Denies dyspnea and Denies dyspnea on exertion GI Denies hematochezia and Denies change in bowel habits Denies hematuria and Denies difficulty urinating Musc Details: Right foot pain Denies back pain and Denies limited range of motion Neuro Denies focal weakness and Denies convulsions Psych Denies depression and Denies mood swings Physical Exam Const General: comfortable and no acute distress Orientation/consciousness: patient oriented x3 Neck Neck: Yes no lymphadenopathy Resp Auscultation: clear to auscultation bilaterally Cardio Rhythm: regular rhythm GI Other: Reducible umbilical hernia, about 2 cm fascial defect Palpation (GI): Soft to palpation, nontender and no guarding Neuro General: patient oriented x3 Assessment & Plan Assessment & Plan (1) Gallstones: Code(s): K80.20 - Calculus of gallbladder without cholecystitis without obstruction Category: Medical Plan: He was noted to have gallstones seen on liver elastography study. I did explain the technique of laparoscopic cholecystectomy and possible open cholecystectomy. I reviewed the risks including but not limited to bleeding, infections, bowel injury, injury to the bile duct or the liver, blood clots, pneumonia, pneumonia, retained stones and bile leak, as well as the benefits and alternatives. I explained to him what to expect postoperatively. He says that he does not have any symptoms. He denies any right upper quadrant pain. He has good oral intake. He does not want to proceed with surgery currently I did tell him that if he starts having right upper quadrant pain, he should come back to the office to be re-evaluated. (2) Umbilical hernia: Code(s): K42.9 - Umbilical hernia without obstruction or gangrene Category: Medical Plan: He has a reducible umbilical hernia on examination. He says that he has had this for more than 30 years. He said that he does not want any repair for this. He said that this has not bother him at all. I did explain to him the option of repair with mesh especially for symptoms. He understands the risk of incarceration. Coding Level of Care Code New Pt Level 4 (94628) Diagnoses Gallstones K80.20 Umbilical hernia K42.9
[2025-03-18 10:29] VITALS: BMI 32.3
--- OUTSIDE RECORDS SUMMARY | 2025-03-18 12:00 | XMS_ITS | Clinical Summary ---
Author Organization [facility] Address [address] [place] [address] Care Team Providers Care Sql Report Writer Name Role Phone Leonid Shea MD Primary Care Provider [phone] Allergies No known active allergies Medications Medication [...] age to complete this topic Care Teams Sql Report Writer Relationship Specialty Start Date End Date Leonid Shea MD [address] [place] [id number] PCP - General Internal Medicine 06/27/18
--- OUTSIDE RECORDS SUMMARY | 2025-03-18 12:00 | XMS_ITS | Patient Health Record ---
Author Organization 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 Problem Essential hypertension (32582129) Hypertension, unspecified type (I10) Active confirmed Vital Signs Blood pressure diastolic 84 mm Hg 04/04/2024 Weight-kg 97.52 kg 08/05/2024 Height 68 in 08/05/2024 Blood pressure systolic 146 mm Hg 04/04/2024 Weight 215 lbs 08/05/2024 BMI 32.69 kg/m2 08/05/2024 Encounters Encounter Location Date Provider Diagnosis [facility], [address] [address] 04/04/2024 CHULA GRIFFIN Hypertension, unspecified type I10 and Pain in right ankle and joints of right foot M25.571 [facility], [address] [address] 07/25/2024 CHULA GRIFFIN Achilles tendinitis of right lower extremity M76.61 and History of ankle surgery Z98.890 [facility] [address] [place] [address] DIM[place] BOYD 08/05/2024 CHULA GRIFFIN History of ankle surgery Z98.890 and Arthritis of subtalar joint M19.079 [facility] [address] [place] [address] [place] BO[place] 05/09/2024 CHULA GRIFFIN [facility] [address] [place] [address] [place] 06/13/2024 CHULA GRIFFIN [facility] [address] [place] [address] [place] 06/16/2024 CHULA GRIFFIN [facility] [address] [...] discussed repeating the orthobiologics injection. 04/04/2024 Other Libretto n was used to assist with documentation of this note. While I did review this for errors, it is certainly possible that I may have overlooked some. If there is a confusing error, please do not hesitate to contact me for clarification. Thank you. 07/25/2024 Other 24 Quanation was used to assist with documentation of [...] encounter as if the encounter had occurred [id number] with the same standards of appropriate practice [...] HIPAA compliant video conferencing technology. 08/05/2024 Other Libretto n was used to assist with documentation [...] Insured Coverage Start Date Coverage End Date [facility] Medicare Advantage [address] [place], [place] [id number] [phone] [id number] JEB WREN Self - patient is the insured 5 [employer] of [place] J14 [address] [facility] [place] [id number] JEB WREN Self - patient is the insured 4 Medical (General) History Medical History History ICD Code diabetes high blood pressure Surgical History Surgery Date(Month/Year) right foot fusion right foot screw removal
--- OUTSIDE RECORDS SUMMARY | 2025-03-18 12:00 | XMS_ITS | Clinical Summary ---
Author Organization [address] Address [address] [place] [address] Phone Care Team Providers Care Overlock Elastic Attacher Name Role Phone Leonid Shea MD Primary Care Provider [phone] Surgical History Surgery Date Site/Laterality Comments KNEE [...] LAB CHEMISTRY METHOD 09/16/2024 2:35 PM EDT [facility] Mean Bld Glu Estim. 180 mg/dL LAB CHEMISTRY METHOD 09/16/2024 2:35 PM EDT [facility] Blood Venous blood specimen / Unknown Venipuncture / Unknown 09/16/2024 10:56 AM EDT 09/16/2024 11:58 AM EDT us Anand Ochoa MD LAB BLOOD ORDERABLES Janice l Result [facility] [address] [place] [address], * (ABNORMAL) Basic metabolic panel (09/16/2024 10:56 AM EDT) Pathologist [facility] Sodium 138 133 - 145 mmol/L LAB CHEMISTRY METHOD 09/16/2024 2:10 PM EDT [facility] Potassium 3.9 3.5 - 5.5 mmol/L LAB CHEMISTRY METHOD 09/16/2024 2:10 PM EDT [facility] Chloride 102 96 - 110 mmol/L LAB CHEMISTRY METHOD 09/16/2024 2:10 PM EDT [facility] CO2 25 21 - 32 mmol/L LAB CHEMISTRY METHOD 09/16/2024 2:10 PM EDT [facility] Anion Gap 11 3 - 11 LAB CHEMISTRY METHOD 09/16/2024 2:10 PM [facility] Glucose 150(H) 70 - 100 mg/dL LAB CHEMISTRY METHOD 09/16/2024 2:10 PM [facility] BUN 26(H) 5 - 25 mg/dL LAB CHEMISTRY METHOD 09/16/2024 2:10 PM [facility] Creatinine 1.30 0.70 - 1.30 mg/dL LAB CHEMISTRY METHOD 09/16/2024 2:10 PM [facility] eGFR 57(L) >=60 mL/min/1. 73m2 LAB CHEMISTRY METHOD 09/16/2024 2:10 PM [facility] Comment:Calculation based on the Chronic Kidney Disease Epidemiology Collaboration (CKD-EPI) equation refit without adjustment for race. BUN/Creatinine Ratio 20.0 LAB CHEMISTRY METHOD 09/16/2024 2:10 PM [facility] Calcium 9.0 8.5 - 10.5 mg/dL LAB CHEMISTRY METHOD 09/16/2024 2:10 PM [facility] Blood Venous blood specimen / Unknown Venipuncture / Unknown 09/16/2024 10:56 AM EDT 09/16/2024 11:56 AM EDT us Anand Ochoa MD LAB BLOOD ORDERABLES Janice l Result [facility] [address] [place] [address], * (ABNORMAL) Lipid panel with reflex to direct LDL (08/07/2024 12:00 AM EST) Cholesterol 222(H) 0 - 200 mg/dL LAB CHEMISTRY METHOD 08/07/2024 7:03 PM [facility] Triglycerides 287(H) 0 - 150 mg/dL LAB CHEMISTRY METHOD 08/07/2024 7:03 PM [facility] HDL 28(L) >=40 mg/dL LAB CHEMISTRY METHOD 08/07/2024 7:03 PM EST [facility] LDL Calculated 137(H) 0 - 100 mg/dL LAB CHEMISTRY METHOD 08/07/2024 7:03 PM EST [facility] VLDL Cholesterol Mendez 57.4 mg/dL LAB CHEMISTRY METHOD 08/07/2024 7:03 PM EST [facility] Non HDL Chol. (LDL+VLDL) 194(H) <145 mg/dL LAB CHEMISTRY METHOD 08/07/2024 7:03 PM EST [facility] Chol/HDL Ratio 7.9(H) 0.0 - 4.4 LAB CHEMISTRY METHOD 08/07/2024 7:03 PM [facility] Blood Venous blood specimen / Unknown 08/07/2024 08/07/2024 6:39 PM EST Bear WOOD LAB BLOOD ORDERABLES Final Res ult [facility] [address] [place] [address], from Last 3 Months or Most Recently Relevant to Health Maintenance Insurance [facility] MEDICARE ADVANTAGE [facility] Care Teams Overlock Elastic Attacher Relationship Specialty Start Date End Date Leonid Shea MD [address] [phone] PCP - General Internal Medicine 11/25/18
--- OUTSIDE RECORDS SUMMARY | 2025-03-18 12:00 | XMS_ITS | Encounter Summary ---
Author Organization [facility] Address [address] [place] [address] Care Team Providers Care Bake Room Worker Name Role Phone Leonid Shea MD Primary Care Provider [phone] Encounter Details Date Type Department Care Team (Latest Contact Info) Description 08/07/2024 Lab Requisition [facility] [address] [facility] [place] [phone] Bear Wills PA [address] [facility] [address] [place] [address] Type 2 diabetes mellitus without complications (CMS/HCC [...] 8:01 PM EST JUAN MANUEL CARDONA [place] ([facility]) [facility] Comment:Auto resulted. Blood Venous blood specimen / Unknown 08/07/2024 08/07/2024 6:39 PM EST us Bear WOOD LAB BLOOD ORDERABLES Final Res ult [facility] [address] [place] [address], [place] [phone] * Uric acid (08/07/2024 12:00 AM EST) Pathologist [facility] Uric Acid 5.9 3.7 - 9.2 mg/dL LAB CHEMISTRY METHOD 08/07/2024 7:03 PM EST [facility] Blood Venous blood specimen / Unknown 08/07/2024 08/07/2024 6:39 PM EST Bear WOOD LAB BLOOD ORDERABLES Final Res ult Performing Organization Address [facility]/ZIP Co de Phone Number [facility] [address] [place] [address], [place] [phone] * Prostate specific antigen screen (08/07/2024 12:00 AM EST) [facility] PSA 1.18 0.00 - 4.00 ng/mL LAB CHEMISTRY METHOD 08/07/2024 7:04 PM EST [facility] Blood Venous blood specimen / Unknown 08/07/2024 08/07/2024 6:39 PM EST Narrative [facility] - 08/07/2024 7:04 PM EST The Siemens Advia Centaur Chemiluminescent Immunoassay is used. Results obtained with different assay methods or kits cannot be used interchangeably. Results cannot be interpreted as absolute evidence of the presence or absence of malignant disease. us Bear WOOD LAB BLOOD ORDERABLES Final Res ult [facility] [address] [place] [address], [place] [phone] * (ABNORMAL) Hemoglobin A1c (08/07/2024 12:00 AM EST) [facility] Hemoglobin A1C 9.0(H) <6.5 % LAB CHEMISTRY METHOD 08/07/2024 9:37 PM [facility] Mean Bld Glu Estim. 212 mg/dL LAB CHEMISTRY METHOD 08/07/2024 9:37 PM [facility] Blood Venous blood specimen / Unknown 08/07/2024 08/07/2024 6:39 PM EST us Bear WOOD LAB BLOOD ORDERABLES Final Res ult [facility] [address] [place] [address], [place] [phone] * (ABNORMAL) Complete blood count (08/07/2024 12:00 AM EST) WBC 10.4 4.8 - 10.8 K/mcL LAB HEMETOLOGY METHOD 08/07/2024 7:05 PM [facility] RBC 4.40(L) 4.50 - 5.50 M/mcL LAB HEMETOLOGY METHOD 08/07/2024 7:05 PM [facility] Hemoglobin 12.5(L) 13.5 - 17.5 g/dL LAB HEMETOLOGY METHOD 08/07/2024 7:05 PM [facility] Hematocrit 39.4(L) 42.0 - 54.0 % LAB HEMETOLOGY METHOD 08/07/2024 7:05 PM [facility] MCV 89.7 79.0 - 98.0 FL LAB HEMETOLOGY METHOD 08/07/2024 7:05 PM [facility] MCH 28.5 27.0 - 32.0 pcg LAB HEMETOLOGY METHOD 08/07/2024 7:05 PM [facility] MCHC 31.7(L) 32.0 - 37.0 g/dL LAB HEMETOLOGY METHOD 08/07/2024 7:05 PM [facility] RDW 14.0 11.0 - 15.0 % LAB HEMETOLOGY METHOD 08/07/2024 7:05 PM [facility] Platelets 254 130 - 400 K/mcL LAB HEMETOLOGY METHOD 08/07/2024 7:05 PM [facility] MPV 12.2(H) 7.0 - 11.0 FL LAB HEMETOLOGY METHOD 08/07/2024 7:05 PM [facility] NRBC 0.0 <1.0 % LAB HEMETOLOGY METHOD 08/07/2024 7:05 PM [facility] NRBC Absolute 0.00 <0.10 K/mcL LAB HEMETOLOGY METHOD 08/07/2024 7:05 PM [facility] Blood Venous blood specimen / Unknown 08/07/2024 08/07/2024 6:39 PM EST us Bear WOOD LAB BLOOD ORDERABLES Final Res ult [facility] [address] [place] [address], [place] [phone] * (ABNORMAL) Lipid panel with reflex to direct LDL (08/07/2024 12:00 AM EST) Cholesterol 222(H) 0 - 200 mg/dL LAB CHEMISTRY METHOD 08/07/2024 7:03 PM [facility] Triglycerides 287(H) 0 - 150 mg/dL LAB CHEMISTRY METHOD 08/07/2024 7:03 PM [facility] HDL 28(L) >=40 mg/dL LAB CHEMISTRY METHOD 08/07/2024 7:03 PM [facility] LDL Calculated 137(H) 0 - 100 mg/dL LAB CHEMISTRY METHOD 08/07/2024 7:03 PM [facility] VLDL Cholesterol Mendez 57.4 mg/dL LAB CHEMISTRY METHOD 08/07/2024 7:03 PM [facility] Non HDL Chol. (LDL+VLDL) 194(H) <145 mg/dL LAB CHEMISTRY METHOD 08/07/2024 7:03 PM [facility] Chol/HDL Ratio 7.9(H) 0.0 - 4.4 LAB CHEMISTRY METHOD 08/07/2024 7:03 PM [facility] Blood Venous blood specimen / Unknown 08/07/2024 08/07/2024 6:39 PM EST us Bear WOOD LAB BLOOD ORDERABLES Final Res ult [facility] [address] [place] [address], [place] [phone] * (ABNORMAL) Comprehensive metabolic panel (08/07/2024 12:00 AM EST) Sodium 138 133 - 145 mmol/L LAB CHEMISTRY METHOD 08/07/2024 7:03 PM [facility] Potassium 4.1 3.5 - 5.5 mmol/L LAB CHEMISTRY METHOD 08/07/2024 7:03 PM [facility] Chloride 103 96 - 110 mmol/L LAB CHEMISTRY METHOD 08/07/2024 7:03 PM [facility] CO2 25 21 - 32 mmol/L LAB CHEMISTRY METHOD 08/07/2024 7:03 PM [facility] Anion Gap 10 3 - 11 LAB CHEMISTRY METHOD 08/07/2024 7:03 PM [facility] Glucose 261(H) 70 - 100 mg/dL LAB CHEMISTRY METHOD 08/07/2024 7:03 PM [facility] BUN 19 5 - 25 mg/dL LAB CHEMISTRY METHOD 08/07/2024 7:03 PM [facility] Creatinine 1.40(H) 0.70 - 1.30 mg/dL LAB CHEMISTRY METHOD 08/07/2024 7:03 PM [facility] eGFR 52(L) >=60 mL/min/1. 73m2 LAB CHEMISTRY METHOD 08/07/2024 7:03 PM [facility] Comment:Calculation based on the Chronic Kidney Disease Epidemiology Collaboration (CKD-EPI) equation refit without adjustment for race. BUN/Creatinine Ratio 13.6 LAB CHEMISTRY METHOD 08/07/2024 7:03 PM [facility] Calcium 9.1 8.5 - 10.5 mg/dL LAB CHEMISTRY METHOD 08/07/2024 7:03 PM [facility] AST (SGOT) 29 10 - 42 unit/L LAB CHEMISTRY METHOD 08/07/2024 7:03 PM [facility] ALT (SGPT) 63(H) 10 - 60 unit/L LAB CHEMISTRY METHOD 08/07/2024 7:03 PM [facility] Alkaline Phosphatase 92 42 - 121 unit/L LAB CHEMISTRY METHOD 08/07/2024 7:03 PM [facility] Total Protein 7.2 6.0 - 8.0 g/dL LAB CHEMISTRY METHOD 08/07/2024 7:03 PM [facility] Albumin 3.4 3.2 - 5.0 g/dL LAB CHEMISTRY METHOD 08/07/2024 7:03 PM [facility] Total Bilirubin 0.4 0.0 - 1.4 mg/dL LAB CHEMISTRY METHOD 08/07/2024 7:03 PM [facility] Blood Venous blood specimen / Unknown 08/07/2024 08/07/2024 6:39 PM EST us Bear WOOD LAB BLOOD ORDERABLES Final Res ult [facility] [address] [place] [address], [place] [phone] documented in this encounter Visit Diagnoses Diagnosis Type 2 diabetes mellitus without complications (CMS/HCC V24, CMS/HCC V28) Hyperlipidemia, unspecified Essential (primary) hypertension Unspecified essential hypertension Pain in unspecified joint Chronic fatigue, unspecified Gout, unspecified documented in this encounter Care Teams Bake Room Worker Relationship Specialty Start Date End Date Leonid Shea MD [address] [place] [phone] PCP - General Internal Medicine 11/25/18 documented as of this encounter
--- OUTSIDE RECORDS SUMMARY | 2025-03-18 12:00 | XMS_ITS | Patient Health Record ---
Author Organization [facility] Address [address] [facility] 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 Had two broken screws and screw removal in 2021. As tried AFO, regenerative medicine with specialist in [place] without much relief. Wants revision at this point CT scan at [facility] [address] scan 2024 at [facility]. Currently not taking patients insurance therefore referral out. Requesting Dr. Ochoa is available. 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 Had two broken screws and screw removal in 2021. As tried AFO, regenerative medicine with specialist in [place] without much relief. Wants revision at this point CT scan at [facility] [address] scan 2024 at [facility]. Currently not taking patients insurance therefore referral out. Requesting Dr. Ochoa is available. 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 [facility] [address] [place] [address] 08/06/2024 LEVARYOLANDA SALAMANCA Plan Of Treatment Pending [...] End Date [employer] [address] [place] [address] [id number] John Gauthier Self - patient is the [...]
--- OUTSIDE RECORDS SUMMARY | 2025-03-18 12:00 | XMS_ITS | Patient Health Record ---
Author Organization [facility], [place] Address [address] [place] [address] Care Team Providers Care Filter Screen Cleaner Name Role Phone Bear Wills Unavailable [phone] Migration, Provider Unavailable Unavailable Mahogany Laughlin Unavailable [phone] Reason For Referral No Information Encounters Encounter Location Date Provider Diagnosis [facility] [place] [address] [place] [phone] 03/31/2024 Provider Migration [facility] [place] [address] [address] 04/14/2024 Provider Migration [facility] [place] [address] [place] [phone] 07/16/2024 Provider Migration [facility] [place] [address] [place] [phone] 08/07/2024 Bear Wills [facility] [place] [address] [place] [phone] 08/07/2024 Provider Migration [facility], [address] [address] 01/06/2025 Mahogany Laughlin [facility] [place] [address] [address] 01/12/2025 Mahogany Laughlin Plan Of Treatment No Information Insurance Providers Payer Name Payer Address Payer Phone Subscriber Number Group Number Insured Name Patient Relationship to Insured Coverage Start Date Coverage End Date Bc Of [place] -Medicare Advantage [facility] [address] [place] [address] [id number] HOLGER JEB Self - patient is the insured
== END 2025-03-18 10:55 | disposition home or self-care (01) ==
LOC: HO.HGS 10:26
PROVIDERS: PCP Physician Assistant Medical; Visit Provider Surgery
DX: K80.20 Calculus of gallbladder without cholecystitis without obstruction (principal); K42.9 Umbilical hernia without obstruction or gangrene
CPT/HCPCS: 99204

== ENCOUNTER → 2025-03-18 10:25 | Outpatient (BNVA) | payer MEDICARE, SELFPAY | PROVIDERS: PCP Physician Assistant Medical; Visit Provider Surgery | DX: K80.20 Calculus of gallbladder without cholecystitis without obstruction (principal); K42.9 Umbilical hernia without obstruction or gangrene | CPT/HCPCS: 99202 ==

== ENCOUNTER 2025-04-23 09:52 | Outpatient (AMB) | payer MEDICARE, SELFPAY ==
--- OUTSIDE RECORDS SUMMARY | 2023-12-05 06:00 | XMS_ITS ---
Author Organization [facility] [place] Address [address] [facility] [address] [place] [address] Care Team Providers Care Freight Hustler Name Role Phone Migration, Provider Unavailable Unavailable REASON FOR VISIT CPX Encounters Encounter Location Date Provider Diagnosis [facility], [address] [address] 12/05/2023 Provider Migration Plan Of Treatment No Information Progress Notes * JEB WRENDOB:[birth year] (74 yo M)Acc No.[id number]:12/05/2023 Progress Notes Patient: JEB AL Provider: Sandra Nunn :1950 A ge:73 Y S ex:Male Date:12/05/2023 Address:[address] [place], [place] [id number] Subjective: * Chief Complaints: * C PX * Ocular Surgical History: Objective: Vision Examination: * Electronic signature of Prov ider Migration on 04/23/2025 at 11:16 AM EST Sign off status: Pending * Provider: Sandra thompson Migration Date: 12/05/2023 Generated for Bernardo villalobos/Bridgette/Maria Victoriasmitting on: 06/23/2024 11:16 AM EST
--- OUTSIDE RECORDS SUMMARY | 2024-03-31 06:00 | XMS_ITS ---
Author Organization [facility], [place] Address [address] [facility] 1 [address] Care Team Providers Care Application Support Manager Name Role Phone Migration, Provider Unavailable Unavailable REASON FOR VISIT Follow-up Appt Encounters Encounter Location Date Provider Diagnosis [facility], [address] [address] 03/31/2024 Provider Migration Plan Of Treatment No Information Progress Notes * JEB WRENDOB:[birth year] (74 yo M)Acc No.[id number]:03/31/2024 Progress Notes Patient: JEB AL Provider: Sandra Nunn :1950 A ge:73 Y S ex:Male Date:03/31/2024 Address:[address] [place], [place] [id number] Subjective: * Chief Complaints: * F ollow-up Appt * Ocular Surgical History: Objective: Vision Examination: * Electronic signature of Prov ider Migration on 04/23/2025 at 11:17 AM EST Sign off status: Pending * Provider: Sandra Nunn Date: Generated for Bernardo villalobos/Bridgette/Newtonitting on: 06/23/2024 11:17 AM EST
--- OUTSIDE RECORDS SUMMARY | 2024-04-14 04:45 | XMS_ITS ---
Author Organization [facility], [place] Address [address] [facility] 1 [place] [address] Care Team Providers Care Hydrology Professor Name Role Phone Migration, Provider Unavailable Unavailable REASON FOR VISIT Follow-up Appt Encounters Encounter Location Date Provider Diagnosis [facility], [address] [address] 04/14/2024 Provider Migration Plan Of Treatment No Information Progress Notes * JEB WRENDOB:[birth year] (74 yo M)Acc No.[id number]:04/14/2024 Progress Notes Patient: JEB AL Provider: Sandra Nunn :1950 A ge:73 Y S ex:Male Date:04/14/2024 Address:[address] [place], [place] [address] [facility] Subjective: * Chief Complaints: * F ollow-up Appt * Ocular Surgical History: Objective: Vision Examination: * Electronic signature of Prov ider Migration on 04/23/2025 at 11:16 AM EST Sign off status: Pending * Provider: Sandra Nunn Date: Generated for Bernardo villalobos/Bridgette/Newtonitting on: 06/23/2024 11:16 AM EST
--- OUTSIDE RECORDS SUMMARY | 2024-07-16 04:30 | XMS_ITS ---
Author Organization [facility] [place] Address [address] [facility] 1 [place] [address] Care Team Providers Care Returning Officer Name Role Phone Migration, Provider Unavailable Unavailable REASON FOR VISIT Follow-up Appt Encounters Encounter Location Date Provider Diagnosis [facility], [address] [address] 07/16/2024 Provider Migration Plan Of Treatment No Information Progress Notes * JEB WRENDOB:[birth year] (74 yo M)Acc No.[id number]:07/16/2024 Progress Notes Patient: JEB AL Provider: Sandra Nunn :1950 A ge:73 Y S ex:Male Date:07/16/2024 Address:[address] [place], [place] [address] [id number] Subjective: * Chief Complaints: * F ollow-up Appt * Ocular Surgical History: Objective: Vision Examination: * Electronic signature of Prov ider Migration on 04/23/2025 at 11:16 AM EST Sign off status: Pending * Provider: Sandra thompson Migration Date: 0 07/16/2024 Generated for Bernardo villalobos/Bridgette/Newtonitting on: 06/23/2024 11:16 AM EST
--- OUTSIDE RECORDS SUMMARY | 2024-08-07 05:30 | XMS_ITS ---
Author Organization [facility] [place] Address [address] [facility] [address] [place] [address] Care Team Providers Care Bilingual Administrative Assistant Name Role Phone Bear Wills Unavailable [phone] REASON FOR VISIT Follow-up Appt Encounters Encounter Location Date Provider Diagnosis [address] [address] 08/07/2024 Bear Wills Plan Of Treatment No Information Progress Notes * JEB WRENDOB:[birth year] (74 yo M)Acc No.[id number]:08/07/2024 Progress Notes Patient: JEB AL Provider: Macrina WOOD :1950 A ge:73 Y S ex:Male Date:08/07/2024 Address:[address] [place], [place] [id number] Subjective: * Chief Complaints: * F ollow-up Appt * Ocular Surgical History: Objective: Vision Examination: * Electronic signature of Anuel Wills PA-C on 04/23/2025 at 11:15 AM EST Sign off status: Pending * Provider: Macrina WOOD Date: 0 08/07/2024 Generated for Espinozai ng/Bridgette/eTshaniqueitting on: 1 06/23/2024 11:15 AM EST
--- OUTSIDE RECORDS SUMMARY | 2024-08-07 05:30 | XMS_ITS ---
Author Organization [facility], [place] Address [address] [facility] 1 [place] [address] Care Team Providers Care Matcher Offbearer Name Role Phone Migration, Provider Unavailable Unavailable REASON FOR VISIT CONFERENCE Encounters Encounter Location Date Provider Diagnosis [facility], [address] [address] 08/07/2024 Provider Migration Plan Of Treatment No Information Progress Notes * JEB WRENDOB:[birth year] (74 yo M)Acc No.[id number]:08/07/2024 Progress Notes Patient: JEB AL Provider: Sandra Nunn :1950 A ge:73 Y S ex:Male Date:08/07/2024 Address:[address] [place], [place] [phone] Subjective: * Chief Complaints: * C ONFERENCE * Ocular Surgical History: Objective: Vision Examination: * Electronic signature of Prov ider Migration on 04/23/2025 at 11:15 AM EST Sign off status: Pending * Provider: Sandra thompson Migration Date: 0 08/07/2024 Generated for Bernardo villalobos/Bridgette/Maria Victoriasmitting on: 1 06/23/2024 11:15 AM EST
--- NOTE | 2025-04-23 10:02 | A.OFFPC_ITS ---
Vital Signs 04/23/25 10:10 Height 5 ft 8 in Weight 217 lb 2 oz BMI 33.0 BP 116/72 Blood Pressure Location Lt brachial Position Sitting Pulse 88 Pulse Source Pulse Oximeter Temp 98.2 F Temp Source Temporal Artery Scan Pulse Oximetry (%) 96 Oxygen Delivery Method Room Air Intake Visit Reasons: 30 minutes type II diabetes Intake Note: John presents in the office today for a follow up to his diabetes. Patient needs refill of amplodpine. Allergies tirzepatide (From Mounjaro) Allergy (Severe, Verified 04/23/25 10:08) Stomach pain Medication List - Last Reconciled 04/24/25 by ISRAEL Null allopurinol 300 mg PO DAILY 90 days amlodipine 10 mg PO QAM aspirin 1 tab PO DAILY atorvastatin 40 mg PO BEDTIME colchicine 0.6 mg PO DAILY dulaglutide (Trulicity) 1.5 mg (0.5 mL) subcut QWEEK glipizide ER 10 mg PO DAILY glucose (Dex4 Glucose Quick Dissolve) 16 grams (4 x 4 gram) PO Q15M PRN lisinopril-hydrochlorothiazide 20-25 mg 2 tabs PO QAM 90 days magnesium aspart,citrate,oxide 400mg BID mupirocin 2% 1 appl topical BID omeprazole 10 mg PO DAILY Tobacco use date assessed: 04/23/25 Dental Screening Dental Screen Date: 04/23/25 Did you have a dental visit in the last 12 months?: Yes Did you have a dental problem in the last 6 months where you did not have access to dental care?: No Was dental information given to patient?: Patient has dentist HPI HPI Comments History of Present Illness Details 74-year-old male with a past medical his tory of type 2 diabetes, CKD stage IIIA, TIA, gout, hypertension, hyperlipidemia and GERD presents for follow up. Patient had surgery at [facility] to address a chronic, nonhealing right foot issue at the end of October 2024. He has 4 scews in his foot now. He did physical therapy. He is exercising more at the gym but avoids high impact activity on the treadmill. Hemoglobin a1c decreased from 7.8% to 7.2%. He does endorse some dietary indiscretion. He was diagnosed with type 2 diabetes 8 years ago. He was previously treated with Trulicity and switch to Mounjaro because he wanted to lose weight, but he stopped Mounjaro due to severe stomach pain. He was put back on Trulicity 0.75 mg, and he denies side effects. He is also taking glipizide extended release 10 mg twice daily. + microalbuminuria. CKD stage IIIA. He is on an KEVIN inhibitor. He has neuropathy in his feet. He wants to increase Trulicity to promote weight loss. Patient has a glucometer and checks his blood sugar daily. Past medications: Metformin IR cause GI side effects. Metformin extended release worked fine, but there was a recall on it at some point and he was switched to glipizide, and he did not want to go back on metformin. He had a liver ultrasound for evaluation of elevated liver enzymes. This demonstrated demonstrated hepatic steatosis. Gallstones and an umbilical hernia were also evaluated by General surgery, and there are no plans to proceed with surgery at this time since they are not bothering him. History of TIA in 2023. Patient on baby aspirin. He has been compliant with the atorvastatin since the last visit, and he will repeat his blood work. Patient on lisinopril-hydrochlorothiazide, amlodipine. He was referred to Dermatology for a nonhealing lesion on his right ear which was found to be precancerous. He has a complete skin exam in June. Patient has history of gout in his followed by Rheumatology. Treated with allopurinol. He has mild anemia. He has orders to repeat CBC and check ferritin, iron, B12 and folic acid. Last colonoscopy: 2023 at [facility]. Normal per patient. Denies blood in stools. ROS: Constitutional: No unexplained weight loss, fever, chills, fatigue or night sweats. Eyes: No vision changes, blurry vision, double vision Respiratory: No shortness of breath, cough or sputum production. Cardiovascular: No chest pain, chest pressure or chest discomfort. No palpitations Gastrointestinal: No anorexia, nausea, vomiting or diarrhea. No abdominal pain or blood in stool. No itching or jaundice. Endocrine: No cold or heat intolerance. No polyuria or polydipsia. Psychiatric: No depression or anxiety. No SI/HI. Physical exam: Constitutional: Alert, in no distress. Head: Normocephalic. Respiratory: Clear to auscultation. Cardiovascular: S1 S2 regular. No murmurs Abdomen: Soft, nontender, no palpable masses or organomegaly. Psychiatric: Normal mood and affect [facility] Medical History (Updated 04/24/25 @ 08:23 by ISRAEL Null) Umbilical hernia Gallstones Hepatic steatosis Cholelithiasis Right leg swelling CKD stage 3a, GFR 45-59 ml/min Microalbuminuria due to type 2 diabetes mellitus Anemia Liver enzyme elevation Obesity Hyperlipidemia Essential hypertension Type 2 diabetes mellitus Lesion of left ear Gout TIA (transient ischemic attack) Diabetes Elevated cholesterol HTN (hypertension) Surgical History H/O colonoscopy History of surgery on lower extremity History of ankle surgery Hx of left knee surgery Social History (Updated 04/23/25 @ 10:10 by Cris Mckay CMA) Housing: House Are you a primary patient care specialist to a significant other at home: No Alcohol intake: current Alcohol intake frequency: a few times a week Alcohol type: beer Patient Tobacco Use Status: Former Tobacco user Tobacco use type: Cigarette Cigarette Packs Per Day: 1 Cigarettes Per Day: 2 Years Smoked: 45 e-Cigarette/Vaping Use: Never Used Second Hand Smoke Exposure: No Substance Use Type: Marijuana service: Yes Current occupational status: retired Current occupational exposures/hazards: No Cognitive needs: No Hearing needs: Yes Vision needs: No Questionnaire Thrive Questionnaire Date Thrive assessed: 10/23/24 I am a: Patient What is your living situation today?: I have a steady place to live Within the past 12 months, did the food you bought not last and you didn't have the money to get more?: Never true Within the past 12 months, did you worry whether your food would run out before you got money to buy more?: Never true Do you have trouble paying for medicines?: No Do you have trouble getting transportation to medical appointments?: No Do you have trouble paying your heating and electricity bill?: No Do you have trouble taking care of your child, family member or friend?: No Do you have trouble with day-to-day activities such as bathing, preparing meals, shopping, managing finances, etc.?: No Are you currently unemployed and looking for a job?: No Are you interested in more education?: No Please select the resources that you would like help with: None Currently or been in a relationship where the following occur: No concerns reported THRIVE Score: 0 SMOOTH-7 AMB Questionnaire SMOOTH-7 Date SMOOTH - 7 assessed: 10/23/24 Source: Developed by DrsJessenia Ryan, Tequila Caro, Romeo Garnica and colleagues, with an educational nishant from [employer]. Physical exam (Primary Care) Vital Signs: Last Vital Signs Temp 98.2 F 04/23/25 10:10 Pulse 88 04/23/25 10:10 BP 116/72 04/23/25 10:10 Pulse Ox 96 04/23/25 10:10 Oxygen Delivery Method Room Air 04/23/25 10:10 BMI result Body Mass Index 33.0 Tobacco/Smoking Status: Tobacco use Status Tobacco use date assessed 04/23/25 04/23/25 10:14 Patient Tobacco Use Status Former Tobacco user 04/23/25 10:10 Tobacco use type Cigarette 04/23/25 10:10 e-Cigarette/Vaping Use Never Used 04/23/25 10:10 Thrive Assessment: Date of Thrive Assessment Date Thrive assessed 10/23/24 04/23/25 10:02 Currently or been in a relationship where the following occur: No concerns reported Results AMB Hemoglobin A1c AMB Hemoglobin A1c 7.2 % Last Edit by Cris Mckay CMA on 04/23/25 10:15 Results Reviewed Results Reviewed: Laboratory Last Values Hgb A1c (Clinic) 7.2 % (4.0-6.0) H 04/23/25 10:03 Coding Level of Care Code Est Pt Level 4 (29872) Complex EM visit Add On G2211 Diagnoses Type 2 diabetes mellitus with microalbuminuria, without long-term current use of insulin E11.29; R80.9 Diabetes mellitus marine oil terminal superintendent insulin use: without skilled nursing use Diabetes mellitus complication status: with kidney complications Diabetes mellitus complication detail: with microalbuminuria Essential hypertension I10 Pure hypercholesterolemia E78.00 Hyperlipidemia type: pure hypercholesterolemia Lesion of left ear H93.92 Anemia D64.9 CKD stage 3a, GFR 45-59 ml/min N18.31 Assessment & Plan Assessment & Plan (1) Type 2 diabetes mellitus: Code(s): E11.9 - Type 2 diabetes mellitus without complications Category: Medical Qualifiers: Diabetes mellitus marine oil terminal superintendent insulin use: without marine oil terminal superintendent use Diabetes mellitus complication status: with kidney complications Diabetes mellitus complication detail: with microalbuminuria Qualified Code(s): E11.29 - Type 2 diabetes mellitus with other diabetic kidney complication; R80.9 - Proteinuria, unspecified Plan: The patient would like to increase Trulicity. We discussed that gallstones are not a contraindication to using this type of medication, but they can worsen gallbladder disease, and we discussed the risks of acute cholecystitis and gallstone pancreatitis which can result in hospitalization and even . Patient denies any GI side effects at this time. He had a consult with General surgery. He will increase Trulicity to 1.5 mg weekly to see if this helps to promote weight loss and lower his A1c. He will decrease glipizide ER to 10 mg once daily. Diabetic diet reviewed. Continue to monitor blood sugars. Reviewed treatment hypoglycemia. (2) Essential hypertension: Code(s): I10 - Essential (primary) hypertension Category: Medical Plan: Continue current medication. Continue efforts at weight loss. Low-sodium diet and avoidance of caffeine recommended. (3) Hyperlipidemia: Code(s): E78.5 - Hyperlipidemia, unspecified Category: Medical Qualifiers: Hyperlipidemia type: pure hypercholesterolemia Qualified Code(s): E78.00 - Pure hypercholesterolemia, unspecified Plan: Recommended Mediterranean diet. Patient endorses compliance with the atorvastatin since his last visit. Check lipid profile. (4) Lesion of left ear: Code(s): H93.92 - Unspecified disorder of left ear Category: Medical Plan: Precancerous and tx with cryotherapy. Full body scan is scheduled with [facility]. (5) Anemia: Code(s): D64.9 - Anemia, unspecified Category: Medical Plan: Recheck CBC, B12, iron, ferritin, folate. Colonoscopy up-to-date. Denies symptoms associated with the anemia. (6) CKD stage 3a, GFR 45-59 ml/min: Code(s): N18.31 - Chronic kidney disease, stage 3a Category: Medical Plan: Avoid nephrotoxic medications. Discussed SGLT2, but patient says it was too expensive. Continue KEVIN inhibitor. Plan Follow up in 3 months. Orders: Orders AMB Hemoglobin A1c 04/23/25 E11.9 - Type 2 diabetes mellitus without complications Medications: New dulaglutide (Trulicity) 1.5 mg (0.5 mL) subcut QWEEK 2 mL 3RF glucose (Dex4 Glucose Quick Dissolve) until symptoms of low blood sugar are controlled and blood glucose is greater than 70 16 grams (4 x 4 gram) PO Q15M PRN 30 tabs 3RF hypoglycemia (glucose under 70) amlodipine 10 mg PO QAM 90 tabs 3RF Changed From glipizide ER 10 mg PO BID 180 tabs 3RF To glipizide ER 10 mg PO DAILY 90 tabs 3RF Discontinued dulaglutide (Trulicity) Discontinued Reason: Doctor's Order 0.75 mg (0.5 mL) subcut QWEEK 2 mL 3RF
[2025-04-23 10:10] VITALS: BP 116/72; PULSE 88; TEMP 36.8; O2SAT 96; BMI 33.0
--- OUTSIDE RECORDS SUMMARY | 2025-04-23 11:15 | XMS_ITS | Data Portability ---
Author Organization [place] [facility] Sandra Wylie [place] Address [address] [place] [address] Care Team Providers Care Broomcorn Press Feeder Name Role Phone HINARODDY MCKEON Primary Care Provider [phone] Assessment Encounter Date Assessment Date Assessment LastModified [...] options as noted above can be considered. [email or web address] Not available 10/30/2022 09:05:49 01/25/2023 01/25/2023 This [...] underwent PRP injection by Dr. Mccall at [facility] last Sunday with notable painful swollen knee. He went to [facility] ER with a concern for a [...] emergency department for further evaluation. (Seema YOST test administrator present during discussion) As of note the patient is a poorly controlled diabetic and multiple comorbidities. A similar treatment performed at the same practice in [place] for which I evaluated back on 01/25/2023. I had a detailed discussion in the presence of my director of intelligence that he should have contacted his orthopedic provider who performed the treatment due to potential risk of infection, side effects. The patient is aware going forward that he would need to follow-up with the orthopedic provider that rendered care if there was a potential untoward outcome after treatment. The patient agreed he would go to [facility] ER following his visit today. There [...] count w/ diff, synovial fluid [address] [facility], [address], [place], [address], 3 11:12:22 gram stain, synovial fluid [address] [facility], [address], [place], [address], 3 11:12:23 crystals, synovial fluid [address] [facility], [address], [place], [address], 3 11:12:23 culture, synovial fluid [address] [facility], [address], [place], [address], 3 11:12:23 glucose, QN [mass/volu me], synovial fluid [address] [facility], [address], [place], [address], 3 11:12:23 Referral None recorded. Procedures None recorded. Surgeries None recorded. Imaging XR, knee, 4 or more view 2022 023 [email or web address] [facility], [address], [place], [address], 3 07:09:56 XR, elbow, 3 or more view 2022 023 [facility], [address], [place], [address], 3 08:26:40 Medication Orders lidocaine (PF) 10 mg/mL (1 %) injection solution 2022 023 [email or web address] [id number], [address] [place], [address], 3 06:44:02 Patient TargetsNo targets recorded. Patient Instructions Encounter Date Encounter Id Patient Instructions Last Modified By Organization Details Last Modified Time 10/27/2022 [id number] views of the right elbow including AP lateral and oblique were obtained in the [place] office. X-rays demonstrated normal bone mineralization. No significant spur at the olecranon. Soft tissue swelling noted. No evidence of acute injury or fracture. [email or web address] Not available 10/30/2022 09:03:30 Reason for Referral [...] Name and Address Organization Details Recorded Time Arthritis of right knee joint 11308630877 03488 Active 2018 Arthritis of knee, right Not Available [facility] 5 23:06:26 Acute tear of medial meniscus of right knee 74501700898 953988 Active 2018 Acute medial meniscus tear of right knee Not Available [facility] 5 23:06:26 Arthritis of right subtalar joint 26109815405 047926 Active 2019 Arthritis of right subtalar joint Not Available [facility] 5 23:06:25 Chronic ankle pain 15516066618 109 Active 2019 Chronic pain of right ankle Not Available [facility] 5 23:06:25 Chronic pain of right foot 78575622515 834572 Active 2019 Chronic pain in right foot Not Available [facility] 5 23:06:26 Bursitis of olecranon of right elbow 12583231189 9108 Active 2022 SHERI WOODWARD PA-C [address], [place], [address] , [place] [facility] 3 09:03:02 Pain of right elbow joint 16997014887 228910 Active 2022 SHERI WOODWARD PA-C [address], [place], [address] , [place] [facility], [facility] 3 09:03:08 Effusion of joint of right knee 47206531671 9104 Active 2022 VIKAS LAGUNA PA-C [address], [place], [address] , [place] [facility], [facility] 3 15:43:21 Effusion of joint 458209339 Active 2022 VIKAS LAGUNA PA-C [address], [place], [address] , [place] [facility], [facility] 3 15:43:31 Pain of right knee joint 75578636485 4100 Active 2023 VIKAS LAGUNA PA-C [address], [place], [address] , [place] [facility], [facility] 4 18:43:48 Problem Notes None recorded. Procedures Surgical History Date Name Laterality Status Provider Name and Address Organization Details Recorded Time 3 Knee Joint/Bursa Asp & Inj completed VIKAS LAGUNA PA-C [address], [place], [address], [place] [facility], [facility] 01/26/2023 06:38:57 1 bone fusion completed [facility] 01/25/2023 16:03:11 8 total knee replacement completed Cierra [place] - [facility], [facility] 01/25/2023 16:04:41 Imaging Results None recorded. Procedure Notes None recorded. Medical Equipment None Reported. Allergies No known drug allergies Medications Name Sig Start Date Stop Date Status Note LastModified by Organization Details LastModified Time cyclobenzap rine 10 mg tablet TAKE 1 TABLET 3 TIMES A DAY BY ORAL ROUTE NEEDED. active Not Available Not Available No t Available atorvastati n 40 mg tablet TAKE 1 TABLET BY MOUTH EVERY DAY active Not Available Not Available No t Available nabumetone 750 mg tablet TAKE 1 TABLET BY MOUTH TWICE A DAY WITH MEALS active Not Available Not Available No t Available lisinopril 20 mg-hydrochl orothiazide 12.5 mg tablet TAKE 1 TABLET BY [...] Available No t Available aspirin 81 mg tablet,harris yed release TAKE 1 TABLET BY MOUTH EVERY DAY active Not Available Not Available No t Available tramadol 50 mg tablet TAKE 1 TABLET NEEDED ORALLY EVERY 4-6 HOURS 2 DAYS active Not Available Not Available No t Available amlodipine 10 mg tablet TAKE 1 TABLET BY MOUTH EVERY DAY active Not Available Not Available No t Available methylpredn isolone acetate 40 mg/mL suspension for injection 06/27 completed Not Available Not Available Not Available lisinopril 20 mg-hydrochl orothiazide 25 mg tablet TAKE 2 TABLETS BY MOUTH EVERY DAY active Not Available Not Available No t Available aspirin 81 mg chewable tablet CHEW 1 TABLET DAILY active Not Available Not Available No t Available metformin ER 500 mg tablet,exte nded release 24 hr TAKE 1 TABLET BY [...] Not Available Not Available No t Available Farxiga 10 mg tablet Take 1 tablet by mouth daily. 05/31 completed Not Available Not Available Not Available Trulicity 2018 active Not Available Not Available Not Avai lable EC-Naproxen 500 mg tablet,harris yed release TAKE 1 TABLET BY MOUTH TWICE A DAY active Not Available Not Available No t Available Vitals Date Recorded Body weight Body mass index (BMI) Body height Provider Name and Address Organization Details Last Updated DateTime 10/27/2022 83240.44 g 31.2 kg/m2 172.[address] [place] [facility], 10/27/2022 11:13:46 Social History None recorded. Functional [...] Diagnosis SNOMED-CT Code Diagnosis ICD10 Code Diagnosis IMO Codes Diagnosis Note [id number] MARTELL MONTOYA [place] [address] [facility] [address] [place] [address] 10/27/2022 10:52:20 10/27/2022 13:02:34 Pain of right elbow joint 1281242773 4088366 M25.521 Bursitis o f olecranon of right elbow 8758698289 [address]70.[id number] [facility] [address] [facility] [address] [place] [address] 01/25/2023 14:26:57 01/25/2023 15:47:32 Pain of right knee joint 2719578248 73395 M25.561 Effusion o f joint of right knee 0174346913 04525 M25.461 Effusion of joint 309649 008 M25.40 [id number] MARTELL PERSONlelo [address] [facility] [address] [place] [address] 07/04/2023 12:36:06 07/04/2023 14:06:45 Pain of right knee joint 2138079811 73425 M25.561 Health Concerns Section Related Observation LastModified by Organization Detai ls LastModified Time None Recorded Concern Status LastModified by Organization Details LastModified Time None Recorded Advance Directives Directive None Recorded Payers Insurance Date Sequence Insurance Name Policy Number Policy Cole Covered Member ID Cole Member ID Guarantor Name 10/27/[address] [place] [address] [id number] Jeb Gauthier [id number] Jeb Gauthier Notes Date Note Type Note [...] SHERI WOODWARD PA-C [address], [place], [address], [place] [facility], [facility] 10/30/2022 09:07:01 01/25/2023 text/html This is [...] a Tenex procedure VIKAS LAGUNA PA-C [address] [facility], [place], [address], [place] [facility], [facility] 01/26/2023 06:44:36 07/04/2023 text/html 72-year-old male [...] waited until Sunday to be seen at [facility] emergency department on 06/30/2022. There was [...] to today's visit. Imaging studies performed at [facility] where x-rays as well as duplex ultrasound as noted below [facility] [id number] [place] [address] Patient: JEB GAUTHIER D.O.B./Age/Sex: 1950 - 72 - [facility]#: [id number] Location/Status: SPER/REG [facility]#: [id number] Mnemonic/Ordering Site: KNEERT4/SPMAINOrdering Physician: YURIY ROCHA MD CR Knee RT 4 or More Views - 06/30/231502Report Status:SignedCR Knee RT 4 or More ViewsINDICATION: PainTECHNIQUE: CR Knee RT 4 or More ViewsCOMPARISON: No priors available.FINDINGS/IMP RESSION: No acute fracture or dislocation. Joint spaces arepreserved. Small suprapatellar effusion. Quadriceps enthesopathy. Nofocal soft tissue swelling.Dictating Physician: DARRELL ZAVALETA MDElectronically Signed by: DARRELL ZAVALETA Date/Time: 06/30/23 1508Sign date/Time: 06/30/23 1519 [facility] [id number] [place] [address] Patient: HOLGERJEB Macrina /Age/Sex: 1950 - 72 - [facility]#: [id number] Location/Status: [facility] ERAccount#: [id number] Mnemonic/Ordering Site: [facility] Physician: YURIY ROCHA MD Duplex Venous Study [...] MDElectronically Signed by: DARRELL ZAVALETA Date/Time: 06/30/23 1458Sign date/Time: 06/30/23 1503 VIKAS LAGUNA PA-C [address] [facility] [address], [place], [address], [place] [facility], P 07/04/2023 18:45:40
--- OUTSIDE RECORDS SUMMARY | 2025-04-23 11:16 | XMS_ITS | Patient Health Record ---
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 Had two broken screws and screw removal in 2021. As tried AFO, regenerative medicine with specialist in [place] without much relief. Wants revision at this point CT scan at [facility] [address] scan 2024 at [facility]. Currently not taking patients insurance therefore referral out. Requesting Dr. Ochoa is available. 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 Had two broken screws and screw removal in 2021. As tried AFO, regenerative medicine with specialist in [place] without much relief. Wants revision at this point CT scan at [facility] [address] scan 2024 at [facility]. Currently not taking patients insurance therefore referral out. Requesting Dr. Ochoa is available. 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 Problem Arthritis of right subtalar joint (8527851836102210 6) 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 Problem Inflammation of foot joint (310057665) Inflammation of foot joint (M19.079) Active confirmed Problem Polyneuropathy due to type 2 diabetes mellitus (572638275) Type 2 diabetes mellitus with peripheral neuropathy (E11.42) Active confirmed Encounters Encounter Location Date Provider Diagnosis [facility] [address] [facility] [address] [place] [address] 08/06/2024 LEVARYOLANDA SALAMANCA Plan Of Treatment Pending Test Test Name Order Date Hemoglobin A1c 07/22/2020 CBC, Platelet; No Differential Basic Metabolic Panel (8) 07/22/2020 CT Scan : Low Extr W/O Contrast 06/20/19 Ultrasound : Extremity Ultrasound Non-Va sc 10/05/2020 X ray : Foot, right 3v 10/05/2020 X ray : Foot, right 3v 03/30/2021 X ray : Foot, right 3v 07/29/2020 X ray : Foot, right 3v 09/06/2020 X ray : Foot, right 3v 12/27/2020 X ray : Foot, right 3v 12/07/2020 X ray : Foot, right 3v 11/17/2020 X ray : Foot, right 3v 01/17/2021 APPLY SHORT LEG CAST 08/09/2020 DRAIN/INJECT, SMALL JOINT/BURSA 03/30/20 DRAIN/INJECT, SMALL JOINT/BURSA 01/18/20 AFO ANK GAUNTLT PREFAB W/FIT&ADJ 020 WALKING BOOT PNEUMATIC AND/OR VAC 2020 Insurance Providers Payer Name Payer Address Payer Phone Subscriber Number Group Number Insured Name Patient Relationship to Insured Coverage Start Date Coverage End Date [employer] [address] [place] [address] [id number] John Gauthier Self - patient is the [...]
--- OUTSIDE RECORDS SUMMARY | 2025-04-23 11:16 | XMS_ITS | Patient Health Record ---
Author Organization [facility], Address [address] [address] Care Team Providers Care Iron Setter Name Role Phone Leonid Shea MD Primary Care Provider CHULA Díaz Unavailable [phone] Allergies No Known Allergies Reason For Referral [...] primary osteoarthritis of the ankle and/or foot (251273028) 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 Problem Essential hypertension (13561108) Hypertension, unspecified type (I10) Active confirmed Vital Signs Weight-kg 97.52 kg 08/05/2024 Height 68 in 08/05/2024 Weight 215 lbs 08/05/2024 BMI 32.69 kg/m2 08/05/2024 Encounters Encounter Location Date Provider Diagnosis [facility], [address] [address] 07/25/2024 CHULA GRIFFIN Achilles tendinitis of right lower extremity M76.61 and History of ankle surgery Z98.890 [facility], [address] [address] 08/05/2024 CHULA GRIFFIN History of ankle surgery Z98.890 and Arthritis of subtalar joint M19.079 [facility], [address] [address] 05/09/2024 CHULA GRIFFIN [facility] [address] [place] [address] 06/13/2024 CHULA GRIFFIN [facility] [address] [place] [address] 06/16/2024 CHULA GRIFFIN [facility] [address] [place] [address] 06/20/2024 CHULA GRIFFIN Assessments Encounter Date Diagnosis [...] migrating between the medial/lateral ankle with ankle inversions/eversi on. He has evidence of non-union of the [...] surgeon to discuss next steps in management. 07/25/2024 Other Dragon dictation was used to assist [...] encounter as if the encounter had occurred [id number] with the same standards of appropriate practice [...] HIPAA compliant video conferencing technology. 08/05/2024 Other [employer]CS Mobile n was used to assist with documentation [...] Insured Coverage Start Date Coverage End Date [facility] Medicare Advantage [address] [place], [place] [id number] [phone] [id number] JEB WREN Self - patient is the insured 5 Medicare of [place] J14 [address] [facility] [place] [id number] [phone] [id number] JEB WREN Self - patient is the insured 4 Medical (General) History Medical History History ICD Code diabetes high blood pressure Surgical History Surgery Date(Month/Year) right foot fusion right foot screw removal
--- OUTSIDE RECORDS SUMMARY | 2025-04-23 11:17 | XMS_ITS | Patient Health Record ---
Author Organization [facility] [place] Address [address] [place] [address] Care Team Providers Care Filler Block Inserter Remover Name Role Phone Bear Wills Unavailable [phone] Migration, Provider Unavailable Unavailable Mahogany Laughlin Unavailable [phone] Reason For Referral No Information Encounters Encounter Location Date Provider Diagnosis [facility] [place] [address] [facility] [facility] [facility] [address] [address] 07/16/2024 Provider Migration [facility] [place], [place] [address] [facility] [address] [address] 08/07/2024 Bear Wills [facility] [place] [address] [facility] [address] [place] [address] 08/07/2024 Provider Migration [facility] [place] [address] [facility] [address] [address] 01/06/2025 Mahogany Laughlin [facility] [place] [address] [facility] [address] [address] 01/12/2025 Mahogany Laughlin Plan Of Treatment No Information Insurance Providers Payer Name Payer Address Payer Phone Subscriber Number Group Number Insured Name Patient Relationship to Insured Coverage Start Date Coverage End Date [employer] [place] [employer] Pf [address] [place] [phone] [id number] JEB WREN Self - patient is the insured
--- OUTSIDE RECORDS SUMMARY | 2025-04-23 11:17 | XMS_ITS | Clinical Summary ---
Author Organization [address] Address [address] [place] [address] Phone Care Team Providers Care Casing Trimmer Name Role Phone Leonid Shea MD Primary Care Provider [phone] Surgical History Surgery Date Site/Laterality Comments KNEE [...] LAB CHEMISTRY METHOD 09/16/2024 2:35 PM EDT [facility] Mean Bld Glu Estim. 180 mg/dL LAB CHEMISTRY METHOD 09/16/2024 2:35 PM EDT [facility] Blood Venous blood specimen / Unknown Venipuncture / Unknown 09/16/2024 10:56 AM EDT 09/16/2024 11:58 AM EDT us Anand Ochoa MD LAB BLOOD ORDERABLES Janice l Result [facility] [address] [place] [address], * (ABNORMAL) Basic metabolic panel (09/16/2024 10:56 AM EDT) Pathologist [facility] Sodium 138 133 - 145 mmol/L LAB CHEMISTRY METHOD 09/16/2024 2:10 PM EDT [facility] Potassium 3.9 3.5 - 5.5 mmol/L LAB CHEMISTRY METHOD 09/16/2024 2:10 PM EDT [facility] Chloride 102 96 - 110 mmol/L LAB CHEMISTRY METHOD 09/16/2024 2:10 PM EDT [facility] CO2 25 21 - 32 mmol/L LAB CHEMISTRY METHOD 09/16/2024 2:10 PM EDT [facility] Anion Gap 11 3 - 11 LAB CHEMISTRY METHOD 09/16/2024 2:[address] [facility] Glucose 150(H) 70 - 100 mg/dL LAB CHEMISTRY METHOD 09/16/2024 2:[address] [facility] BUN 26(H) 5 - 25 mg/dL LAB CHEMISTRY METHOD 09/16/2024 2:[address] [facility] Creatinine 1.30 0.70 - 1.30 mg/dL LAB CHEMISTRY METHOD 09/16/2024 2:[address] [facility] eGFR 57(L) >=60 mL/min/1. 73m2 LAB CHEMISTRY METHOD 09/16/2024 2:[address] [facility] Comment:Calculation based on the Chronic Kidney Disease Epidemiology Collaboration (CKD-EPI) equation refit without adjustment for race. BUN/Creatinine Ratio 20.0 LAB CHEMISTRY METHOD 09/16/2024 2:[address] [facility] Calcium 9.0 8.5 - 10.5 mg/dL LAB CHEMISTRY METHOD 09/16/2024 2:[address] [facility] Blood Venous blood specimen / Unknown Venipuncture / Unknown 09/16/2024 10:56 AM EDT 09/16/2024 11:56 AM EDT us Anand Ochoa MD LAB BLOOD ORDERABLES Janice l Result [facility] [address] [place] [address], * (ABNORMAL) Lipid panel with reflex to direct LDL (08/07/2024 12:00 AM EST) Cholesterol 222(H) 0 - 200 mg/dL LAB CHEMISTRY METHOD 08/07/2024 7:03 PM [facility] Triglycerides 287(H) 0 - 150 mg/dL LAB CHEMISTRY METHOD 08/07/2024 7:03 PM [facility] HDL 28(L) >=40 mg/dL LAB CHEMISTRY METHOD 08/07/2024 7:03 PM EST [facility] LDL Calculated 137(H) 0 - 100 mg/dL LAB CHEMISTRY METHOD 08/07/2024 7:03 PM EST [facility] VLDL Cholesterol Mendez 57.4 mg/dL LAB CHEMISTRY METHOD 08/07/2024 7:03 PM EST [facility] Non HDL Chol. (LDL+VLDL) 194(H) <145 mg/dL LAB CHEMISTRY METHOD 08/07/2024 7:03 PM EST [facility] Chol/HDL Ratio 7.9(H) 0.0 - 4.4 LAB CHEMISTRY METHOD 08/07/2024 7:03 PM [facility] Blood Venous blood specimen / Unknown 08/07/2024 08/07/2024 6:39 PM EST Bear WOOD LAB BLOOD ORDERABLES Final Res ult [facility] [address] [place] [address], from Last 3 Months or Most Recently Relevant to Health Maintenance Insurance [facility] MEDICARE ADVANTAGE [facility] Care Teams Casing Trimmer Relationship Specialty Start Date End Date Leonid Shea MD [address] [phone] PCP - General Internal Medicine 11/25/18
--- OUTSIDE RECORDS SUMMARY | 2025-04-23 11:17 | XMS_ITS | Clinical Summary ---
Author Organization [facility] Address [address] [place] [address] Care Team Providers Care Teller Head Name Role Phone Leonid Shea MD Primary Care Provider [phone] Allergies No known active allergies Medications Medication [...] age to complete this topic Care Teams Teller Head Relationship Specialty Start Date End Date Leonid Shea MD [address] [place] [address] PCP - General Internal Medicine 06/27/18
--- OUTSIDE RECORDS SUMMARY | 2025-04-23 11:17 | XMS_ITS | Encounter Summary ---
Author Organization [facility] Address [address] [place] [address] Care Team Providers Care Family Practice Doctor Name Role Phone Leonid Shea MD Primary Care Provider [phone] Encounter Details Date Type Department Care Team (Latest Contact Info) Description 08/07/2024 Lab Requisition [facility] [address] [facility] [place] [phone] Bear Wills PA [address] [facility] [address] [place] [address] Type 2 diabetes mellitus without complications (CMS/HCC [...] PM EST JUAN MANUEL CARDONA [place] ([facility]) [facility] Comment:Auto resulted. Blood Venous blood specimen / Unknown 08/07/2024 08/07/2024 6:39 PM EST us Bear WOOD LAB BLOOD ORDERABLES Final Res ult [facility] [address] [place] [address], [place] [phone] * Uric acid (08/07/2024 12:00 AM EST) Pathologist [facility] Uric Acid 5.9 3.7 - 9.2 mg/dL LAB CHEMISTRY METHOD 08/07/2024 7:03 PM EST [facility] Blood Venous blood specimen / Unknown 08/07/2024 08/07/2024 6:39 PM EST Bear WOOD LAB BLOOD ORDERABLES Final Res ult Performing Organization Address [facility]/ZIP Co de Phone Number [facility] [address] [place] [address], [place] [phone] * Prostate specific antigen screen (08/07/2024 12:00 AM EST) [facility] PSA 1.18 0.00 - 4.00 ng/mL LAB CHEMISTRY METHOD 08/07/2024 7:04 PM EST [facility] Blood Venous blood specimen / Unknown 08/07/2024 08/07/2024 6:39 PM EST Narrative [facility] - 08/07/2024 7:04 PM EST The Siemens Advia Centaur Chemiluminescent Immunoassay is used. Results obtained with different assay methods or kits cannot be used interchangeably. Results cannot be interpreted as absolute evidence of the presence or absence of malignant disease. us Bear WOOD LAB BLOOD ORDERABLES Final Res ult [facility] [address] [place] [address], [place] [phone] * (ABNORMAL) Hemoglobin A1c (08/07/2024 12:00 AM EST) [facility] Hemoglobin A1C 9.0(H) <6.5 % LAB CHEMISTRY METHOD 08/07/2024 9:37 PM [facility] Mean Bld Glu Estim. 212 mg/dL LAB CHEMISTRY METHOD 08/07/2024 9:37 PM [facility] Blood Venous blood specimen / Unknown 08/07/2024 08/07/2024 6:39 PM EST us Bear WOOD LAB BLOOD ORDERABLES Final Res ult [facility] [address] [place] [address], [place] [phone] * (ABNORMAL) Complete blood count (08/07/2024 12:00 AM EST) WBC 10.4 4.8 - 10.8 K/mcL LAB HEMETOLOGY METHOD 08/07/2024 7:05 PM [facility] RBC 4.40(L) 4.50 - 5.50 M/mcL LAB HEMETOLOGY METHOD 08/07/2024 7:05 PM [facility] Hemoglobin 12.5(L) 13.5 - 17.5 g/dL LAB HEMETOLOGY METHOD 08/07/2024 7:05 PM [facility] Hematocrit 39.4(L) 42.0 - 54.0 % LAB HEMETOLOGY METHOD 08/07/2024 7:05 PM [facility] MCV 89.7 79.0 - 98.0 FL LAB HEMETOLOGY METHOD 08/07/2024 7:05 PM [facility] MCH 28.5 27.0 - 32.0 pcg LAB HEMETOLOGY METHOD 08/07/2024 7:05 PM [facility] MCHC 31.7(L) 32.0 - 37.0 g/dL LAB HEMETOLOGY METHOD 08/07/2024 7:05 PM [facility] RDW 14.0 11.0 - 15.0 % LAB HEMETOLOGY METHOD 08/07/2024 7:05 PM [facility] Platelets 254 130 - 400 K/mcL LAB HEMETOLOGY METHOD 08/07/2024 7:05 PM [facility] MPV 12.2(H) 7.0 - 11.0 FL LAB HEMETOLOGY METHOD 08/07/2024 7:05 PM [facility] NRBC 0.0 <1.0 % LAB HEMETOLOGY METHOD 08/07/2024 7:05 PM [facility] NRBC Absolute 0.00 <0.10 K/mcL LAB HEMETOLOGY METHOD 08/07/2024 7:05 PM [facility] Blood Venous blood specimen / Unknown 08/07/2024 08/07/2024 6:39 PM EST us Bear WOOD LAB BLOOD ORDERABLES Final Res ult [facility] [address] [place] [address], [place] [phone] * (ABNORMAL) Lipid panel with reflex to direct LDL (08/07/2024 12:00 AM EST) Cholesterol 222(H) 0 - 200 mg/dL LAB CHEMISTRY METHOD 08/07/2024 7:03 PM [facility] Triglycerides 287(H) 0 - 150 mg/dL LAB CHEMISTRY METHOD 08/07/2024 7:03 PM [facility] HDL 28(L) >=40 mg/dL LAB CHEMISTRY METHOD 08/07/2024 7:03 PM [facility] LDL Calculated 137(H) 0 - 100 mg/dL LAB CHEMISTRY METHOD 08/07/2024 7:03 PM [facility] VLDL Cholesterol Mendez 57.4 mg/dL LAB CHEMISTRY METHOD 08/07/2024 7:03 PM [facility] Non HDL Chol. (LDL+VLDL) 194(H) <145 mg/dL LAB CHEMISTRY METHOD 08/07/2024 7:03 PM [facility] Chol/HDL Ratio 7.9(H) 0.0 - 4.4 LAB CHEMISTRY METHOD 08/07/2024 7:03 PM [facility] Blood Venous blood specimen / Unknown 08/07/2024 08/07/2024 6:39 PM EST us Bear WOOD LAB BLOOD ORDERABLES Final Res ult [facility] [address] [place] [address], [place] [phone] * (ABNORMAL) Comprehensive metabolic panel (08/07/2024 12:00 AM EST) Sodium 138 133 - 145 mmol/L LAB CHEMISTRY METHOD 08/07/2024 7:03 PM [facility] Potassium 4.1 3.5 - 5.5 mmol/L LAB CHEMISTRY METHOD 08/07/2024 7:03 PM [facility] Chloride 103 96 - 110 mmol/L LAB CHEMISTRY METHOD 08/07/2024 7:03 PM [facility] CO2 25 21 - 32 mmol/L LAB CHEMISTRY METHOD 08/07/2024 7:03 PM [facility] Anion Gap 10 3 - 11 LAB CHEMISTRY METHOD 08/07/2024 7:03 PM [facility] Glucose 261(H) 70 - 100 mg/dL LAB CHEMISTRY METHOD 08/07/2024 7:03 PM [facility] BUN 19 5 - 25 mg/dL LAB CHEMISTRY METHOD 08/07/2024 7:03 PM [facility] Creatinine 1.40(H) 0.70 - 1.30 mg/dL LAB CHEMISTRY METHOD 08/07/2024 7:03 PM [facility] eGFR 52(L) >=60 mL/min/1. 73m2 LAB CHEMISTRY METHOD 08/07/2024 7:03 PM [facility] Comment:Calculation based on the Chronic Kidney Disease Epidemiology Collaboration (CKD-EPI) equation refit without adjustment for race. BUN/Creatinine Ratio 13.6 LAB CHEMISTRY METHOD 08/07/2024 7:03 PM [facility] Calcium 9.1 8.5 - 10.5 mg/dL LAB CHEMISTRY METHOD 08/07/2024 7:03 PM [facility] AST (SGOT) 29 10 - 42 unit/L LAB CHEMISTRY METHOD 08/07/2024 7:03 PM [facility] ALT (SGPT) 63(H) 10 - 60 unit/L LAB CHEMISTRY METHOD 08/07/2024 7:03 PM [facility] Alkaline Phosphatase 92 42 - 121 unit/L LAB CHEMISTRY METHOD 08/07/2024 7:03 PM [facility] Total Protein 7.2 6.0 - 8.0 g/dL LAB CHEMISTRY METHOD 08/07/2024 7:03 PM [facility] Albumin 3.4 3.2 - 5.0 g/dL LAB CHEMISTRY METHOD 08/07/2024 7:03 PM [facility] Total Bilirubin 0.4 0.0 - 1.4 mg/dL LAB CHEMISTRY METHOD 08/07/2024 7:03 PM [facility] Blood Venous blood specimen / Unknown 08/07/2024 08/07/2024 6:39 PM EST us Bear WOOD LAB BLOOD ORDERABLES Final Res ult [facility] [address] [place] [address], [place] [phone] documented in this encounter Visit Diagnoses Diagnosis Type 2 diabetes mellitus without complications (CMS/HCC V24, CMS/HCC V28) Hyperlipidemia, unspecified Essential (primary) hypertension Unspecified essential hypertension Pain in unspecified joint Chronic fatigue, unspecified Gout, unspecified documented in this encounter Care Teams Family Practice Doctor Relationship Specialty Start Date End Date Leonid Shea MD [address] [place] [phone] PCP - General Internal Medicine 11/25/18 documented as of this encounter
== END 2025-04-23 10:51 | disposition home or self-care (01) ==
LOC: HO.HMCFM 09:53
PROVIDERS: PCP Physician Assistant Medical; Visit Provider Physician Assistant Medical
DX: E11.9 Type 2 diabetes mellitus without complications (principal)

== ENCOUNTER → 2025-04-23 09:52 | Outpatient (BNVA) | payer MEDICARE, SELFPAY | PROVIDERS: PCP Physician Assistant Medical; Visit Provider Physician Assistant Medical | DX: E11.29 Type 2 diabetes mellitus with other diabetic kidney complication (principal); R80.9 Proteinuria, unspecified; E11.22 Type 2 diabetes mellitus with diabetic chronic kidney disease; I12.9 Hypertensive chronic kidney disease with stage 1 through stage 4 chronic kidney disease, or unspecified chronic kidney disease; N18.31 Chronic kidney disease, stage 3a; D63.1 Anemia in chronic kidney disease; E78.00 Pure hypercholesterolemia, unspecified; H93.92 Unspecified disorder of left ear; Z86.73 Personal history of transient ischemic attack (TIA), and cerebral infarction without residual deficits; Z79.82 Long term (current) use of aspirin; Z79.84 Long term (current) use of oral hypoglycemic drugs | CPT/HCPCS: 83036; 99212 ==

== ENCOUNTER 2025-04-28 07:56 | Outpatient (REF) | payer MEDICARE, SELFPAY ==
--- OUTSIDE RECORDS SUMMARY | 2023-12-05 06:00 | XMS_ITS ---
Author Organization [facility], [place] Address [address] [facility] [address] [place] [address] Care Team Providers Care Quality Control Specialist Name Role Phone Migration, Provider Unavailable Unavailable REASON FOR VISIT CPX Encounters Encounter Location Date Provider Diagnosis [facility], [address] [address] 12/05/2023 Provider Migration Plan Of Treatment No Information Progress Notes * JEB WRENDOB:[birth year] (74 yo M)Acc No.[id number]:12/05/2023 Progress Notes Patient: JEB AL Provider: Sandra Nunn :1950 A ge:73 Y S ex:Male Date:12/05/2023 Address:[address] [place], [place] [id number] Subjective: * Chief Complaints: * C PX * Ocular Surgical History: Objective: Vision Examination: * Electronic signature of Prov ider Migration on 04/28/2025 at 08:00 AM EST Sign off status: Pending * Provider: Sandra Nunn Date: 0 12/05/2023 Generated for Bernardo villalobos/Bridgette/Maria Victoriasmitting on: 06/28/2024 08:00 AM EST
--- OUTSIDE RECORDS SUMMARY | 2024-03-31 06:00 | XMS_ITS ---
Author Organization [facility] [place] Address [address] [facility] 1 [place] [address] Care Team Providers Care Certified Medical Coding Specialist Name Role Phone Migration, Provider Unavailable Unavailable REASON FOR VISIT Follow-up Appt Encounters Encounter Location Date Provider Diagnosis [facility], [address] [address] 03/31/2024 Provider Migration Plan Of Treatment No Information Progress Notes * JEB WRENDOB:[birth year] (74 yo M)Acc No.[id number]:03/31/2024 Progress Notes Patient: JEB AL Provider: Sandra Nunn :1950 A ge:73 Y S ex:Male Date:03/31/2024 Address:[address] [place] [address] [facility] Subjective: * Chief Complaints: * F ollow-up Appt * Ocular Surgical History: Objective: Vision Examination: * Electronic signature of Prov ider Migration on 04/28/2025 at 08:01 AM EST Sign off status: Pending * Provider: Sandra Nunn Date: Generated for Bernardo villalobos/Bridgette/Newtonitting on: 06/28/2024 08:01 AM EST
--- OUTSIDE RECORDS SUMMARY | 2024-04-14 04:45 | XMS_ITS ---
Author Organization [facility] [place] Address [address] [facility] 1 [place] [address] Care Team Providers Care Coremaking Machine Setter Name Role Phone Migration, Provider Unavailable Unavailable REASON FOR VISIT Follow-up Appt Encounters Encounter Location Date Provider Diagnosis [facility], [address] [address] 04/14/2024 Provider Migration Plan Of Treatment No Information Progress Notes * JEB WRENDOB:[birth year] (74 yo M)Acc No.[id number]:04/14/2024 Progress Notes Patient: JEB AL Provider: Sandra Nunn :1950 A ge:73 Y S ex:Male Date:04/14/2024 Address:[address] [place], [place] [address] [id number] Subjective: * Chief Complaints: * F ollow-up Appt * Ocular Surgical History: Objective: Vision Examination: * Electronic signature of Prov ider Migration on 04/28/2025 at 08:01 AM EST Sign off status: Pending * Provider: Sandra Nunn Date: Generated for Bernardo villalobos/Bridgette/Newtonitting on: 06/28/2024 08:01 AM EST
--- OUTSIDE RECORDS SUMMARY | 2024-07-16 04:30 | XMS_ITS ---
Author Organization [facility] [place] Address [address] [facility] 1 [place] [address] Care Team Providers Care Auditing Control Clerk Name Role Phone Migration, Provider Unavailable Unavailable REASON FOR VISIT Follow-up Appt Encounters Encounter Location Date Provider Diagnosis [facility], [address] [address] 07/16/2024 Provider Migration Plan Of Treatment No Information Progress Notes * JEB WRENDOB:[birth year] (74 yo M)Acc No.[id number]:07/16/2024 Progress Notes Patient: JEB AL Provider: Sandra Nunn :1950 A ge:73 Y S ex:Male Date:07/16/2024 Address:[address] [place], [place] [address] [id number] Subjective: * Chief Complaints: * F ollow-up Appt * Ocular Surgical History: Objective: Vision Examination: * Electronic signature of Prov ider Migration on 04/28/2025 at 08:01 AM EST Sign off status: Pending * Provider: Sandra Nunn Date: 0 07/16/2024 Generated for Bernardo villalobos/Bridgette/Newtonitting on: 06/28/2024 08:01 AM EST
--- OUTSIDE RECORDS SUMMARY | 2024-08-07 05:30 | XMS_ITS ---
Author Organization [facility] [place] Address [address] [facility] [address] [place] [address] Care Team Providers Care Pockets And Pieces Necktie Operator Name Role Phone Bear Wills Unavailable [phone] REASON FOR VISIT Follow-up Appt Encounters Encounter Location Date Provider Diagnosis [address] [address] 08/07/2024 Bear Wills Plan Of Treatment No Information Progress Notes * JEB WRENDOB:[birth year] (74 yo M)Acc No.[id number]:08/07/2024 Progress Notes Patient: JEB LA Provider: Macrina WOOD :1950 A ge:73 Y S ex:Male Date:08/07/2024 Address:[address] [place], [place] [id number] Subjective: * Chief Complaints: * F ollow-up Appt * Ocular Surgical History: Objective: Vision Examination: * Electronic signature of Anuel Wills PA-C on 04/28/2025 at 08:00 AM EST Sign off status: Pending * Provider: Macrina WOOD Date: 0 08/07/2024 Generated for Espinozai wilfredo/Bridgette/eTshaniqueitting on: 1 06/28/2024 08:00 AM EST
--- OUTSIDE RECORDS SUMMARY | 2024-08-07 05:30 | XMS_ITS ---
Author Organization [facility], [place] Address [address] [facility] [address] [place] [address] Care Team Providers Care Manager Progressive Care Name Role Phone Migration, Provider Unavailable Unavailable REASON FOR VISIT CONFERENCE Encounters Encounter Location Date Provider Diagnosis [facility] [place], [address] [address] 08/07/2024 Provider Migration Plan Of Treatment No Information Progress Notes * JEB WRENDOB:[birth year] (74 yo M)Acc No.[id number]:08/07/2024 Progress Notes Patient: JEB AL Provider: Sandra Nunn :1950 A ge:73 Y S ex:Male Date:08/07/2024 Address:[address] [place] [address] [facility] Subjective: * Chief Complaints: * C ONFERENCE * Ocular Surgical History: Objective: Vision Examination: * Electronic signature of Prov ider Migration on 04/28/2025 at 08:00 AM EST Sign off status: Pending * Provider: Sandra thompson Migration Date: 0 08/07/2024 Generated for Bernardo villalobos/Bridgette/Maria Victoriasmitting on: 1 06/28/2024 08:00 AM EST
--- OUTSIDE RECORDS SUMMARY | 2025-04-28 08:00 | XMS_ITS | Data Portability ---
Author Organization [place] [facility] Sandra Wylie AONE [place] Address [address] [place] [address] Care Team Providers Care Camp Assistant Name Role Phone HINARODDY MCKEON Primary Care Provider [phone] Assessment Encounter Date Assessment Date Assessment LastModified [...] underwent PRP injection by Dr. Mccall at [email or web address] last Sunday with notable painful swollen knee. He went to [facility] ER with a concern for [...] emergency department for further evaluation. (Seema YOST arts administrator present during discussion) As of note the patient is a poorly controlled diabetic and multiple comorbidities. A similar treatment performed at the same practice in [place] for which I evaluated back on 01/25/2023. I had a detailed discussion in the presence of my packing room inspector that he should have contacted his orthopedic provider who performed the treatment due to potential risk of infection, side effects. The patient is aware going forward that he would need to follow-up with the orthopedic provider that rendered care if there was a potential untoward outcome after treatment. The patient agreed he would go to [facility] ER following his visit today. [...] count w/ diff, synovial fluid [address] [facility], [address], [place], [address], 3 11:12:22 gram stain, synovial fluid [address] [facility], [address], [address], [place], [address], 3 11:12:23 crystals, synovial fluid [address] [facility], [address], [address], [place], [address], 3 11:12:23 culture, synovial fluid [address] [facility], [address], [place], [address], 3 11:12:23 glucose, QN [mass/volu me], synovial fluid [address] [facility], [address], [address], [place], [address], 3 11:12:23 Referral None recorded. Procedures None recorded. Surgeries None recorded. Imaging XR, knee, 4 or more view 2022 023 [email or web address] [facility], [address], [address], [place], [address], 3 07:09:56 XR, elbow, 3 or more view 2022 023 [email or web address] [facility], [address], [place], [address], 3 08:26:40 Medication Orders lidocaine (PF) 10 mg/mL (1 %) injection solution 2022 023 [email or web address] [id number], [address] [place], [address], 3 06:44:02 Patient TargetsNo targets recorded. Patient Instructions Encounter Date Encounter Id Patient Instructions Last Modified By Organization Details Last Modified Time 10/27/2022 [id number] views of the right elbow including AP lateral and oblique were obtained in the [place] office. X-rays demonstrated normal bone mineralization. No significant spur at the olecranon. Soft tissue swelling noted. No evidence of acute injury or fracture. 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 Not Available [facility] 5 23:06:25 Chronic ankle pain 88271115248 109 Active 2019 Chronic pain of right ankle Not Available [facility] 5 23:06:25 Chronic pain of right foot 54171784367 701352 Active 2019 Chronic pain in right foot Not Available [facility] 5 23:06:26 Bursitis of olecranon of right elbow 88813777150 9108 Active 2022 SHERI WOODWARD PA-C [address], [place], [address] , [place] [facility] 3 09:03:02 Pain of right elbow joint 36612478047 771034 Active 2022 SHERI WOODWARD PA-C [address], [place], [address] , [place] [facility] 3 09:03:08 Effusion of joint of right knee 03007186228 9104 Active 2022 VIKAS LAGUNA PA-C [address], [place], [address] , [place] [facility] 3 15:43:21 Effusion of joint 289938008 Active 2022 VIKAS LAGUNA PA-C [address], [place], [address] , [place] [facility] 3 15:43:31 Pain of right knee joint 00456019293 4100 Active 2023 VIKAS LAGUNA PA-C [address], [place], [address] , [place] [facility] 4 18:43:48 Problem Notes None recorded. Procedures Surgical History Date Name Laterality Status Provider Name and Address Organization Details Recorded Time 3 Knee Joint/Bursa Asp & Inj completed VIKAS LAGUNA PA-C [address], [place], [address], [place] [facility] 01/26/2023 06:38:57 1 bone fusion completed [facility] 01/25/2023 16:03:11 8 total knee replacement completed Cierra Lindsay [facility] 01/25/2023 16:04:41 Imaging Results None recorded. [...] Address Organization Details Last Updated DateTime 10/27/2022 00670.44 g 31.2 kg/m2 172.[address] [facility], 10/27/2022 11:13:46 Social History None recorded. Functional [...] IMO Codes Diagnosis Note [id number] MARTELL MONTOYA [place] [address] [facility] [address] [place] [address] 10/27/2022 10:52:20 10/27/2022 13:02:34 Pain of right elbow joint 7599411749 0100257 M25.521 Bursitis o f olecranon of right elbow 7290683663 01566 M70.21 [id number] MARTELL PERSON [facility] [address] [facility] [address] [place] [address] 01/25/2023 14:26:57 01/25/2023 15:47:32 Pain of right knee joint 1372155022 66218 M25.561 Effusion o f joint of right knee 9053341092 72289 M25.461 Effusion of joint 393241 008 M25.40 55874 MARTELL PERSONlelo [address] [facility] [address] [facility] [place] [place] [address] 07/04/2023 12:36:06 07/04/2023 14:06:45 Pain of right knee joint 7860957864 74367 M25.561 Health Concerns Section Related Observation LastModified by Organization Detai ls LastModified Time None Recorded Concern Status LastModified by Organization Details LastModified Time None Recorded Advance Directives Directive None Recorded Payers Insurance Date Sequence Insurance Name Policy Number Policy Cole Covered Member ID Cole Member ID Guarantor Name 10/27/[address] [place] [address] [id number] Jeb Gauthier [id number] Jeb Gauthier Notes Date Note Type Note [...] SHERI WOODWARD PA-C [address], [place], [address], [place] [facility] 10/30/2022 09:07:01 01/25/2023 text/html This is [...] a Tenex procedure VIKAS LAGUNA PA-C [address] [facility],[address], [place], [address], [place] [facility] 01/26/2023 06:44:36 07/04/2023 text/html 72-year-old male who presents for evaluation of painful swelling in right knee onset of symptoms few days after having undergone PRP injection of his right plantar fasciitis and Achilles tendinitis by Dr. Mccall in [facility]. Patient states he had a procedure done last Sunday for which he came home and noted over the course of 48 hours increased pain within his right knee with immobility swelling without the presence of fevers or chills. He waited until Sunday to be seen at [facility] emergency department on 06/30/2022. There [...] to today's visit. Imaging studies performed at [facility] where x-rays as well as duplex ultrasound as noted below [facility] [address] [place] [address] Patient: JEB GAUTHIER D.O.B./Age/Sex: 1950 - 72 - [facility]#: [id number] Location/Status: SPER/REG [facility]#: [id number] Mnemonic/Ordering Site: KNEERT4/SPMAINOrdering Physician: YURIY ROCHA MD [...] ZAVALETA Date/Time: 06/30/23 1508Sign date/Time: 06/30/23 1519 [facility] [address] [place] [address] Patient: HOLGERJEB Macrina /Age/Sex: 1950 - 72 - [facility]#: [id number] Location/Status: [facility] ERAccount#: [id number] Mnemonic/Ordering Site: [facility] Physician: YURIY ROCHA MD Duplex Venous [...] date/Time: 06/30/23 1503 VIKAS LAGUNA PA-C [address] [facility] [address], [place], [address], [place] [facility] 07/04/2023 18:45:40
--- OUTSIDE RECORDS SUMMARY | 2025-04-28 08:00 | XMS_ITS | Patient Health Record ---
Author Organization [facility], Address [address] [address] Care Team Providers Care Accounting Administrative Assistant Name Role Phone Leonid Shea MD Primary Care Provider CHULA Díaz Unavailable [phone] Allergies No Known Allergies Reason For Referral [...] primary osteoarthritis of the ankle and/or foot (779196938) 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 Problem Essential hypertension (11226461) Hypertension, unspecified type (I10) Active confirmed Vital Signs Weight-kg 97.52 kg 08/05/2024 Height 68 in 08/05/2024 Weight 215 lbs 08/05/2024 BMI 32.69 kg/m2 08/05/2024 Encounters Encounter Location Date Provider Diagnosis [facility], [address] [address] 07/25/2024 CHULA GRIFFIN Achilles tendinitis of right lower extremity M76.61 and History of ankle surgery Z98.890 [facility], [address] [address] 08/05/2024 CHULA GRIFFIN History of ankle surgery Z98.890 and Arthritis of subtalar joint M19.079 [facility], [address] [address] 05/09/2024 CHULA GRIFFIN [facility] [address] [place] [address] 06/13/2024 CHULA GRIFFIN [facility] [address] [address] 06/16/2024 CHULA GRIFFIN [facility] [address] [place] [address] 06/20/2024 CHULA GRIFFIN Assessments Encounter Date Diagnosis [...] encounter as if the encounter had occurred [id number] with the same standards of appropriate practice [...] HIPAA compliant video conferencing technology. 08/05/2024 Other Escapio n was used to assist with documentation [...] Insured Coverage Start Date Coverage End Date [facility] Medicare Advantage [address] [place], [place] [id number] [phone] [id number] JEB WREN Self - patient is the insured 5 Medicare of [place] J14 [address] [facility] [place] [id number] [phone] [id number] JEB WREN Self - patient is the insured 4 Medical (General) History Medical History History ICD Code diabetes high blood pressure Surgical History Surgery Date(Month/Year) right foot fusion right foot screw removal
--- OUTSIDE RECORDS SUMMARY | 2025-04-28 08:01 | XMS_ITS | Encounter Summary ---
Author Organization [facility] Address [address] [place] [address] Care Team Providers Care Manager Rehab Name Role Phone Leonid Shea MD Primary Care Provider [phone] Encounter Details Date Type Department Care Team (Latest Contact Info) Description 08/07/2024 Lab Requisition [facility] [address] [facility] [place] [address] Bear Wills PA 299 [facility] [address] [place] [address] Type 2 diabetes mellitus without complications (CMS/HCC [...] 8:01 PM EST JUAN MANUEL CARDONA [place] ([facility]) [facility] Comment:Auto resulted. Blood Venous blood specimen / Unknown 08/07/2024 08/07/2024 6:39 PM EST us Bear WOOD LAB BLOOD ORDERABLES Final Res ult [facility] [address] [place] [address], [place] [phone] * Uric acid (08/07/2024 12:00 AM EST) Pathologist [facility] Uric Acid 5.9 3.7 - 9.2 mg/dL LAB CHEMISTRY METHOD 08/07/2024 7:03 PM EST [facility] Blood Venous blood specimen / Unknown 08/07/2024 08/07/2024 6:39 PM EST Bear WOOD LAB BLOOD ORDERABLES Final Res ult Performing Organization Address [facility]/ZIP Co de Phone Number [facility] [address] [place] [address], [place] [phone] * Prostate specific antigen screen (08/07/2024 12:00 AM EST) [facility] PSA 1.18 0.00 - 4.00 ng/mL LAB [...] Res ult [facility] [address] [place] [address], [place] [phone] * (ABNORMAL) Hemoglobin A1c (08/07/2024 12:00 AM EST) [facility] Hemoglobin A1C 9.0(H) <6.5 % LAB CHEMISTRY METHOD 08/07/2024 9:37 PM [facility] Mean Bld Glu Estim. 212 mg/dL LAB CHEMISTRY METHOD 08/07/2024 9:37 PM [facility] Blood Venous blood specimen / Unknown 08/07/2024 08/07/2024 6:39 PM EST us Bear WOOD LAB BLOOD ORDERABLES Final Res ult [facility] [address] [place] [address], [place] [phone] * (ABNORMAL) Complete blood count (08/07/2024 12:00 [...] Res ult [facility] [address] [place] [address], [place] [phone] * (ABNORMAL) Lipid panel with reflex to [...] Res ult [facility] [address] [place] [address], [place] [phone] * (ABNORMAL) Comprehensive metabolic panel (08/07/2024 12:00 [...] Res ult [facility] [address] [place] [address], [place] [phone] documented in this encounter Visit Diagnoses Diagnosis Type 2 diabetes mellitus without complications (CMS/HCC V24, CMS/HCC V28) Hyperlipidemia, unspecified Essential (primary) hypertension Unspecified essential hypertension Pain in unspecified joint Chronic fatigue, unspecified Gout, unspecified documented in this encounter Care Teams Manager Rehab Relationship Specialty Start Date End Date Leonid Shea MD [address] [place] [address] PCP - General Internal Medicine 11/25/18 documented as of this encounter
--- OUTSIDE RECORDS SUMMARY | 2025-04-28 08:01 | XMS_ITS | Patient Health Record ---
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 Had two broken screws and screw removal in 2021. As tried AFO, regenerative medicine with specialist in [place] without much relief. Wants revision at this point CT scan at [facility] [address] scan 2024 at [facility]. Currently not taking patients insurance therefore referral out. Requesting Dr. Ochoa is available. 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 Had two broken screws and screw removal in 2021. As tried AFO, regenerative medicine with specialist in [place] without much relief. Wants revision at this point CT scan at [facility] [address] scan 2024 at [facility]. Currently not taking patients insurance therefore referral out. Requesting Dr. Ochoa is available. 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 Problem Arthritis of right subtalar joint (8189799533457415 6) 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
--- OUTSIDE RECORDS SUMMARY | 2025-04-28 08:01 | XMS_ITS | Patient Health Record ---
Author Organization [facility] [place] Address [address] [place] [address] Care Team Providers Care Director Of Product Management Name Role Phone Bear Wills Unavailable [phone] Migration, Provider Unavailable Unavailable Mahogany Laughlin Unavailable [phone] Reason For Referral No Information Encounters Encounter Location Date Provider Diagnosis [facility] [place] [address] [facility] [address] [place] [address] 07/16/2024 Provider Migration [facility], [place] [address] [facility] [address] [address] 08/07/2024 Bear Wills [facility] [place] [address] [facility] [address] [place] [address] 08/07/2024 Provider Migration [facility] [place] [address] [facility] [address] [address] 01/06/2025 Mahogany Laughlin [facility], [place] [address] [facility] [address] [address] 01/12/2025 Mahogany Laughlin Plan Of Treatment No Information Insurance Providers Payer Name Payer Address Payer Phone Subscriber Number Group Number Insured Name Patient Relationship to Insured Coverage Start Date Coverage End Date [employer] [place] [employer] Pf [address] [place] [phone] [id number] JEB WREN Self - patient is the insured
--- OUTSIDE RECORDS SUMMARY | 2025-04-28 08:01 | XMS_ITS | Clinical Summary ---
Author Organization [address] Address [address] [place] [address] Phone Care Team Providers Care Hospice Care Transitions Coordinator Name Role Phone Leonid Shea MD Primary Care Provider [phone] Surgical History Surgery Date Site/Laterality Comments KNEE [...] LAB CHEMISTRY METHOD 09/16/2024 2:35 PM EDT [facility] Mean Bld Glu Estim. 180 mg/dL LAB CHEMISTRY METHOD 09/16/2024 2:35 PM EDT [facility] Blood Venous blood specimen / Unknown Venipuncture / Unknown 09/16/2024 10:56 AM EDT 09/16/2024 11:58 AM EDT us Anand Ochoa MD LAB BLOOD ORDERABLES Janice l Result [facility] [address] [place] [address], * (ABNORMAL) Basic metabolic panel (09/16/2024 10:56 AM EDT) Pathologist [facility] Sodium 138 133 - 145 mmol/L LAB CHEMISTRY METHOD 09/16/2024 2:10 PM EDT [facility] Potassium 3.9 3.5 - 5.5 mmol/L LAB CHEMISTRY METHOD 09/16/2024 2:10 PM EDT [facility] Chloride 102 96 - 110 mmol/L LAB CHEMISTRY METHOD 09/16/2024 2:10 PM EDT [facility] CO2 25 21 - 32 mmol/L LAB CHEMISTRY METHOD 09/16/2024 2:10 PM EDT [facility] Anion Gap 11 3 - 11 LAB CHEMISTRY METHOD 09/16/2024 2:10 PM [facility] Glucose 150(H) 70 - 100 mg/dL LAB CHEMISTRY METHOD 09/16/2024 2:10 PM [facility] BUN 26(H) 5 - 25 mg/dL LAB CHEMISTRY METHOD 09/16/2024 2:10 PM [facility] Creatinine 1.30 0.70 - 1.30 mg/dL LAB CHEMISTRY METHOD 09/16/2024 2:10 PM [facility] eGFR 57(L) >=60 mL/min/1. 73m2 LAB CHEMISTRY METHOD 09/16/2024 2:10 PM [facility] Comment:Calculation based on the Chronic Kidney Disease Epidemiology Collaboration (CKD-EPI) equation refit without adjustment for race. BUN/Creatinine Ratio 20.0 LAB CHEMISTRY METHOD 09/16/2024 2:10 PM [facility] Calcium 9.0 8.5 - 10.5 mg/dL LAB CHEMISTRY METHOD 09/16/2024 2:10 PM [facility] Blood Venous blood specimen / Unknown Venipuncture / Unknown 09/16/2024 10:56 AM EDT 09/16/2024 11:56 AM EDT us Anand Ochoa MD LAB BLOOD ORDERABLES Janice l Result [facility] [address] [place] [address], * (ABNORMAL) Lipid panel with reflex to direct LDL (08/07/2024 12:00 AM EST) Cholesterol 222(H) 0 - 200 mg/dL LAB CHEMISTRY METHOD 08/07/2024 7:[address] [facility] Triglycerides 287(H) 0 - 150 mg/dL LAB CHEMISTRY METHOD 08/07/2024 7:[address] [facility] HDL 28(L) >=40 mg/dL LAB CHEMISTRY METHOD 08/07/2024 7:03 PM EST [facility] LDL Calculated 137(H) 0 - 100 mg/dL LAB CHEMISTRY METHOD 08/07/2024 7:03 PM EST [facility] VLDL Cholesterol Mendez 57.4 mg/dL LAB CHEMISTRY METHOD 08/07/2024 7:03 PM EST [facility] Non HDL Chol. (LDL+VLDL) 194(H) <145 mg/dL LAB CHEMISTRY METHOD 08/07/2024 7:03 PM EST [facility] Chol/HDL Ratio 7.9(H) 0.0 - 4.4 LAB CHEMISTRY METHOD 08/07/2024 7:[address] [facility] Blood Venous blood specimen / Unknown 08/07/2024 08/07/2024 6:39 PM EST Bear WOOD LAB BLOOD ORDERABLES Final Res ult [facility] [address] [place] [address], from Last 3 Months or Most Recently Relevant to Health Maintenance Insurance [facility] MEDICARE ADVANTAGE [facility] Care Teams Hospice Care Transitions Coordinator Relationship Specialty Start Date End Date Leonid Shea MD [address] [phone] PCP - General Internal Medicine 11/25/18
[2025-04-28 11:10] LABS: MANUAL DIFF FLAG NO
[2025-04-28 11:23] LABS: Hematocrit 39.8 % (42.0-52.0); Hemoglobin 12.8 g/dl (14.0-18.0); Imm Gran Abs Auto 0.03 X10*3/uL (0.00-0.03); Imm Gran Pct Auto 0.4 % (0.0-0.4); Lymphocytes Absolute Auto 2.0 X10*3/uL (1.2-4.9); Mean Corpuscular HGB Conc 32.2 g/dl (31.0-36.0); Mean Corpuscular Hemoglobin 28.9 pg (27.0-33.0); Mean Corpuscular Volume 89.8 fL (80.0-98.0); NRBC Abs Auto 0.000 X10*3/uL (0.0-0.012); NRBC Pct Auto 0.0 /100WBC (0.0-0.2); Platelet Count 236 X10*3/uL (160-400); Red Blood Count 4.43 X10*6/uL (4.60-5.80); White Blood Count 8.3 X10*3/uL (4.8-10.8)
[2025-04-28 11:47] LABS: Alanine Aminotransferase 50 U/L (0-40); Albumin Level 4.2 g/dL (3.5-5.0); Alkaline Phosphatase 86 U/L (39-117); Anion Gap 14 (12-20); Aspartate Amino Transferase 28 U/L (5-37); Blood Urea Nitrogen 31 mg/dL (9-16); Calcium 9.1 mg/dL (8.4-10.2); Carbon Dioxide 26 mmol/L (22-29); Chloride 104 mmol/L (96-108); Cholesterol 128 mg/dL (<200); Estimated Glomerular Filt Rate 47; HDL Cholesterol 29 mg/dL (>40); Iron 51 mcg/dL (45-160); Percent Iron Saturation 18 % (15-50); Potassium 3.9 mmol/L (3.3-5.1); Sodium 140 mmol/L (135-145); Total Iron Binding Capacity 280 mcg/dL (228-428); Total Protein 7.2 g/dL (6.5-8.0); Triglycerides 209 mg/dL (<150); Unsaturated Iron Binding 229 ug/dL
[2025-04-28 12:04] LABS: Ferritin 27 ng/mL (20-250)
[2025-04-28 12:29] LABS: Hepatitis A Antibody IgM 0.19 Index (0-0.79); ~Hepatitis A Antibody IgM Nonreactive (Nonreactive)
[2025-04-28 12:30] LABS: HBS Num1 0.00 mIU/mL (0-7.99); HBc Num1 0.07 S/CO (0.00-0.79); HBsAGNum1 0.40 S/CO (0.00-0.99); Hepatitis A Antibody IgM 0.19 Index (0-0.79); Hepatitis B Surface Antigen Negative (Negative); ~HepC Num1 0.12 S/CO (0.00-0.79); ~Hepatitis A Antibody IgM Nonreactive (Nonreactive); ~Hepatitis B Surface Antibody NONREACTIVE (Nonreactive); ~Hepatitis C Antibody Nonreactive (Nonreactive)
[2025-04-28 12:38] LABS: Folate 13.6 ng/mL (> or = 4.0); Vitamin B12 523 pg/mL (200-900)
== END 2025-04-28 07:57 | disposition home or self-care (01) ==
LOC: HO.WFDLDS 07:56
PROVIDERS: Visit Provider Physician Assistant Medical
DX: E11.9 Type 2 diabetes mellitus without complications (principal); E66.9 Obesity, unspecified; D64.9 Anemia, unspecified; E78.5 Hyperlipidemia, unspecified; I10 Essential (primary) hypertension; R74.8 Abnormal levels of other serum enzymes
CPT/HCPCS: 36415; 80048; 80061; 80076; 82607; 82728; 82746; 83540; 85025; 86704; 86706; 86709; 86803; 87340

== ENCOUNTER 2025-06-01 08:28 | Outpatient (REF) | payer MEDICARE, SELFPAY ==
[2025-06-01 11:06] LABS: MANUAL DIFF FLAG NO
[2025-06-01 11:19] LABS: Hematocrit 38.0 % (42.0-52.0); Hemoglobin 12.2 g/dl (14.0-18.0); Imm Gran Abs Auto 0.03 X10*3/uL (0.00-0.03); Imm Gran Pct Auto 0.4 % (0.0-0.4); Lymphocytes Absolute Auto 2.2 X10*3/uL (1.2-4.9); Mean Corpuscular HGB Conc 32.1 g/dl (31.0-36.0); Mean Corpuscular Hemoglobin 28.6 pg (27.0-33.0); Mean Corpuscular Volume 89.0 fL (80.0-98.0); NRBC Abs Auto 0.000 X10*3/uL (0.0-0.012); NRBC Pct Auto 0.0 /100WBC (0.0-0.2); Platelet Count 215 X10*3/uL (160-400); Red Blood Count 4.27 X10*6/uL (4.60-5.80); White Blood Count 8.2 X10*3/uL (4.8-10.8)
[2025-06-01 11:35] LABS: Alanine Aminotransferase 50 U/L (0-40); Albumin Level 4.2 g/dL (3.5-5.0); Alkaline Phosphatase 85 U/L (39-117); Anion Gap 12 (12-20); Aspartate Amino Transferase 37 U/L (5-37); Blood Urea Nitrogen 23 mg/dL (9-16); Calcium 8.8 mg/dL (8.4-10.2); Carbon Dioxide 27 mmol/L (22-29); Chloride 104 mmol/L (96-108); Estimated Glomerular Filt Rate 49; Potassium 3.9 mmol/L (3.3-5.1); Sodium 139 mmol/L (135-145); Total Protein 7.0 g/dL (6.5-8.0); Uric Acid 5.4 mg/dL (3.4-7.0)
== END 2025-06-01 08:29 | disposition home or self-care (01) ==
LOC: HO.WFDLDS 08:28
PROVIDERS: Visit Provider Student in an Organized Health Care Education/Training Program
DX: M1A.09X0 Idiopathic chronic gout, multiple sites, without tophus (tophi) (principal)
CPT/HCPCS: 36415; 80053; 84550; 85025; 85652; 86140

== ENCOUNTER 2025-06-04 08:36 | Outpatient (AMB) | payer MEDICARE, SELFPAY ==
--- OUTSIDE RECORDS SUMMARY | 2023-12-05 06:00 | XMS_ITS ---
Author Organization [facility], [place] Address [address] [facility] 1 [place] [address] Care Team Providers Care Locomotive Mechanic Name Role Phone Migration, Provider Unavailable Unavailable REASON FOR VISIT CPX Encounters Encounter Location Date Provider Diagnosis [facility], [address] [address] 12/05/2023 Provider Migration Plan Of Treatment No Information Progress Notes * JEB WRENDOB:[birth year] (74 yo M)Acc No.[id number]:12/05/2023 Progress Notes Patient: JEB AL Provider: Sandra Nunn :1950 A ge:73 Y S ex:Male Date:12/05/2023 Address:[address] [place], [place] [id number] Subjective: * Chief Complaints: * C PX * Ocular Surgical History: Objective: Vision Examination: * Electronic signature of Prov ider Migration on 06/04/2025 at 09:03 AM EST Sign off status: Pending * Provider: Sandra thompson Migration Date: 0 12/05/2023 Generated for Bernardo villalobos/Bridgette/Maria Victoriasmitting on: 1 08/05/2024 09:03 AM EST
--- OUTSIDE RECORDS SUMMARY | 2024-03-31 06:00 | XMS_ITS ---
Author Organization [facility] [place] Address [address] [facility] [address] [place] [address] Care Team Providers Care Cuff Matcher Name Role Phone Migration, Provider Unavailable Unavailable REASON FOR VISIT Follow-up Appt Encounters Encounter Location Date Provider Diagnosis [facility], [address] [address] 03/31/2024 Provider Migration Plan Of Treatment No Information Progress Notes * JEB WRENDOB:[birth year] (74 yo M)Acc No.[id number]:03/31/2024 Progress Notes Patient: JEB AL Provider: Sandra Nunn :1950 A ge:73 Y S ex:Male Date:03/31/2024 Address:[address] [place] [address] [facility] Subjective: * Chief Complaints: * F ollow-up Appt * Ocular Surgical History: Objective: Vision Examination: * Electronic signature of Prov ider Migration on 06/04/2025 at 09:04 AM EST Sign off status: Pending * Provider: Sandra Nunn Date: Generated for Bernardo villalobos/Bridgette/Newtonitting on: 08/05/2024 09:04 AM EST
--- OUTSIDE RECORDS SUMMARY | 2024-04-14 04:45 | XMS_ITS ---
Author Organization [facility], [place] Address [address] [facility] 1 [place] [address] Care Team Providers Care Fulfillment Coordinator Name Role Phone Migration, Provider Unavailable Unavailable REASON FOR VISIT Follow-up Appt Encounters Encounter Location Date Provider Diagnosis [facility], [address] [address] 04/14/2024 Provider Migration Plan Of Treatment No Information Progress Notes * JEB WRENDOB:[birth year] (74 yo M)Acc No.[id number]:04/14/2024 Progress Notes Patient: JEB AL Provider: Sandra Nunn :1950 A ge:73 Y S ex:Male Date:04/14/2024 Address:[address] [place], [place] [address] [address] [facility] Subjective: * Chief Complaints: * F ollow-up Appt * Ocular Surgical History: Objective: Vision Examination: * Electronic signature of Prov ider Migration on 06/04/2025 at 09:04 AM EST Sign off status: Pending * Provider: Sandra Nunn Date: Generated for Bernardo villalobos/Bridgette/Newtonitting on: 08/05/2024 09:04 AM EST
--- OUTSIDE RECORDS SUMMARY | 2024-07-16 04:30 | XMS_ITS ---
Author Organization [facility] [place] Address [address] [facility] 1 [place] [address] Care Team Providers Care Pick Up Man Name Role Phone Migration, Provider Unavailable Unavailable REASON FOR VISIT Follow-up Appt Encounters Encounter Location Date Provider Diagnosis [facility], [address] [address] 07/16/2024 Provider Migration Plan Of Treatment No Information Progress Notes * JEB WRENDOB:[birth year] (74 yo M)Acc No.[id number]:07/16/2024 Progress Notes Patient: JEB AL Provider: Sandra Nunn :1950 A ge:73 Y S ex:Male Date:07/16/2024 Address:[address] [place], [place] [address] [id number] Subjective: * Chief Complaints: * F ollow-up Appt * Ocular Surgical History: Objective: Vision Examination: * Electronic signature of Prov ider Migration on 06/04/2025 at 09:04 AM EST Sign off status: Pending * Provider: Sandra Nunn Date: 0 07/16/2024 Generated for Bernardo villalobos/Bridgette/Newtonitting on: 08/05/2024 09:04 AM EST
--- OUTSIDE RECORDS SUMMARY | 2024-08-07 05:30 | XMS_ITS ---
Author Organization [facility] [place] Address [address] [facility] 1 [place] [address] Care Team Providers Care Garment Looper Name Role Phone Migration, Provider Unavailable Unavailable REASON FOR VISIT CONFERENCE Encounters Encounter Location Date Provider Diagnosis [facility], [address] [address] 08/07/2024 Provider Migration Plan Of Treatment No Information Progress Notes * JEB WRENDOB:[birth year] (74 yo M)Acc No.[id number]:08/07/2024 Progress Notes Patient: JEB AL Provider: Sandra Nunn :1950 A ge:73 Y S ex:Male Date:08/07/2024 Address:[address] [place] [address] [id number] Subjective: * Chief Complaints: * C ONFERENCE * Ocular Surgical History: Objective: Vision Examination: * Electronic signature of Prov ider Migration on 06/04/2025 at 09:02 AM EST Sign off status: Pending * Provider: Sandra thompson Migration Date: 0 08/07/2024 Generated for Bernardo villalobos/Bridgette/Maria Victoriasmitting on: 1 08/05/2024 09:02 AM EST
--- OUTSIDE RECORDS SUMMARY | 2024-08-07 05:30 | XMS_ITS ---
Author Organization [facility] [place] Address [address] [facility] [address] [place] [address] Care Team Providers Care Supervisor Maintenance And Custodians Name Role Phone Bear Wills Unavailable [phone] REASON FOR VISIT Follow-up Appt Encounters Encounter Location Date Provider Diagnosis [address] [address] 08/07/2024 Bear Wills Plan Of Treatment No Information Progress Notes * JEB WRENDOB:[birth year] (74 yo M)Acc No.[id number]:08/07/2024 Progress Notes Patient: JEB AL Provider: Macrina WOOD :1950 A ge:73 Y S ex:Male Date:08/07/2024 Address:[address] [place], [place] [phone] Subjective: * Chief Complaints: * F ollow-up Appt * Ocular Surgical History: Objective: Vision Examination: * Electronic signature of Anuel Wills PA-C on 06/04/2025 at 09:02 AM EST Sign off status: Pending * Provider: Macrina WOOD Date: 0 08/07/2024 Generated for Espinozai ng/Bridgette/eTshaniqueitting on: 1 08/05/2024 09:02 AM EST
--- NOTE | 2025-06-04 08:48 | A.OFFVIS_ITS ---
Vital Signs 06/04/25 08:56 Height 5 ft 8 in Weight 218 lb 0.595 oz BMI 33.1 BP 124/78 Blood Pressure Location Lt brachial Position Sitting Pulse 91 Pulse Source Pulse Oximeter Pulse Oximetry (%) 98 Oxygen Delivery Method Room Air Intake Visit Reasons: 3months Intake Note: Patient presents today for Gout follow up and test results. Information Interpreted: non-clinical & clinical Accompanied by: Self / Same As Patient [facility]ies [facility] Allergy (Severe, Verified 06/04/25 08:55) Stomach pain Medication List - Last Reconciled 06/04/25 by Amanda Combs MD allopurinol 300 mg PO DAILY 90 days amlodipine 10 mg PO QAM aspirin 1 tab PO DAILY atorvastatin 40 mg PO BEDTIME colchicine 0.6 mg PO DAILY dulaglutide (Trulicity) 1.5 mg (0.5 mL) subcut QWEEK glipizide ER 10 mg PO DAILY glucose (Dex4 Glucose Quick Dissolve) 16 grams (4 x 4 gram) PO Q15M PRN lisinopril-hydrochlorothiazide 20-25 mg 2 tabs PO QAM 90 days magnesium aspart,citrate,oxide 400mg BID mupirocin 2% 1 appl topical BID omeprazole 10 mg PO DAILY HPI Comments Details: Patient is a 73 y.o male with HTN, HLD, DM and 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 - On allopurinol 300mg daily and colchicine 0.6mg twice a week - Doing well - No gout flares - Recently had procedures on his right ankle - Stopped colchicine Today - On Allopurinol 300mg daily - No new complaints - Recovering from his ankle surgery, better than last time - No gout flares since the last visit Rheumatologic History: Initial uric acid 10.3 Allopurinol + colchicine started 11/2023 - 02/2025 Current Rheumatology Medication(s): Allopurinol 300mg daily [facility] Medical History (Updated 06/04/25 @ 09:17 by Amanda Combs MD) Umbilical hernia Gallstones Hepatic steatosis Cholelithiasis Right leg swelling CKD stage 3a, GFR 45-59 ml/min Microalbuminuria due to type 2 diabetes mellitus Anemia Liver enzyme elevation Obesity Hyperlipidemia Essential hypertension Type 2 diabetes mellitus Lesion of left ear Gout TIA (transient ischemic attack) Diabetes Elevated cholesterol HTN (hypertension) Surgical History H/O colonoscopy History of surgery on lower extremity History of ankle surgery Hx of left knee surgery Social History Housing: House Are you a primary intensive care anaesthetist to a significant other at home: No Alcohol intake: current Alcohol intake frequency: a few times a week Alcohol type: beer Patient Tobacco Use Status: Former Tobacco user Tobacco use type: Cigarette Cigarette Packs Per Day: 1 Cigarettes Per Day: 2 Years Smoked: 45 e-Cigarette/Vaping Use: Never Used Second Hand Smoke Exposure: No Substance Use Type: Marijuana service: Yes Current occupational status: retired Current occupational exposures/hazards: No Cognitive needs: No Hearing needs: Yes Vision needs: No Review of Systems Narrative Review of Systems Constitutional: Denies fever, chills, weight loss ENT: Denies vision changes, eye pain or eye redness, dental caries, dry mouth GI: Denies nausea, vomiting, diarrhea, abdominal pain, change in BM Pulm: Denies SOB, CUELLAR, hemoptysis, wheezing Cards: Denies chest pain, palpitations Skin: Denies Raynaud's, rash, nail changes, photosensitivity, SOLAR ENERGY SPECIALIST: Denies headaches, weakness, paresthesias, recurrent falls MSK: as per HPI All other systems reviewed and are unremarkable except noted above Physical Exam Exam Exam: Vital signs reviewed Physical Examination CONSTITUITIONAL Patient alert and cooperative. Well appearing and in no apparent painful distress MSK Hands * Right Hand: Able to make a fist. No swelling or tenderness to palpation of the MCPs, PIPs or DIPs. * Left Hand: Able to make a fist. No swelling or tenderness to palpation of the MCPs, PIPs or DIPs. Wrists * Right Wrist: Full ROM to flexion and extension. No swelling or TTP * Left Wrist: Full ROM to flexion and extension. No swelling or TTP Elbows * Right Elbow: Full ROM. No swelling or TTP. No TTP of the medial epicondyle. No TTP of the lateral epicondyle * Left Elbow: Full ROM. No swelling or TTP. No TTP of the medial epicondyle. No TTP of the lateral epicondyle Shoulders * Right shoulder: Full ROM. No swelling noted. No TTP of the AC joint. No TTP of the subacromial bursa. No TTP of the posterior shoulder * Left shoulder: Full ROM. No swelling noted. No TTP of the AC joint. No TTP of the subacromial bursa. No TTP of the posterior shoulder Knees * Right knee: Full ROM. No swelling noted. No TTP of the knee joint line. No TTP of pes anserine bursa * Left knee: Full ROM. No swelling noted. No TTP of the knee joint line. No TTP of pes anserine bursa. * Crepitations felt bilaterally Ankles * Right ankle: Good ankle dorsiflexion and plantar flexion. No swelling. No TTP of the ankle joint * Left ankle: Good ankle dorsiflexion and plantar flexion. No swelling. No TTP of the ankle joint Feet * Right foot: Negative squeeze test * Left foot: Negative squeeze test Tender points? * No tenderness to palpation of the bilateral trapezius, supraspinatus, anterior costochondral junctions, bilateral suboccipital muscle insertions SKIN No rashes Vital Signs: Last Vital Signs Pulse 91 06/04/25 08:56 BP 124/78 06/04/25 08:56 Pulse Ox 98 06/04/25 08:56 Oxygen Delivery Method Room Air 06/04/25 08:56 BMI result Body Mass Index 33.1 Results Reviewed Results Reviewed: Laboratory Tests 01/12/25 06/01/25 09:56 08:30 WBC 8.2 RBC 4.27 L Hgb 12.2 L Hct 38.0 L Plt Count 215 ESR 28 H 34 H Sodium 139 Potassium 3.9 Chloride 104 Carbon Dioxide 27 BUN 23 H Creatinine 1.40 Estimated GFR 49 Uric Acid 5.4 AST 37 ALT 50 H C-Reactive Protein 0.13 Assessment & Plan Assessment & Plan (1) Gout: Comment: Initial uric acid 10.3 Allopurinol + colchicine started 11/2023 Colchicine stopped 02/2025 Code(s): M10.9 - Gout, unspecified Category: Medical Qualifiers: Chronicity: chronic Gout etiology: idiopathic Gout site: multiple sites Presence of tophus: without tophus Qualified Code(s): M1A.09X0 - Idiopathic chronic gout, multiple sites, without tophus (tophi) Plan: #Non crystal proven gout Patient is a 74 y.o.male with chronic non crystal proven gout. UA at goal. Continue allopurinol to 300mg daily. 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 Plan I spent 30 minutes reviewing the record and labs, taking a history, examining the patient, discussing the treatment plan, answering questions and documenting in the medical record Orders: Orders Complete Blood Count Auto Diff 6 Months M1A.09X0 - Idiopathic chronic gout, multiple sites, without tophus (tophi) C Reactive Protein 6 Months M1A.09X0 - Idiopathic chronic gout, multiple sites, without tophus (tophi) Uric Acid 6 Months M1A.09X0 - Idiopathic chronic gout, multiple sites, without tophus (tophi) Comprehensive Met. Panel 6 Months M1A.09X0 - Idiopathic chronic gout, multiple sites, without tophus (tophi) Erythrocyte Sedimentation Rate 6 Months M1A.09X0 - Idiopathic chronic gout, multiple sites, without tophus (tophi) XR DEXA axial skeleton Today M81.0 - Age-related osteoporosis without current pathological fracture Medications: Refilled allopurinol 300 mg PO DAILY 90 tabs 1RF 90 days M1A.09X0 - Idiopathic chronic gout, multiple sites, without tophus (tophi) Discontinued colchicine Discontinued Reason: Doctor's Order 0.6 mg PO DAILY 90 tabs 1RF M1A.09X0 - Idiopathic chronic gout, multiple sites, without tophus (tophi) Coding Level of Care Code Est Pt Level 4 (10869) Add On Problem Visit Only Diagnoses Idiopathic chronic gout of multiple sites without tophus M1A.09X0 Chronicity: chronic Gout etiology: idiopathic Gout site: multiple sites Presence of tophus: without tophus Screening for osteoporosis Z13.820 Encounter for monitoring allopurinol therapy Z51.81; Z79.899
[2025-06-04 08:56] VITALS: BP 124/78; PULSE 91; O2SAT 98; BMI 33.1
--- OUTSIDE RECORDS SUMMARY | 2025-06-04 09:03 | XMS_ITS | Patient Health Record ---
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 Problem Essential hypertension (06928276) Hypertension, unspecified type (I10) Active confirmed Vital Signs Weight-kg 97.52 kg 08/05/2024 Height 68 in 08/05/2024 Weight 215 lbs 08/05/2024 BMI 32.69 kg/m2 08/05/2024 Encounters Encounter Location Date Provider Diagnosis [facility], [address] [address] 07/25/2024 CHULA GRIFFIN Achilles tendinitis of right lower extremity M76.61 and History of ankle surgery Z98.890 [facility], [address] [address] 08/05/2024 CHULA GRIFFIN History of ankle surgery Z98.890 and Arthritis of subtalar joint M19.079 [facility], [address] [address] 06/13/2024 CHULA GRIFFIN [facility] [address] [address] 06/16/2024 CHULA GRIFFIN [facility] [address] [address] 06/20/2024 CHULA GRIFFIN Assessments Encounter Date Diagnosis [...] to discuss next steps in management. 08/05/2024 [employer] n was used to assist with documentation of this note. While I did review this for errors, it is certainly possible that I may have overlooked some. If there is a confusing error, please do not hesitate to contact me for clarification. Thank you. 07/25/2024 [employer] was used to assist with documentation of [...] encounter as if the encounter had occurred [id number] with the same standards of appropriate practice [...] compliant video conferencing technology. Plan Of Treatment Pending Test Test Name Order Date CT Scan : Ankle, Right w/o contrast 03/18 Insurance Providers Payer Name Payer Address Payer Phone Subscriber Number Group Number Insured Name Patient Relationship to Insured Coverage Start Date Coverage End Date [facility] Medicare Advantage [address] [place], [place] [id number] [phone] [id number] JEB Self - patient is the insured 5 [employer] of [place] J14 [address] [facility] [place] [id number] TOTH Self - patient is the insured 4 Medical (General) History Medical History History ICD Code diabetes high blood pressure Surgical History Surgery Date(Month/Year) right foot fusion right foot screw removal
--- OUTSIDE RECORDS SUMMARY | 2025-06-04 09:03 | XMS_ITS | Patient Health Record ---
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 Had two broken screws and screw removal in 2021. As tried AFO, regenerative medicine with specialist in [place] without much relief. Wants revision at this point CT scan at [facility] [address] scan 2024 at [facility]. Currently not taking patients insurance therefore referral out. Requesting Dr. Ochoa is available. 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 Had two broken screws and screw removal in 2021. As tried AFO, regenerative medicine with specialist in [place] without much relief. Wants revision at this point CT scan at [facility] [address] scan 2024 at [facility]. Currently not taking patients insurance therefore referral out. Requesting Dr. Ochoa is available. 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 Problem Arthritis of right subtalar joint (9505050945519582 6) 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
--- OUTSIDE RECORDS SUMMARY | 2025-06-04 09:04 | XMS_ITS | Encounter Summary ---
Author Organization [facility] Address [address] [place] [address] Care Team Providers Care Clipman Name Role Phone Leonid Shea MD Primary Care Provider [phone] Encounter Details Date Type Department Care Team (Latest Contact Info) Description 08/07/2024 Lab Requisition [facility] [address] [facility] [place] [id number] [place] [address] [facility] [address] [place] [address] Type 2 diabetes mellitus without complications (CMS/HCC [...] 8:01 PM EST JUAN MANUEL CARDONA [place] ([facility]) [facility] Comment:Auto resulted. Blood Venous blood specimen / Unknown 08/07/2024 08/07/2024 6:39 PM EST us Bear WOOD LAB BLOOD ORDERABLES Final Res ult [facility] [address] [place] [address], [place] [phone] * Uric acid (08/07/2024 12:00 AM EST) Pathologist [facility] Uric Acid 5.9 3.7 - 9.2 mg/dL LAB CHEMISTRY METHOD 08/07/2024 7:03 PM EST [facility] Blood Venous blood specimen / Unknown 08/07/2024 08/07/2024 6:39 PM EST Bear WOOD LAB BLOOD ORDERABLES Final Res ult Performing Organization Address [facility]/ZIP Co de Phone Number [facility] [address] [place] [address], [place] [phone] * Prostate specific antigen screen (08/07/2024 12:00 AM EST) [facility] PSA 1.18 0.00 - 4.00 ng/mL LAB CHEMISTRY METHOD 08/07/2024 7:04 PM EST [facility] Blood Venous blood specimen / Unknown 08/07/2024 08/07/2024 6:39 PM EST Narrative [facility] - 08/07/2024 7:04 PM EST The Siemens Advia Centaur Chemiluminescent Immunoassay is used. Results obtained with different assay methods or kits cannot be used interchangeably. Results cannot be interpreted as absolute evidence of the presence or absence of malignant disease. us Bear WOOD LAB BLOOD ORDERABLES Final Res ult [facility] [address] [place] [address], [place] [phone] * (ABNORMAL) Hemoglobin A1c (08/07/2024 12:00 AM EST) [facility] Hemoglobin A1C 9.0(H) <6.5 % LAB CHEMISTRY METHOD 08/07/2024 9:37 PM [facility] Mean Bld Glu Estim. 212 mg/dL LAB CHEMISTRY METHOD 08/07/2024 9:37 PM [facility] Blood Venous blood specimen / Unknown 08/07/2024 08/07/2024 6:39 PM EST us Bear WOOD LAB BLOOD ORDERABLES Final Res ult [facility] [address] [place] [address], [place] [phone] * (ABNORMAL) Complete blood count (08/07/2024 12:00 AM EST) WBC 10.4 4.8 - 10.8 K/mcL LAB HEMETOLOGY METHOD 08/07/2024 7:05 PM [facility] RBC 4.40(L) 4.50 - 5.50 M/mcL LAB HEMETOLOGY METHOD 08/07/2024 7:05 PM [facility] Hemoglobin 12.5(L) 13.5 - 17.5 g/dL LAB HEMETOLOGY METHOD 08/07/2024 7:05 PM [facility] Hematocrit 39.4(L) 42.0 - 54.0 % LAB HEMETOLOGY METHOD 08/07/2024 7:05 PM [facility] MCV 89.7 79.0 - 98.0 FL LAB HEMETOLOGY METHOD 08/07/2024 7:05 PM [facility] MCH 28.5 27.0 - 32.0 pcg LAB HEMETOLOGY METHOD 08/07/2024 7:05 PM [facility] MCHC 31.7(L) 32.0 - 37.0 g/dL LAB HEMETOLOGY METHOD 08/07/2024 7:05 PM [facility] RDW 14.0 11.0 - 15.0 % LAB HEMETOLOGY METHOD 08/07/2024 7:05 PM [facility] Platelets 254 130 - 400 K/mcL LAB HEMETOLOGY METHOD 08/07/2024 7:05 PM [facility] MPV 12.2(H) 7.0 - 11.0 FL LAB HEMETOLOGY METHOD 08/07/2024 7:05 PM [facility] NRBC 0.0 <1.0 % LAB HEMETOLOGY METHOD 08/07/2024 7:05 PM [facility] NRBC Absolute 0.00 <0.10 K/mcL LAB HEMETOLOGY METHOD 08/07/2024 7:05 PM [facility] Blood Venous blood specimen / Unknown 08/07/2024 08/07/2024 6:39 PM EST us Bear WOOD LAB BLOOD ORDERABLES Final Res ult [facility] [address] [place] [address], [place] [phone] * (ABNORMAL) Lipid panel with reflex to direct LDL (08/07/2024 12:00 AM EST) Cholesterol 222(H) 0 - 200 mg/dL LAB CHEMISTRY METHOD 08/07/2024 7:03 PM [facility] Triglycerides 287(H) 0 - 150 mg/dL LAB CHEMISTRY METHOD 08/07/2024 7:03 PM [facility] HDL 28(L) >=40 mg/dL LAB CHEMISTRY METHOD 08/07/2024 7:03 PM [facility] LDL Calculated 137(H) 0 - 100 mg/dL LAB CHEMISTRY METHOD 08/07/2024 7:03 PM [facility] VLDL Cholesterol Mendez 57.4 mg/dL LAB CHEMISTRY METHOD 08/07/2024 7:03 PM [facility] Non HDL Chol. (LDL+VLDL) 194(H) <145 mg/dL LAB CHEMISTRY METHOD 08/07/2024 7:03 PM [facility] Chol/HDL Ratio 7.9(H) 0.0 - 4.4 LAB CHEMISTRY METHOD 08/07/2024 7:03 PM [facility] Blood Venous blood specimen / Unknown 08/07/2024 08/07/2024 6:39 PM EST us Bear WOOD LAB BLOOD ORDERABLES Final Res ult [facility] [address] [place] [address], [place] [phone] * (ABNORMAL) Comprehensive metabolic panel (08/07/2024 12:00 AM EST) Sodium 138 133 - 145 mmol/L LAB CHEMISTRY METHOD 08/07/2024 7:03 PM [facility] Potassium 4.1 3.5 - 5.5 mmol/L LAB CHEMISTRY METHOD 08/07/2024 7:03 PM [facility] Chloride 103 96 - 110 mmol/L LAB CHEMISTRY METHOD 08/07/2024 7:03 PM [facility] CO2 25 21 - 32 mmol/L LAB CHEMISTRY METHOD 08/07/2024 7:03 PM [facility] Anion Gap 10 3 - 11 LAB CHEMISTRY METHOD 08/07/2024 7:03 PM [facility] Glucose 261(H) 70 - 100 mg/dL LAB CHEMISTRY METHOD 08/07/2024 7:03 PM [facility] BUN 19 5 - 25 mg/dL LAB CHEMISTRY METHOD 08/07/2024 7:03 PM [facility] Creatinine 1.40(H) 0.70 - 1.30 mg/dL LAB CHEMISTRY METHOD 08/07/2024 7:03 PM [facility] eGFR 52(L) >=60 mL/min/1. 73m2 LAB CHEMISTRY METHOD 08/07/2024 7:03 PM [facility] Comment:Calculation based on the Chronic Kidney Disease Epidemiology Collaboration (CKD-EPI) equation refit without adjustment for race. BUN/Creatinine Ratio 13.6 LAB CHEMISTRY METHOD 08/07/2024 7:03 PM [facility] Calcium 9.1 8.5 - 10.5 mg/dL LAB CHEMISTRY METHOD 08/07/2024 7:03 PM [facility] AST (SGOT) 29 10 - 42 unit/L LAB CHEMISTRY METHOD 08/07/2024 7:03 PM [facility] ALT (SGPT) 63(H) 10 - 60 unit/L LAB CHEMISTRY METHOD 08/07/2024 7:03 PM [facility] Alkaline Phosphatase 92 42 - 121 unit/L LAB CHEMISTRY METHOD 08/07/2024 7:03 PM [facility] Total Protein 7.2 6.0 - 8.0 g/dL LAB CHEMISTRY METHOD 08/07/2024 7:03 PM [facility] Albumin 3.4 3.2 - 5.0 g/dL LAB CHEMISTRY METHOD 08/07/2024 7:03 PM [facility] Total Bilirubin 0.4 0.0 - 1.4 mg/dL LAB CHEMISTRY METHOD 08/07/2024 7:03 PM [facility] Blood Venous blood specimen / Unknown 08/07/2024 08/07/2024 6:39 PM EST us Bear WOOD LAB BLOOD ORDERABLES Final Res ult [facility] [address] [place] [address], [place] [phone] documented in this encounter Visit Diagnoses Diagnosis Type 2 diabetes mellitus without complications (CMS/HCC V24, CMS/HCC V28) Hyperlipidemia, unspecified Essential (primary) hypertension Unspecified essential hypertension Pain in unspecified joint Chronic fatigue, unspecified Gout, unspecified documented in this encounter Care Teams Clipman Relationship Specialty Start Date End Date Leonid Shea MD [address] [place] [phone] PCP - General Internal Medicine 11/25/18 documented as of this encounter
--- OUTSIDE RECORDS SUMMARY | 2025-06-04 09:04 | XMS_ITS | Patient Health Record ---
Author Organization [facility], [place] Address [address] [place] [address] Care Team Providers Care Termite Control Technician Name Role Phone Bear Wills Unavailable [phone] Migration, Provider Unavailable Unavailable Mahogany Laughlin Unavailable [phone] Reason For Referral No Information Encounters Encounter Location Date Provider Diagnosis [facility], [place] [address] [place] [phone] 07/16/2024 Provider Migration [facility], [place] [address] [phone] 08/07/2024 Bear Wills [facility] [place] [address] [place] [phone] 08/07/2024 Provider Migration [facility], [place] [address] [address] 01/06/2025 Mahogany Laughlin [facility] [place] [address] [address] 01/12/2025 Mahogany Laughlin Plan Of Treatment No Information Insurance Providers Payer Name Payer Address Payer Phone Subscriber Number Group Number Insured Name Patient Relationship to Insured Coverage Start Date Coverage End Date [employer] [place] [employer] Pf [address] [place] [phone] [id number] JEB WREN Self - patient is the insured
--- OUTSIDE RECORDS SUMMARY | 2025-06-04 09:04 | XMS_ITS | Clinical Summary ---
Author Organization [facility] Prior to 11/15/[address] [place] [id number] Care Team Providers Care Tire Fabricator Name Role Phone Leonid Shea MD Primary Care Provider [phone] Allergies No known active allergies Medications Medication [...] age to complete this topic Care Teams Tire Fabricator Relationship Specialty Start Date End Date Leonid Shea MD [address] [place] [phone] PCP - General Internal Medicine 06/27/18
--- OUTSIDE RECORDS SUMMARY | 2025-06-04 09:05 | XMS_ITS | Clinical Summary ---
Author Organization [address] Address [address] [place] [address] Phone Care Team Providers Care Jewish Thought Professor Name Role Phone Leonid Shea MD Primary Care Provider [phone] Surgical History Surgery Date Site/Laterality Comments KNEE [...] on file Sexual Orientation Not on file Plan of Treatment Health Maintenance Due Date [...] series) 12/05/2023 Depression Screening 06/18/2024 COVID-19 Vaccine ( - 2024- season) 2025 03/23/2023, 07/27/2021, 09/29/2020, [...] LAB CHEMISTRY METHOD 09/16/2024 2:35 PM EDT [facility] Mean Bld Glu Estim. 180 mg/dL LAB CHEMISTRY METHOD 09/16/2024 2:35 PM EDT [facility] Blood Venous blood specimen / Unknown Venipuncture / Unknown 09/16/2024 10:56 AM EDT 09/16/2024 11:58 AM EDT us Anand Ochoa MD LAB BLOOD ORDERABLES Janice l Result [facility] [address] [place] [address], * (ABNORMAL) Basic metabolic panel (09/16/2024 10:56 AM EDT) Sodium 138 133 - 145 mmol/L LAB CHEMISTRY METHOD 09/16/2024 2:10 PM EDT [facility] Potassium 3.9 3.5 - 5.5 mmol/L LAB CHEMISTRY METHOD 09/16/2024 2:10 PM EDT [facility] Chloride 102 96 - 110 mmol/L LAB CHEMISTRY METHOD 09/16/2024 2:10 PM EDT [facility] CO2 25 21 - 32 mmol/L LAB CHEMISTRY METHOD 09/16/2024 2:10 PM T [facility] Anion Gap 11 3 - 11 LAB CHEMISTRY METHOD 09/16/2024 2:10 PM EDT [facility] Glucose 150(H) 70 - 100 mg/dL LAB CHEMISTRY METHOD 09/16/2024 2:10 PM EDT [facility] BUN 26(H) 5 - 25 mg/dL LAB CHEMISTRY METHOD 09/16/2024 2:10 PM EDT [facility] Creatinine 1.30 0.70 - 1.30 mg/dL LAB CHEMISTRY METHOD 09/16/2024 2:10 PM EDT [facility] eGFR 57(L) >=60 mL/min/1. 73m2 LAB CHEMISTRY METHOD 09/16/2024 2:10 PM EDT [facility] Comment:Calculation based on the Chronic Kidney Disease Epidemiology Collaboration (CKD-EPI) equation refit without adjustment for race. BUN/Creatinine Ratio 20.0 LAB CHEMISTRY METHOD 09/16/2024 2:10 PM EDT [facility] Calcium 9.0 8.5 - 10.5 mg/dL LAB CHEMISTRY METHOD 09/16/2024 2:10 PM EDT [facility] Blood Venous blood specimen / Unknown Venipuncture / Unknown 09/16/2024 10:56 AM EDT 09/16/2024 11:56 AM EDT us Anand Ochoa MD LAB BLOOD ORDERABLES Janice l Result [facility] [address] [place] [address], * (ABNORMAL) Lipid panel with reflex to direct LDL (08/07/2024 12:00 AM EST) Cholesterol 222(H) 0 - 200 mg/dL LAB CHEMISTRY METHOD 08/07/2024 7:03 PM EST [facility] Triglycerides 287(H) 0 - 150 mg/dL LAB CHEMISTRY METHOD 08/07/2024 7:03 PM EST [facility] HDL 28(L) >=40 mg/dL LAB CHEMISTRY METHOD 08/07/2024 7:03 PM EST [facility] LDL Calculated 137(H) 0 - 100 mg/dL LAB CHEMISTRY METHOD 08/07/2024 7:03 PM EST [facility] VLDL Cholesterol Mendez 57.4 mg/dL LAB CHEMISTRY METHOD 08/07/2024 7:03 PM [facility] Non HDL Chol. (LDL+VLDL) 194(H) <145 mg/dL LAB CHEMISTRY METHOD 08/07/2024 7:03 PM EST [facility] Chol/HDL Ratio 7.9(H) 0.0 - 4.4 LAB CHEMISTRY METHOD 08/07/2024 7:03 PM [facility] Blood Venous blood specimen / Unknown 08/07/2024 08/07/2024 6:39 PM EST Bear WOOD LAB BLOOD ORDERABLES Final Res ult [facility] [address] [place] [address], from Last 3 Months or Most Recently Relevant to Health Maintenance Insurance [facility] MEDICARE ADVANTAGE [facility] Care Teams Jewish Thought Professor Relationship Specialty Start Date End Date Leonid Shea MD [address] [phone] PCP - General Internal Medicine 11/25/18
== END 2025-06-04 09:19 | disposition home or self-care (01) ==
LOC: HO.RHES 08:37
PROVIDERS: PCP Physician Assistant Medical; Visit Provider Student in an Organized Health Care Education/Training Program
DX: M1A.09X0 Idiopathic chronic gout, multiple sites, without tophus (tophi) (principal); Z13.820 Encounter for screening for osteoporosis; Z51.81 Encounter for therapeutic drug level monitoring; Z79.899 Other long term (current) drug therapy
CPT/HCPCS: 99214; G2211

== ENCOUNTER → 2025-06-04 08:36 | Outpatient (BNVA) | payer MEDICARE, SELFPAY | PROVIDERS: PCP Physician Assistant Medical; Visit Provider Student in an Organized Health Care Education/Training Program | DX: M1A.09X0 Idiopathic chronic gout, multiple sites, without tophus (tophi) (principal); Z13.820 Encounter for screening for osteoporosis; Z51.81 Encounter for therapeutic drug level monitoring; Z79.899 Other long term (current) drug therapy | CPT/HCPCS: 99212 ==